=== PATIENT | male | born 1950 | race Caucasian/White ===

== ENCOUNTER 2023-06-04 06:29 | Outpatient (OUT) | payer MEDICARE, SELFPAY ==
[2023-06-04 10:55] LABS: Prostate Specific Antigen Dx 1.25 ng/mL (<=4.00)
== END 2023-06-04 06:30 | disposition home or self-care (01) ==
LOC: LAB 06:32
PROVIDERS: PCP Internal Medicine; Visit Provider Physician Assistant
DX: N40.0 Benign prostatic hyperplasia without lower urinary tract symptoms (principal)
CPT/HCPCS: 36415; 84153

== ENCOUNTER 2023-09-03 14:42 | Outpatient (OUT) | payer MEDICARE, SELFPAY ==
--- NOTE | 2023-09-03 | XR_ITS ---
The [address] [address] Patient Name: CHA BLAKE MRN: [id number] date: 1950 Sex: M Assigned Patient Location: [facility] Current Patient Location: [facility] Accession/Order Number: [id number] Exam Date: 09/03/2023 09:15 Report Date: 09/03/2023 14:49 At the request of: FIOR GALVAN Procedure: XR foot LT min 3V EXAM: XR foot LT min 3V 09/03/2023. FINDINGS: Frontal, oblique, and lateral views of the left foot were obtained. Axial view of the calcaneus was also present. A total of 4 images were obtained. HISTORY: LEFT FOOT PAIN COMPARISON: None. XR/XR foot LT min 3V IMPRESSION: 1. 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 At the forefoot this is most apparent at the first MTP and second DIP articulations. At the midfoot there is involvement of the first through third TMT articulations. There is involvement of the articulation between the cuneiforms and navicular as well as calcaneocuboid and talonavicular articulations. 2. No acute fracture or dislocation noted. 3. Small plantar calcaneal enthesophyte is noted. Electronically authenticated by: NAVIN OGDEN Date: 09/03/2023 14:49
== END 2023-09-03 14:43 | disposition home or self-care (01) ==
LOC: RAD 14:42
PROVIDERS: PCP Internal Medicine; Visit Provider Physician Assistant
DX: M20.10 Hallux valgus (acquired), unspecified foot (principal)
CPT/HCPCS: 73630

== ENCOUNTER 2024-06-03 06:58 | Outpatient (OUT) | payer MEDICARE, SELFPAY ==
[2024-06-03 08:01] LABS: Prostate Specific Antigen Dx 2.61 ng/mL (<=4.00)
== END 2024-06-03 06:59 | disposition home or self-care (01) ==
LOC: LAB 07:01
PROVIDERS: PCP Internal Medicine; Visit Provider Urology
DX: N40.1 Benign prostatic hyperplasia with lower urinary tract symptoms (principal); R97.20 Elevated prostate specific antigen [PSA]; Z80.42 Family history of malignant neoplasm of prostate
CPT/HCPCS: 36415; 84153

== ENCOUNTER 2024-09-01 09:21 | Outpatient (OUT) | payer MEDICARE, SELFPAY ==
--- OUTSIDE RECORDS SUMMARY | 2024-09-01 09:35 | XMS_ITS | CCD ---
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 Name Role Phone FRANK, DR TINAJERO Admitting Unavailable PERON, DR TINAJERO Attending Unavailable DIA, DR ROB Primary Care Unavailable PERGAIL, DR TINAJERO Consulting Unavailable HEMMER, DR MILDRED Nolasco Admitting Unavailable HEMMER, DR MILDRED Nolasco Attending Unavailable KHANNA, DR ROB Primary Care Unavailable BA, DR BRIDGER Neville Consulting Unavailable HEMMER, DR MILDRED Nolasco Consulting Unavailable GEORGETTEALISE Admitting Unavailable ALISE PALOMINO Attending Unavailable DIA, DR ROB Primary Care Unavailable DIA, DR ROB Consulting Unavailable BA, DR BRIDGER Neville Consulting Unavailable GEORGETTEALISE NGUYEN Consulting Unavailable DIA, DR ROB Primary Care Unavailable BLANE NAIK Admitting Unavailable BLANE NAIK Attending Unavailable BA, DR BRIDGER Neville Consulting Unavailable BLANE NAIK Consulting Unavailable Unavailable Primary Care Provider UnavailMD Ernie Hines Attending Provider LAURA Khanna Primary Care Provider Ernie Florez Attending Unavailable Speedy Khanna Primary Care Unavailable Ernie Florez Admitting Unavailable Ernie Florez Attending Unavailable Speedy Khanna Primary Care Unavailable Ernie Florez Admitting Unavailable Speedy Khanna II Primary Care Provider SPEEDY KHANNA II Primary Care Unavailable ANGLE MELCHOR Referring Unavailable ANGLE MELCHOR Attending Unavailable SPEEDY KHANNA II Primary Care Unavailable ANGLE MELCHOR Attending Unavailable ANGLE MELCHOR Admitting Unavailable SPEEDY KHANNA II Primary Care Unavailable ANGLE MELCHOR Referring Unavailable SPEEDY KHANNA II Primary Care Unavailable ANGLE MELCHOR Referring Unavailable SPEEDY KHANNA II Primary Care Unavailable ANGLE MELCHOR Referring Unavailable ANGLE MELCHOR Attending Unavailable SPEEDY KHANNA Attending Unavailable Speedy Khanna MD Unavailable Khanna MD, Speedy B Primary Care Provider [phone] SPEEDY KHANNA Primary Care Physician Tray BUCKLEY Attending Unavailable Tray BUCKLEY Attending Unavailable Tray BUCKLEY Attending Unavailable Allergies Allergy Classification Reported Allergen(s) Allergy Type Date of Onset Reaction(s) Facility (1 source) benzoin resin Drug Allergy 7 [facility] Repository (1 source) Misc-Other; Translations: [Misc-Other] Propensity to adverse reactions (disorder) 7 [facility] Repository (2 sources) atorvastatin Drug Allergy 3 Other [facility] Healthcare (2 sources) benzoin resin Drug Allergy 3 Unknown [facility] Healthcare (1 source) No Known Medication Allergies; Translations: [No Known Medication Allergies] Propensity to adverse reactions (disorder) [facility] Repository Medications Current Medications Medication Drug Class(es) Dates Sig (Normalized) Sig (Original) candesartan cilexetil 32 mg / hydroCHLOROthiazide 25 mg oral tablet (5 sources) Thiazide Diuretic, Angiotensin 2 Receptor Lexi Start: 06-14-2023 candesartan-hyd rochlorothiazid e 32 mg-25 mg oral tablet 1 tab(s), Oral, Daily, 30 tab(s), Refill(s) 0 Start Date: 06/14/23 Status: Ordered Start: 12-12-2022 Candesartan-Hy drochlorothiazid 32-25 mg tab Candesartan-Hydrochlorothiazid Active 1 TAB PO Daily December 12, 2022 12:00am 0 12/12/2022 Active Start: 12-12-2022 take 1 tablet by valarie th once daily Candesartan-Hydrochlorothiazid Active 1 TAB PO Daily December 12, 2022 12:00am Comment on above: Candesartan-Hydrochl orothiazid Active 1 TAB PO Daily December 12, 2022 12:00am doxycycline hyclate 50 mg oral tablet (2 sources) Tetracycline-class Drug Start: 06-14-20 doxycycline hyclate 50 mg oral tablet PRN Rash, Refills(s) 0, Other (see comment) Start Date: 06/14/23 Status: Ordered Start: 12-12-2022 take 50 mg by mouth once daily Doxycycline Hyclate Active 50 MG PO Daily December 12, 2022 12:00am Completed/Discontinued Medications Medication Drug Class(es) Dates Sig (Normalized) Sig (Original) acetaminophen 500 mg oral tablet (2 sources) Start: 03-10-2023 take 2 tablets by mouth every six hours as needed acetaminophen (TYLENOL) 500 mg tablet Take 2 tablets by mouth every 6 hours as needed for pain. 30 tablet 0 03/10/2023 Active Comment on above: Take 2 tablets by mo uth every 6 hours as needed for pain. oxyCODONE hydrochloride 5 mg oral tablet (2 sources) Opioid Agonist Start: 03-10-2023 take 1 tablet by mouth every eight hours as needed oxyCODONE IR (ROXICODONE) 5 mg immediate release tablet Indications: Post-op pain Take 1 tablet by mouth every 8 hours as needed. 6 tablet 0 03/10/2023 Active Comment on above: Take 1 tablet by valarie every 8 hours as needed. Problems Active Problems Problem Classification Problem Date Documented Date Episodic/Chronic Aortic; peripheral; and visceral artery aneurysms (13 sources) Abdominal aortic aneurysm, without rupture; Translations: [Abdominal aortic aneurysm without rupture] Onset: 10-31-2021 Chronic Conduction disorders (9 sources) First degree atrioventricular block; Translations: [Atrioventricular block, first degree] Onset: 03-06-2023 Chronic Disorders of lipid metabolism (2 sources) Raised low density lipoprotein cholesterol; Translations: [Pure hypercholesterolemia, unspecified] Onset: 05-29-2023 05-29-2023 Chronic Esophageal disorders (2 sources) Gastroesophageal reflux disease; Translations: [Gastro-esophageal reflux disease without esophagitis] Onset: 05-29-2023 05-29-2023 Chronic Essential hypertension (8 sources) Essential hypertension; Translations: [Essential (primary) hypertension] Onset: 03-06-2023 Chronic Hyperplasia of prostate (13 sources) Benign prostatic hyperplasia without lower urinary tract symptoms; Translations: [Benign prostatic hyperplasia] Onset: 05-31-2022 Chronic Other aftercare (1 source) 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; Translations: [OTH 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 OFFICER CURRENT DRUG THERAPY] Onset: 06-18-2022 Episodic Other connective tissue disease (1 source) Myalgia, unspecified site; Translations: [MYALGIA UNSPECIFIED SITE] Onset: 06-18-2022 Episodic Other ear and sense organ disorders (2 sources) Bilateral hearing loss; Translations: [Unspecified hearing loss, bilateral] 12-30-2023 Chronic Other ear and sense organ disorders (2 sources) Sensorineural hearing loss, bilateral; Translations: [Sensorineural hearing loss, bilateral] Onset: 05-29-2023 05-29-2023 Chronic Other inflammatory condition of skin (3 sources) Rosacea; Translations: [Rosacea, unspecified] Onset: 08-22-2023 08-22-2023 Chronic Other male genital disorders (3 sources) Induratio penis plastica; Translations: [Induration penis plastica] Onset: 08-22-2023 08-22-2023 Chronic Other nervous system disorders (1 source) Other acute postprocedural pain; Translations: [Post-op pain] Onset: 03-08-2023 Episodic Other nutritional; endocrine; and metabolic disorders (4 sources) Obese class I; Translations: [Obesity, unspecified] Onset: 03-07-2023 03-08-2023 Chronic Other nutritional; endocrine; and metabolic disorders (2 sources) Body mass index 30+ - obesity; Translations: [Obesity, unspecified] Onset: 08-22-2023 08-22-2023 Chronic Other screening for suspected conditions (not mental disorders or infectious disease) (4 sources) Encounter for screening for malignant neoplasm of prostate; Translations: [Raised prostate specific antigen] Onset: 06-04-2022 08-22-2023 Episodic Other upper respiratory infections (1 source) Acute upper respiratory infection, unspecified; Translations: [ACUTE UP RESPIRATORY INFECTION UNS] Onset: 06-18-2022 Episodic Residual codes; unclassified (3 sources) Family history of prostate cancer; Translations: [Family history of malignant neoplasm of prostate] Onset: 08-22-2023 08-22-2023 Episodic Residual codes; unclassified (1 source) Family history of cancer; Translations: [Family history of malignant neoplasm of prostate] Onset: 06-24-2024 Episodic Screening and history of mental health and substance abuse codes (1 source) Personal history of nicotine dependence; Translations: [PERSONAL HISTORY OF NICOTINE DEPEND] Onset: 06-18-2022 Episodic Unclassified (1 source) COUGH, UNSPECIFIED; Translations: [COUGH, UNSPECIFIED] Onset: 06-18-2022 Unclassified (1 source) Abdominal aortic aneurysm (AAA) without rupture, unspecified part (HCC); Translations: [Abdominal aortic aneurysm (AAA) without rupture, unspecified part (HCC)] Onset: 03-05-2023 Viral infection (4 sources) COVID-19; Translations: [COVID-19] Onset: 06-14-2022 Past or Other Problems Problem Classification Problem Date Documented Date Episodic/Chronic Abdominal hernia (6 sources) Recurrent hernia of anterior abdominal wall; Translations: [Incisional hernia without obstruction or gangrene] Onset: 04-01-2023 Episodic Other and unspecified benign neoplasm (2 sources) Adenomatous polyp of colon ; Translations: [Benign neoplasm of colon, unspecified] Onset: 05-29-2023 05-29-2023 Episodic Other ear and sense organ disorders (2 sources) Bilateral tinnitus; Translations: [Tinnitus, bilateral] Onset: 05-29-2023 05-29-2023 Episodic Other inflammatory condition of skin (2 sources) Itching of skin; Translations: [Pruritus, unspecified] Onset: 05-29-2023 05-29-2023 Episodic Other nervous system disorders (4 sources) Postoperative pain ; Translations: [Other acute postprocedural pain] Onset: 03-08-2023 03-08-2023 Episodic Residual codes; unclassified (4 sources) History of hernia repair; Translations: [Other specified postprocedural states] Onset: 03-08-2023 03-08-2023 Episodic Results Test Name Value Interpretation Reference Range Facility Ambulatory Visit Summaryon 0 06-24-2024 Ambulatory Visit Summary Ambulatory Visit Summary CHA ELENA :1950 Visit Date:06/24/2024 Ambulatory Visit Instructions Your Diagnosis BPH with urinary obstruction Family history of prostate cancer Your Care Team Attending Physician - JONATHAN WATSON, Tray Gilbert Primary Care Physician - DIA WATSON, SPEEDY Kat This Is Your Medications List Contact prescribing physician if questions or concerns candesartan-hydrochl orothiazide (candesartan-hydroch lorothiazide 32 mg-25 mg oral tablet) doxycycline (doxycycline hyclate 50 mg oral tablet) Procedures Performed Transrectal biopsy of prostate using ultrasound guidance (06/26/2010), Cholecystectomy, Hernia, Stomach. Discharge Vitals Temperature (Temporal Artery) 37 ?C Heart Rate (Peripheral) 89 Respiratory Rate 16 Blood Pressure 117/77 Height 177 cm Height 70 in Weight 107 kg Weight 235.4 lb BMI 34.15 What to do next Scheduled Follow-Up Appointments Saturday 8:45 AM EDT With: Tray BUCKLEY MD Where: [facility] [address] [place] [address]- You Need to Schedule the Following Appointments Follow Up with Tray BUCKLEY MD, URL When: Where: [facility] [address], [facility] [place] [address]- Medications What How Much When Instructions Unchanged candesartan-hydrochl orothiazide (candesartan-hydroch lorothiazide 32 mg-25 mg oral tablet) 1 Tablets By Mouth Every day Contact prescribing physician if questions or concerns Unchanged doxycycline (doxycycline hyclate 50 mg oral tablet) As needed for Rash Contact prescribing physician if questions or concerns Allergies No Known Medication Allergies Problems Ongoing - Any problem that you are currently receiving treatment for. BPH with urinary obstruction Elevated PSA Family history of prostate cancer Hypertension Peyronie's disease Rosacea Patient Survey You may receive a survey via text or e-mail asking about your office visit. Please share your experience with us by completing your survey. We appreciate your feedback and thank you for choosing us for your care. Education Materials Prostate Cancer Screening Prostate cancer screening is testing that is done to check for the presence of prostate cancer in men. The prostate gland is a walnut-sized gland that is located below the bladder and in front of the rectum in males. The function of the prostate is to add fluid to semen during ejaculation. Prostate cancer is one of the most common types of cancer in men. Who should have prostate cancer screening? Screening recommendations vary based on age and other risk factors, as well as between the professional organizations who make the recommendations. In general, screening is recommended if: ? You are age 50 to 70 and have an average risk for prostate cancer. You should talk with your health care provider about your need for screening and how often screening should be done. Because most prostate cancers are slow growing and will not cause , screening in this age group is generally reserved for men who have a 10- to 15-year life expectancy. ? You are younger than age 50, and you have these risk factors: ? Having a father, brother, or uncle who has been diagnosed with prostate cancer. The risk is higher if your family member's cancer occurred at an early age or if you have multiple family members with prostate cancer at an early age. ? Being a male who is Black or is of Salty or sub-Saharan descent. In general, screening is not recommended if: ? You are younger than age 40. ? You are between the ages of 40 and 49 and you have no risk factors. ? You are 70 years of age or older. At this age, the risks that screening can cause are greater than the benefits that it may provide. If you are at high risk for prostate cancer, your health care provider may recommend that you have screenings more often or that you start screening at a younger age. How is screening for prostate cancer done? The recommended prostate cancer screening test is a blood test called the prostate-specific antigen (PSA) test. PSA is a protein that is made in the prostate. As you age, your prostate naturally produces more PSA. Abnormally high PSA levels may be caused by: ? Prostate cancer. ? An enlarged prostate that is not caused by cancer (benign prostatic hyperplasia, or BPH). This condition is very common in older men. ? A prostate gland infection (prostatitis) or urinary tract infection. ? Certain medicines such as male hormones (like testosterone) or other medicines that raise testosterone levels. A rectal exam may be done as part of prostate cancer screening to help provide information about the size of your prostate gland. When a rectal exam is performed, it should be done after the PSA level is drawn to avoid any effect on the res (more content not included)... Normal [facility] Urology Office/Clinic Noteon 06-24-2024 Urology Office/Clinic Note Urology Office/Clinic Note Chief Complaint Pt is here for 1 yr w/ PSA HPI Staff Cha is a 73 y.o. male here for 1 year w/ PSA. Previous Dx: elevated PSA, family history of prostate cancer, Peyronie's disease. S/P TRUS/bx done on 06/26/10. PSA: 2.61 - 06/03/24 1.25 - 06/04/23 Dysuria: denies Incomplete bladder emptying: denies Hematuria: denies Frequency: denies Urgency: denies Nocturia: 1x on occasion Stream: steady stream Leaking: denies Post void dripping: denies Wearing pads/ Depends: denies Urge incontinence: denies Stress incontinence: denies Incontinence without Sensory Awareness: denies Abdominal pain: denies Flank pain: denies Sexual complaints: _ History of Present Illness Tests reviewed: reviewed UA, PSA I have reviewed the previous health record information and history for this patient from Dr. Buckley. I have reviewed and verified the staff HPI to be accurate for this encounter. Review of Systems PHQ Score Initial Depression Screen Score: 0 SCORE ROS - Provider Constitutional: denies weight loss, denies hot flashes. Eyes: denies eye problems. Gastrointestinal: denies nausea, denies vomiting. Cardiovascular: denies chest pain or angina. Integumentary: no dryness Musculoskeletal: denies musculoskeletal symptoms. ENMT: denies otolaryngeal symptoms. Respiratory: no shortness of breath. Heme/Lymph: denies easy bleeding tendency, denies easy bruising tendency. Psychiatric: no confusion, no anxiety. Genitourinary: See HPI. Physical Exam Vitals & Measurements T: 37 ?C(Temporal Artery) HR: 89(Peripheral) RR: 16 BP: 117/77 HT: 70 in HT: 177 cm WT: 107 kg WT: 235.4 lb BMI: 34.15 General Appearance: alert, no distress, well nourished, well developed male. Genitourinary: normal scrotum, normal testes, normal urethra, normal epididymis, normal vas deferens/spermatic cord. Flank Pain: none. Bladder: nonpalpable. Prostate: normal prostate, estimated weight 45 gms, no hard nodule observed. Assessment/Plan 1. BPH with urinary obstruction (N40.1: Benign prostatic hyperplasia with lower urinary tract symptoms) PSA: 01/28/14 - 1.46 02/03/15 - 1.51 02/04/16 - 1.55 02/22/17 - 1.92 02/27/18 - 1.56 03/25/19 - 3.01 05/23/20 - 1.71 05/24/21 - 1.29 07 - 1.37 06/04/23 - 1.25 06/03/24 - 2.61 UA today negative for blood and infection. IPSS 3. Not taking any BPH meds. PSA increased from prior but hx of PSA fluctuation. Will cont to monitor. Had TRUS/bx in 2009. Shares his PSA went up to 4 which prompted bx. 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 DELIA ~45 g, no nodules. Follow up 1 yr PSA or sooner if needed. Pt understands and agrees with plan. -If PSA and DREs remains stable for a few years, will d/c PSA monitoring. 2. Family history of prostate cancer (Z80.42: Family history of malignant neoplasm of prostate) Uncle and first cousin ( from prostate ca at 58). Follow-up With When Contact Information JONATHAN WATSON, Tray Gilbert, URL [facility] [address], [place] [address]- Additional Instructions: 1 yr PSA Patient Education Prostate Cancer Screening I, Gissell Shah, personally scribed for Dr. Buckley on 06/24/2024 13:30:41. . Documentation recorded by the scribe, Gissell Shah, accurately reflects the services(s) I performed and decisions made by me. Authenticated by Dr. Buckley on 06/24/2024 13:35:09. Problem List/Past Medical History Ongoing BPH with urinary obstruction Elevated PSA Family history of prostate cancer Hypertension Peyronie's disease Rosacea Historical No qualifying data Procedure/Surgical History Transrectal biopsy of prostate using ultrasound guidance (06/26/2010), Cholecystectomy, Hernia, Stomach. Medications candesartan-hydrochl orothiazide 32 mg-25 mg oral tablet, 1 tab(s), Oral, Daily doxycycline hyclate 50 mg oral tablet, PRN Allergies No Known Medication Allergies Social History Tobacco Former smoker, quit more than 30 days ago Tobacco Use:. Never Smokeless Tobacco Use:. Cigarettes, Stopped age 37 Years., 06/24/2024 Family History Prostate cancer: Uncle. Immunizations Vaccine Date Status influenza virus vaccine, inactivated 08/26/2023 Recorded influenza virus vaccine, inactivated 10/25/2022 Recorded zoster vaccine, inactivated 01/09/2022 Recorded zoster vaccine, inactivated 10/24/2021 Recorded pneumococcal 13-valent vaccine 10/24/2021 Recorded pneumococcal 23-valent vaccine 05/23/2020 Recorded influenza virus vaccine, inactivated 10/30/2019 Recorded Lab Results Ambulatory Point of Care Results Bilirubin Urine Dipstick: Negative (06/24/24 13:03:00) Blood Urine Dipstick: Negative (06/24/24 13:03:00) Glucose Urine Dipstick: Negative (06/24/24 13:03:00) Ketones Urine Dipstick: Negative (06/24/24 13:03:00) Leukocytes Urine Dipstick: Negative (06/24 (more content not included)... Normal [facility] Comment on above: Result Comment: Elec tronically Signed By: Tray BUCKLEY MD\.br\Date and Time Signed: 06/24/24 13:35 EDT\.br\Electronically Co-Signed By: Gissell Shah\.br\Date and Time Co-Signed: 06/24/24 13:30 EDT [facility] 04-01-2023 CNOV Office Visit (GENMINISTERIO) CHA ELENA ([id number]) 1950 M DEF Date Time Provider Department 04/01/23 11:20 AM ANGLE MELCHOR During your visit today, we recorded the following information about you: Temperature Pulse Respiration Blood pressure 96.9 degrees 91/minute 14/minute 154/80 Weight Height 108 kg 1.778 m Miguel Boothe 04/01/2023 11:34 AM Signed What is the reason for your visit today? Post op Who is your referring physician? Dr. Melchor Are you having poor oral intake? NO Have you had unintentional weight loss of 15 lbs/7 Kg in the last 3-6 months? NO Bowels: regular Wound: clean AND dry Temperature: No Drains: No Tarik Person MD 04/01/2023 1:[address] [facility] Abdominal Core Health - HISTORY AND PHYSICAL Chief Complaint: post-surgical follow-up HPI: Cha Elena is a 72-year-old male who underwent TAR on 03.07.23. since surgery, he has been feeling good, has no pain, and has returned to his normal activities. The abdomen is soft and non-tender, and the wound looks normal. No past medical history on file. PAST SURGICAL HISTORY Procedure Laterality Date COLONOSCOPY SCREENING HERNIA REPAIR HX PAST SURGICAL HISTORY OF emergent surgery for necrotic bowel REMOVAL GALLBLADDER Social History Tobacco Use Smoking status: Former Types: Cigarettes Quit date: 2016 Years since quittin.3 Smokeless tobacco: Former Types: Snuff Quit date: 1989 Substance Use Topics Alcohol use: Yes Alcohol/week: 35.0 - 42.0 standard drinks Types: 35 - 42 Cans of Beer (12oz) per week Drug use: Never Additional social history not relevant to the patient's HPI FAMILY HISTORY Problem Relation Age of Onset Anesthesia Problems No Family History Additional family history not relevant to the patient's HPI ALLERGIES No Known Allergies Current Outpatient Medications Medication Sig Dispense Refill acetaminophen (TYLENOL) 500 mg tablet Take 2 tablets by mouth every 6 hours as needed for pain. 30 tablet 0 oxyCODONE IR (ROXICODONE) 5 mg immediate release tablet Take 1 tablet by mouth every 8 hours as needed. 6 tablet 0 Candesartan-Hydrochl orothiazid 32-25 mg tab Candesartan-Hydrochl orothiazid Active 1 TAB PO Daily December 12, 2022 12:00am No current facility-administere d medications for this visit. REVIEW OF SYSTEMS The remainder of the 12 review of systems is negative other than what was mentioned in the HPI and above. BP 154/80 Pulse 91 Temp 36.1 ?C (96.9 ?F) (Temporal Artery) Resp 14 Ht 177.8 cm (5' 10 ) Wt 108 kg (238 lb) BMI 34.15 kg/m? Physical findings of this patient are as follows (COMPLETE 10 INCLUDING HEART AND LUNG EXAM OR CHOOSE NORMAL EXAM IF APPROPRIATE): Physical Exam Physical Exam Constitutional: The patient is well-developed, well-nourished, and in no distress. Head: Normocephalic and atraumatic. Eyes: Pupils are equal, round, and reactive to light. EOM are normal. Neck: Normal range of motion. Neck supple. Cardiovascular: Regular rhythm and normal heart sounds. Pulmonary/Chest: Effort normal and breath sounds normal. Abdominal: Soft. Bowel sounds are normal. Musculoskeletal: Normal range of motion. Neurological: He is alert. GCS score is 15. Skin: Skin is warm and dry. Psychiatric: Affect and judgment normal. LABS: No results found for: HBA1C Plan: Follow up in a year with CT scan Angle Melchor MD 04/01/2023 1:32 PM Signed 30-DAY FOLLOW UP NOTE FROM [facility] Cha Elena is a 72 year-old male with who presents 25 days after: ? Open incisional, hernia repair with 30 cm x 30 cm retromuscular and preperitoneal SURGIMESH WN ([facility]) ? Bilateral transversus abdominis and post rectus sheath incision myofascial release The patient experienced an uncomplicated postoperative course. Hospital length of stay: 3 Readmission: No Evidence of recurrence: No, (clinical assessment) I will plan see the patient again in 12 months or sooner if there are any unanticipated events. Dr. Angle Melchor Allergies As of Date: 04/01/2023 (No Known Allergies) Date Reviewed: 03/08/2023 Reviewed by: Maria M Vaz APRN.SCREEN OPERATOR - Fully Assessed Reason for Visit: Post Op [174] Primary Visit Diagnosis:Recurrent ventral hernia [K43.2] Prescriptions as of 04/01/2023 - acetaminophen (TYLENOL) 500 mg tablet Take 2 tablets by mouth every 6 hours as needed for pain. - oxyCODONE IR (ROXICODONE) 5 mg immediate release tablet Take 1 tablet by mouth every 8 hours as needed. - Candesartan-Hydrochl orothiazid 32-25 mg tab Candesartan-Hydrochl orothiazid Active 1 TAB PO Daily December 12, 2022 12:00am Problem List As Of Date 04/01/2023 Noted Resolved Abdominal aortic aneurysm without rupture (HCC)*11/04/2021 Benign prostatic hyperplasia without lower urin*06/04/2022 Primary hypertension [I10] (more content not included)... Normal [facility] Keshia 03-15-2023 YULISSAN Telephone (PODCCP) CHA ELENA ([id number]) 1950 M DEF Date Time Provider Department 03/15/23 BHAVYA MCINTOSH During your visit today, we recorded the following information about you: Bhavya Mcintosh RN 03/15/2023 2:27 PM Signed PATIENT INFORMATION Record ID: [id number] Patient Name: Cha [facility]: [facility] [place]: [facility] [place] Attending: Angle Melchor Center: General Surgery INSTRUCTIONS SN to remind patient of appointment date, time, location All Clear All Clear SURVEY INFORMATION Medical/Nurse Tutorial Laboratory Supervisor: Bhavya Mcintosh 1. Your discharge instructions are important in guiding you through the recovery process. Is there anything I could help you clarify on your discharge instructions? (Standard Question) No, All clear 2. Do you have a follow up appointment related to your hospital stay scheduled within the next 30 days? (Standard Question) Yes 3. Do you have any of the following new symptoms related to your wound?; Creamy white or foul smelling drainage Increasing redness or swelling, Increasing pain (Red Flag Question) No, no concerns at all 4. Are you tolerating your pain with your current medication? (Red Flag Question) I have no pain or minimal pain 5. Many patients have concerns about their medications once they are home. Do you have any questions about getting or taking your medications? (Standard Question) No 6. Do you have any new or different symptoms? (Standard Question) No Allergies As of Date: 03/15/2023 (No Known Allergies) Date Reviewed: 03/08/2023 Reviewed by: Maria M Vaz APRN.SCREEN OPERATOR - Fully Assessed Reason for Visit: Follow Up Phone Call [[phone]] Cmt: All clear Prescriptions as of 03/15/2023 - acetaminophen (TYLENOL) 500 mg tablet Take 2 tablets by mouth every 6 hours as needed for pain. - oxyCODONE IR (ROXICODONE) 5 mg immediate release tablet Take 1 tablet by mouth every 8 hours as needed. - Candesartan-Hydrochl orothiazid 32-25 mg tab Candesartan-Hydrochl orothiazid Active 1 TAB PO Daily December 12, 2022 12:00am Problem List As Of Date 03/15/2023 Noted Resolved Abdominal aortic aneurysm without rupture (HCC)*11/04/2021 Benign prostatic hyperplasia without lower urin*06/04/2022 Primary hypertension [I10] 03/06/2023 AV block, 1st degree [I44.0] 03/06/2023 Incisional hernia, without obstruction or gangr*03/07/2023 03/08/2023 Obesity, Class I, BMI 30-34.9 [E66.9] 03/07/2023 Post-op pain [G89.18] 03/08/2023 S/P hernia repair [Z98.890, Z87.19] 03/08/2023 Encounter Status:Closed by BHAVYA MCINTOSH on 03/15/23 Normal [facility] Basic metabolic 2000 panelon 03-10-2023 Anion gap [Moles/Vol] 10 mmol/L Normal 9-[address] [facility] Comment on above: Order Comment: Speci men Type: BLOOD SPECIMEN Ordering Facility: [facility] Address: [address] [place] [address] Performed By: #### 1 9123-9, 43500-4, 1988-03, HSTNT, 2776-11 #### [facility] CLIA [id number] [address] [place] [address] [place] Calcium [Mass/Vol] 8.8 mg/dL Normal 8.5-10.2 [facility] Comment on above: Order Comment: Speci men Type: BLOOD SPECIMEN Ordering Facility: [facility] Address: [address] [place], [place] [phone] Performed By: #### 1 9123-9, , 1988-03, HSTNT, 27705-25 #### [facility] CLIA [id number] [address] [place] [address] [place] Chloride [Moles/Vol] 103 mmol/L Normal 97-105 [facility] Comment on above: Order Comment: Speci men Type: BLOOD SPECIMEN Ordering Facility: [facility] Address: [address] [place], [place] [phone] Performed By: #### 1 9123, , 1988-03, HSTNT, 2776-11 #### [facility] CLIA [id number] [address] [place] [address] [place] CO2 [Moles/Vol] 25 mmol/L Normal 22-30 [facility] Comment on above: Order Comment: Speci men Type: BLOOD SPECIMEN Ordering Facility: [facility] Address: [address] [place] [address] Performed By: #### 1 9123-07, , 1988-03, HSTNT, 2776-11 #### [facility] CLIA [id number] [address] [place] [address] [place] Creatinine [Mass/Vol] 0.68 mg/dL Low 0.73-1.[address] [facility] Comment on above: Order Comment: Speci men Type: BLOOD SPECIMEN Ordering Facility: [facility] Address: [address] [place] [address] Performed By: #### 1 9123-07, , 1988-03, HSTNT, 2776-11 #### [facility] CLIA [id number] [address] [place] [address] [place] ESTIMATED GLOMERULAR FILTRATION RATE 99 mL/min/1.73m??? Normal >=60 [facility] Comment on above: Order Comment: Speci men Type: BLOOD SPECIMEN Ordering Facility: [facility] Address: [address] [place] [address] Result Comment: Constance mated Glomerular Filtration Rate (eGFR) is calculated using the 2020 CKD-EPI creatinine equation. This equation utilizes serum creatinine, sex, and age as parameters. The creatinine assay has traceable calibration to isotope dilution-mass spectrometry. Refer to KDIGO guidelines for clinical interpretation. In patients with unstable renal function, e.g. those with acute kidney injury, the eGFR may not accurately reflect actual GFR. Performed By: #### 1 9123-07, , 1988-03, HSTNT, 2776-11 #### [facility] CLIA [id number] [address] [place] [address] [place] Glucose [Mass/Vol] 97 mg/dL Normal 74-99 [facility] Comment on above: Order Comment: Speci men Type: BLOOD SPECIMEN Ordering Facility: [facility] Address: [address] [place] [address] Result Comment: The [place] Diabetes Association (ADA) provides guidance for cutoff values for fasting glucose and random glucose. The ADA defines fasting as no caloric intake for at least 8 hours. Fasting plasma glucose results between 100 to 125 mg/dL indicate increased risk for diabetes (prediabetes). Fasting plasma glucose results greater than or equal to 126 mg/dL meet the criteria for diagnosis of diabetes. In the absence of unequivocal hyperglycemia, results should be confirmed by repeat testing. In a patient with classic symptoms of hyperglycemia or hyperglycemic crisis, random plasma glucose results greater than or equal to 200 mg/dL meet the criteria for diagnosis of diabetes. Reference: Standards of Medical Care in Diabetes 2016, [place] [employer] Association. Diabetes Care. 2016.39(Suppl 1). Performed By: #### 1 9123-9, 22644-9, 1988-03, HSTNT, 2776-11 #### [facility] CLIA [id number] [address] [place] [address] [place] Potassium [Moles/Vol] 3.8 mmol/L Normal 3.7-5.[address] [facility] Comment on above: Order Comment: Speci men Type: BLOOD SPECIMEN Ordering Facility: [facility] Address: [address] [place] [address] Performed By: #### 1 9123-9, 71729-9, 1988-03, HSTNT, 7 #### [facility] CLIA [id number] [address] [place] [address] [place] Sodium [Moles/Vol] 138 mmol/L Normal 136-144 [facility] Comment on above: Order Comment: Speci men Type: BLOOD SPECIMEN Ordering Facility: [facility] Address: [address] [place] [address] Performed By: #### 1 9123-9, 52721-1, 1988-03, HSTNT, 2776-11 #### [facility] CLIA [id number] [address] [place] [address] [place] Urea nitrogen [Mass/Vol] 11 mg/dL Normal 9-24 [facility] Comment on above: Order Comment: Speci men Type: BLOOD SPECIMEN Ordering Facility: [facility] Address: [address] [place], [place] [address] Performed By: #### 1 9123-9, , 1988-03, HSTNT, 2776-11 #### [facility] CLIA [id number] [address] [place] [address] [place] CBC panel Auto (Bld)on 03-10 Erythrocyte distribution width (RBC) [Ratio] 12.2 % Normal 11.5-15.0 [facility] Comment on above: Order Comment: Speci men Type: BLOOD SPECIMEN Ordering Facility: [facility] Address: [address] [place], [place] [phone] Performed By: #### 1 9123-9, , 1988-03, HSTNT, 2776-11 #### [facility] CLIA [id number] [address] [place] [address] [place] Hematocrit (Bld) [Volume fraction] 38.4 % Low 39.0-51.0 [facility] Comment on above: Order Comment: Speci men Type: BLOOD SPECIMEN Ordering Facility: [facility] Address: [address] [place] [address] Performed By: #### 1 9123-9, , 1988-03, HSTNT, 2776-11 #### [facility] CLIA [id number] [address] [place] [address] [place] Hemoglobin (Bld) [Mass/Vol] 13.2 g/dL Normal 13.0-17.0 [facility] Comment on above: Order Comment: Speci men Type: BLOOD SPECIMEN Ordering Facility: [facility] Address: [address] [place] [address] Performed By: #### 1 9, , 1988-03, HSTNT, 2776-11 #### [facility] CLIA [id number] [address] [place] [address] [place] MCH (RBC) [Entitic mass] 31.4 pg Normal 26.0-34.0 [facility] Comment on above: Order Comment: Speci men Type: BLOOD SPECIMEN Ordering Facility: [facility] Address: [address] [place] [address] Performed By: #### 1 9, , 1988-03, HSTNT, 2776-11 #### [facility] CLIA [id number] [facility] [place] MCHC (RBC) [Mass/Vol] 34.4 g/dL Normal 30.5-36.[address] [facility] Comment on above: Order Comment: Speci men Type: BLOOD SPECIMEN Ordering Facility: [facility] Address: [address] [place] [address] Performed By: #### 1 9, , 1988-03, HSTNT, 2776-11 #### [facility] CLIA [id number] [facility] [place] [address] [place] MCV (RBC) [Entitic vol] 91.2 fL Normal 80.0-100.0 [facility] Comment on above: Order Comment: Speci men Type: BLOOD SPECIMEN Ordering Facility: [facility] Address: [address] [place] [address] Performed By: #### 1 9, , 1988-03, HSTNT, 2776-11 #### [facility] CLIA [id number] [address] [id number] [address] [place] Nucleated RBC (Bld) [#/Vol] 10*3/uL Normal <0.01 [facility] Comment on above: Order Comment: Speci men Type: BLOOD SPECIMEN Ordering Facility: [facility] Address: [address] [place] [address] Performed By: #### 1 9122-9, , 1988-03, HSTNT, 2776- #### [facility] CLIA [id number] [address] [place] [address] [place] Platelet mean volume (Bld) [Entitic vol] 10.1 fL Normal 9.0-12.7 [facility] Comment on above: Order Comment: Speci men Type: BLOOD SPECIMEN Ordering Facility: [facility] Address: [address] [place] [address] Performed By: #### 1 9, , 1988-03, HSTNT, 2776- #### [facility] CLIA [id number] [address] [place] [address] [place] Platelets (Bld) [#/Vol] 250 10*3/uL Normal 150-400 [facility] Comment on above: Order Comment: Speci men Type: BLOOD SPECIMEN Ordering Facility: [facility] Address: [address] [place] [address] Performed By: #### 1 9, , 1988-03, HSTNT, 2776-11 #### [facility] CLIA [id number] [address] [place] [address] [place] RBC (Bld) [#/Vol] 4.21 10*6/uL Normal 4.20-6.00 [facility] Comment on above: Order Comment: Speci men Type: BLOOD SPECIMEN Ordering Facility: [facility] Address: [address] [place] [address] Performed By: #### 1 9, , 1988-03, HSTNT, 2776-11 #### [facility] CLIA [id number] [address] [place] [address] [place] WBC (Bld) [#/Vol] 6.47 10*3/uL Normal 3.70-11.00 [facility] Comment on above: Order Comment: Speci men Type: BLOOD SPECIMEN Ordering Facility: [facility] Address: [address] [place] [address] Performed By: #### 1 9123-9, 22250-4, 1988-03, HSTNT, 2776-11 #### [facility] CLIA [id number] [address] [place] CNDSon 03-10-2023 CNDS HNO ID: [id number] Author: Fareed Velarde MD Service: General Surgery Author Type: Resident Type: Discharge Summary Filed: 03/10/2023 10:32 AM Note Text: Attestation signed by Angle Melchor MD at 03/13/2023 8:51 AM Angle Melchor MD GENERAL SURGERY DISCHARGE SUMMARY PATIENT NAME: Cha Elena ADMISSION DATE: 03/07/2023 DISCHARGE DATE: 03/10/2023 ATTENDING PHYSICIAN: Angle Melchor MD Code Status: Not on file Highest Readmission Risk Score: 8 The 30 day readmissions risk score is derived from an internally validated risk model which evaluates patient level characteristics, utilization history, medication orders and lab results up until the day of discharge. Patients with a score of 40 or above are considered highest risk for readmission. Specific patient level drivers will be listed at the bottom of the summary. REASON FOR HOSPITALIZATION: hernia surgery and recovery OPERATIONS DURING HOSPITALIZATION: 1. Open right myofascial advancement flap. 2. Open left myofascial advancement flap. 3. Repair of recurrent incarcerated incisional hernia. 4. Implantation of 30 x 30 cm of Surgimesh. PROCEDURES DURING HOSPITALIZATION: IV access Intubation for surgery Anesthesia administration HOSPITAL COURSE: Cha Elena is a 72 y/o F with a PMH of AAA without rupture, BPH, HTN who underwent a bilateral TAR, open ventral hernia repair with mesh by Natalie on 03/07/2023. Surgery was as expected, see operative report for details. On POD1 his calle was removed and he was able to void. He was kept on CLD for c/o nausea. On POD2 a KUB was obtained given continued nausea and demonstrates mild ileus. Later on POD2 he endorses flatus and symptomatic improvement. On POD3 he was progressing well, tolerating diet, pain well controlled, ambulating without issues. Drains were removed and the patient was discharged home. GENERAL/NEURO: Awake, Alert, no distress HEENT: Normocephalic, Atraumatic, sclera anicteric CARDIORESP: Non-labored breathing on RA, hemodynamically stable ABDOMEN: Soft, non tender, non distended, binder in place INCISIONS: clean/dry/intact DRAIN: serosanguinous, removed. EXTREMITIES: warm, well perfused, no jaundice, no cyanosis, no edema Active Hospital Problems Diagnosis Date Noted Post-op pain 03/08/2023 S/P hernia repair 03/08/2023 Obesity, Class I, BMI 30-34.9 03/07/2023 Primary hypertension 03/06/2023 Benign prostatic hyperplasia without lower urinary tract symptoms 06/04/2022 Resolved Hospital Problems Diagnosis Date Noted Date Resolved Incisional hernia, without obstruction or gangrene 03/07/2023 03/08/2023 Transitions of Care Critical Issues: Follow up 3-4 weeks from discharge in clinic LABS AND PROCEDURES PENDING AT DISCHARGE: No pending results. CONSULTING TEAMS DURING HOSPITALIZATION: None Treatment Team: Attending Provider: Angle Melchor MD Primary Service: ROSA LYON PATIENT CONDITION AT DISCHARGE: Stable DISCHARGE DISPOSITION: Home with Self Care INFORMATION PROVIDED TO PATIENT: DCI DIET: Low soft-fiber diet: No fresh fruits, whole grains, foods difficult to digest, or vegetables (unless they are well-cooked) ACTIVITY: Lifting is restricted to: 10 lbs for 4 weeks May bathe and shower No walking restrictions No driving while on narcotics May use stairs WOUND/SURGICAL SITE CARE: None ALLERGIES No Known Allergies DISCHARGE MEDICATION: Current Discharge Medication List START taking these medications acetaminophen (TYLENOL) 1,000 mg Take 1,000 mg by mouth every 6 hours as needed for pain. Qty: 30 tablet Refills: 0 oxyCODONE IR (ROXICODONE) 5 mg Take 5 mg by mouth every 8 hours as needed. Qty: 6 tablet Refills: 0 Associated Diagnoses:Post-op pain CONTINUE these medications which have NOT CHANGED Candesartan-Hydrochl orothiazid 32-25 mg tab Candesartan-Hydrochl orothiazid Active 1 TAB PO Daily December 12, 2022 12:00am PLAN OF CARE: Plan of care discussed with Provider, RN, Patient and Care Management FUTURE APPOINTMENTS: Future Appointments Date Time Provider Department Center 04/01/2023 11:20 AM [facility] The patient's risk for 30-day readmission is determined using the following contributing factors: Pt variables contributing to increased readmission risk: 16 Most Recent BUN Result 14 Active Medication Orders 8.6 First Resulted Calcium During Admission 1 Insurance - Medicare 1 Active Anticoagulant I have performed the substantive portion including [id number] and relevant services for a total of >30 minutes. SIGNATURE: Fareed Velarde MD DATE: March 10, 2023 TIME: 12:10 PM Normal [facility] CRP SerPl-mCncon 03-10-2023 CRP [Mass/Vol] 7.1 mg/dL High <0.9 [facility] Comment on above: Order Comment: Speci men Type: BLOOD SPECIMEN Ordering Facility: [facility] Address: [address] [place] [address] Performed By: #### 1 9123-9, 94250-4, 1988-5, HSTNT, 2777-1 #### [facility] CLIA [id number] [address] [place] Magnesium SerPl-mCncon 03-10 Magnesium [Mass/Vol] 2.3 mg/dL Normal 1.7-2.3 [facility] Comment on above: Order Comment: Speci men Type: BLOOD SPECIMEN Ordering Facility: [facility] Address: [address] [place], [place] [id number] Performed By: #### 1 9123-9, 30118-7, 1987-, HSTNT, 2777- #### [facility] CLIA [id number] [address] [place] [address] [place] NURSING PROGon 03-10-2023 NURSING PROG HNO ID: [id number] Author: Elizabet Morrissey RN Service: ? Author Type: Registered Nurse Type: Nursing Progress Note Filed: 03/10/2023 6:48 AM Note Text: On initial assess, pt resting in bed.. Verbalized that he is doing all right . Denied any h/a, c/p, nausea, or cough. Reviewed orders and HS POC. Reinforced hourly use of IS- up to 1999. States abd discomfort is a 1 . 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 ETHAN x2 charged. Using urinal for I/O's. + flatus tonight. IVF's infusing per order. IPC to legs when in bed. Did take tyl for low back pain- states the bed is very uncomfortable. Up, ambulating in the hallways during the night. Gown changed and bed linens changed- pt declined offer to get washed up. VSS. No distress. Pt aware to call for any needs/chge/assist. Cont to monitor closely. LIP paged @0112 re; no quesada labs ordered (and pt was given Kphos replete Sat am) . NNO's 0645- Noted pt has significant LYNN- stops breathing for 30+ seconds at a time- maintains O2 sat- Pt notified this am to f/u with PMD... I know... I just cant sleep with a mask on . Up to chair this am. am lab orders entered- drawn and sent. No chge in assess per Q1-2hr rounds t/o the night. Normal [facility] Phosphate SerPl-mCncon 03-10 Phosphate [Mass/Vol] 1.6 mg/dL Low 2.7-4.8 [facility] Comment on above: Order Comment: Speci men Type: BLOOD SPECIMEN Ordering Facility: [facility] Address: [address] [place], [place] [phone] Performed By: #### 1 9123-9, 29818-6, 1988-03, HSTNT, 2776-11 #### [facility] CLIA [id number] [address] [place] [address] [place] Basic metabolic 2000 panelon 03-09-2023 Anion gap [Moles/Vol] 15 mmol/L Normal 9-[address] [facility] Comment on above: Order Comment: Speci men Type: BLOOD SPECIMEN Ordering Facility: [facility] Address: [address] [place], [place] [address] Performed By: #### 1 9123-9, 05984-7, 1988-03, HSTNT, 2776-11 #### [facility] CLIA [id number] [address] [place] [address] [place] Calcium [Mass/Vol] 9.0 mg/dL Normal 8.5-10.2 [facility] Comment on above: Order Comment: Speci men Type: BLOOD SPECIMEN Ordering Facility: [facility] Address: [address] [place], [place] [phone] Performed By: #### 1 9123-9, , 1988-03, HSTNT, 27705-25 #### [facility] CLIA [id number] [address] [place] [address] [place] Chloride [Moles/Vol] 98 mmol/L Normal 97-105 [facility] Comment on above: Order Comment: Speci men Type: BLOOD SPECIMEN Ordering Facility: [facility] Address: [address] [place], [place] [address] Performed By: #### 1 23-9, , 1988-03, HSTNT, 2776-11 #### [facility] CLIA [id number] [address] [place] [address] [place] CO2 [Moles/Vol] 25 mmol/L Normal 22-30 [facility] Comment on above: Order Comment: Speci men Type: BLOOD SPECIMEN Ordering Facility: [facility] Address: [address] [place] [address] Performed By: #### 1 9122-9, , 1988-03, HSTNT, 2776-11 #### [facility] CLIA [id number] [address] [place] [address] [place] Creatinine [Mass/Vol] 0.74 mg/dL Normal 0.73-1.[address] [facility] Comment on above: Order Comment: Speci men Type: BLOOD SPECIMEN Ordering Facility: [facility] Address: [address] [place] [address] Performed By: #### 1 9, , 1988-03, HSTNT, 2776-11 #### [facility] CLIA [id number] [address] [place] [address] [place] ESTIMATED GLOMERULAR FILTRATION RATE 97 mL/min/1.73m??? Normal >=60 [facility] Comment on above: Order Comment: Speci men Type: BLOOD SPECIMEN Ordering Facility: [facility] Address: [address] [place] [address] Result Comment: Constance mated Glomerular Filtration Rate (eGFR) is calculated using the 2020 CKD-EPI creatinine equation. This equation utilizes serum creatinine, sex, and age as parameters. The creatinine assay has traceable calibration to isotope dilution-mass spectrometry. Refer to KDIGO guidelines for clinical interpretation. In patients with unstable renal function, e.g. those with acute kidney injury, the eGFR may not accurately reflect actual GFR. Performed By: #### 1 23-9, , 1988-03, HSTNT, 2776-11 #### [facility] CLIA [id number] [address] [place] [address] [place] Glucose [Mass/Vol] 114 mg/dL High 74-99 [facility] Comment on above: Order Comment: Latoya hartman Type: BLOOD SPECIMEN Ordering Facility: [facility] Address: [address] [place] [address] Result Comment: The [place] Diabetes Association (ADA) provides guidance for cutoff values for fasting glucose and random glucose. The ADA defines fasting as no caloric intake for at least 8 hours. Fasting plasma glucose results between 100 to 125 mg/dL indicate increased risk for diabetes (prediabetes). Fasting plasma glucose results greater than or equal to 126 mg/dL meet the criteria for diagnosis of diabetes. In the absence of unequivocal hyperglycemia, results should be confirmed by repeat testing. In a patient with classic symptoms of hyperglycemia or hyperglycemic crisis, random plasma glucose results greater than or equal to 200 mg/dL meet the criteria for diagnosis of diabetes. Reference: Standards of Medical Care in Diabetes 2016, [place] [employer] Association. Diabetes Care. 2016.39(Suppl 1). Performed By: #### 1 9123-9, 54245-8, 1988-03, HSTNT, 2777- #### [facility] CLIA [id number] [address] [place] [address] [place] Potassium [Moles/Vol] 3.4 mmol/L Low 3.7-5.[address] [facility] Comment on above: Order Comment: Latoya men Type: BLOOD SPECIMEN Ordering Facility: [facility] Address: [address] [place] [address] Performed By: #### 1 9123-9, 03979-6, 1988-03, HSTNT, 2777- #### [facility] CLIA [id number] [address] [place] [address] [place] Sodium [Moles/Vol] 138 mmol/L Normal 136-144 [facility] Comment on above: Order Comment: Lorenai men Type: BLOOD SPECIMEN Ordering Facility: [facility] Address: [address] [place], [place] [address] Performed By: #### 1 9123-9, 67214-7, 1988-03, HSTNT, 2777-1 #### [facility] CLIA [id number] [address] [place] [address] [place] Urea nitrogen [Mass/Vol] 12 mg/dL Normal 9-24 [facility] Comment on above: Order Comment: Speci men Type: BLOOD SPECIMEN Ordering Facility: [facility] Address: [address] [place] [address] Performed By: #### 1 9123-9, 85066-2, 1988-03, HSTNT, 277- #### [facility] CLIA [id number] [address] [place] [address] [place] CBC W Auto Differential pane l (Bld)on 03-09-2023 Basophils (Bld) [#/Vol] 0.03 10*3/uL Normal <0.11 [facility] Comment on above: Order Comment: Speci men Type: BLOOD SPECIMEN Ordering Facility: [facility] Address: [address] [place] [address] Performed By: #### 5 7021-8 #### [facility] CLIA [id number] [address] [place] [address] [place] Basophils/100 WBC (Bld) 0.3 % Normal C [facility] Comment on above: Order Comment: Speci men Type: BLOOD SPECIMEN Ordering Facility: [facility] Address: [address] [place] [address] Performed By: #### 5 7021-8 #### [facility] CLIA [id number] [address] [place] [address] [place] Differential cell count method Nom (Bld) Auto Normal [facility] Comment on above: Order Comment: Speci men Type: BLOOD SPECIMEN Ordering Facility: [facility] Address: [address] Performed By: #### 5 7021-8 #### [facility] CLIA [id number] [address] [place] [address] [place] Eosinophils (Bld) [#/Vol] 10*3/uL Normal <0.46 [facility] Comment on above: Order Comment: Speci men Type: BLOOD SPECIMEN Ordering Facility: [facility] Address: [address] [place] [address] Performed By: #### 5 7021-8 #### [facility] CLIA [id number] [address] [place] [address] [place] Eosinophils/100 WBC (Bld) 0.2 % Normal [facility] Comment on above: Order Comment: Speci men Type: BLOOD SPECIMEN Ordering Facility: [facility] Address: [address] [place] [address] Performed By: #### 5 7021-8 #### [facility] CLIA [id number] [address] [place] [address] [place] Erythrocyte distribution width (RBC) [Ratio] 12.5 % Normal 11.5-15.0 [facility] Comment on above: Order Comment: Speci men Type: BLOOD SPECIMEN Ordering Facility: [facility] Address: [address] [place], [place] [address] Performed By: #### 5 7021-8 #### [facility] CLIA [id number] [address] [place] [address] [place] Hematocrit (Bld) [Volume fraction] 36.7 % Low 39.0-51.0 [facility] Comment on above: Order Comment: Speci men Type: BLOOD SPECIMEN Ordering Facility: [facility] Address: [address] [place], [place] [address] Performed By: #### 5 7021-8 #### [facility] CLIA [id number] [address] [place] [address] [place] Hemoglobin (Bld) [Mass/Vol] 12.6 g/dL Low 13.0-17.0 [facility] Comment on above: Order Comment: Speci men Type: BLOOD SPECIMEN Ordering Facility: [facility] Address: [address] [place] [address] Performed By: #### 5 7021-8 #### [facility] CLIA [id number] [address] [place] [address] [place] Immature granulocytes (Bld) [#/Vol] 10*3/uL Normal <0.10 [facility] Comment on above: Order Comment: Speci men Type: BLOOD SPECIMEN Ordering Facility: [facility] Address: [address] Performed By: #### 5 7021-8 #### [facility] CLIA [id number] [address] [place] [address] [place] Immature granulocytes/100 WBC (Bld) 0.2 % Normal [facility] Comment on above: Order Comment: Speci men Type: BLOOD SPECIMEN Ordering Facility: [facility] Address: [address] Performed By: #### 5 7021-8 #### [facility] CLIA [id number] [address] [place] [address] [place] Lymphocytes (Bld) [#/Vol] 1.41 10*3/uL Normal 1.00-4.00 [facility] Comment on above: Order Comment: Speci men Type: BLOOD SPECIMEN Ordering Facility: [facility] Address: [address] Performed By: #### 5 7021-8 #### [facility] CLIA [id number] [address] [place] [address] [place] Lymphocytes/100 WBC (Bld) 15.4 % Normal [facility] Comment on above: Order Comment: Speci men Type: BLOOD SPECIMEN Ordering Facility: [facility] Address: [address] Performed By: #### 5 7021-8 #### [facility] CLIA [id number] [address] MCH (RBC) [Entitic mass] 31.3 pg Normal 26.0-34.0 [facility] Comment on above: Order Comment: Speci men Type: BLOOD SPECIMEN Ordering Facility: [facility] Address: [address] Performed By: #### 5 7021-8 #### [facility] CLIA [id number] [address] [place] MCHC (RBC) [Mass/Vol] 34.3 g/dL Normal 30.5-36.[address] [facility] Comment on above: Order Comment: Speci men Type: BLOOD SPECIMEN Ordering Facility: [facility] Address: [address] [place], [place] [address] Performed By: #### 5 7021-8 #### [facility] CLIA [id number] [facility] [place] [address] [place] MCV (RBC) [Entitic vol] 91.3 fL Normal 80.0-100.0 [facility] Comment on above: Order Comment: Speci men Type: BLOOD SPECIMEN Ordering Facility: [facility] Address: [address] [place] [address] Performed By: #### 5 7021-8 #### [facility] CLIA [id number] [address] [place] [address] [place] Monocytes (Bld) [#/Vol] 0.63 10*3/uL Normal <0.87 [facility] Comment on above: Order Comment: Speci men Type: BLOOD SPECIMEN Ordering Facility: [facility] Address: [address] [place], [place] [address] Performed By: #### 5 7021-8 #### [facility] CLIA [id number] [address] [place] [id number] [place] Monocytes/100 WBC (Bld) 6.9 % Normal [facility] Comment on above: Order Comment: Speci men Type: BLOOD SPECIMEN Ordering Facility: [facility] Address: [address] [place], [place] [address] Performed By: #### 5 7021-8 #### [facility] CLIA [id number] [address] [place] [address] [place] Neutrophils (Bld) [#/Vol] 7.06 10*3/uL Normal 1.45-7.50 [facility] Comment on above: Order Comment: Speci men Type: BLOOD SPECIMEN Ordering Facility: [facility] Address: [address] [place] [address] Performed By: #### 5 7021-8 #### [facility] CLIA [id number] [address] [place] [address] [place] Neutrophils/100 WBC (Bld) 77.0 % Normal [facility] Comment on above: Order Comment: Speci men Type: BLOOD SPECIMEN Ordering Facility: [facility] Address: [address] [place], [place] [address] Performed By: #### 5 7021-8 #### [facility] CLIA [id number] [address] [place] [address] [place] Nucleated RBC (Bld) [#/Vol] 10*3/uL Normal <0.01 [facility] Comment on above: Order Comment: Speci men Type: BLOOD SPECIMEN Ordering Facility: [facility] Address: [address] [place], [place] [address] Performed By: #### 5 7021-8 #### [facility] CLIA [id number] [address] [place] [id number] [place] Nucleated RBC/100 WBC (Bld) [Ratio] 0.0 /100 WBC Normal [facility] Comment on above: Order Comment: Speci men Type: BLOOD SPECIMEN Ordering Facility: [facility] Address: [address] Performed By: #### 5 7021-8 #### [facility] CLIA [id number] [address] [place] [address] [place] Platelet mean volume (Bld) [Entitic vol] 10.4 fL Normal 9.0-12.7 [facility] Comment on above: Order Comment: Speci men Type: BLOOD SPECIMEN Ordering Facility: [facility] Address: [address] [place], [place] [address] Performed By: #### 5 7021-8 #### [facility] CLIA [id number] [address] [place] [address] [place] Platelets (Bld) [#/Vol] 252 10*3/uL Normal 150-400 [facility] Comment on above: Order Comment: Speci men Type: BLOOD SPECIMEN Ordering Facility: [facility] Address: [address] [place], [place] [address] Performed By: #### 5 7021-8 #### [facility] CLIA [id number] [address] [place] [address] [place] RBC (Bld) [#/Vol] 4.02 10*6/uL Low 4.20-6.00 [facility] Comment on above: Order Comment: Speci men Type: BLOOD SPECIMEN Ordering Facility: [facility] Address: [address] [place] [address] Performed By: #### 5 7021-8 #### [facility] CLIA [id number] [address] [place] [address] [place] WBC (Bld) [#/Vol] 9.17 10*3/uL Normal 3.70-11.00 [facility] Comment on above: Order Comment: Speci men Type: BLOOD SPECIMEN Ordering Facility: [facility] Address: [address] [place], [place] [address] Performed By: #### 5 7021-8 #### [facility] CLIA [id number] [address] [place] [address] [place] CBC panel Auto (Bld)on 03-09 Erythrocyte distribution width (RBC) [Ratio] 12.0 % Normal 11.5-15.0 [facility] Comment on above: Order Comment: Speci men Type: BLOOD SPECIMEN Ordering Facility: [facility] Address: [address] [place] [address] Performed By: #### 1 9123-9, 83122-1, 1988-03, HSTNT, 2776-11 #### [facility] CLIA [id number] [address] [place] [address] [place] Hematocrit (Bld) [Volume fraction] 36.8 % Low 39.0-51.0 [facility] Comment on above: Order Comment: Speci men Type: BLOOD SPECIMEN Ordering Facility: [facility] Address: [address] [place] [address] Performed By: #### 1 9123-9, , 1988-03, HSTNT, 2776-11 #### [facility] CLIA [id number] [address] [place] [address] [place] Hemoglobin (Bld) [Mass/Vol] 12.8 g/dL Low 13.0-17.0 [facility] Comment on above: Order Comment: Speci men Type: BLOOD SPECIMEN Ordering Facility: [facility] Address: [address] [place] [address] Performed By: #### 1 9123-9, , 1988-03, HSTNT, 2776-11 #### [facility] CLIA [id number] [address] [place] [address] [place] MCH (RBC) [Entitic mass] 31.5 pg Normal 26.0-34.0 [facility] Comment on above: Order Comment: Speci men Type: BLOOD SPECIMEN Ordering Facility: [facility] Address: [address] [place] [address] Performed By: #### 1 9, , 1988-03, HSTNT, 2776-11 #### [facility] CLIA [id number] [address] [place] [address] [place] MCHC (RBC) [Mass/Vol] 34.8 g/dL Normal 30.5-36.[address] [facility] Comment on above: Order Comment: Speci men Type: BLOOD SPECIMEN Ordering Facility: [facility] Address: [address] Performed By: #### 1 9, , 1988-03, HSTNT, 2776-11 #### [facility] CLIA [id number] [address] [place] [address] [place] MCV (RBC) [Entitic vol] 90.6 fL Normal 80.0-100.0 [facility] Comment on above: Order Comment: Speci men Type: BLOOD SPECIMEN Ordering Facility: [facility] Address: [address] [place] [address] Performed By: #### 1 9, , 1988-03, HSTNT, 2776-11 #### [facility] CLIA [id number] [address] [place] [address] [place] Nucleated RBC (Bld) [#/Vol] 10*3/uL Normal <0.01 [facility] Comment on above: Order Comment: Speci men Type: BLOOD SPECIMEN Ordering Facility: [facility] Address: [address] [place] [address] Performed By: #### 1 9, , 1988-03, HSTNT, 2776-11 #### [facility] CLIA [id number] [address] [place] [address] [place] Platelet mean volume (Bld) [Entitic vol] 9.9 fL Normal 9.0-12.7 [facility] Comment on above: Order Comment: Speci men Type: BLOOD SPECIMEN Ordering Facility: [facility] Address: [address] [place] [address] Performed By: #### 1 9, , 1988-03, HSTNT, 2776- #### [facility] CLIA [id number] [address] [place] [address] [place] Platelets (Bld) [#/Vol] 256 10*3/uL Normal 150-400 [facility] Comment on above: Order Comment: Speci men Type: BLOOD SPECIMEN Ordering Facility: [facility] Address: [address] [place] [address] Performed By: #### 1 9, , 1988-03, HSTNT, 2776- #### [facility] CLIA [id number] [address] [place] [address] [place] RBC (Bld) [#/Vol] 4.06 10*6/uL Low 4.20-6.00 [facility] Comment on above: Order Comment: Speci men Type: BLOOD SPECIMEN Ordering Facility: [facility] Address: [address] [place] [address] Performed By: #### 1 23-9, , 1988-03, HSTNT, 2776- #### [facility] CLIA [id number] [address] [place] [address] [place] WBC (Bld) [#/Vol] 7.45 10*3/uL Normal 3.70-11.00 [facility] Comment on above: Order Comment: Speci men Type: BLOOD SPECIMEN Ordering Facility: [facility] Address: [address] [place] [address] Performed By: #### 1 239, , 1988-03, HSTNT, 2776- #### [facility] CLIA [id number] [address] [place] [address] [place] CRP SerPl-mCncon 03-09-2023 CRP [Mass/Vol] 7.9 mg/dL High <0.9 [facility] Comment on above: Order Comment: Latyoa hartman Type: BLOOD SPECIMEN Ordering Facility: [facility] Address: [address] [place] [address] Performed By: #### 1 9123-9, , 1988-03, HSTNT, 277- #### [facility] CLIA [id number] [address] [place] [address] [place] HIGH SENSITIVITY TROPONIN To n 03-09-2023 HIGH SENSITIVITY YUSEF 10 ng/L Normal <12 [facility] Comment on above: Order Comment: Latoya hartman Type: BLOOD SPECIMEN Ordering Facility: [facility] Address: [address] [place] [address] Result Comment: When assessing risk for acute coronary syndromes: In patients undergoing blood draw greater than or equal to 2 hours from symptom onset, with history of very low to moderate risk and non-ischemic ECG, an initial hs-Troponin T less than 12 ng/L AND a 1 hour delta hs-Troponin T less than 3 ng/L should be considered very low risk for 30 day MACE. Performed By: #### 1 9123-9, , 1988-03, HSTNT, 277- #### [facility] CLIA [id number] [address] [place] [address] [place] Magnesium SerPl-mCncon 03-09 Magnesium [Mass/Vol] 2.1 mg/dL Normal 1.7-2.3 [facility] Comment on above: Order Comment: Latoya hartman Type: BLOOD SPECIMEN Ordering Facility: [facility] Address: [address] [place] [address] Performed By: #### 1 9123-9, , 1988-03, HSTNT, 277- #### [facility] CLIA [id number] [address] [facility] [id number] [id number] [place] NURSING PROGon 03-09-2023 NURSING PROG HNO ID: [id number] Author: Elizabet Morrissey RN Service: ? Author Type: Registered Nurse Type: Nursing Progress Note Filed: 03/09/2023 6:53 AM Note Text: On initial assess, pt resting in bed. Pt verbalized feeling not too bad now . States he was nauseated all day .... have a little headache - pt refused tyl.... I really dont want anything extra.... I dont know what was making me (stomach) upset . Pt also refused oxy and medina. Reviewed orders and night POC, Reinforced hourly use of IS- achieved 2500 (only 1750 when done correctly). IVF's infusing per order. Abd softly distended, hypoact x4. Denies passing flatus. Strongly encouraged patient to ambulate 5+ times per day.. I walked twice today . Taking very min clear liq. Using urinal at bedside. Up to chair @2300- moving well. Primapore dressing to midline incision and to bilat JPs c/d/i- bilat Ethan's charged. IPC's to BLE's. VSS. No distress. Pt aware to call for any needs/chge/assist. Cont to monitor closely. 0650am K+ 3.4- replacement given. Paged LIP @0301 and 0405 re phos 1.3. IV replete placed and is infusing. Pt ambulating in hallways. LIP to bedside to see pt @0622am- ok given to hold LR while Kphos infusing. No chge in assess per Q1-2hr rounds t/o the night. Normal [facility] Phosphate SerPl-mCncon 03-09 Phosphate [Mass/Vol] 1.3 mg/dL Low 2.7-4.8 [facility] Comment on above: Order Comment: Speci men Type: BLOOD SPECIMEN Ordering Facility: [facility] Address: [address] [place] [address] Result Comment: Resu lt rechecked. Performed By: #### 1 4123-9, 55357-7, 1988-03, HSTNT, 2776-11 #### [facility] CLIA [id number] [address] [place] [address] [place] XR ABDOMEN 1V SUPINEon 03-09 XR ABDOMEN 1V SUPINE * * *Final Report* * * DATE OF EXAM: Mar 09 2023 8:48AM LUDIN 5289 - XR ABDOMEN 1V SUPINE / PROCEDURE REASON: Post-operative / post-procedure assessment, symptomatic * * * * Physician Interpretation * * * * ABDOMINAL X-RAY, 1 VIEW. CLINICAL INFORMATION: Postoperative evaluation. CURRENT STUDY: 03/09/2023 08:42. COMPARISON: CT 12/11/2021. TECHNIQUE: Supine abdomen, 2 image(s). RESULT: See impression. IMPRESSION: Lines, tubes, and devices: Surgical drains overlie the abdomen and pelvis. Bowel: Dilated small bowel measuring 3-4 cm, likely mild segmental ileus. Gas and feces within borderline and nondilated colon. Other: Multilevel thoracolumbar spine degenerative arthropathy. General Assistant: LEANNE Transcribe Date/Time: Mar 09 2023 9:08A Dictated by : SPEEDY SERVIN DO This examination was interpreted and the report reviewed and electronically signed by: SPEEDY SERVIN DO on Mar 09 2023 9:10AM EST [id number] CN Normal [facility] Basic metabolic 2000 panelon 03-08-2023 Anion gap [Moles/Vol] 11 mmol/L Normal 9-[address] [facility] Comment on above: Order Comment: Speci men Type: BLOOD SPECIMEN Ordering Facility: [facility] Address: [address] [place] [address] Performed By: #### 1 9123-9, 85979-9, 1988-03, HSTNT, 27705-25 #### [facility] CLIA [id number] [address] [place] [address] [place] Calcium [Mass/Vol] 8.6 mg/dL Normal 8.5-10.2 [facility] Comment on above: Order Comment: Speci men Type: BLOOD SPECIMEN Ordering Facility: [facility] Address: [address] [place] [address] Performed By: #### 1 9122-9, , 1988-03, HSTNT, 2776-11 #### [facility] CLIA [id number] [address] [place] [address] [place] Chloride [Moles/Vol] 105 mmol/L Normal 97-105 [facility] Comment on above: Order Comment: Speci men Type: BLOOD SPECIMEN Ordering Facility: [facility] Address: [address] Performed By: #### 1 9, , 1988-03, HSTNT, 2776-11 #### [facility] CLIA [id number] [address] [place] [address] [place] CO2 [Moles/Vol] 25 mmol/L Normal 22-30 [facility] Comment on above: Order Comment: Speci men Type: BLOOD SPECIMEN Ordering Facility: [facility] Address: [address] Performed By: #### 1 9, , 1988-03, HSTNT, 2776-11 #### [facility] CLIA [id number] [address] [place] [address] [place] Creatinine [Mass/Vol] 0.88 mg/dL Normal 0.73-1.[address] [facility] Comment on above: Order Comment: Speci men Type: BLOOD SPECIMEN Ordering Facility: [facility] Address: [address] [place] [id number] Performed By: #### 1 23-9, , 1988-03, HSTNT, 2776-11 #### [facility] CLIA [id number] [address] [place] [id number] [place] ESTIMATED GLOMERULAR FILTRATION RATE 92 mL/min/1.73m??? Normal >=60 [facility] Comment on above: Order Comment: Latoya hartman Type: BLOOD SPECIMEN Ordering Facility: [facility] Address: [address] [place] [address] Result Comment: Constance mated Glomerular Filtration Rate (eGFR) is calculated using the 2020 CKD-EPI creatinine equation. This equation utilizes serum creatinine, sex, and age as parameters. The creatinine assay has traceable calibration to isotope dilution-mass spectrometry. Refer to KDIGO guidelines for clinical interpretation. In patients with unstable renal function, e.g. those with acute kidney injury, the eGFR may not accurately reflect actual GFR. Performed By: #### 1 9123-9, 43066-5, 1988-03, HSTNT, 2776-11 #### [facility] CLIA [id number] [address] [place] [id number] [place] Glucose [Mass/Vol] 126 mg/dL High 74-99 [facility] Comment on above: Order Comment: Latoya hartman Type: BLOOD SPECIMEN Ordering Facility: [facility] Address: [address] [place] [address] Result Comment: The [place] [employer] (ADA) provides guidance for cutoff values for fasting glucose and random glucose. The ADA defines fasting as no caloric intake for at least 8 hours. Fasting plasma glucose results between 100 to 125 mg/dL indicate increased risk for diabetes (prediabetes). Fasting plasma glucose results greater than or equal to 126 mg/dL meet the criteria for diagnosis of diabetes. In the absence of unequivocal hyperglycemia, results should be confirmed by repeat testing. In a patient with classic symptoms of hyperglycemia or hyperglycemic crisis, random plasma glucose results greater than or equal to 200 mg/dL meet the criteria for diagnosis of diabetes. Reference: Standards of Medical Care in Diabetes 2016, [place] [employer]. Diabetes Care. 2016.39(Suppl 1). Performed By: #### 1 9123-9, 80644-6, 1988-03, HSTNT, 2776-11 #### [facility] CLIA [id number] [address] [address] [place] Potassium [Moles/Vol] 4.6 mmol/L Normal 3.7-5.[address] [facility] Comment on above: Order Comment: Speci men Type: BLOOD SPECIMEN Ordering Facility: [facility] Address: [address] [place] [address] Performed By: #### 1 9123-07, , 1988-03, HSTNT, 2776-11 #### [facility] CLIA [id number] [address] [place] [address] [place] Sodium [Moles/Vol] 141 mmol/L Normal 136-144 [facility] Comment on above: Order Comment: Speci men Type: BLOOD SPECIMEN Ordering Facility: [facility] Address: [address] [place] [address] Performed By: #### 1 9123-07, , 1988-03, HSTNT, 2776-11 #### [facility] CLIA [id number] [address] [place] [address] [place] Urea nitrogen [Mass/Vol] 16 mg/dL Normal 9-24 [facility] Comment on above: Order Comment: Speci men Type: BLOOD SPECIMEN Ordering Facility: [facility] Address: [address] [place] [address] Performed By: #### 1 9123-07, , 1988-03, HSTNT, 2776-11 #### [facility] CLIA [id number] [address] [place] [address] [place] CBC W Auto Differential pane l (Bld)on 03-08-2023 Basophils (Bld) [#/Vol] 0.07 10*3/uL Normal <0.11 [facility] Comment on above: Order Comment: Speci men Type: BLOOD SPECIMEN Ordering Facility: [facility] Address: [address] [place], [place] [address] Performed By: #### 1 9, , 1988-03, HSTNT, 2776-11 #### [facility] CLIA [id number] [address] [place] [address] [place] Basophils/100 WBC (Bld) 0.6 % Normal [facility] Comment on above: Order Comment: Speci men Type: BLOOD SPECIMEN Ordering Facility: [facility] Address: [address] [place], [place] [address] Performed By: #### 1 9, , 1988-03, HSTNT, 2776-11 #### [facility] CLIA [id number] [address] [place], [place] [id number] [place] Differential cell count method Nom (Bld) Auto Normal [facility] Comment on above: Order Comment: Speci men Type: BLOOD SPECIMEN Ordering Facility: [facility] Address: [address] [place] [address] Performed By: #### 1 9, , 1988-03, HSTNT, 2776-11 #### [facility] CLIA [id number] [address] [place] [address] [place] Eosinophils (Bld) [#/Vol] 10*3/uL Normal <0.46 [facility] Comment on above: Order Comment: Speci men Type: BLOOD SPECIMEN Ordering Facility: [facility] Address: [address] [place], [place] [address] Performed By: #### 1 9, , 1988-03, HSTNT, 2776-11 #### [facility] CLIA [id number] [address] [place] [address] [place] Eosinophils/100 WBC (Bld) 0.0 % Normal [facility] Comment on above: Order Comment: Speci men Type: BLOOD SPECIMEN Ordering Facility: [facility] Address: [address] [place], [place] [address] Performed By: #### 1 9, , 1988-03, HSTNT, 2776-11 #### [facility] CLIA [id number] [address] [place] [address] [place] Erythrocyte distribution width (RBC) [Ratio] 12.7 % Normal 11.5-15.0 [facility] Comment on above: Order Comment: Speci men Type: BLOOD SPECIMEN Ordering Facility: [facility] Address: [address] [place] [address] Performed By: #### 1 9123-9, , 1988-03, HSTNT, 2776-11 #### [facility] CLIA [id number] [address] [place] [address] [place] Hematocrit (Bld) [Volume fraction] 43.1 % Normal 39.0-51.0 [facility] Comment on above: Order Comment: Speci men Type: BLOOD SPECIMEN Ordering Facility: [facility] Address: [address] [place] [address] Performed By: #### 1 239, , 1988-03, HSTNT, 2776-11 #### [facility] CLIA [id number] [address] [place] [address] [place] Hemoglobin (Bld) [Mass/Vol] 14.2 g/dL Normal 13.0-17.0 [facility] Comment on above: Order Comment: Speci men Type: BLOOD SPECIMEN Ordering Facility: [facility] Address: [address] [place] [address] Performed By: #### 1 9123-9, , 1988-03, HSTNT, 2776-11 #### [facility] CLIA [id number] [address] [place] [address] [place] Immature granulocytes (Bld) [#/Vol] 10*3/uL Normal <0.10 [facility] Comment on above: Order Comment: Speci men Type: BLOOD SPECIMEN Ordering Facility: [facility] Address: [address] [place], [place] [address] Performed By: #### 1 9, , 1988-03, HSTNT, 2776-11 #### [facility] CLIA [id number] [facility] [place] [address] [place] Immature granulocytes/100 WBC (Bld) 0.2 % Normal [facility] Comment on above: Order Comment: Speci men Type: BLOOD SPECIMEN Ordering Facility: [facility] Address: [address] [place] [address] Performed By: #### 1 9, , 1988-03, HSTNT, 2776-11 #### [facility] CLIA [id number] [address] [place] [address] [place] Lymphocytes (Bld) [#/Vol] 0.78 10*3/uL Low 1.00-4.00 [facility] Comment on above: Order Comment: Speci men Type: BLOOD SPECIMEN Ordering Facility: [facility] Address: [address] [place] [address] Performed By: #### 1 9, , 1988-03, HSTNT, 2776-11 #### [facility] CLIA [id number] [address] [place] [address] [place] Lymphocytes/100 WBC (Bld) 7.2 % Normal [facility] Comment on above: Order Comment: Speci men Type: BLOOD SPECIMEN Ordering Facility: [facility] Address: [address] [place], [place] [address] Performed By: #### 1 9, , 1988-03, HSTNT, 2776-11 #### [facility] CLIA [id number] [address] [place] [address] [place] MCH (RBC) [Entitic mass] 31.3 pg Normal 26.0-34.0 [facility] Comment on above: Order Comment: Speci men Type: BLOOD SPECIMEN Ordering Facility: [facility] Address: [address] [place] [address] Performed By: #### 1 9122-9, , 1988-03, HSTNT, 2776- #### [facility] CLIA [id number] [address] [place] [address] [place] MCHC (RBC) [Mass/Vol] 32.9 g/dL Normal 30.5-36.[address] [facility] Comment on above: Order Comment: Speci men Type: BLOOD SPECIMEN Ordering Facility: [facility] Address: [address] [place], [place] [address] Performed By: #### 1 9, , 1988-03, HSTNT, 2776-11 #### [facility] CLIA [id number] [address] [place] [address] [place] MCV (RBC) [Entitic vol] 94.9 fL Normal 80.0-100.0 [facility] Comment on above: Order Comment: Speci men Type: BLOOD SPECIMEN Ordering Facility: [facility] Address: [address] [place], [place] [address] Performed By: #### 1 9, , 1988-03, HSTNT, 2776-11 #### [facility] CLIA [id number] [address] [place] [address] [place] Monocytes (Bld) [#/Vol] 0.89 10*3/uL High <0.87 [facility] Comment on above: Order Comment: Speci men Type: BLOOD SPECIMEN Ordering Facility: [facility] Address: [address] [place] [id number] Performed By: #### 1 9, , 1988-03, HSTNT, 2776-11 #### [facility] CLIA [id number] [address] [place] [address] [place] Monocytes/100 WBC (Bld) 8.3 % Normal [facility] Comment on above: Order Comment: Speci men Type: BLOOD SPECIMEN Ordering Facility: [facility] Address: [place] [id number] Performed By: #### 1 9, , 1988-03, HSTNT, 2776-11 #### [facility] CLIA [id number] [address] [place] [address] [place] Neutrophils (Bld) [#/Vol] 9.01 10*3/uL High 1.45-7.50 [facility] Comment on above: Order Comment: Speci men Type: BLOOD SPECIMEN Ordering Facility: [facility] Address: [address] [place], [place] [address] Performed By: #### 1 9, , 1988-03, HSTNT, 2776-11 #### [facility] CLIA [id number] [address] [place] [address] [place] Neutrophils/100 WBC (Bld) 83.7 % Normal [facility] Comment on above: Order Comment: Speci men Type: BLOOD SPECIMEN Ordering Facility: [facility] Address: [address] [place] [address] Performed By: #### 1 9, , 1988-03, HSTNT, 2776-11 #### [facility] CLIA [id number] [address] [place] [address] [place] Nucleated RBC (Bld) [#/Vol] 10*3/uL Normal <0.01 [facility] Comment on above: Order Comment: Speci men Type: BLOOD SPECIMEN Ordering Facility: [facility] Address: [address] [place], [place] [address] Performed By: #### 1 23-9, , 1988-03, HSTNT, 2776-11 #### [facility] CLIA [id number] [address] [place] [address] [place] Nucleated RBC/100 WBC (Bld) [Ratio] 0.0 /100 WBC Normal [facility] Comment on above: Order Comment: Speci men Type: BLOOD SPECIMEN Ordering Facility: [facility] Address: [address] [place] [address] Performed By: #### 1 9, , 1988-03, HSTNT, 2776-11 #### [facility] CLIA [id number] [address] [place] [address] [place] Platelet mean volume (Bld) [Entitic vol] 10.3 fL Normal 9.0-12.7 [facility] Comment on above: Order Comment: Speci men Type: BLOOD SPECIMEN Ordering Facility: [facility] Address: [address] [place] [address] Performed By: #### 1 9, , 1988-03, HSTNT, 2776-11 #### [facility] CLIA [id number] [address] [place] [address] [place] Platelets (Bld) [#/Vol] 284 10*3/uL Normal 150-400 [facility] Comment on above: Order Comment: Speci men Type: BLOOD SPECIMEN Ordering Facility: [facility] Address: [address] [place] [address] Performed By: #### 1 9, , 1988-03, HSTNT, 2776-11 #### [facility] CLIA [id number] [address] [place] [address] [place] RBC (Bld) [#/Vol] 4.54 10*6/uL Normal 4.20-6.00 [facility] Comment on above: Order Comment: Speci men Type: BLOOD SPECIMEN Ordering Facility: [facility] Address: [address] [place] [address] Performed By: #### 1 9, , 1988-03, HSTNT, 2776-11 #### [facility] CLIA [id number] [address] [place] [address] [place] WBC (Bld) [#/Vol] 10.77 10*3/uL Normal 3.70-11.00 [facility] Comment on above: Order Comment: Speci men Type: BLOOD SPECIMEN Ordering Facility: [facility] Address: [address] [place] [address] Performed By: #### 1 9123-9, , 1988-03, HSTNT, 2776- #### [facility] CLIA [id number] [facility] [place] [address] [place] CRP SerPl-mCncon 03-08-2023 CRP [Mass/Vol] 3.1 mg/dL High <0.9 [facility] Comment on above: Order Comment: Speci men Type: BLOOD SPECIMEN Ordering Facility: [facility] Address: [address] [place] [address] Performed By: #### 1 23-9, , 1988-03, HSTNT, 2776- #### [facility] CLIA [id number] [address] [place] [address] [place] HIGH SENSITIVITY TROPONIN To n 03-08-2023 HIGH SENSITIVITY YUSEF 10 ng/L Normal <12 [facility] Comment on above: Order Comment: Speci men Type: BLOOD SPECIMEN Ordering Facility: [facility] Address: [address] [place] [address] Result Comment: When assessing risk for acute coronary syndromes: In patients undergoing blood draw greater than or equal to 2 hours from symptom onset, with history of very low to moderate risk and non-ischemic ECG, an initial hs-Troponin T less than 12 ng/L AND a 1 hour delta hs-Troponin T less than 3 ng/L should be considered very low risk for 30 day MACE. Performed By: #### 1 9123-9, , 1988-03, HSTNT, 2777-1 #### [facility] CLIA [id number] [address] [place] [address] [place] Magnesium SerPl-mCncon 03-08 Magnesium [Mass/Vol] 2.3 mg/dL Normal 1.7-2.3 [facility] Comment on above: Order Comment: Speci men Type: BLOOD SPECIMEN Ordering Facility: [facility] Address: [address] [place] [address] Performed By: #### 1 9123-9, 44510-6, 1988-03, HSTNT, 2776-11 #### [facility] CLIA [id number] [address] [place] [address] [place] Phosphate SerPl-mCncon 03-08 Phosphate [Mass/Vol] 4.3 mg/dL Normal 2.7-4.8 [facility] Comment on above: Order Comment: Speci men Type: BLOOD SPECIMEN Ordering Facility: [facility] Address: [address] [place] [address] Performed By: #### 1 9123-9, 50992-2, 1988-03, HSTNT, 2776-11 #### [facility] CLIA [id number] [address] [place] [address] [place] ANES POSTPROC EVALon 023 ANES POSTPROC EVAL HNO ID: [id number] Author: Lambetro Maradiaga MD, PhD Service: ? Author Type: Physician Type: Anesthesia Postprocedure Evaluation Filed: 03/07/2023 4:04 PM Note Text: POST ANESTHESIA EVALUATION NOTE : 1950 Procedure Summary Date: 03/07/23 [address] An[address] Start: 1105 Anesthesia Stop: 1341 Procedure: COMPLEX REPAIR WOUND OF ABDOMEN 2.6 CM TO 7.5 CM (Abdomen) Diagnosis: Preoperative examination Recurrent ventral hernia (Preoperative examination [Z01.818]) (Recurrent ventral hernia [K43.2]) Surgeons: Angle Melchor MD Responsible Provider: Lamberto Maradiaga MD, PhD Anesthesia Type: general ASA Status: 3 Anesthesia Type: general Airway Type: ETT Last Vitals Vitals Value Taken Time BP 126/79 03/07/23 1600 Temp 36.4 ?C (97.5 ?F) 03/07/23 1500 Pulse 85 03/07/23 1602 Resp 16 03/07/23 1500 SpO2 95 % 03/07/23 1602 Vitals shown include unvalidated device data. Post Anesthesia Patient Status Patient Evaluation: PACU. Anticipated Disposition: inpatient floor planned admission. Neurological Status: aware and responsive. Pulmonary Status: breathing comfortably on room air Airway Control: returned to baseline unsupported. Cardiovascular Status: stable. Pain Management: clinically adequate Postoperative Hydration: acceptable. Intraoperative Events: no significant anesthesia events Post Operative Nausea/Vomiting Status: no significant post operative nausea or vomiting Recommendation: continue current plan of care. Anesthesia Observations No Documentation SIGNATURE: Sen Maradiaga MD, PhD PATIENT NAME: Cha Elena DATE: March 07, 2023 TIME: 4:04 PM CSN: [id number] Normal [facility] ANES PRE-OPon 03-07-2023 ANES PRE-OP HNO ID: [id number] Author: Lamberto Maradiaga MD, PhD Service: ? Author Type: Physician Type: Anesthesia Preprocedure Evaluation Filed: 03/07/2023 10:46 AM Note Text: ANESTHESIOLOGY DAY OF SURGERY NOTE : 1950 Procedure Information Date/Time: 03/07/23 1145 Procedure: COMPLEX REPAIR WOUND OF ABDOMEN 2.6 CM TO 7.5 CM (Abdomen) Location: [place] [address] / [facility] [place] Surgeons: Angle Melchor MD Estimated body mass index is 34.73 kg/m? as calculated from the following: Height as of 03/06/23: 179.1 cm (5' 10.5 ). Weight as of 03/06/23: 111.4 kg (245 lb 8 oz). Most recent hematocrit and potassium results: Hematocrit 45.2 03/06/2023 Potassium 4.0 03/06/2023 Relevant Problems ANESTHESIA (within normal limits) CARDIO (+) AV block, 1st degree (+) Abdominal aortic aneurysm without rupture (HCC) (+) Primary hypertension ENDO (within normal limits) GI (within normal limits) -RENAL (within normal limits) NEURO-PSYCH (within normal limits) PULMONARY (within normal limits) I - PHYSICAL EVALUATION AIRWAY Patient intubated: No. Tracheostomy tube present DENTAL Dental findings: teeth intact. Additional exam findings: no II - ANESTHESIA PLAN ASA Score: 3 Anesthetic Plan: general Airway type: ETT The patient is not a current smoker. NPO Status: adequate Beta Lexi Administration of chronic beta lexi medication not planned. Monitoring Plan Monitoring plan: standard ASA. Post Procedure Analgesic Plan Postoperative analgesic plan: parenteral or oral opioids. Informed Consent Anesthetic risks, benefits, alternatives, personnel and consent discussed: yes. Patient / Responsible Democrat agrees to proceed: yes Patient / Surrogate agrees to blood products: Yes DNR status not reviewed with patient and/or family prior to surgery. Significant changes in the patient condition since the History and Physical, not otherwise documented in primary service progress note: no. Potential Anesthesia issues that may suggest increased risk of complications or contraindication to planned procedure: none. Vitals Value Taken Time BP 145/80 03/07/23 1013 Pulse 82 03/07/23 1013 Resp 18 03/07/23 1013 Temp 36.7 ?C (98.1 ?F) 03/07/23 1013 SpO2 97 % 03/07/23 1013 Facility-Administere d Medications as of 03/07/2023 Medication Dose Route Frequency - heparin 5,000 Units injection 5,000 Units SUBCUTANEOUS ONCE - [COMPLETED] lidocaine (PF) 10 mg/mL (1 %) 1-2 mg injection (XYLOCAINE) 0.1-0.2 mL INTRADERMAL PRN Or - [COMPLETED] lidocaine 1% 0.25 mL subcutaneous j-tip syringe (XYLOCAINE) 0.25 mL SUBCUTANEOUS PRN - lactated ringers iv infusion 5-30 mL/hr INTRAVENOUS CONTINUOUS - NaCl 0.9% iv flush bag 20 mL INTRAVENOUS PRN - ceFAZolin iv piggyback 2 g in D5W (iso-osmotic) 100 mL (ANCEF) 2 g INTRAVENOUS Pre-Op Once - [COMPLETED] acetaminophen 1,000 mg tab(s) (TYLENOL) 1,000 mg ORAL Pre-Op Once - [COMPLETED] gabapentin 300 mg cap(s) (NEURONTIN) 300 mg ORAL Pre-Op Once No current outpatient medications on file as of 03/07/2023. I have interviewed and examined the patient. I have reviewed the medical record and/or the pre-anesthesia evaluation, pertinent labs, and test results. This contains updated information obtained within 48 hours of Surgery/Procedure. SIGNATURE: Sen Maradiaga MD, PhD PATIENT NAME: Cha Elena DATE: March 07, 2023 TIME: 10:46 AM CSN: [id number] Normal [facility] BRIEF OP NOTon 03-07-2023 BRIEF OP NOT HNO ID: [id number] Author: Angle Melchor MD Service: General Surgery Author Type: Physician Type: Brief Op Note Filed: 03/07/2023 12:58 PM Note Text: [facility]ERNIA BRIEF OP NOTE FROM [facility] Surgery/Procedure Date: 03/07/2023 Pre-Op/Pre-Procedure Diagnosis: 2x recurrent incisional, hernia. The patient's hernia is painful, enlarging, and interfering with activities. Post-Op/Post-Procedu re Diagnosis: 2x recurrent incisional, hernia. The patient's hernia is painful, enlarging, and interfering with activities. Procedure(s): ? Open incisional, hernia repair with 30 cm x 30 cm retromuscular and preperitoneal SURGIMESH WN (Apside/ Medical) ? Bilateral transversus abdominis and post rectus sheath incision myofascial release Surgeon(s)/Procedura list(s) and Tutorial Laboratory Supervisor(s): Dr. Angle Melchor Anesthesia: General Findings: ? incisional, hernia measuring 10 cm x 12 cm comprising EHS Classification segments: [M1-4,] Estimated Blood Loss (cc): 50 Specimens: None Complications: None Normal [facility] CONFIRM BLOOD TYPEon 023 ABO A Normal [facility] Comment on above: Order Comment: Speci men Type: BLOOD SPECIMEN Ordering Facility: [facility] Address: [address] [place], [place] [id number] Performed By: #### 1 9123-9, 88479-2, 1987-, TNT, 2777-1 #### [facility] CLIA [id number] [address] [place] [address] [place] [address] [place] Rh Nom (Bld) Positive Normal [facility] Comment on above: Order Comment: Speci men Type: BLOOD SPECIMEN Ordering Facility: [facility] Address: [address] [place] [address] Performed By: #### 1 9123-9, 58922-5, 1987-5, T, 2777-1 #### [facility] CLIA [id number] [address] [place] [address] [place] [address] [place] NURSING PROGon 03-07-2023 NURSING PROG HNO ID: [id number] Author: Dayan Dubose RN Service: Nursing Author Type: Registered Nurse Type: Nursing Progress Note Filed: 03/07/2023 6:01 PM Note Text: Pt doing well postoperatively. Vss, pain better controlled with IV layout worker. Pt verbalizes understanding of layout worker and demonstrates the ability to use. Pt being discharged from pacu in stable condition pending available bed. 1756: Pt status unchanged. Vss, pain controlled with iv layout worker. No acute distress noted or complaints voiced. Pt being discharged from pacu in stable condition. Normal [facility] OPERATIVE NOon 03-07-2023 OPERATIVE NO HNO ID: [id number] Author: Angle Melchor MD Service: General Surgery Author Type: Physician Type: Operative Report Filed: 03/07/2023 7:34 PM Note Text: [facility] - Operative Report [address] [place] [address] [place] CHA ELE[place] : 1950 AGE: 72. SEX: M PATIENT TYPE: IN HOSP [facility]: [facility] LOCATION: [place] [address] ATTENDING PHYSICIAN: Angle Melchor M.D. CSN NUMBER: [id number] DATE OF SURGERY/PROCEDURE: 03/07/2023 INCISION/PROCEDURE START TIME: 11:38 AM INCISION CLOSE/PROCEDURE END TIME: 1:20 PM PREOPERATIVE DIAGNOSIS: Multiple recurrent incarcerated incisional hernia. POSTOPERATIVE DIAGNOSIS: Multiple recurrent incarcerated incisional hernia. SURGEON: Angle Melchor M.D. CASH ANALYST: Dr. Scarlett Valentino. Please note, Dr. Valentino was my first assistant manager given the complexity of the case. No available qualified resident. She helped with access and abdominal reconstruction. SURGERY/PROCEDURE: 1. Open right myofascial advancement flap. 2. Open left myofascial advancement flap. 3. Repair of recurrent incarcerated incisional hernia. 4. Implantation of 30 x 30 cm of Surgimesh. ANESTHESIA: General. FLUIDS: 1 L LR. ESTIMATED BLOOD LOSS: 50 mL. COMPLICATIONS: None. DRAINS: Two Tl-Vazquez drains. INDICATIONS FOR PROCEDURE: This is a 72-year-old fairly healthy gentleman with multiple recurrent umbilical hernia, most recently had small bowel obstruction, explored primarily. The risks, benefits, and expected outcomes of open complex abdominal reconstruction were discussed with him in detail. He understood and wished to proceed. He was also consented and enrolled in our randomized controlled trial of intraoperative music. DESCRIPTION OF PROCEDURE: The patient was identified, brought to the operating room, and placed in supine position. After general endotracheal anesthesia was administered and all appropriate padding secured to the table, he was prepped and draped in the usual sterile fashion. Preoperative antibiotics and SCDs were applied. We then began with a midline incision, entered the abdomen sharply. He had some omentum incarcerated with the defect and 1 loop of terminal ileum fairly stuck up. This was all sharply taken down. We did not lyse all of his interloop adhesions as they were fairly extensive and there were no signs of obvious obstruction. We then placed towel over the viscera and measured the defect to be 10 x 12 cm. Obviously, it did not come back together primarily. So, we started on the right side, taking down the posterior rectus sheath, off the rectus muscle, carefully preserving neurovascular bundles, incised the transverse abdominis muscle in the preperitoneal plane heading back to the lateral abdominal wall in the space of Retzius and just below the xiphoid. This gave us excellent advancement, not enough to get this defect closed together primarily. We did close small fenestrations and turned our attention to the left side, taking down the posterior rectus sheath, off the rectus muscle, carefully preserving neurovascular bundles, incised the transverse abdominis muscle in the preoperative plane heading back to lateral abdominal wall, joining the planes in the space of Retzius superiorly just below the xiphoid, we then closed small fenestrations on that side. I performed a TAP block with 0.25% Marcaine with epinephrine. I fashioned a 30 x 30 cm piece of Surgimesh in a angela configuration. No sutures were placed. Two drains were placed in the mesh and the midline was closed with #1 PDS figure-of- eights. Skin was closed in layers. The patient was awoken from anesthesia and taken to the recovery room in stable condition. Please note, Dr. Angle Melchor, attending surgeon, was present and scrubbed for the entire procedure. Angle Melchor M.D. MR:[id number] /[id number] Normal [facility] CBC W Auto Differential pane l (Bld)on 03-06-2023 Basophils (Bld) [#/Vol] 0.07 10*3/uL Normal <0.11 [facility] Comment on above: Order Comment: Speci men Type: BLOOD SPECIMEN Ordering Facility: [facility] Address: [address] [place] [address] Performed By: #### 1 91239, , 1988-03, HSTNT, 2776-11 #### [facility] CLIA [id number] [address] [place] [address] [place] Basophils/100 WBC (Bld) 1.1 % Normal C [facility] Comment on above: Order Comment: Speci men Type: BLOOD SPECIMEN Ordering Facility: [facility] Address: [address] [place] [address] Performed By: #### 1 91239, , 1988-03, HSTNT, 2776-11 #### [facility] CLIA [id number] [address] [place] [address] [place] Differential cell count method Nom (Bld) Auto Normal [facility] Comment on above: Order Comment: Speci men Type: BLOOD SPECIMEN Ordering Facility: [facility] Address: [address] [place] [address] Performed By: #### 1 9123-9, 27308-7, 1988-03, HSTNT, 2776-11 #### [facility] CLIA [id number] [address] [place] [address] [place] Eosinophils (Bld) [#/Vol] 0.04 10*3/uL Normal <0.46 [facility] Comment on above: Order Comment: Speci men Type: BLOOD SPECIMEN Ordering Facility: [facility] Address: [address] [place] [address] Performed By: #### 1 9, , 1988-03, HSTNT, 2776-11 #### [facility] CLIA [id number] [address] [place] [address] [place] Eosinophils/100 WBC (Bld) 0.6 % Normal [facility] Comment on above: Order Comment: Speci men Type: BLOOD SPECIMEN Ordering Facility: [facility] Address: [address] [place] [address] Performed By: #### 1 9, , 1988-03, HSTNT, 2776-11 #### [facility] CLIA [id number] [address] [place] [address] [place] Erythrocyte distribution width (RBC) [Ratio] 12.3 % Normal 11.5-15.0 [facility] Comment on above: Order Comment: Speci men Type: BLOOD SPECIMEN Ordering Facility: [facility] Address: [address] [place] [address] Performed By: #### 1 239, , 1988-03, HSTNT, 2776-11 #### [facility] CLIA [id number] [address] [place] [address] [place] Hematocrit (Bld) [Volume fraction] 45.2 % Normal 39.0-51.0 [facility] Comment on above: Order Comment: Speci men Type: BLOOD SPECIMEN Ordering Facility: [facility] Address: [address] [place] [address] Performed By: #### 1 239, , 1988-03, HSTNT, 2777-1 #### [facility] CLIA [id number] [address] [place] [id number] [place] Hemoglobin (Bld) [Mass/Vol] 15.0 g/dL Normal 13.0-17.0 [facility] Comment on above: Order Comment: Speci men Type: BLOOD SPECIMEN Ordering Facility: [facility] Address: [address] [place], [place] [address] Performed By: #### 1 9123-9, 72107-5, 1988-03, HSTNT, 2776-11 #### [facility] CLIA [id number] [address] [place] [address] [place] Immature granulocytes (Bld) [#/Vol] 10*3/uL Normal <0.10 [facility] Comment on above: Order Comment: Speci men Type: BLOOD SPECIMEN Ordering Facility: [facility] Address: [address] [place], [place] [address] Performed By: #### 1 9123-9, , 1988-03, HSTNT, 2776-11 #### [facility] CLIA [id number] [address] [place] [address] [place] Immature granulocytes/100 WBC (Bld) 0.2 % Normal [facility] Comment on above: Order Comment: Speci men Type: BLOOD SPECIMEN Ordering Facility: [facility] Address: [address] [place], [place] [address] Performed By: #### 1 9123-9, 67328-2, 1988-03, HSTNT, 2776-11 #### [facility] CLIA [id number] [address] [place] [address] [place] Lymphocytes (Bld) [#/Vol] 1.75 10*3/uL Normal 1.00-4.00 [facility] Comment on above: Order Comment: Speci men Type: BLOOD SPECIMEN Ordering Facility: [facility] Address: [address] [place], [place] [address] Performed By: #### 1 9123-9, , 1988-03, HSTNT, 2776-11 #### [facility] CLIA [id number] [address] [place] [address] [place] Lymphocytes/100 WBC (Bld) 27.4 % Normal [facility] Comment on above: Order Comment: Speci men Type: BLOOD SPECIMEN Ordering Facility: [facility] Address: [address] [place] [address] Performed By: #### 1 9123-9, , 1988-03, HSTNT, 2776-11 #### [facility] CLIA [id number] [address] [place] [address] [place] MCH (RBC) [Entitic mass] 30.9 pg Normal 26.0-34.0 [facility] Comment on above: Order Comment: Speci men Type: BLOOD SPECIMEN Ordering Facility: [facility] Address: [address] [place] [address] Performed By: #### 1 239, , 1988-03, HSTNT, 2776-11 #### [facility] CLIA [id number] [address] [place] [address] [place] MCHC (RBC) [Mass/Vol] 33.2 g/dL Normal 30.5-36.[address] [facility] Comment on above: Order Comment: Speci men Type: BLOOD SPECIMEN Ordering Facility: [facility] Address: [address] [place] [address] Performed By: #### 1 9123-9, , 1988-03, HSTNT, 2776-11 #### [facility] CLIA [id number] [address] [place] [address] [place] MCV (RBC) [Entitic vol] 93.2 fL Normal 80.0-100.0 C [facility] [place] Comment on above: Order Comment: Speci men Type: BLOOD SPECIMEN Ordering Facility: [facility] Address: [address] [place] [address] Performed By: #### 1 9123-9, , 1988-03, HSTNT, 2776-11 #### [facility] CLIA [id number] [address] [place] [address] [place] Monocytes (Bld) [#/Vol] 0.50 10*3/uL Normal <0.87 [facility] Comment on above: Order Comment: Speci men Type: BLOOD SPECIMEN Ordering Facility: [facility] Address: [address] [place], [place] [address] Performed By: #### 1 239, , 1988-03, HSTNT, 2776-11 #### [facility] CLIA [id number] [address] [place] [address] [place] Monocytes/100 WBC (Bld) 7.8 % Normal [facility] Comment on above: Order Comment: Speci men Type: BLOOD SPECIMEN Ordering Facility: [facility] Address: [address] [place], [place] [address] Performed By: #### 1 239, , 1988-03, HSTNT, 2776-11 #### [facility] CLIA [id number] [address] [place] [address] [place] Neutrophils (Bld) [#/Vol] 4.02 10*3/uL Normal 1.45-7.50 [facility] Comment on above: Order Comment: Speci men Type: BLOOD SPECIMEN Ordering Facility: [facility] Address: [address] [place] [phone] Performed By: #### 1 239, , 1988-03, HSTNT, 2776-11 #### [facility] CLIA [id number] [address] [place] [address] [place] Neutrophils/100 WBC (Bld) 62.9 % Normal [facility] Comment on above: Order Comment: Speci men Type: BLOOD SPECIMEN Ordering Facility: [facility] Address: [place] [address] Performed By: #### 1 9, , 1988-03, HSTNT, 2776-11 #### [facility] CLIA [id number] [address] [place] [address] [place] Nucleated RBC (Bld) [#/Vol] 10*3/uL Normal <0.01 [facility] Comment on above: Order Comment: Speci men Type: BLOOD SPECIMEN Ordering Facility: [facility] Address: [address] [place], [place] [address] Performed By: #### 1 9, , 1988-03, HSTNT, 2776-11 #### [facility] CLIA [id number] [facility] [place] [address] [place] Nucleated RBC/100 WBC (Bld) [Ratio] 0.0 /100 WBC Normal [facility] Comment on above: Order Comment: Speci men Type: BLOOD SPECIMEN Ordering Facility: [facility] Address: [address] [place], [place] [address] Performed By: #### 1 9, , 1988-03, HSTNT, 2776-11 #### [facility] CLIA [id number] [address] [place] [address] [place] Platelet mean volume (Bld) [Entitic vol] 10.1 fL Normal 9.0-12.7 [facility] Comment on above: Order Comment: Speci men Type: BLOOD SPECIMEN Ordering Facility: [facility] Address: [address] [place] [address] Performed By: #### 1 9, , 1988-03, HSTNT, 2776-11 #### [facility] CLIA [id number] [facility] [place] [address] [place] Platelets (Bld) [#/Vol] 313 10*3/uL Normal 150-400 [facility] Comment on above: Order Comment: Speci men Type: BLOOD SPECIMEN Ordering Facility: [facility] Address: [address] [place] [address] Performed By: #### 1 9123-9, , 1988-03, HSTNT, 2776- #### [facility] CLIA [id number] [address] [place] [address] [place] RBC (Bld) [#/Vol] 4.85 10*6/uL Normal 4.20-6.00 [facility] Comment on above: Order Comment: Speci men Type: BLOOD SPECIMEN Ordering Facility: [facility] Address: [address] [place] [address] Performed By: #### 1 239, , 1988-03, HSTNT, 2776- #### [facility] CLIA [id number] [address] [place] [address] [place] WBC (Bld) [#/Vol] 6.39 10*3/uL Normal 3.70-11.00 [facility] Comment on above: Order Comment: Speci men Type: BLOOD SPECIMEN Ordering Facility: [facility] Address: [address] [place], [place] [address] Performed By: #### 1 9123-9, , 1988-03, HSTNT, 2776-11 #### [facility] CLIA [id number] [facility] [place] [address] [place] Comprehensive metabolic 2000 panelon 03-06-2023 Albumin [Mass/Vol] 4.6 g/dL Normal 3.9-4.9 [facility] Comment on above: Order Comment: Speci men Type: BLOOD SPECIMEN Ordering Facility: [facility] Address: [address] [place], [place] [address] Performed By: #### 1 9123-9, , 1988-03, HSTNT, 277- #### [facility] CLIA [id number] [address] [place] [address] [place] ALP [Catalytic activity/Vol] 54 U/L Normal 38-113 [facility] Comment on above: Order Comment: Speci men Type: BLOOD SPECIMEN Ordering Facility: [facility] Address: [address] [place] [phone] Performed By: #### 1 9123-9, , 1988-03, HSTNT, 2776-11 #### [facility] CLIA [id number] [address] [place] [address] [place] ALT [Catalytic activity/Vol] 26 U/L Normal 10-54 [facility] Comment on above: Order Comment: Speci men Type: BLOOD SPECIMEN Ordering Facility: [facility] Address: [address] [place] [phone] Performed By: #### 1 91239, , 1988-03, HSTNT, 2776-11 #### [facility] CLIA [id number] [address] [place] [address] [place] Anion gap [Moles/Vol] 11 mmol/L Normal 9-[address] [facility] Comment on above: Order Comment: Speci men Type: BLOOD SPECIMEN Ordering Facility: [facility] Address: [address] [place] [address] Performed By: #### 1 9123-9, , 1988-03, HSTNT, 2776-11 #### [facility] CLIA [id number] [address] [place] [address] [place] AST [Catalytic activity/Vol] 21 U/L Normal 14-40 [facility] Comment on above: Order Comment: Speci men Type: BLOOD SPECIMEN Ordering Facility: [facility] Address: [address] [place] [phone] Performed By: #### 1 239, , 1988-03, HSTNT, 2776- #### [facility] CLIA [id number] [address] [place] [address] [place] Bilirubin [Mass/Vol] 1.0 mg/dL Normal 0.2-1.3 [facility] Comment on above: Order Comment: Speci men Type: BLOOD SPECIMEN Ordering Facility: [facility] Address: [address] [place], [place] [address] Performed By: #### 1 23-9, , 1988-03, HSTNT, 2776-11 #### [facility] CLIA [id number] [address] [place] [address] [place] Calcium [Mass/Vol] 10.0 mg/dL Normal 8.5-10.2 [facility] Comment on above: Order Comment: Speci men Type: BLOOD SPECIMEN Ordering Facility: [facility] Address: [address] [place], [place] [address] Performed By: #### 1 239, , 1988-03, HSTNT, 2776-11 #### [facility] CLIA [id number] [address] [place] [address] [place] Chloride [Moles/Vol] 101 mmol/L Normal 97-105 [facility] Comment on above: Order Comment: Speci men Type: BLOOD SPECIMEN Ordering Facility: [facility] Address: [address] [place] [address] Performed By: #### 1 23-9, , 1988-03, HSTNT, 2776-11 #### [facility] CLIA [id number] [address] [place] [address] [place] CO2 [Moles/Vol] 27 mmol/L Normal 22-30 [facility] Comment on above: Order Comment: Speci men Type: BLOOD SPECIMEN Ordering Facility: [facility] Address: [address] [place] [phone] Performed By: #### 1 9123-9, , 1988-03, HSTNT, 2776-11 #### [facility] CLIA [id number] [address] [place] [address] [place] Creatinine [Mass/Vol] 0.90 mg/dL Normal 0.73-1.[address] [facility] Comment on above: Order Comment: Speci men Type: BLOOD SPECIMEN Ordering Facility: [facility] Address: [address] Performed By: #### 1 91239, , 1988-03, HSTNT, 2776-11 #### [facility] CLIA [id number] [address] [place] [address] [place] ESTIMATED GLOMERULAR FILTRATION RATE 91 mL/min/1.73m??? Normal >=60 [facility] Comment on above: Order Comment: Speci men Type: BLOOD SPECIMEN Ordering Facility: [facility] Address: [address] [place] [address] Result Comment: Constance mated Glomerular Filtration Rate (eGFR) is calculated using the 2020 CKD-EPI creatinine equation. This equation utilizes serum creatinine, sex, and age as parameters. The creatinine assay has traceable calibration to isotope dilution-mass spectrometry. Refer to KDIGO guidelines for clinical interpretation. In patients with unstable renal function, e.g. those with acute kidney injury, the eGFR may not accurately reflect actual GFR. Performed By: #### 1 23-9, , 1988-03, HSTNT, 2776-11 #### [facility] CLIA [id number] [address] [place] [address] [place] Glucose [Mass/Vol] 91 mg/dL Normal 74-99 [facility] Comment on above: Order Comment: Speci men Type: BLOOD SPECIMEN Ordering Facility: [facility] Address: [address] [place] [address] Result Comment: The [place] [employer] Association (ADA) provides guidance for cutoff values for fasting glucose and random glucose. The ADA defines fasting as no caloric intake for at least 8 hours. Fasting plasma glucose results between 100 to 125 mg/dL indicate increased risk for diabetes (prediabetes). Fasting plasma glucose results greater than or equal to 126 mg/dL meet the criteria for diagnosis of diabetes. In the absence of unequivocal hyperglycemia, results should be confirmed by repeat testing. In a patient with classic symptoms of hyperglycemia or hyperglycemic crisis, random plasma glucose results greater than or equal to 200 mg/dL meet the criteria for diagnosis of diabetes. Reference: Standards of Medical Care in Diabetes 2016, [place] [employer] Association. Diabetes Care. 2016.39(Suppl 1). Performed By: #### 1 9123-9, 62418-1, 1988-03, HSTNT, 2776-11 #### [facility] CLIA [id number] [address] [place] [address] [place] Potassium [Moles/Vol] 4.0 mmol/L Normal 3.7-5.[address] [facility] Comment on above: Order Comment: Speci men Type: BLOOD SPECIMEN Ordering Facility: [facility] Address: [address] [place], [place] [phone] Performed By: #### 1 9123-9, 44639-3, 1988-03, TNT, 2776-11 #### [facility] CLIA [id number] [address] [place] [address] [place] Protein [Mass/Vol] 6.9 g/dL Normal 6.3-8.0 [facility] Comment on above: Order Comment: Speci men Type: BLOOD SPECIMEN Ordering Facility: [facility] Address: [address] [place] [address] Performed By: #### 1 9123-9, 55946-8, 1988-03, TNT, 2776-11 #### [facility] CLIA [id number] [address] [place] [address] [place] Sodium [Moles/Vol] 139 mmol/L Normal 136-144 [facility] Comment on above: Order Comment: Speci men Type: BLOOD SPECIMEN Ordering Facility: [facility] Address: [address] [place] [address] Performed By: #### 1 9123-9, 02679-2, 1988-03, HSTNT, 2776-11 #### [facility] CLIA [id number] [address] [place] [address] [place] Urea nitrogen [Mass/Vol] 13 mg/dL Normal 9-24 [facility] Comment on above: Order Comment: Speci men Type: BLOOD SPECIMEN Ordering Facility: [facility] Address: [address] [place] [address] Performed By: #### 1 9123-9, 54217-3, 1988-03, HSTNT, 2776-11 #### [facility] CLIA [id number] [address] [place] [address] [place] ECG COMPLETEon 03-06-2023 ECG COMPLETE Ventricular Rate : 71 BPM Atrial Rate : 71 BPM P-R Interval : 216 ms QRS Duration : 158 ms Q-T Interval : 448 ms QTC Calculation(Bazett) : 486 ms Calculated P [place] : 18 degrees Calculated R [place] : 151 degrees Calculated T [place] : -4 degrees SINUS RHYTHM WITH 1ST DEGREE AV BLOCK RIGHT AXIS DEVIATION NONSPECIFIC INTRAVENTRICULAR BLOCK ABNORMAL ECG Confirmed by ANGLE MATUTE MD ([id number]) on 03/11/2023 7:31:38 PM NAME : CHA ELENA PID : [id number] : 1950 Gender : Male Race : ORD : [id number] Procedure Date : Mar 06 2023 10:34:49 Edit Date : Mar 11 2023 19:31:39 Diagnosis: SINUS RHYTHM WITH 1ST DEGREE AV BLOCK RIGHT AXIS DEVIATION NONSPECIFIC INTRAVENTRICULAR BLOCK ABNORMAL ECG Confirmed by ANGLE MATUTE MD ([id number]) on 03/11/2023 7:31:38 PM Test Reason : Location : 119 : A17 Overread By : ANGLE MATUTE MD Edited By : ANGLE MATUTE MD Referred By : ANGLE MELCHOR Acquired by : KELSEY NGUYỄN Normal [facility] HISTORY PHYSICALon 3 HISTORY PHYSICAL HNO ID: [id number] Author: Adrianna Pollock APRN.SCREEN OPERATOR Service: ? Author Type: Nurse Practitioner Type: HANDP Filed: 03/06/2023 10:43 AM Note Text: HISTORY AND PHYSICAL EXAMINATION SERVICE DATE: 03/06/2023 SERVICE TIME: 10:00 AM PRIMARY CARE PHYSICIAN: Speedy Khanna II, MD REASON FOR VISIT: Cha Elena is a 72 year old male who is scheduled for COMPLEX REPAIR WOUND OF ABDOMEN 2.6 CM TO 7.5 CM on 03/07/2023 at [facility]. Patient is being seen at the request of Dr. Angle Melchor for consultation. My final recommendation will be communicated back to the requesting physician by way of shared medical record or letter. The patient has the following: ACTIVE PROBLEM LIST Abdominal Aortic Aneurysm Without Rupture (Hcc) Benign Prostatic Hyperplasia Without Lower Urinary Tract Symptoms Primary Hypertension Av Block, 1st Degree Subjective CHIEF COMPLAINT: pre op exam, recurrent ventral hernia HPI: Cha is a 72 year old male who presents to [facility] for pre op evaluation. Cha has a history of umbilical hernia with recurrence. He has undergone emergency surgery in the past and now has a moderately large recurrence. He has agreed to the above procedure. Cha states that he has an electrical block in his heart. He is not sure of the exact diagnosis, but reports that it is monitored by his PCP. He has no symptoms of fatigue, SOB, chest pain, arrhythmia. METs >5. No past medical history on file. PAST SURGICAL HISTORY Procedure Laterality Date COLONOSCOPY SCREENING HERNIA REPAIR HX PAST SURGICAL HISTORY OF emergent surgery for necrotic bowel REMOVAL GALLBLADDER FAMILY HISTORY Problem Relation Age of Onset Anesthesia Problems No Family History SOCIAL HISTORY: Social History Tobacco Use Smoking status: Former Types: Cigarettes Quit date: 2016 Years since quittin.2 Smokeless tobacco: Former Types: Snuff Quit date: 1989 Substance Use Topics Alcohol use: Yes Alcohol/week: 35.0 - 42.0 standard drinks Types: 35 - 42 Cans of Beer (12oz) per week Drug use: Never MEDICATIONS: Prior to Admission medications as of Medication Sig Last Dose Taking Candesartan-Hydrochl orothiazid 32-25 mg tab Candesartan-Hydrochl orothiazid Active 1 TAB PO Daily December 12, 2022 12:00am Taking Yes No medication comments found. CURRENT ALLERGIES: ALLERGIES No Known Allergies COVID VACCINATION STATUS: Not vaccinated, prior infection REVIEW OF SYSTEMS: PAIN ASSESSMENT: Pain Pain Level: 1 Pain Location: Abdomen-Left Lower Quadrant Description: Aching, Dull Duration Units: Years Frequency: Intermittent Intervention/Comfort measure: Medication General: No weight loss, malaise or fevers. Neuro: No history of TIA's, stroke, [employer] tumor, impaired sensorium, hemiplegia, paraplegia or quadraplegia. No neurological symptoms or problems. Respiratory: No history of current cough or dyspnea, or pneumonia in the past 6 weeks. No history of respiratory/pulmonar y symptoms or problems. Cardiovascular: h/o AAA, HTN, 'electrical block' Negative for Recent [place], Chest Pain GI: GERD No history of GI symptoms or problems. No history of esophageal varices, recent ascites, or ETOH greater than 2 drinks per day. : h/o BPH without LUTS No history of dysuria, frequency or incontinence,, stones or chronic kidney disease Endocrine: No history of diabetes. Has not taken steroids within the past 30 days. No history of endocrinological symptoms or problems. Hematology: No history of bleeding or clotting disorder. Pt is not taking anti-coagulation or platelet medications. No history of hematological symptoms or problems. Oncology: No history of CA metastasis, chemo within 30 days, or radiotherapy within 90 days. Has not lost 10% of body wt in 6 months. No history of oncological symptoms or problems. Psych: No history of psychiatric symptoms or problems. Musculoskeletal: Negative for joint pain or swelling, back pain or muscle pain. Skin: Negative for lesions, rash and itching. Objective PHYSICAL EXAM: VITALS: BP 126/71 Pulse 78 Temp (Src) 98.5 (Temporal) Ht 5' 10.5 (1.79m) Wt 245 lb 8 oz (111.4kg) SpO2 98% BMI 34.72 kg/(m2). General: Alert and oriented, No acute distress, Obese Skin: Normal color, no rash, no lesions. HEENT: EOM, pupils equal, round and reactive. Cardiovascular: Normal S1 AND S2, no rubs, murmurs or gallops. No JVD. Pulse regular. Lungs: Normal breath sounds, no wheezes or crackles. Abdomen: Positive bowel sounds Extremities: No deformity, no edema or tenderness, no joint swelling or clubbing. Neurological: Normal cognition and motor skills. Pulses: Carotid and radial pulses normal +2. Diagnostic tests reviewed for today's visit: Lab Value Units Date High Low HB No results within date range. HCT No results within date range. WBC No results within date range. PLT No results within date range. NA No results within date range. K (more content not included)... Normal [facility] PT panel Coag (PPP)on 2022 INR Coag (PPP) [Relative time] 1.0 {INR} Normal 0.9-1.3 [facility] Comment on above: Order Comment: Latoya hartman Type: BLOOD SPECIMEN Ordering Facility: [facility] Address: [address] [place] [address] Result Comment: Katie min K Antagonist (VKA) Therapeutic Range: INR 2 to 3 (Target INR of 2.5) Note: For patients treated with VKA drugs, such as warfarin, the [place] [employer] 2012 Guideline recommends a therapeutic INR range of 2 to 3 (target INR of 2.5). This recommendation includes high-risk patients with antiphospholipid syndrome with previous arterial or venous thromboembolism, current-generation mechanical or bioprosthetic aortic heart valve replacement. Note: Patients with mechanical aortic valve replacement and additional risk factors for thromboembolic events (atrial fibrillation, previous thromboembolism, LV dysfunction, hypercoagulable conditions) or an older generation mechanical AVR (i.e., ball in-Cage) or any mechanical MVR should have a INR therapeutic range of 2.5 to 3.5 (target INR of 3). Stuart MELCHOR, et al. Chest 2012, 141:7S-47S Gifty RA, et al. [facility] 2017, 70: 252-289 Performed By: #### 1 9123-9, 43789-4, 1988-03, HSTNT, 2776-11 #### [facility] CLIA [id number] [address] [facility] [id number] [address] [place] PT Coag (PPP) [Time] 10.0 s Normal 9.7-13.0 [facility] Comment on above: Order Comment: Latoya hartman Type: BLOOD SPECIMEN Ordering Facility: [facility] Address: [address] [place] [address] Performed By: #### 1 9123-9, 51156-7, 1988-03, HSTNT, 2776-11 #### [facility] CLIA [id number] [address] [place] [address] [place] TYPE AND SCREEN,30 DAYon ABO A Normal [facility] Comment on above: Order Comment: Speci men Type: BLOOD SPECIMEN Ordering Facility: [facility] Address: [address] [place] [address] Performed By: #### 1 9123-9, , 1988-03, HSTNT, 2776-11 #### [facility] CLIA [id number] [address] [place] [address] [place] HISTORICAL AB SCR STATUS Negative Normal [facility] Comment on above: Order Comment: Speci men Type: BLOOD SPECIMEN Ordering Facility: [facility] Address: [address] [place] [address] Performed By: #### 1 9, , 1988-03, HSTNT, 2776-11 #### [facility] CLIA [id number] [address] [place] [address] [place] Rh Nom (Bld) Positive Normal [facility] Comment on above: Order Comment: Speci men Type: BLOOD SPECIMEN Ordering Facility: [facility] Address: [address] [place] [address] Performed By: #### 1 9, , 1988-03, HSTNT, 2776-11 #### [facility] CLIA [id number] [address] [place] [address] [place] URINALYSIS, DIPSTICK ONLYon 03-06-2023 Bilirubin Ql (U) Negative Normal Negative [facility] Comment on above: Order Comment: Speci men Type: BLOOD SPECIMEN Ordering Facility: [facility] Address: [address] [place] [address] Performed By: #### 1 91-9, , 1988-03, HSTNT, 2776-11 #### [facility] CLIA [id number] [address] [place] [address] [place] Clarity (Unsp spec) Clear Normal Clear [facility] Comment on above: Order Comment: Speci men Type: BLOOD SPECIMEN Ordering Facility: [facility] Address: [address] [place], [place] [address] Performed By: #### 1 9, , 1988-03, HSTNT, 2776-11 #### [facility] CLIA [id number] [address] [place] [address] [place] Color (U) Light Yellow Normal Yellow [facility] Comment on above: Order Comment: Speci men Type: BLOOD SPECIMEN Ordering Facility: [facility] Address: [address] [place] [address] Performed By: #### 1 9, , 1988-03, HSTNT, 2776-11 #### [facility] CLIA [id number] [address] [place] [address] [place] Glucose Test strip (U) [Mass/Vol] Negative Normal Trace, Negative [facility] Comment on above: Order Comment: Speci men Type: BLOOD SPECIMEN Ordering Facility: [facility] Address: [address] [place], [place] [address] Performed By: #### 1 9, , 1988-03, HSTNT, 2776-11 #### [facility] CLIA [id number] [address] [place] [id number] [place] Hemoglobin Ql (U) Negative Normal Negative, Trace [facility] Comment on above: Order Comment: Speci men Type: BLOOD SPECIMEN Ordering Facility: [facility] Address: [address] [place], [place] [address] Performed By: #### 1 9, , 1988-03, HSTNT, 2776-11 #### [facility] CLIA [id number] [address] [place] [address] [place] Ketones Ql (U) Negative Normal Trace, Negative [facility] Comment on above: Order Comment: Speci men Type: BLOOD SPECIMEN Ordering Facility: [facility] Address: [address] [place] [address] Performed By: #### 1 9123-9, 27061-7, 1988-03, HSTNT, 2776- #### [facility] CLIA [id number] [facility] [place] [address] [place] Leukocyte esterase Test strip Ql (U) Negative Normal Negative, 25 Dillon/uL [facility] Comment on above: Order Comment: Speci men Type: BLOOD SPECIMEN Ordering Facility: [facility] Address: [address] [place] [address] Performed By: #### 1 9, , 1988-03, HSTNT, 2776- #### [facility] CLIA [id number] [address] [place] [address] [place] Nitrite Ql (U) Negative Normal Negative [facility] Comment on above: Order Comment: Speci men Type: BLOOD SPECIMEN Ordering Facility: [facility] Address: [address] [place] [address] Performed By: #### 1 9123-9, , 1988-03, HSTNT, 2776- #### [facility] CLIA [id number] [address] [place] [address] [place] pH (U) 5.5 [pH] Normal 5.0-8.0 [facility] Comment on above: Order Comment: Speci men Type: BLOOD SPECIMEN Ordering Facility: [facility] Address: [address] [place] [address] Performed By: #### 1 9123-9, 70975-3, 1988-03, HSTNT, 2776- #### [facility] CLIA [id number] [address] [place] [address] [place] Protein (U) [Mass/Vol] Negative Normal Trace , Negative [facility] Comment on above: Order Comment: Speci men Type: BLOOD SPECIMEN Ordering Facility: [facility] Address: [address] [place] [address] Performed By: #### 1 9123-9, 82227-4, 1988-03, HSTNT, 2776-11 #### [facility] CLIA [id number] [facility] [place] [address] [place] Specific gravity (U) [Rel density] 1.013 Normal 1.005-1.030 [facility] Comment on above: Order Comment: Speci men Type: BLOOD SPECIMEN Ordering Facility: [facility] Address: [address] [place] [address] Performed By: #### 1 91239, , 1988-03, HSTNT, 2776-11 #### [facility] CLIA [id number] [address] [place] [address] [place] Urobilinogen Ql (U) Negative Normal Negative [facility] Comment on above: Order Comment: Speci men Type: BLOOD SPECIMEN Ordering Facility: [facility] Address: [address] [place] [address] Performed By: #### 1 9123-9, 75896-0, 1988-03, HSTNT, 2776-11 #### [facility] CLIA [id number] [address] [place] [id number] [place] aPTT PPPon 03-06-2023 aPTT Coag (PPP) [Time] 25.9 s Normal 23.0-32.4 [facility] Comment on above: Order Comment: Speci men Type: BLOOD SPECIMEN Ordering Facility: [facility] Address: [address] [place], [place] [address] Performed By: #### 1 91239, 92965-7, 1988-03, TNT, 2777-1 #### [facility] CLIA [id number] [address] [place] [address] [place] COVID-19 Antigenon 3 COVID-19 Antigen Healthcare Worker?: N Reference Range: Negative Negative results, from patients with symptom onset beyond five days, should be treated as presumptive and confirmation with a molecular assay, if necessary, for patient management, may be performed. Negative results do not rule out COVID-19 and should not be used as the sole basis for treatment or patient management decisions, including infection control decisions. Negative results should be considered in the context of a patient's recent exposures, history and the presence of clinical signs and symptoms consistent with COVID-19. The Migel SARS Antigen NANCY does not differentiate between SARS-CoV and SARS-CoV-2. This test was developed and its performance characteristic determined by [employer] and validated at [facility]. This test has not been FDA cleared or approved. This test has been authorized by FDA under an Emergency Use Authorization (EUA). This test has been validated in accordance with the FDA's Guidance Document (Policy for Diagnostics Testing in Laboratories Certified to Perform High Complexity Testing under CLIA prior to Emergency Use Authorization for Coronavirus Disease-2019 during the Public Health Emergency) issued on February 25, 2020. This test is only authorized for the duration of time the declaration that circumstances exist justifying the authorization of the emergency use of in vitro diagnostic tests for detection of SARS-CoV-2 virus and/or diagnosis of COVID-19 infection under section 564(b)(1) of the Act, 21 U.S.C. 360bbb-3(b)(1), unless the authorization is terminated or revoked sooner. SARS-CoV+SARS-CoV-2 (COVID-19) Ag [Presence] in Respiratory specimen by Rapid immunoassay Negative for SARS Antigen by NANCY PERFORMED BY: [facility] [address] [place] [address] PATHOLOGIST FLATWORK TIER JAIMIE CAMPBELL M.D. [facility] Comment on above: Performed By: #### C OVID-19 MIGELBRITTANYIANEG #### [facility] [address] [place] [id number] [facility] COVID-19 SOFIAOrdered By: Alma Rosa Florez on 12-10-2022 SARS-CoV+SARS-CoV-2 (COVID-19) Ag IA.rapid Ql (Resp) Negative Negative [facility] Comment on above: This is a duplicate Migel SARS Antigen (NANCY) result to be used for statistical tracking purpose only. No Panel InformationOrdered By: Ernie Florez on 12-10-2022 SARS Antigen (LFIA) [facility] Migel Ag Negativeon 12-10-19 23 Migel Ag Negative Negative Normal Negative [facility] Comment on above: Result Comment: This is a duplicate Migel SARS Antigen (NANCY) result to be used for statistical tracking purpose only. PERFORMED BY: [facility] [address] [place] [address] PATHOLOGIST FLATWORK TIER JAIMIE CAMPBELL M.D. Performed By: #### C OVID-19 MIGEL, SOFIANEG #### [facility] [address] [place] [id number] [facility] CNOVon 09-10-2022 CNOV Office Visit (GENMINISTERIO) CHA ELENA ([id number]) 1950 M [facility] Date Time Provider Department 09/10/22 10:00 AM ANGLE MELCHOR During your visit today, we recorded the following information about you: Temperature Pulse Respiration Blood pressure 96.1 degrees 77/minute 12/minute 154/78 Weight Height 106.6 kg 1.803 m Migueldonte Boothe 09/10/2022 9:14 AM Signed What is the reason for your visit today? Consult Who is your referring physician? self Are you having poor oral intake? NO Have you had unintentional weight loss of 15 lbs/7 Kg in the last 3-6 months? NO Bowels: regular Wound: clean AND dry Temperature: No Drains: No Tarik Person MD 09/12/2022 8:[address] [facility] Abdominal [facility] - HISTORY AND PHYSICAL Chief Complaint: incisional hernia causing ache HPI: Cha Elena is a 71 year old male who presents with incisional midline hernia Relevant previous operations include: 2008 - Umbilical hernia repair with mesh. 2017 - lap cholecystectomy 2018 - laparotome for bowel obstruction and mesh removal. No history of Psychiatric Disorders or Opioid Use Independent No employment Sporadic (once/month) No Significant Comorbidities N/A No past medical history on file. No past surgical history on file. Social History Tobacco Use Smoking status: Former Types: Cigarettes Smokeless tobacco: Never Substance Use Topics Alcohol use: Yes Additional social history not relevant to the patient's HPI No family history on file. Additional family history not relevant to the patient's HPI ALLERGIES No Known Allergies No current outpatient medications on file. No current facility-administere d medications for this visit. REVIEW OF SYSTEMS The remainder of the 12 review of systems is negative other than what was mentioned in the HPI and above. BP 154/78 Pulse 77 Temp (!) 35.6 ?C (96.1 ?F) (Temporal) Resp 12 Ht 180.3 cm (5' 11 ) Wt 106.6 kg (235 lb) BMI 32.78 kg/m? Physical findings of this patient are as follows (COMPLETE 10 INCLUDING HEART AND LUNG EXAM OR CHOOSE NORMAL EXAM IF APPROPRIATE): Physical Exam Physical Exam Constitutional: The patient is well-developed, well-nourished, and in no distress. Head: Normocephalic and atraumatic. Eyes: Pupils are equal, round, and reactive to light. EOM are normal. Neck: Normal range of motion. Neck supple. Cardiovascular: Regular rhythm and normal heart sounds. Pulmonary/Chest: Effort normal and breath sounds normal. Abdominal: Soft. Bowel sounds are normal. Musculoskeletal: Normal range of motion. Neurological: He is alert. GCS score is 15. Skin: Skin is warm and dry. Psychiatric: Affect and judgment normal. Relevant Hernia Findings - a 9 cm width reduceable incisional hernia with diastasis recti. LABS: No results found for: HBA1C IMAGING - Reviewed with staff CT - 9 cm hernia width Assessment: Cha Elena is a 71-year-old male presents with an incisional hernia that causes episodes of aches. Without any obstruction symptoms since his last laparotomy. He eating regularly and have normal bowel moments. He had had umbilical hernia repair with mesh and urgent laparotomy for bowel obstruction Plan: Open retrovascular hernia repair with a TAR Angle Melchor MD 09/12/2022 8:38 AM Signed Consultation requested by Dr. Stokes for an opinion regarding incisional hernia. My final recommendations will be communicated back to the requesting physician by way of shared Medical record or letter to requesting physician via US mail. I have seen and evaluated the patient and discussed the case with the resident physician. I agree with the assessment and plan as documented in the resident?s note. 71 year old male with history of umbilical hernias, then recurrence, then emergency surgery and now with moderately large recurrence. We discussed the risks benefits and alternatives of open complex awr and he understood and wished to proceed. Consent was obtained and he would like surgery in the spring. He was enrolled in our RCT of music Patient consented for study? Yes STUDY TITLE: The Effect of Intraoperative Music on Pain in Patients Undergoing Ventral Hernia Repair with Mesh: a Double-Blind Randomized Controlled Trial IRB NO.: #[id number] WHOLESALE BUYER: Chitra Yao MD COORDINATOR/Research Nurse/[employer]eron[employer] Commission Director: Bertha Andrew MD Phone/email: [phone], [email or web address] Consenting was performed by the attending surgeon, in a [id number] manner, during preoperative evaluation at the General Surgery clinic. The study protocol was discussed in detail with the patient. All study procedures were explained to the subject, including randomization, the two possible study interventions, and the postoperative pain management strategy for all primo (more content not included)... Normal [facility] CBC AUTO DIFFon 06-14-2022 BASO # 0.0 103/ul Normal 0.0-0.1 [facility] Comment on above: Performed By: #### C BC #### [facility] [address] [place], [place] [address] Dr. Laurence Valero Basophils/100 WBC (Bld) 0.2 % Normal 0.2-2.0 [facility] Comment on above: Performed By: #### C BC #### [facility] [address] [place] [address] Dr. Laurence Valero EO # 0.0 103/ul Normal 0.0-0.7 [facility] Comment on above: Performed By: #### C BC #### [facility] [address] [place] [address] Dr. Laurence Valero Eosinophils/100 WBC (Bld) 0.0 % Critically low 0.9-7.0 [facility] Comment on above: Performed By: #### C BC #### [facility] [address] [place] [address] Dr. Laurence Valero Erythrocyte distribution width (RBC) [Ratio] 12.2 % Normal 11.0-15.0 [facility] Comment on above: Performed By: #### C BC #### [facility] [address] [place] [address] Dr. Laurence Valero Hematocrit (Bld) [Volume fraction] 40.6 % Critically low 42.0-54.0 [facility] Comment on above: Performed By: #### C BC #### [facility] [address] [place] [address] Dr. Laurence Valero Hemoglobin (Bld) [Mass/Vol] 14.2 g/dL Normal 14.0-18.0 [facility] Comment on above: Performed By: #### C BC #### [facility] [address] [place] [address] Dr. Laurence Valero IG # 0.03 10e3/ul Normal 0.00-0.03 [facility] Comment on above: Performed By: #### C BC #### [facility] [address] [place] [address] Dr. Laurence Valero IG % 0.5 % Normal 0.0-0.5 [facility] Comment on above: Performed By: #### C BC #### [facility] [address] [place] [address] Dr. Laurence Valero LYMPH # 0.7 103/ul Critically low 1.2-3.8 [facility] Comment on above: Performed By: #### C BC #### [facility] [address] [place] [address] Dr. Laurence Valero Lymphocytes/100 WBC (Bld) 11.0 % Critically low 20.5-60.0 [facility] Comment on above: Performed By: #### C BC #### [facility] [address] [place] [address] Dr. Laurence Valero MANUAL DIFF REQ NO Normal [facility] Comment on above: Performed By: #### C BC #### [facility] [address] [place] [address] Dr. Laurence Valero MCH (RBC) [Entitic mass] 31.4 pg Normal 25.9-34.0 [facility] Comment on above: Performed By: #### C BC #### [facility] [address] [place] [address] Dr. Laurence Valero MCHC (RBC) [Mass/Vol] 35.0 g/dL Normal 29.9-35.2 [facility] Comment on above: Performed By: #### C BC #### [facility] [address] [place] [address] Dr. Laurence Valero MCV (RBC) [Entitic vol] 89.8 fL Normal 80.0-94.0 [facility] Comment on above: Performed By: #### C BC #### [facility] [address] [place] [address] Dr. Laurence Valero MONO # 0.5 103/ul Normal 0.3-0.8 [facility] Comment on above: Performed By: #### C BC #### [facility] [address] [place] [address] Dr. Laurence Valero Monocytes/100 WBC (Bld) 7.7 % Normal 1.7-12.0 [facility] Comment on above: Performed By: #### C BC #### [facility] [address] [place] [address] Dr. Laurence Valero NEUT # 5.2 103/ul Normal 1.4-6.5 [facility] Comment on above: Performed By: #### C BC #### [facility] [address] [place] [address] Dr. Laurence Valero Neutrophils/100 WBC (Bld) 80.6 % Critically high 43.0-75.0 [facility] Comment on above: Performed By: #### C BC #### [facility] [address] [place] [address] [address] Laurence Valero Platelet mean volume (Bld) [Entitic vol] 10.0 fL Normal 9.5-13.5 [facility] Comment on above: Performed By: #### C BC #### [facility] [address] [place] [address] [address] Laurence Valero PLT 205 103/ul Normal 150-450 [facility] Comment on above: Performed By: #### C BC #### [facility] [address] [place] [address] Dr. Laurence Valero RBC 4.52 106/ul Critically low 4.70-6.10 [facility] Comment on above: Performed By: #### C BC #### [facility] [address] [place] [address] Dr. Laurence Valero WBC 6.5 103/ul Normal 4.0-11.0 [facility] Comment on above: Performed By: #### C BC #### [facility] [address] [place] [address] NECK ST W CONon [address] W CON EXAMINATION: CT NECK ST W CON HISTORY: Pain , sore throat, Covid COMPARISON: No relevant comparison available. TECHNIQUE: Axial, Coronal, and Sagittal CT images created with IV contrast. Dose reduction techniques were achieved by using automated exposure control and/or adjustment of mA and/or kV according to patient size and/or use of iterative reconstruction technique. FINDINGS: NASOPHARYNX: No asymmetry of the fossae of Rosenmuller and torus tubarius. ORAL CAVITY: No visible mass. OROPHARYNX: No asymmetry of the facial and lingual tonsils. HYPOPHARYNX: No mass or other visible lesion. LARYNX: No mass or asymmetry of the vocal cords. SINUSES: Mild soft tissue attenuation inferior bilateral maxillary sinuses NECK GLANDS: No visible abnormality of the parotid, submandibular, and thyroid glands. LYMPH NODES: Gadolinium normal-sized lymph nodes. No atypical or pathologically enlarged nodes observed. VASCULATURE: No suspicious abnormality. BONES: Levocurvature. Moderate diffuse degenerative spondylosis and facet osteoarthropathy. OTHER: No additional imaging findings. IMPRESSION: No acute abnormality to explain the patient's sore throat or pain Electronically authenticated by: BRIDGER COSME Date: 2022-06-14 10:29 Normal [facility] PROF CHEM 8 (BAS METB)on Anion gap [Moles/Vol] 10.0 mmol/L Normal [facility] Comment on above: Performed By: #### B MP #### [facility] [address] [place] [address] Dr. Laurence Valero Calcium [Mass/Vol] 8.2 mg/dL Critically low 8.5-10.1 [facility] Comment on above: Performed By: #### B MP #### [facility] [address] [place] [address] Dr. Laurence Valero Chloride [Moles/Vol] 94 mmol/L Critically low 98-107 [facility] Comment on above: Performed By: #### B MP #### [facility] [address] [place] [address] Dr. Laurence Valero CO2 [Moles/Vol] 30.4 mmol/L Normal 21.0-32.0 [facility] Comment on above: Performed By: #### B MP #### [facility] [address] [place] [address] Dr. Laurence Valero Creatinine [Mass/Vol] 0.95 mg/dL Normal 0.70-1.30 [facility] Comment on above: Performed By: #### B MP #### [facility] [address] [place] [address] Dr. Laurence Valero EGFR-AF SIERRA LEONEAN >60 Normal >=60 [facility] Comment on above: Performed By: #### B MP #### [facility] [address] [place] [address] Dr. Laurence Valero EGFR-NON AF SIERRA LEONEAN >60 Normal >=60 [facility] Comment on above: Performed By: #### B MP #### [facility] [address] [place] [address] Dr. Laurence Valero Glucose [Mass/Vol] 111 mg/dL Critically high 74-106 [facility] Comment on above: Performed By: #### B MP #### [facility] [address] [address] [address] Laurence Valero Potassium [Moles/Vol] 3.4 mmol/L Critically low 3.5-5.1 [facility] Comment on above: Performed By: #### B MP #### [facility] [address] [address] [address] Laurence Valero Sodium [Moles/Vol] 131 mmol/L Critically low 136-145 [facility] Comment on above: Performed By: #### B MP #### [facility] [address] [place] [address] Dr. Laurence Valero Urea nitrogen [Mass/Vol] 12.0 mg/dL Normal 7.0-18.0 [facility] Comment on above: Performed By: #### B MP #### [facility] [address] [place] [address] Dr. Laurence Valero Urea nitrogen/Creatinine [Mass ratio] 12.6 mg/mg Normal [facility] Comment on above: Performed By: #### B MP #### [facility] [address] [place] [address] Dr. Laurence Valero BUNon 12-11-2021 Urea nitrogen [Mass/Vol] 17.0 mg/dL Normal 9.0-20.0 [facility] Comment on above: Performed By: #### C JJ, BUN #### [facility] [address] [place] [address] Dr. Laurence Valero CREATININEon 12-11-2021 Creatinine [Mass/Vol] 0.93 mg/dL Normal 0.66-1.25 [facility] Comment on above: Performed By: #### C JJ, BUN #### [facility] [address] [place] [address] Dr. Laurence Valero EGFR-AF SIERRA LEONEAN >60 Normal >=60 [facility] Comment on above: Performed By: #### C JJ, BUN #### [facility] [address] [place], [place] [address] Dr. Laurence Valero EGFR-NON AF SIERRA LEONEAN >60 Normal >=60 [facility] Comment on above: Performed By: #### C JJ, BUN #### [facility] [address] [place], [place] [address] Dr. Laurence Valero CTA ABD NAHUM WWO CON LE RUNO FFon 12-11-2021 CTA ABD NAHUM WWO CON LE RUNOFF EXAMINATION: CTA ABD NAHUM WWO CON LE RUNOFF HISTORY: Abdominal aortic aneurysm without rupture COMPARISON: 10/31/2021, 05/31/2020 TECHNIQUE: After obtaining the patient's consent, CT images of the abdomen, pelvis, and lower extremities were obtained without and with non-ionic intravenous contrast material. Multi-planar reformatted/3-D images were created to optimize visualization of vascular anatomy. Dose reduction techniques were achieved by using automated exposure control and/or adjustment of mA and/or kV according to patient size and/or use of iterative reconstruction technique. FINDINGS: AORTA: No abdominal aortic aneurysm. No dissection Mild to moderate atherosclerosis Celiac: No flow significant stenosis occlusion or aneurysm SMA: No flow significant stenosis occlusion or aneurysm Renals: Single right renal artery. Single left renal artery. No flow significant stenosis occlusion or aneurysm OLIVIA: No flow significant stenosis occlusion or aneurysm ILIAC: Mild bilateral atherosclerosis. No flow significant stenosis occlusion or aneurysm presumably common, internal or external iliacs RIGHT LEG: Mild scattered atherosclerosis. No flow significant stenosis occlusion or aneurysm. The runoff arteries are visualized to the mid calf nonvisualization below this level likely is related to phase of contrast enhancement slightly early LEFT LEG: Mild scattered atherosclerosis. No flow significant stenosis occlusion or aneurysm. The runoff arteries are visualized to the mid calf nonvisualization below this level likely is related to phase of contrast enhancement slightly early LUNG BASES: Scattered subcentimeter calcified and noncalcified pulmonary nodules. 5 mm noncalcified nodule right middle lobe axial image #1, partially visualized LIVER: Diffuse hypoattenuation suggesting hepatic steatosis BILIARY: Surgical clips from cholecystectomy PANCREAS: No lesion, fluid collection, ductal dilatation, or atrophy. SPLEEN: No enlargement or focal lesion. ADRENALS: No mass or enlargement. KIDNEYS: No mass, obstruction, or calcification. BOWEL/MESENTERY: Nonobstructive bowel gas pattern. Suture lines mid abdominal small bowel loops axial image 65 with some mild associated bowel dilation. RETROPERITONEUM: No mass or adenopathy. ABDOMINAL WALL: Ventral abdominal wall laxity and hernia containing fat. No strangulation URINARY BLADDER: No visible focal wall thickening, lesion, or calculus. PELVIC NODES: No adenopathy. PELVIC ORGANS: No visible mass. Pelvic organs appropriate for patient age. BONES: No bony lesion or fracture. IMPRESSION: No abdominal aortic aneurysm. Abnormality on ultrasound likely related to technical air with possible elongation of the aorta due to angulation of the probe Electronically authenticated by: BRIDGER COSME Date: 2021-12-11 09:45 Normal [facility] US ABD AORTA DIAGNOSTICon US ABD AORTA DIAGNOSTIC EXAMINATION: US ABD AORTA DIAGNOSTIC HISTORY: Abdominal aortic aneurysm without rupture COMPARISON: 05/31/2020 TECHNIQUE: Ultrasound examination of the retroperitoneal area was performed, with a focused evaluation of the abdominal aorta. FINDINGS: Proximal aorta: 3.8 x 3.9 cm Mid aorta: 2.5 x 2.3 cm Distal aorta: 2.2 x 2.5 cm Right common iliac artery: 1.5 x 1.7 cm Left common iliac artery: 1.7 x 1.9 cm Mild to moderate diffuse atherosclerosis normal color and Doppler flow throughout. IMPRESSION: Fusiform aneurysm of the proximal aorta measuring 3.8 x 3.9 cm Electronically authenticated by: BRIDGER COSME Date: 2021-10-31 09:24 Normal [facility] Vital Signs Date Time Vital Sign Value Performing Clinician Facility 06-24-2024 13:05-0400 Body temperature 98.6 [degF] Tray BUCKLEY [facility] 06-24-2024 13:05-0400 Diastolic blood pressure 77 mm[Hg] Tray BUCKLEY [facility] 06-24-2024 13:05-0400 Heart rate 89 /min Tray BUCKLEY [facility] 06-24-2024 13:05-0400 Respiratory rate 16 /min Tray BUCKLEY [facility] 06-24-2024 13:05-0400 Systolic blood pressure 117 mm[Hg] Tray BUCKLEY [facility] [place] 04-01-2023 11:32-0400 Body height 177.8 cm Angle Melchor MD Work Phone: [facility] 04-01-2023 11:32-0400 Body temperature 96.91 [degF] Angle Melchor MD Work Phone: [facility] 04-01-2023 11:32-0400 Body weight 107.96 kg Angle Melchor MD Work Phone: [facility] 04-01-2023 11:32-0400 Diastolic blood pressure 80 mm[Hg] Angle Melchor MD Work Phone: [facility] 04-01-2023 11:32-0400 Heart rate 91 /min Angle Melchor MD Work Phone: [facility] 04-01-2023 11:32-0400 Respiratory rate 14 /min Angle Melchor MD Work Phone: [facility] 04-01-2023 11:32-0400 Systolic blood pressure 154 mm[Hg] Angle Melchor MD Work Phone: [facility] 03-06-2023 09:49-0400 Body height 179.1 cm Pacc 9 Work Phone: [facility] 03-06-2023 09:49-0400 Body temperature 98.49 [degF] Pacc 9 Work Phone: [facility] 03-06-2023 09:49-0400 Body weight 111.36 kg Pacc 9 Work Phone: [facility] 03-06-2023 09:49-0400 Diastolic blood pressure 71 mm[Hg] Pacc 9 Work Phone: [facility] 03-06-2023 09:49-0400 Heart rate 78 /min Pacc 9 Work Phone: [facility] 03-06-2023 09:49-0400 SaO2% (BldA) [Mass fraction] 98 % Pacc 9 Work Phone: [facility] 03-06-2023 09:49-0400 Systolic blood pressure 126 mm[Hg] [facility] 9 Work Phone: [facility] 12-12-2022 10:40-0500 Diastolic blood pressure 73 mm[Hg] II Speedy Khanna Work Phone: [facility] 12-12-2022 10:40-0500 Heart rate 82 /min II Speedy Khanna Work Phone: [facility] 12-12-2022 10:40-0500 Respiratory rate 20 /min II Speedy Khanna Work Phone: [facility] 12-12-2022 10:40-0500 SaO2% (BldA) [Mass fraction] 99 % II Speedy Khanna Work Phone: [facility] 12-12-2022 10:40-0500 Systolic blood pressure 131 mm[Hg] II Speedy Khanna Work Phone: [facility] 12-12-2022 09:09-0500 Body height 179.07 cm II Speedy Khanna Work Phone: [facility] 12-12-2022 09:09-0500 Body temperature 98.5 [degF] II Speedy Khanna Work Phone: [facility] 12-12-2022 09:09-0500 Body weight 108.86 kg II Speedy Khanna Work Phone: [facility] 09-10-2022 09:12-0400 Body height 180.3 cm Angle Melchor MD Work Phone: [facility] 09-10-2022 09:12-0400 Body temperature 96.1 [degF] Angle Melchor MD Work Phone: [facility] 09-10-2022 09:12-0400 Body weight 106.59 kg Angle Melchor MD Work Phone: [facility] 09-10-2022 09:12-0400 Diastolic blood pressure 78 mm[Hg] Angle Melchor MD Work Phone: [facility] 09-10-2022 09:12-0400 Heart rate 77 /min Angle Melchor MD Work Phone: [facility] 09-10-2022 09:12-0400 Respiratory rate 12 /min Angle Melchor MD Work Phone: [facility] 09-10-2022 09:12-0400 Systolic blood pressure 154 mm[Hg] Angle Melchor MD Work Phone: [facility] Encounters Encounter Date Encounter Type Care Provider Facility Start: 06-21-2025 ambulatory Tray R JONATHAN [facility]iel [facility] Start: 06-24-2024 End: 06-24-2024 ambulatory Tray Ofelia BUCKLEY Facility: [facility] Start: 06-24-2024 End: 06-24-2024 Patient encounter procedure Trayestefania BUCKLEY [facility] Start: 06-19-2024 ambulatory Tray BUCKLEY Facili ty:[facility] Start: 12-26-2023 End: 12-26-2023 ambulatory SPEEDY KHANNA Not Available Start: 12-16-2023 End: 12-16-2023 ambulatory SPEEDY KHANNA Not Available Start: 06-14-2023 End: 12-26-2023 Patient encounter procedure [facility] Comment on above: Bilateral hearing lo ss, unspecified hearing loss type (Primary Dx) Start: 04-01-2023 End: 04-02-2023 ambulatory ANGLE MELCHOR Facility:[facility] Start: 04-01-2023 End: 04-01-2023 Patient encounter procedure Angle Melchor MD Work Phone: General Surgery Comment on above: 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) Start: 03-15-2023 Telephone encounter Bhavya WADE Comment on above: Follow Up Phone Call (All clear) Start: 03-07-2023 End: 03-10-2023 Evaluation and management of inpatient ANGLE MELCHOR Facility:[facility] Start: 03-06-2023 Encounter for other preprocedural examination SPEEDY KHANNA II [facility] Start: 03-06-2023 Encounter for other preprocedural examination SPEEDY KHANNA II [facility] Start: 03-06-2023 End: 03-06-2023 Admission to [facility] Work Phone: [facility] Start: 03-06-2023 End: 03-07-2023 ambulatory [facility] Work Phone: Pre Anesthesia Comment on above: Pre-op evaluation (P rimary Dx); Primary hypertension; Benign prostatic hyperplasia without lower urinary tract symptoms; Abdominal aortic aneurysm (AAA) without rupture, unspecified part (HCC); AV block, 1st degree Start: 03-06-2023 End: 03-06-2023 Preprocedural examination done [facility] 9 Work Phone: Pre Anesthesia Start: 12-12-2022 End: 12-12-2022 ambulatory Ernie Florez Facility:[facility] Start: 12-12-2022 End: 12-12-2022 Admission to same day surgery center II Speedy Khanna Work Phone: [facility] Work Phone: Start: 12-12-2022 End: 12-12-2022 ambulatory II Speedy Khanna Work Phone: [facility] Work Phone: Start: 12-10-2022 End: 12-10-2022 ambulatory Ernie Florez Facility:[facility] Start: 12-10-2022 End: 12-10-2022 ambulatory II Speedy Khanna Work Phone: [facility] Work Phone: Start: 12-10-2022 End: 12-10-2022 Patient encounter procedure II Speedy Khanna Work Phone: [facility] Work Phone: Start: 09-11-2022 ambulatory Angle kilpatrick MD Work Phone: [facility] Comment on above: 03.07.23 Cure (Open Complex AWR 5 hours los 5) Start: 09-11-2022 Preprocedural examin ation done Angle Melchor MD Work Phone: [facility] Start: 09-10-2022 End: 09-11-2022 ambulatory ANGLE MELCHOR Facility:[facility] Start: 09-10-2022 End: 09-10-2022 Patient encounter procedure Angle Melchor MD Work Phone: General Surgery Comment on above: 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) Start: 06-14-2022 End: 06-14-[address] SPEEDY KHANNA Facility:[facility] Start: 05-31-2022 End: 06-01-[address] TANVI MARIE Facility:[facility] Start: 12-13-2021 Encounter for other preprocedural examination [facility] Start: 12-13-2021 Encounter for preprocedural cardiovascular examination [facility] Start: 12-11-2021 End: 12-12-2021 [facility]ulatory [facility] Start: 12-11-2021 End: 12-12-2021 Encounter for preprocedural cardiovascular examination [facility] Start: 10-31-2021 End: 11-01-[address] MILDRED DOCKERY Facility:[facility] Procedures Date Procedure Procedure Detail Performing Clinician Start: 03-06-2023 Antibody screen SPEEDY KHANNA II Comment on above: Order Comment: Speci men Type: BLOOD SPECIMEN Ordering Facility: [facility] Address: [address] [place] [address] Performed By: #### 1 9123-9, 85163-2, 1988-5, HSTNT, 2777-1 #### [facility] CLIA [id number] [address] [place] [address] [place] Start: 12-12-2022 Screening colonoscopy I I Speedy Khanna Work Phone: Start: 12-12-2022 Colonoscopy [facility] Start: 12-10-2022 SARS Antigen (LFIA) II Speedy Khanna Work Phone: Start: 05-31-[address] MARTA MARIE Comment on above: Performed By: #### P [facility] #### [facility] [address] [place] [address] Dr. Laurence Valero Start: 06-26-2010 Transrectal biopsy o f prostate using ultrasound guidance Tray BUCKLEY Cholecystectomy Tray HORTON Herniated structure (morphologic abnormality) Tray BUCKLEY Stomach structure (b rolando structure) Tray BUCKLEY Plan of Treatment Date Care Activity Detail Author Start: 12-12-2032 Screening for malign ant neoplasm of colon [facility] Start: 03-10-2026 DIABETES SCREEN DIABETES SCREEN [facility] Start: 03-06-2026 DIABETES SCREEN DIABETES SCREEN [facility] Start: 08-26-2024 Medicare Annual Well ness (AWV) Medicare Annual Wellness (AWV) [facility] Start: 03-06-2024 BP CONTROLLED (<130/80) BP CONTROLLE D (<130/80) [facility] Start: 09-11-2023 End: 11-11-2023 aPTT in Platelet poor plasma by Coagulation assay ACTIVATED PTT Lab Routine Preoperative examination Recurrent ventral hernia Expected: 09/11/2023, Expires: 11/11/2023 [facility] Work Phone: Comment on above: Expected: 09/11/2023 , Expires: 11/11/2023 Start: 09-11-2023 End: 11-11-2023 CBC W Auto Differential panel - Blood CBC + DIFF Lab Routine Preoperative examination Recurrent ventral hernia Expected: 09/11/2023, Expires: 11/11/2023 [facility] Work Phone: Comment on above: Expected: 09/11/2023 , Expires: 11/11/2023 Start: 09-11-2023 End: 11-11-2023 Comprehensive metabolic 2000 panel - Serum or Plasma COMP METABOLIC PANEL Lab Routine Preoperative examination Recurrent ventral hernia Expected: 09/11/2023, Expires: 11/11/2023 [facility] Work Phone: Comment on above: Expected: 09/11/2023 , Expires: 11/11/2023 Start: 09-11-2023 End: 11-11-2023 PT panel - Platelet poor plasma by Coagulation assay PROTHROMBIN TIME/PT Lab Routine Preoperative examination Recurrent ventral hernia Expected: 09/11/2023, Expires: 11/11/2023 [facility] Work Phone: Comment on above: Expected: 09/11/2023 , Expires: 11/11/2023 Start: 09-11-2023 End: 11-11-2023 TYPE AND SCREEN,30 DAY TYPE AND SCREEN,30 DAY Blood Bank Routine Preoperative examination Recurrent ventral hernia Expected: 09/11/2023, Expires: 11/11/2023 [facility] Work Phone: Comment on above: Expected: 09/11/2023 , Expires: 11/11/2023 Start: 09-11-2023 End: 11-11-2023 URINALYSIS, DIPSTICK ONLY URINALYSIS, DIPSTICK ONLY Lab Routine Preoperative examination Recurrent ventral hernia Expected: 09/11/2023, Expires: 11/11/2023 [facility] Work Phone: Comment on above: Expected: 09/11/2023 , Expires: 11/11/2023 Start: 12-12-2022 [facility] Start: 11-25-2022 ADVANCE DIRECTIVE DISCUSSION ADVANCE DIRECTIVE DISCUSSION [facility] Start: 11-25-2022 DEPRESSION ASSESSMENT DEPRESSION ASS ESSMENT [facility] Start: 07-26-2022 Influenza vaccination INFLUENZA (#1) [facility] Start: 11-25-2021 ADVANCE DIRECTIVE DISCUSSION ADVANCE DIRECTIVE DISCUSSION [facility] Start: 11-25-2021 DEPRESSION ASSESSMENT DEPRESSION ASS ESSMENT [facility] Start: 2016 PNEUMOCOCCAL: 65+ (1 - PCV) PNEUMOCOCCAL: 65+ (1 - PCV) [facility] Start: 2001 SHINGRIX VACCINE (1 of 2) SHINGRIX VACCINE (1 of 2) [facility] Start: 1996 COLOGUARD (FIT-DNA) COLOGUARD (FIT-D NA) [facility] Start: 1996 Colonoscopy COLONOSCOPY [facility] Start: 1996 COLORECTAL CANCER SCREENING COLORECTAL CANCER SCREENING [facility] Start: [address] COLONOGRAPHY [facility] Start: 1996 DIABETES SCREEN DIABETES SCREEN [facility] Start: 1996 FECAL OCCULT BLOOD FECAL OCCULT BLOO D [facility] Start: 1996 SIGMOIDOSCOPY SIGMOIDOSCOPY [facility] Start: 1986 LIPID SCREEN LIPID SCREEN [facility] Start: 1970 Urine microalbumin profile DTAP,TDAP,TD (1 - Tdap) [facility] Start: 1969 ANNUAL 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 DISEASE VISIT ANNUAL PCP TEAM CHRONIC DISEASE VISIT [facility] Start: 1969 BP CONTROLLED (<130/80) BP CONTROLLE D (<130/80) [facility] Start: 1969 HEPATITIS C SCREENING HEPATITIS C SC REENING [facility] Start: 04-09-1952 COVID-19 VACCINE (#1) COVID-19 VACCI NE (#1) [facility] Start: 1950 ABDOMINAL AORTIC ANEURYSM SCREENING ABDOMINAL AORTIC ANEURYSM SCREENING [facility] Start: 1950 Screening for malign ant neoplasm of colon [facility] End: 09-11-2023 ECG COMPLETE ECG COMPLETE ECG Routine Preoperative examination Recurrent ventral hernia 1 Occurrences starting 09/11/2022 until 09/11/2023 [facility] Work Phone: Comment on above: 1 Occurrences starti ng 09/11/2022 until 09/11/2023 REFER FOR ADMIT INTERVIEW REFER FOR ADMIT INTERVIEW Procedures Routine Preoperative examination Recurrent ventral hernia Ordered: 09/11/2022 [facility] Work Phone: Comment on above: Ordered: 09/11/2022 [facility] Immunizations Immunization Date Immunization Notes Care Provider Beverly dow 08-26-2023 influenza virus vacc ine, unspecified formulation Tray BUCKLEY [facility] 10-25-2022 influenza virus vacc ine, unspecified formulation Tray BUCKLEY [facility] 10-25-2022 influenza, high dose seasonal, preservative[facility] 01-09-2022 zoster vaccine recombinant [facility] 10-24-2021 pneumococcal conjuga te vaccine, 13 valent [facility] 10-24-2021 zoster vaccine recombinant [facility] 05-23-2020 pneumococcal polysaccharide vaccine, 23 valent [facility] 10-30-2019 influenza virus vacc ine, unspecified formulation Tray JONATHAN [facility] 10-30-2019 influenza, high dose seasonal, preservative-free [facility] Healthcare Payers Date Payer Category Payer Self-pay 2021 Medicare [employer] MEDICARE A ETNA MEDICARE PPO [id number] 2021-Present [phone] [address] [place] [address] PPO [id number] 1958 Medicare [id number] 1958 Medicare [id number] 1950 Unknown [id number] 593 1950 Unknown [id number] [id number]. 593 1950 Unknown [id number]. 593 1950 Unknown [id number] 2..[id number]. 593 1950 Unknown [id number] [id number]. 1259 1950 Unknown [id number] [id number]. 1259 1950 Unknown [id number] [id number]. 727 1950 Unknown [id number] 2..[id number]. 727 1950 Unknown [id number] 727 Private Health Insurance [facility] [id number] Unknown [id number] Unknown [id number] 531 Social History Date Type Detail Facility Start: 09-10-2022 End: 06-24-2024 Tobacco smoking status NHIS Ex-smoker [facility] End: 11-25-2016 History of tobacco use Current smoker [facility] End: 11-25-2016 History of tobacco use Cigarette Smoker [facility] Start: 09-10-2022 Tobacco use and exposure Smokeless tobacco non-user [facility] Start: 09-10-2022 End: 03-06-2023 Alcohol intake Current drinker of alcohol (finding) [facility] Start: 1950 Sex Assigned At Not on file C [facility] Start: 08-31-2022 End: 09-10-2022 Exposure to SARS-CoV-2 (event) Not sure [facility] Start: 1950 Sex Assigned At Male F [facility] Start: 03-06-2023 Tobacco use and exposure Former smokeless tobacco user [facility] End: 11-25-1989 History of tobacco use Snuff User [facility] Tobacco smoking status CAIS Tobacco smoking consumption unknown [facility] Start: 08-26-2023 End: 12-16-2023 History of Social function [facility] Start: 08-26-2023 End: 12-16-2023 Tobacco use panel [facility] Tobacco smoking status Never [facility] Medical Equipment Procedure Code Equipment Code Equipment Origin al Text Equipment Identifier Dates Surgimesh Wn 30c m X 30cm [id number] Start: 03-07-2023 Goals Date Patient Goal Desired Activity /State Functional Status Date Assessment Result Facility 06-24-2024 Functional Status N/A [facility] Clinical Notes 09-10-2022 to 06-24-2024 Ivone Patricio MA - 06/14/2023 1:00 PM Anitha Melchor MD - 04/01/2023 11:56 AM Yung Person MD - 04/01/2023 11:44 AM Dang Boothe - 04/01/2023 11:32 AM EDT Note Date & Type Note Facility 06-24-2024 Hospital Discharg e instructions Patient Education 06/24/2024 13:28:48 Prostate Cancer Screening Prostate Cancer Screening Prostate cancer screening is testing that is done to check for the presence of prostate cancer in men. The prostate gland is a walnut-sized gland that is located below the bladder and in front of the rectum in males. The function of the prostate is to add fluid to semen during ejaculation. Prostate cancer is one of the most common types of cancer in men. Who should have prostate cancer screening? Screening recommendations vary based on age and other risk factors, as well as between the professional organizations who make the recommendations. In general, screening is recommended if: You are age 50 to 70 and have an average risk for prostate cancer. You should talk with your health care provider about your need for screening and how often screening should be done. Because most prostate cancers are slow growing and will not cause , screening in this age group is generally reserved for men who have a 10- to 15-year life expectancy. You are younger than age 50, and you have these risk factors: ?Having a father, brother, or uncle who has been diagnosed with prostate cancer. The risk is higher if your family member's cancer occurred at an early age or if you have multiple family members with prostate cancer at an early age. ?Being a male who is Black or is of [place] or sub-Saharan descent. In general, screening is not recommended if: You are younger than age 40. You are between the ages of 40 and 49 and you have no risk factors. You are 70 years of age or older. At this age, the risks that screening can cause are greater than the benefits that it may provide. If you are at high risk for prostate cancer, your health care provider may recommend that you have screenings more often or that you start screening at a younger age. How is screening for prostate cancer done? The recommended prostate cancer screening test is a blood test called the prostate-specific antigen (PSA) test. PSA is a protein that is made in the prostate. As you age, your prostate naturally produces more PSA. Abnormally high PSA levels may be caused by: Prostate cancer. An enlarged prostate that is not caused by cancer (benign prostatic hyperplasia, or BPH). This condition is very common in older men. A prostate gland infection (prostatitis) or urinary tract infection. Certain medicines such as male hormones (like testosterone) or other medicines that raise testosterone levels. A rectal exam may be done as part of prostate cancer screening to help provide information about the size of your prostate gland. When a rectal exam is performed, it should be done after the PSA level is drawn to avoid any effect on the results. Depending on the PSA results, you may need more tests, such as: A physical exam to check the size of your prostate gland, if not done as part of screening. Blood and imaging tests. A procedure to remove tissue samples from your prostate gland for testing (biopsy). This is the only way to know for certain if you have prostate cancer. What are the benefits of prostate cancer screening? Screening can help to identify cancer at an early stage, before symptoms start and when the cancer can be treated more easily. There is a small chance that screening may lower your risk of dying from prostate cancer. The chance is small because prostate cancer is a slow-growing cancer, and most men with prostate cancer from a different cause. What are the risks of prostate cancer screening? The main risk of prostate cancer screening is diagnosing and treating prostate cancer that would never have caused any symptoms or problems. This is called overdiagnosisand overtreatment. PSA screening cannot tell you if your PSA is high due to cancer or a different cause. A prostate biopsy is the only procedure to diagnose prostate cancer. Even the results of a biopsy may not tell you if your cancer needs to be treated. Slow-growing prostate cancer may not need any treatment other than monitoring, so diagnosing and treating it may cause unnecessary stress or other side effects. Questions to ask your health care provider When should I start prostate cancer screening? What is my risk for prostate cancer? How often do I need screening? What type of screening tests do I need? How do I get my test results? What do my results mean? Do I need treatment? Where to find more information The [place] [employer]: www.cancer.org [place] [employer]: www.auanet.org Contact a health care provider if: You have difficulty urinating. You have pain when you urinate or ejaculate. You have blood in your urine or semen. You have pain in your back or in the area of your prostate. Summary Prostate cancer is a common type of cancer in men. The prostate gland is located below the bladder and in front of the rectum. This gland adds fluid to semen during ejaculation. Prostate cancer screening may identify cancer at an early stage, when the cancer can be treated more easily and is less likely to have spread to other areas of the body. The prostate-specific antigen (PSA) test is the recommended screening test for prostate cancer, but it has associated risks. Discuss the risks and benefits of prostate cancer screening with your health care provider. If you are age 70 or older, the risks that screening can cause are greater than the benefits that it may provide. This information is not intended to replace advice given to you by your health care provider. Make sure you discuss any questions you have with your health care provider. Document Revised: 05/07/2022 Document Reviewed: 05/07/2022 Cover Patient Education 2022 [email or web address]. Follow Up Care 06/03/2024 14:48:00 With:JONATHAN WATSON, Tray Gilbert, URL Address: [facility] [address] , [place] [address]- When: Unknown [facility] 06-24-2024 Note Patient Education Oncology Prostate Cancer Screening Prostate cancer screening is testing that is done to check for the presence of prostate cancer in men. The prostate gland is a walnut-sized gland that is located below the bladder and in front of the rectum in males. The function of the prostate is to add fluid to semen during ejaculation. Prostate cancer is one of the most common types of cancer in men. Who should have prostate cancer screening? Screening recommendations vary based on age and other risk factors, as well as between the professional organizations who make the recommendations. In general, screening is recommended if: ? You are age 50 to 70 and have an average risk for prostate cancer. You should talk with your health care provider about your need for screening and how often screening should be done. Because most prostate cancers are slow growing and will not cause , screening in this age group is generally reserved for men who have a 10- to 15-year life expectancy. ? You are younger than age 50, and you have these risk factors: ? Having a father, brother, or uncle who has been diagnosed with prostate cancer. The risk is higher if your family member's cancer occurred at an early age or if you have multiple family members with prostate cancer at an early age. ? Being a male who is Black or is of [place] or sub-Saharan descent. In general, screening is not recommended if: ? You are younger than age 40. ? You are between the ages of 40 and 49 and you have no risk factors. ? You are 70 years of age or older. At this age, the risks that screening can cause are greater than the benefits that it may provide. If you are at high risk for prostate cancer, your health care provider may recommend that you have screenings more often or that you start screening at a younger age. How is screening for prostate cancer done? The recommended prostate cancer screening test is a blood test called the prostate-specific antigen (PSA) test. PSA is a protein that is made in the prostate. As you age, your prostate naturally produces more PSA. Abnormally high PSA levels may be caused by: ? Prostate cancer. ? An enlarged prostate that is not caused by cancer (benign prostatic hyperplasia, or BPH). This condition is very common in older men. ? A prostate gland infection (prostatitis) or urinary tract infection. ? Certain medicines such as male hormones (like testosterone) or other medicines that raise testosterone levels. A rectal exam may be done as part of prostate cancer screening to help provide information about the size of your prostate gland. When a rectal exam is performed, it should be done after the PSA level is drawn to avoid any effect on the results. Depending on the PSA results, you may need more tests, such as: ? A physical exam to check the size of your prostate gland, if not done as part of screening. ? Blood and imaging tests. ? A procedure to remove tissue samples from your prostate gland for testing (biopsy). This is the only way to know for certain if you have prostate cancer. What are the benefits of prostate cancer screening? ? Screening can help to identify cancer at an early stage, before symptoms start and when the cancer can be treated more easily. ? There is a small chance that screening may lower your risk of dying from prostate cancer. The chance is small because prostate cancer is a slow-growing cancer, and most men with prostate cancer from a different cause. What are the risks of prostate cancer screening? The main risk of prostate cancer screening is diagnosing and treating prostate cancer that would never have caused any symptoms or problems. This is called overdiagnosisand overtreatment. PSA screening cannot tell you if your PSA is high due to cancer or a different cause. A prostate biopsy is the only procedure to diagnose prostate cancer. Even the results of a biopsy may not tell you if your cancer needs to be treated. Slow-growing prostate cancer may not need any treatment other than monitoring, so diagnosing and treating it may cause unnecessary stress or other side effects. Questions to ask your health care provider ? When should I start prostate cancer screening? ? What is my risk for prostate cancer? ? How often do I need screening? ? What type of screening tests do I need? ? How do I get my test results? ? What do my results mean? ? Do I need treatment? Where to find more information ? The [place] [employer]: www.cancer.org ? [place] [employer]: www.auanet.org Contact a health care provider if: ? You have difficulty urinating. ? You have pain when you urinate or ejaculate. ? You have blood in your urine or semen. ? You have pain in your back or in the area of your prostate. Summary ? Prostate cancer is a common type of cancer in men. The prostate gland is located below the bladder and in front of the rectum. (more content not included)... [facility] 06-14-2023 History of Presen t illness Narrative Patient purchased 6 dry bricks at $3 each. documented in this encounter [facility] 04-01-2023 Note HNO ID: [id number] Author: Angle Melchor MD Service: ? Author Type: Physician Type: Progress Notes Filed: 04/01/2023 1:32 PM Note Text: 30-DAY FOLLOW UP NOTE FROM [facility] Cha Elena is a 72 year-old male with who presents 25 days after: ? Open incisional, hernia repair with 30 cm x 30 cm retromuscular and preperitoneal SURGIMESH WN (Apside/[facility]) ? Bilateral transversus abdominis and post rectus sheath incision myofascial release The patient experienced an uncomplicated postoperative course. Hospital length of stay: 3 Readmission: No Evidence of recurrence: No, (clinical assessment) I will plan see the patient again in 12 months or sooner if there are any unanticipated events. Dr. Angle Melchor [facility] 04-01-2023 Note HNO ID: [id number] Author: Tarik Person MD Service: ? Author Type: Resident Type: Progress Notes Filed: 04/01/2023 1:32 PM Note Text: [facility] - HISTORY AND PHYSICAL Chief Complaint: post-surgical follow-up HPI: Cha Elena is a 72-year-old male who underwent TAR on 03.07.23. since surgery, he has been feeling good, has no pain, and has returned to his normal activities. The abdomen is soft and non-tender, and the wound looks normal. No past medical history on file. PAST SURGICAL HISTORY Procedure Laterality Date COLONOSCOPY SCREENING HERNIA REPAIR HX PAST SURGICAL HISTORY OF emergent surgery for necrotic bowel REMOVAL GALLBLADDER Social History Tobacco Use Smoking status: Former Types: Cigarettes Quit date: 2016 Years since quittin.3 Smokeless tobacco: Former Types: Snuff Quit date: 1989 Substance Use Topics Alcohol use: Yes Alcohol/week: 35.0 - 42.0 standard drinks Types: 35 - 42 Cans of Beer (12oz) per week Drug use: Never Additional social history not relevant to the patient's HPI FAMILY HISTORY Problem Relation Age of Onset Anesthesia Problems No Family History Additional family history not relevant to the patient's HPI ALLERGIES No Known Allergies Current Outpatient Medications Medication Sig Dispense Refill acetaminophen (TYLENOL) 500 mg tablet Take 2 tablets by mouth every 6 hours as needed for pain. 30 tablet 0 oxyCODONE IR (ROXICODONE) 5 mg immediate release tablet Take 1 tablet by mouth every 8 hours as needed. 6 tablet 0 Candesartan-Hydrochlorothiazid 32-25 mg tab Candesartan-Hydrochlorothiazid Active 1 TAB PO Daily December 12, 2022 12:00am No current facility-administered medications for this visit. REVIEW OF SYSTEMS The remainder of the 12 review of systems is negative other than what was mentioned in the HPI and above. BP 154/80 Pulse 91 Temp 36.1 ?C (96.9 ?F) (Temporal Artery) Resp 14 Ht 177.8 cm (5' 10 ) Wt 108 kg (238 lb) BMI 34.15 kg/m? Physical findings of this patient are as follows (COMPLETE 10 INCLUDING HEART AND LUNG EXAM OR CHOOSE NORMAL EXAM IF APPROPRIATE): Physical Exam Physical Exam Constitutional: The patient is well-developed, well-nourished, and in no distress. Head: Normocephalic and atraumatic. Eyes: Pupils are equal, round, and reactive to light. EOM are normal. Neck: Normal range of motion. Neck supple. Cardiovascular: Regular rhythm and normal heart sounds. Pulmonary/Chest: Effort normal and breath sounds normal. Abdominal: Soft. Bowel sounds are normal. Musculoskeletal: Normal range of motion. Neurological: He is alert. GCS score is 15. Skin: Skin is warm and dry. Psychiatric: Affect and judgment normal. LABS: No results found for: HBA1C Plan: Follow up in a year with CT scan [facility] 04-01-2023 History of Presen t illness Narrative 30-DAY FOLLOW UP NOTE FROM [facility] Cha Elena is a 72 year-old male with who presents 25 days after: Open incisional, hernia repair with 30 cm x 30 cm retromuscular and preperitoneal SURGIMESH WN (Apside/BG Medical) Bilateral transversus abdominis and post rectus sheath incision myofascial release The patient experienced an uncomplicated postoperative course. Hospital length of stay: 3 Readmission: No Evidence of recurrence: No, (clinical assessment) I will plan see the patient again in 12 months or sooner if there are any unanticipated events. Dr. Angle Melchor [facility] - HISTORY AND PHYSICAL Chief Complaint: post-surgical follow-up HPI: Cha Elena is a 72-year-old male who underwent TAR on 03.07.23. since surgery, he has been feeling good, has no pain, and has returned to his normal activities. The abdomen is soft and non-tender, and the wound looks normal. No past medical history on file. PAST SURGICAL HISTORY Procedure Laterality Date COLONOSCOPY SCREENING HERNIA REPAIR HX PAST SURGICAL HISTORY OF emergent surgery for necrotic bowel REMOVAL GALLBLADDER Social History Tobacco Use Smoking status: Former Types: Cigarettes Quit date: 2016 Years since quittin.3 Smokeless tobacco: Former Types: Snuff Quit date: 1989 Substance Use Topics Alcohol use: Yes Alcohol/week: 35.0 - 42.0 standard drinks Types: 35 - 42 Cans of Beer (12oz) per week Drug use: Never Additional social history not relevant to the patient's HPI FAMILY HISTORY Problem Relation Age of Onset Anesthesia Problems No Family History Additional family history not relevant to the patient's HPI ALLERGIES No Known Allergies Current Outpatient Medications Medication Sig Dispense Refill acetaminophen (TYLENOL) 500 mg tablet Take 2 tablets by mouth every 6 hours as needed for pain. 30 tablet 0 oxyCODONE IR (ROXICODONE) 5 mg immediate release tablet Take 1 tablet by mouth every 8 hours as needed. 6 tablet 0 Candesartan-Hydrochlorothiazid 32-25 mg tab Candesartan-Hydrochlorothiazid Active 1 TAB PO Daily December 12, 2022 12:00am No current facility-administered medications for this visit. REVIEW OF SYSTEMS The remainder of the 12 review of systems is negative other than what was mentioned in the HPI and above. BP 154/80 Pulse 91 Temp 36.1 C (96.9 F) (Temporal Artery) Resp 14 Ht 177.8 cm (5' 10 ) Wt 108 kg (238 lb) BMI 34.15 kg/m Physical findings of this patient are as follows (COMPLETE 10 INCLUDING HEART AND LUNG EXAM OR CHOOSE NORMAL EXAM IF APPROPRIATE): Physical Exam Physical Exam Constitutional: The patient is well-developed, well-nourished, and in no distress. Head: Normocephalic and atraumatic. Eyes: Pupils are equal, round, and reactive to light. EOM are normal. Neck: Normal range of motion. Neck supple. Cardiovascular: Regular rhythm and normal heart sounds. Pulmonary/Chest: Effort normal and breath sounds normal. Abdominal: Soft. Bowel sounds are normal. Musculoskeletal: Normal range of motion. Neurological: He is alert. GCS score is 15. Skin: Skin is warm and dry. Psychiatric: Affect and judgment normal. LABS: No results found for: HBA1C Plan: Follow up in a year with CT scan documented in this encounter [facility] 04-01-2023 Nurse Note What is the reason for your visit today? Post op Who is your referring physician? Dr. Melchor Are you having poor oral intake? NO Have you had unintentional weight loss of 15 lbs/7 Kg in the last 3-6 months? NO Bowels: regular Wound: clean & dry Temperature: No Drains: No documented in this encounter [facility] 03-15-2023 Miscellaneous Notes PATIENT INFORMATION Record ID: [id number] Patient Name: [facility]: [facility] [place]: [facility] [place] Attending: Angle Melchor Center: General Surgery INSTRUCTIONS SN to remind patient of appointment date, time, location All Clear All Clear SURVEY INFORMATION Medical/Nurse Tutorial Laboratory Supervisor: Bhavya Mcintosh 1. Your discharge instructions are important in guiding you through the recovery process. Is there anything I could help you clarify on your discharge instructions? (Standard Question) No, All clear 2. Do you have a follow up appointment related to your hospital stay scheduled within the next 30 days? (Standard Question) Yes 3. Do you have any of the following new symptoms related to your wound?; Creamy white or foul smelling drainage Increasing redness or swelling, Increasing pain (Red Flag Question) No, no concerns at all 4. Are you tolerating your pain with your current medication? (Red Flag Question) I have no pain or minimal pain 5. Many patients have concerns about their medications once they are home. Do you have any questions about getting or taking your medications? (Standard Question) No 6. Do you have any new or different symptoms? 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 Recovering appropriately on RNF. Neuro/Pain: PO/IV regimen Cardioresp: Incentive spirometry, tele FEN/GI: MIVF until taking adequate PO. Replete Lytes. Diet: CLD, possible advancement today. KUB to assess for bowel dilation. Zofran PRN Renal: Strict I/Os. No Calle Heme: No indication for transfusion ID: No indication for abx Endo: SSI Prophylaxis: IPCs, Lovenox Dispo: RNF, pending ROBF Plan discussed with Surgery Staff Dr. Natalie Valadez MD General Surgery PGY-4 Date: 03/09/2023 Time: 8:23 AM Pager: [phone] Subjective: Interval Events: no acute events, still some nausea, no flatus. Pain controlled. no bowel function. No other complaints. Physical Exam: BP 104/78 Pulse 88 Temp 36.5 ?C (97.7 ?F) (Oral) Resp 17 Wt 112 kg (246 lb 14.6 oz) SpO2 96% BMI 34.93 kg/m? GENERAL/NEURO: Awake, Alert, no distress HEENT: Normocephalic, Atraumatic, sclera anicteric CARDIORESP: Non-labored breathing on RA, hemodynamically stable ABDOMEN: Soft, non tender, non distended INCISIONS: clean/dry/intact DRAIN: serosanguinous EXTREMITIES: warm, well perfused, no jaundice, no cyanosis, no edema Labs: CBC, BMP, MG, PHOS Recent Labs 03/08/23 2345 03/08/23 0138 03/06/23 1046 WBC 9.17 10.77 6.39 HB 12.6* 14.2 15.0 HCT 36.7* 43.1 45.2 PLT 252 284 313 NA 138 141 139 K 3.4* 4.6 4.0 CHLOR 98 105 101 CO2 25 25 27 BUN 12 16 13 CREAT 0.74 0.88 0.90 GLUC 114* 126* 91 CA 9.0 8.6 10.0 MG 2.1 2.3 -- P 1.3* 4.3 -- Liver Function, Amylase, AND Lipase Recent Labs 03/06/23 1046 TPROT 6.9 ALB 4.6 ALT 26 AST 21 ALKPHOS 54 TBILI 1.0 Coags Recent Labs 03/06/23 1046 APTT 25.9 INR 1.0 Intake and Output: Date 03/08/23 0700 - 03/09/23 0659 03/09/23 0700 - 03/10/23 0659 Shift 2415-9620 1480-7925 0396-4074 24 Hour Total 7820-6249 8435-2687 8581-6686 24 Hour Total INTAKE PO 484 988 3573 PO 365 351 0502 IV 7309 645 7788 Volume (mL) (NaCl 0.9% iv flush bag) 0 0 Volume (mL) (potassium chloride iv piggyback 20 mEq/100 mL) 0 0 Volume (mL) (magnesium sulfate iv piggyback in sterile water 2 g 50 mL) 0 0 Volume (mL) (lactated ringers iv infusion) 8565 046 7396 Shift Total 740 1362 1230 3332 OUTPUT Urine 272 684 3371 1875 Void (ml) 700 1075 1775 Output ([REMOVED] Indwelling Urinary Catheter 03/07/23 1130 Coude 16 Fr 03/08/23 1100) 100 100 Tubes 30 70 105 205 Drain/Tube Output (Drain/Tube 03/07/23 1257 Tl Vazquez Left Upper Quadrant Abdomen Drain #1) 30 60 80 170 Drain/Tube Output (Drain/Tube 03/07/23 1258 Tl Vazquez Right Upper Quadrant Abdomen Drain #2) 0 10 25 35 Shift Total 678 345 8523 2080 Weight (kg) 112 112 112 112 112 112 Current Medications: Current Facility-Administered Medications Medication Dose Route Frequency lactated ringers iv infusion 75 mL/hr INTRAVENOUS CONTINUOUS potassium chloride ER 20-40 mEq tab(s) (KLOR-CON) 20-40 mEq ORAL PRN Or potassium chloride iv piggyback 20 mEq/100 mL 20 mEq INTRAVENOUS PRN magnesium sulfate iv piggyback in sterile water 2 g 50 mL 2 g INTRAVENOUS PRN(NO DISPENSE) phosphorus 500 mg tab(s) (K PHOS NEUTRAL) 500 mg ORAL/FEEDING TUBE PRN(NO DISPENSE) docusate sodium 100 mg cap(s) (COLACE) 100 mg ORAL BID magnesium hydroxide 400 mg/5 mL 30 mL (MOM) 30 mL ORAL BID ondansetron (PF) 4 mg injection (ZOFRAN) 4 mg INTRAVENOUS q 6 H PRN acetaminophen 1,000 mg tab(s) (TYLENOL) 1,000 mg ORAL q 6 H gabapentin 300 mg cap(s) (NEURONTIN) 300 mg ORAL q 8 H oxyCODONE IR 5 mg tab(s) (ROXICODONE) 5 mg ORAL q 4 H PRN enoxaparin 40 mg injection (LOVENOX) 40 mg SUBCUTANEOUS q 24 HR naloxone 0.1 mg injection (NARCAN) 0.1 mg INTRAVENOUS q 2 MIN PRN tamsulosin 0.4 mg cap(s) (FLOMAX) 0.4 mg ORAL DAILY prochlorperazine 5 mg injection (COMPAZINE) 5 mg INTRAVENOUS q 6 H PRN potassium phosphate 30 mmol in NaCl 0.9% 250 mL 30 mmol INTRAVENOUS ONCE NaCl 0.9% iv flush bag 20 mL INTRAVENOUS PRN *A review of daily goals, interventions, and plan of care with the multidisciplinary team and patient has been conducted. The patient?s concerns have been addressed and he/she agrees to proceed with today?s plan of care. [facility] 03-08-2023 Note HNO ID: [id number] Author: Ashleigh Santos RN Service: Care Management Author Type: Registered Nurse Type: Care Mgt Initial Assessment Filed: 03/08/2023 12:06 PM Note Text: CARE MANAGEMENT: ASSESSMENT AND DISCHARGE PLAN SERVICE DATE: March 08, 2023 SERVICE TIME: 12:05 PM PCP: Speedy Khanna II, MD Primary Contact: Extended Emergency Contact Information Primary Emergency Contact: HOMAR JOHNSON Mobile Relation: Daughter Admission Status: Inpatient Insurance Provider: [employer]IC[employer] PPO Discharge Planning requested by: Attending Provider Potential Transition Plans No Services Indicated Advance Directives Current Advance Directive: None Practical Ministries Professor Attempted to Assist with AD Completion: Yes Action: Education Provided Current Living Arrangements and Support Lives with: Alone Type of Residence: Private Residence (House) Does the patient have to climb stairs at home?: Yes Support: Family members How do you manage to accomplish the following: Independent: Ambulation;Bathe/Shower;Dress;M eals/Meal Prep;Going to the bathroom;Medication Management;Transportation to appointments/community Current Services/Equipment Current Post-Acute Service(s): None Discharge Planning Patient Goal(s): Be able to go home [place] Explained: [place] Given: No Reason Not Given: No placements necessary Are you interested in bedside delivery of your medications? Yes Discharge Planning Participant(s): Patient Patient/Family Comments: Caregiver Assessment: Caregiver is ready, willing and able to meet the patient's needs as recommended by the inter-professional team: No Caregiver needed Transport at Discharge: Transportation Arrangements: Car Destination: home Needs Prior to Discharge: Needs Prior to Discharge: None Post-Acute Discharge Plan: CM met with pt and his dtr Homar at bedside. Pt lives at home alone and was IPTA. No skilled needs identified at this time. Dtr Homar to transport home when discharge ready. SIGNATURE: Ashleigh Santos RN PATIENT NAME: Cha Elena DATE: March 08, 2023 TIME: 12:05 PM CONTACT #: [phone] [facility] 03-08-2023 Note HNO ID: [id number] Author: Maria M Vaz, TELEMARKETING SUPERVISOR.SCREEN OPERATOR Service: General Surgery Author Type: Nurse Practitioner Type: Progress Notes Filed: 03/08/2023 10:25 AM Note Text: SERVICE DATE: 03/08/2023 SERVICE TIME: 10:25 AM GENERAL SURGERY SERVICE PROGRESS NOTE INTERVAL HPI: Cha Elena is a 72 y/o F with a PMH of AAA without rupture, BPH, HTN who underwent a bilateral TAR, open ventral hernia repair with mesh by Natalie on 03/07/2023. Recovering appropriately on RNF. Subjective C/o nausea but no emesis. Has not tried solid food due to nausea. Calle removed this AM, has yet to void. Out of bed x1. On room air. Objective BP 127/69 Pulse 69 Temp (Src) 98.4 (Oral) Resp 18 SpO2 94% O2 Therapy: Room Air Date 03/07/23699 - 03/08/2359 03/08/23 07 - 03/09/23 0659 Shift 1094-8520 6538-1361 4792-7710 24 Hour Total 1198-2972 1330-6213 3282-3448 24 Hour Total INTAKE PO 100 250 350 240 240 PO 100 250 350 240 240 IV 6757 591 8876 Volume (mL) (ceFAZolin iv piggyback 2 g in D5W (iso-osmotic) 100 mL (ANCEF)) 100 50 150 Volume (mL) (rocuronium injection) 11 11 Volume (mL) (ePHEDrine injection) 1 1 Volume (mL) (lactated ringers iv infusion) 310 310 Volume (mL) (lactated ringers iv infusion) 1800 1800 Shift Total 1911 649 515 2773 240 240 OUTPUT Urine 140 340 425 905 100 100 OR Urine Output 140 140 Output ( Indwelling Urinary Catheter 03/07/23 1130 Coude 16 Fr) 340 425 765 100 100 Tubes 220 65 285 30 30 Drain/Tube Output (Drain/Tube 03/07/23 1257 Tl Vazquez Left Upper Quadrant Abdomen Drain #1) 185 65 250 30 30 Drain/Tube Output (Drain/Tube 03/07/23 1258 Tl Vazquez Right Upper Quadrant Abdomen Drain #2) 35 0 35 0 0 Blood 50 50 Estimated Blood loss 50 50 Shift Total 190 953 766 3036 130 130 Weight (kg) Lines, Drains, and Airways Line Duration Peripheral 03/07/23 1030 Left Forearm 16 Gauge <1 day Drain Duration Drain/Tube 03/07/23 1257 Tl Vazquez Left Upper Quadrant Abdomen Drain #1 <1 day Drain/Tube 03/07/23 1258 Tl Vazquez Right Upper Quadrant Abdomen Drain #2 <1 day Indwelling Urinary Catheter 03/07/23 1130 Coude 16 Fr <1 day PHYSICAL EXAM GENERAL: Alert and oriented times to person, place and time, in no acute distress. LUNGS: Non- Labored breathing on room air. CARDIAC: Regular rate. ABDOMEN: Soft, appropriately tender, distended. INCISIONS: Clean, dry and intact EXTREMITIES: Warm, no lower extremity edema Assessment AND Plan Active Hospital Problems as of 03/08/2023 Noted - Resolved POA Hospital Benign prostatic hyperplasia without lower urinary tract symptoms 06/04/2022 - Present Yes Current Assessment AND Plan Assessment: Not on home alpha blockers PLAN: - D/C calle today - Added 3 days Flomax PO daily Primary hypertension 03/06/2023 - Present Yes Current Assessment AND Plan Assessment: BP stable, 120s/70s PLAN: - Hold home OLIVIER/ARB in immediate post op setting Obesity, Class I, BMI 30-34.9 03/07/2023 - Present Yes Current Assessment AND Plan Assessment: BMI 34 PLAN: - Follow up with PCP Post-op pain 03/08/2023 - Present No Current Assessment AND Plan Assessment: Minimal use of CHIEF YEOMAN due to nausea. Pain well managed with current regimen PLAN: - D/C CHIEF YEOMAN - Scheduled Tylenol, gabapentin - PRN oxycodone 5 mg q4h PO S/P hernia repair 03/08/2023 - Present No Current Assessment AND Plan Assessment: POD 1 from repair. No bowel function yet. Some nausea, no emesis. Pain well managed. PLAN: - Downgrade to CLD for now. Consider advancement with resolution of nausea. - Bowel regimen scheduled - Maintenance IVF at 75cc/h - D/C CHIEF YEOMAN - D/C calle for TOV. - Encourage OOB, ambulation, sitting in chair - Keep drains x2 to bulb suction - Strict I/Os - SCDs to be worn. IS use encouraged. Minimize use of supplemental O2. - Dispo: RNF Medication and Non-Pharmacologic VTE Prophylaxis/Anticoagulants Anticoagulant AND Antiplatelet Medications (From admission, onward) Start Dose Route Frequency Last Action Ordered Stop 03/07/231929 enoxaparin 40 mg injection (LOVENOX) (Surgical Risk Categories) 40 mg SUBCUTANEOUS EVERY 24 HOURS Given, 03/07 214603/07/231928 -- 03/07/231929 activity - mobilize patient (al,ut) VTE Prophylaxis: VTE prophylaxis appropriate Plan of care discussed with: Provider, RN, Patient and Care Management SIGNATURE: Maria M Vaz APRN.CNP PATIENT NAME: Cha Elena DATE: March 08, 2023 TIME: 10:25 AM [facility] 03-07-2023 History of Past i llness Narrative Problem Noted Date Resolved Date Incisional hernia, without obstruction or gangre ne 03/07/2023 03/08/2023 documented as of this encounter (statuses as of 03/15/2023) [facility]04-13-2023 History of Past illness Narrative* Problem Noted Date Resolved Date Incisional hernia, without obstruction or gangre ne 03/07/2023 03/08/2023 documented as of this encounter (statuses as of 04/01/2023) [facility]04-13-2023 NoteHNO ID: [id number] Author: Logan George APRN.POCKET SECRETARY ASSEMBLER Service: ? Author Type: Nurse Estimation Manager Type: Anesthesia Procedure Notes Filed: 03/07/2023 11:40 AM Note Text: ANESTHESIOLOGY PROCEDURE NOTE Airway General Information Procedure Start Time/Medication Administration: 03/07/2023 11:18 AM Patient location during procedure: OR Timeout Performed Pre-procedure: timeout performed Consent Obtained: Yes Patient identity confirmed: arm band, care pressure steamer tender and patient Staffing POCKET SECRETARY ASSEMBLER: Mago Haji APRN.POCKET SECRETARY ASSEMBLER Performed by: POCKET SECRETARY ASSEMBLER Indications and Patient Condition Indications for airway management: anesthesia Preoxygenated: yes anesthesia circuit Method: asleep Difficult Mask: No Final Airway Details Final airway type: endotracheal airway Final Endotracheal Airway: ETT Cuffed: yes Successful intubation technique: video laryngoscopy Devices used: [employer] Endotracheal tube insertion site: oral Blade size: #4 ETT size (mm): 7.5 Measured from: lips Measurement (cm): 23 Placement verified by: capnometry Cormack-Lehane Classification: grade I - full view of glottis Number of attempts at approach: 1 Airway not difficult SIGNATURE: Logan George APRN.CRNA PATIENT NAME: Cha Elena DATE: March 07, 2023 TIME: 11:39 AM CSN: [id number] History and physical note* Adrianna Pollock APRN.SCREEN OPERATOR - 03/06/2023 10:00 AM EDT HISTORY AND PHYSICAL EXAMINATION SERVICE DATE: 03/06/2023 SERVICE TIME: 10:00 AM PRIMARY CARE PHYSICIAN: Speedy Khanna II, MD REASON FOR VISIT: Cha Elena is a 72 year old male who is scheduled for COMPLEX REPAIR WOUND OF ABDOMEN 2.6 CM TO7.5 CM on 03/07/2023 at [facility]. Patient is being seen at the request of Dr. Angle Melchor for consultation. My final recommendation will be communicated back to the requesting physician by way of shared medical record or letter. The patient has the following: ACTIVE PROBLEM LIST Abdominal Aortic Aneurysm Without Rupture (Hcc) Benign Prostatic Hyperplasia Without Lower Urinary Tract Symptoms Primary Hypertension Av Block, 1st Degree Subjective CHIEF COMPLAINT: pre op exam, recurrent ventral hernia HPI: Cha is a 72 year old male who presents to [facility] for pre op evaluation. Cha has a history of umbilical hernia with recurrence. He has undergone emergency surgery in the past and now has a moderately large recurrence. He has agreed to the above procedure. Cha states that he has an electrical block in his heart. He is not sure of the exact diagnosis, but reports that it is monitored by his PCP. He has no symptoms of fatigue, SOB, chest pain, arrhythmia. METs >5. No past medical history on file. PAST SURGICAL HISTORY Procedure Laterality Date COLONOSCOPY SCREENING HERNIA REPAIR HX PAST SURGICAL HISTORY OF emergent surgery for necrotic bowel REMOVAL GALLBLADDER FAMILY HISTORY Problem Relation Age of Onset Anesthesia Problems No Family History SOCIAL HISTORY: Social History Tobacco Use Smoking status: Former Types: Cigarettes Quit date: 2016 Years since quittin.2 Smokeless tobacco: Former Types: Snuff Quit date: 1989 Substance Use Topics Alcohol use: Yes Alcohol/week: 35.0 - 42.0 standard drinks Types: 35 - 42 Cans of Beer (12oz) per week Drug use: Never MEDICATIONS: Prior to Admission medications as of <Not Reviewed> Medication Sig Last Dose Taking Candesartan-Hydrochlorothiazid 32-25 mg tab Candesartan-Hydrochlorothiazid Active 1 TAB PO Daily December 12, 2022 12:00am Taking Yes No medication comments found. CURRENT ALLERGIES: ALLERGIES No Known Allergies COVID VACCINATION STATUS: Not vaccinated, prior infection REVIEW OF SYSTEMS: PAIN ASSESSMENT: Pain Pain Level: 1 Pain Location: Abdomen-Left Lower Quadrant Description: Aching, Dull Duration Units: Years Frequency: Intermittent Intervention/Comfort measure: Medication General: No weight loss, malaise or fevers. Neuro: No history of TIA's, stroke, GAS PLANT TECHNICIAN tumor, impaired sensorium, hemiplegia, paraplegia or quadraplegia. No neurological symptoms or problems. Respiratory: No history of current cough or dyspnea, or pneumonia in the past 6 weeks. No history of respiratory/pulmonary symptoms or problems. Cardiovascular: h/o AAA, HTN, 'electrical block' Negative for Recent OH, Chest Pain GI: GERD No history of GI symptoms or problems. No history of esophageal varices, recent ascites, or ETOH greater than 2 drinks per day. : h/o BPH without LUTS No history of dysuria, frequency or incontinence,, stones or chronic kidney disease Endocrine: No history of diabetes. Has not taken steroids within the past 30 days. No history of endocrinological symptoms or problems. Hematology: No history of bleeding or clotting disorder. Pt is not taking anti- coagulation or platelet medications. No history of hematological symptoms or problems. Oncology: No history of CA metastasis, chemo within 30 days, or radiotherapy within 90 days. Has not lost 10% of body wt in 6 months. No history of oncological symptoms or problems. Psych: No history of psychiatric symptoms or problems. Musculoskeletal: Negative for joint pain or swelling, back pain or muscle pain. Skin: Negative for lesions, rash and itching. Objective PHYSICAL EXAM: VITALS: BP 126/71 Pulse 78 Temp (Src) 98.5 (Temporal) Ht 5' 10.5 (1.79m) Wt 245 lb 8 oz (111.4kg) SpO2 98% BMI 34.72 kg/(m^2). General: Alert and oriented, No acute distress, Obese Skin: Normal color, no rash, no lesions. HEENT: EOM, pupils equal, round and reactive. Cardiovascular: Normal S1 & S2, no rubs, murmurs or gallops. No JVD. Pulse regular. Lungs: Normal breath sounds, no wheezes or crackles. Abdomen: Positive bowel sounds Extremities: No deformity, no edema or tenderness, no joint swelling or clubbing. Neurological: Normal cognition and motor skills. Pulses: Carotid and radial pulses normal +2. Diagnostic tests reviewed for today's visit: Lab Value Units Date High Low HB No results within date range. HCT No results within date range. WBC No results within date range. PLT No results within date range. NA No results within date range. K No results within date range. GLUC No results within date range. BUN No results within date range. CREAT No results within date range. PTSEC No results within date range. INR No results within date range. APTT No results within date range. ALT No results within date range. AST No results within date range. TBILI No results within date range. TSH No results within date range. PENDING EKG 03/06/2023 Diagnosis: SINUS RHYTHM WITH 1ST DEGREE AV BLOCK RIGHT AXIS DEVIATION NONSPECIFIC INTRAVENTRICULAR BLOCK ABNORMAL ECG Assessment/Plan Primary hypertension Stable on rx BP today 126/71 Benign prostatic hyperplasia without lower urinary tract symptoms No LUTS Abdominal aortic aneurysm without rupture (HCC) Per patient: US was negative for widening. His physician said it was enlarged. He is not sure if this is a correct diagnosis. Monitored. r AV block, 1st degree Known to patient. No previous EKG. Per [facility] guidelines no further work up. METS: Walk a block or two on level ground (2.75 METs) Climb a flight of stairs or walk up a hill (5.50 METs) Patient denies any chest pain or undue shortness of breath with the above physical activity. ASA Class: 3 ANESTHESIA FINDINGS: Intubation History: No history of difficult intubation Significant Anesthesia Considerations: Postop nausea/vomiting, best IV access in the forearm/hand Airway Exam: General: Normal appearance Mallampati Score is CLASS III ULBT: Class I - Lower incisors can bite the upper lip above the michel line Neck: Normal appearance and function, Distance from hyoid to mentum during neck extension is at least 3 finger breaths Mouth: Normal tongue size and Mouth opening greater than 2 finger breaths Dentition: Intact Airway History: No abnormal airway history STOP BANG Score: Criteria: Hypertension Age over 50 (72 year old) Male gender Score = 3 PLAN Pt optimally prepared for surgery, pending day of surgery CONSULTS: Patient does not require consults for optimization at this time. The Following Tests/Procedures Have Been Initiated: Orders per surgery Planned Anesthetic: Per anesthesia choice Instructions Given to Patient: Instructions located in the after visit summary. Patient given verbal and written preop instructions and voices comprehension and compliance. SIGNATURE: Adrianna Pollock APRN.CNP PATIENT NAME: Cha Elena DATE: March 06, 2023 TIME: 10:39 AM documented in this encounterAultman [facility]04-[facility] Instructions* Patient Instructions* Adrianna Pollock APRN.CNP - 03/06/2023 9:30 AM EDT PATIENT PREOPERATIVE INSTRUCTIONS Angle Melchor MD has scheduled you for your procedure at this surgery center: [facility] Scheduling Office: [phone] --[address] [place] [address]. Please read below carefully for your personalized instructions. Dietary Restrictions: - No solid food after midnight. - You may have 12 ounces of clear liquids (water, clear juices such as apple juice or gatorade, carbonated beverages, clear tea, black coffee, jello) until 2 hours before scheduled arrival at facility. Is Patient Diabetic:No Medications: Unless instructed differently below, stay on all of your medications until your surgery. Approved medications to take the morning of surgery with a sip of water: none If you start any new medications after today's visit, please contact the surgeon's office. Blood Thinning Medications: - Stop NSAIDS (Ibuprofen, Advil, Aleve, Motrin, Celebrex, Mobic, etc.) 7 days before surgery, as directed by your surgeon. - Stop Aspirin 7 days before surgery, as directed by your surgeon. - Stop Vitamin E, ALL multi-vitamins, herbals and dietary supplements 7 days before surgery. - You may take Tylenol (Acetaminophen) or any of your pain medications that do not contain aspirin or NSAIDS as needed. Important Reminders: - Candy, mints, and tobacco products are NOT permitted the morning of surgery. - Hearing aids, dentures and glasses may be worn the morning of surgery. - NO jewelry, body piercings, makeup, hairpins or contacts are to be worn the day of surgery. If you develop symptoms such as a fever, cold, or flu, or have other changes to your health within TWO DAYS of scheduled surgery or the morning of surgery, please contact the surgery center above. Personal Belongings: -Please have photo ID and insurance cards. -If you do not have a copy of advance directives on file with us, please bring a copy with you on the day of surgery. - Leave ALL valuables and money at home or with family members. For Outpatient Procedures: - YOU MUST HAVE A RESPONSIBLE HOME CARE SCHEDULER TAKE YOU HOME. A DISPATCHER SHIP PILOT OR SOFTWARE DESIGNER CANNOT BE MADE A RESPONSIBLE HOME CARE SCHEDULER. - We recommend that a responsible person stays with you overnight to take care of you. - You cannot stay in a hotel alone after outpatient surgery. You will not be permitted to have yoursurgery, if you do not have someone to take care of you. Arrival Time for Surgery: - To obtain your arrival time for surgery, call your physician's office the day before your surgery. - If your surgery is scheduled for Saturday, call the Saturday before. Your surgeon s outpatient scheduler will tell you what time to call the office. - If you have not reached the departmental outpatient scheduler by 5 P.M., call [phone] after 5 P.M. the day before your surgery. Please be aware that emergency situations arise, which may delay or change your surgical time. If this happens, we will notify you as soon as possible and regret any inconvenience. If you already have an Advance Directive, please fax a copy to [phone] or email to for it to be added to your chart. If you do not have an Advance Directive, you can find the appropriate form and more information at [email or web address]. We recommend that youcomplete the Advance Directive form found on the website and bring it with you the day of your surgery. It can be witnessed and scanned into your chart that day. Adrianna Pollock APRN.CNP documented in this encounterAultman [facility]01-18-2023 Procedure [facility]11-16-2022 History and physical note Author Ernie Florez [facility] December 12, 2022 9:55am Note Date/Time December 12, 2022 9 :53am [facility] [address] [place] [address] Gastroenterology H&P Signed with Addenda Patient: Cha Elena MR#: [id number] : 1950 Acct:[id number] Age/Sex: 72 / M Adm Date: 3 Loc: Room: Type: [facility] Attending Dr: Ernie Florez MD Copies to: MD Speedy Perez II, MD~ ADDENDUM1 Addendum family history of GI malignancy should read: Mother and maternal uncle diagnosed with colorectal cancer in their 80s Addendum Documented By: Ernie Florez MD 12/12/22 0955 Addendum Signed By: <Electronically signed by Ernie Florez MD> 12/12/2255 Date of Service: 12/12/2022 HISTORY & PHYSICAL: Patient's history with special attention to the cardiovascular, pulmonary systems and the current problem was reviewed with the patient immediately prior to the procedure. Present medications and doses reviewed in the EMR. Allergies and pertinent laboratory tests were also reviewedat this time in the EMR. The physical examination, as below, was then performed. Indication, assessment and HPI: 72-year-old male presents for screening colonoscopy Family history of GI malignancy? No PHYSICAL EXAMINATION Mouth and Pharynx : Moist mucus membranes, normal dentition Cardiac: Regular rate, regular rhythm Pulmonary: Clear to auscultation bilaterally, no wheezing Neurological: Alert and oriented x3, no focal deficits noted Abdomen: Abdomen soft, non-tender REVIEW OF SYSTEMS Constitutional: Denies malaise, fevers Cardiovascular: Denies chest pain, palpitations Respiratory: Denies shortness of breath, wheezing Gastrointestinal: Per HPI Genitourinary: Denies dysuria, polyuria Musculoskeletal: Denies joint swelling, joint stiffness Neurological: Denies numbness, tingling Integumentary: Denies rashes, skin lesions Endocrine: Denies fatigue, weight loss Written informed consent obtained from the patient. Risks (including but not limited to perforation, infection, bloating, bleeding, need for emergent surgeryand loss of life), benefits and alternatives explained and questions answered. The patient verbalized understanding. Based on history patient is an appropriate candidate for the procedure. Ernie Florez MD Documented By: Ernie Florez MD 12/12/22 0952 Signed By: <Electronically signed by Ernie Florez MD> 12/12/22 0954 [facility] Work Phone: 1(165) 824-814110-18-2022 NoteHNO ID: [id number] Author: Angle Melchor MD Service: ? Author Type: Physician Type: Progress Notes Filed: 09/12/2022 8:38 AM Note Text: Consultation requested by Dr. Stokes for an opinion regarding incisional hernia. My final recommendations will be communicated back to the requesting physician by way of shared Medical record or letter to requesting physician via US mail. I have seen and evaluated the patient and discussed the case with the resident physician. I agree with the assessment and plan as documented in the resident?s note. 71 year old male with history of umbilical hernias, then recurrence, then emergency surgery and now with moderately large recurrence. We discussed the risks benefits and alternatives of open complex awr and he understood and wished to proceed. Consent was obtained and he would like surgery in the spring. He was enrolled in our RCT of music Patient consented for study? Yes STUDY TITLE: The Effect of Intraoperative Music on Pain in Patients Undergoing Ventral Hernia Repair with Mesh: a Double-Blind Randomized Controlled Trial IRB NO.: #[id number] WHOLESALE BUYER: Chitra Yao MD COORDINATOR/Research Nurse/Aeronautics Commission Director: Bertha Andrew MD Phone/email: [phone], [email or web address] Consenting was performed by the attending surgeon, in a [id number] manner, during preoperative evaluation at the General Surgery clinic. The study protocol was discussed in detail with the patient. All study procedures were explained to the subject, including randomization, the two possible study interventions, and the postoperative pain management strategy for all patients participating in the study. Also, it was explained that pain scores, anxiety, and opioid use will be assessed daily during hospital stay. The importance of follow up compliance was stressed. The risks, benefits, alternatives to participation and potential costs were discussed. All patient questions were addressed and answered. Patient has read and understood the study procedures and requirements. Patient has agreed to proceed with trial participation and consent signed. Copy of the signed consent provided to the patient. INCLUSION CRITERIA Yes No 1. The patient is > 18 years of age [x] [] 2. The patient has a hernia which is ? 20 cm in width [x] [] 3. The patient has a ventral, flank, or parastomal hernia [x] [] 4. The patient is planned to undergo an open ventral hernia repair with retromuscular mesh placement [x] [] 7. The patient is willing and able to give written informed consent [x] [] EXCLUSION CRITERIA Yes No 1. The patient lacks Czech language fluency or cannot understand the consent form/study procedures [] [x] 2. The patient has any hearing impairment with or without the use of hearing aids [] [x] 3. The patient has a neurologic condition which prevents assessment of pain and/or anxiety [] [x] 4. The patient is to remain intubated after surgery [] [x][facility]10-18-2022 History of Present illness Narrative* Angle Melchor MD - 09/11/2022 10:24 AM EDT Consultation requested by Dr. Stokes for an opinion regarding incisional hernia. My final recommendations will be communicated back to the requesting physician by way of shared Medical record or letter to requesting physician via [place] mail. I have seen and evaluated the patient and discussed the case with the resident physician. I agree with the assessment and plan as documented in the resident s note. 71 year old male with history of umbilical hernias, then recurrence, then emergency surgery and nowwith moderately large recurrence. We discussed the risks benefits and alternatives of open complex awr and he understood and wished to proceed. Consent was obtained and he would like surgery in the spring. He was enrolled in our RCT of music Patient consented for study? Yes STUDY TITLE: The Effect of Intraoperative Music on Pain in Patients Undergoing Ventral Hernia Repair with Mesh: a Double-Blind Randomized Controlled Trial IRB NO.: #[id number] WHOLESALE BUYER: Chitra Yao MD COORDINATOR/Research Nurse/[employer] Director: Bertha Andrew MD Phone/email: [phone], [email or web address] Consenting was performed by the attending surgeon, in a [id number] manner, during preoperative evaluation at the General Surgery clinic. The study protocol was discussed in detail with the patient. All study procedures were explained tothe subject, including randomization, the two possible study interventions, and the postoperative pain management strategy for all patients participating in the study. Also, it was explained that pain scores, anxiety, and opioid use will be assessed daily during hospital stay. The importance of follow up compliance was stressed. The risks, benefits, alternatives to participation and potential costs were discussed. All patient questions were addressed and answered. Patient has read and understood the study procedures and requirements. Patient has agreed to proceed with trial participation and consent signed. Copy of the signed consent provided to the patient. INCLUSION CRITERIA Yes No 1. The patient is > 18 years of age [x] [] 2. The patient has a hernia which is ? 20 cm in width [x] [] 3. The patient has a ventral, flank, or parastomal hernia [x] [] 4. The patient is planned to undergo an open ventral hernia repair with retromuscular mesh placement [x] [] 7. The patient is willing and able to give written informed consent [x] [] EXCLUSION CRITERIA Yes No 1. The patient lacks Czech language fluency or cannot understand the consent form/study procedures [] [x] 2. The patient has any hearing impairment with or without the use of hearing aids [] [x] 3. The patient has a neurologic condition which prevents assessment of pain and/or anxiety [] [x] 4. The patient is to remain intubated after surgery [] [x] * Angle Melchor MD - 09/10/2022 10:34 AM EDT Consultation requested by Dr. Stokes for an opinion regarding incisional hernia. My final recommendations will be communicated back to the requesting physician by way of shared Medical record or letter to requesting physician via [place] mail. I have seen and evaluated the patient and discussed the case with the resident physician. I agree with the assessment and plan as documented in the resident s note. 71 year old male with history of umbilical hernias, then recurrence, then emergency surgery and nowwith moderately large recurrence. We discussed the risks benefits and alternatives of open complex awr and he understood and wished to proceed. Consent was obtained and he would like surgery in the spring. He was enrolled in our RCT of music Patient consented for study? Yes STUDY TITLE: The Effect of Intraoperative Music on Pain in Patients Undergoing Ventral Hernia Repair with Mesh: a Double-Blind Randomized Controlled Trial IRB NO.: #[id number] WHOLESALE BUYER: Chitra Yao MD COORDINATOR/Research Nurse/[employer] Director: Bertha Andrew MD Phone/email: [phone], [email or web address] Consenting was performed by the attending surgeon, in a [id number] manner, during preoperative evaluation at the General Surgery clinic. The study protocol was discussed in detail with the patient. All study procedures were explained tothe subject, including randomization, the two possible study interventions, and the postoperative pain management strategy for all patients participating in the study. Also, it was explained that pain scores, anxiety, and opioid use will be assessed daily during hospital stay. The importance of follow up compliance was stressed. The risks, benefits, alternatives to participation and potential costs were discussed. All patient questions were addressed and answered. Patient has read and understood the study procedures and requirements. Patient has agreed to proceed with trial participation and consent signed. Copy of the signed consent provided to the patient. INCLUSION CRITERIA Yes No 1. The patient is > 18 years of age [x] [] 2. The patient has a hernia which is ? 20 cm in width [x] [] 3. The patient has a ventral, flank, or parastomal hernia [x] [] 4. The patient is planned to undergo an open ventral hernia repair with retromuscular mesh placement [x] [] 7. The patient is willing and able to give written informed consent [x] [] EXCLUSION CRITERIA Yes No 1. The patient lacks Czech language fluency or cannot understand the consent form/study procedures [] [x] 2. The patient has any hearing impairment with or without the use of hearing aids [] [x] 3. The patient has a neurologic condition which prevents assessment of pain and/or anxiety [] [x] 4. The patient is to remain intubated after surgery [] [x] * Tarik Person MD - 09/10/2022 9:[address] [facility] - HISTORY AND PHYSICAL Chief Complaint: incisional hernia causing ache HPI: Cha Elena is a 71 year old male who presents with incisional midline hernia Relevant previous operations include: 2007 - Umbilical hernia repair with mesh. 2017 - lap cholecystectomy 2018 - laparotome for bowel obstruction and mesh removal. No history of Psychiatric Disorders or Opioid Use Independent No employment Sporadic (once/month) No Significant Comorbidities N/A No past medical history on file. No past surgical history on file. Social History Tobacco Use Smoking status: Former Types: Cigarettes Smokeless tobacco: Never Substance Use Topics Alcohol use: Yes Additional social history not relevant to the patient's HPI No family history on file. Additional family history not relevant to the patient's HPI ALLERGIES No Known Allergies No current outpatient medications on file. No current facility-administered medications for this visit. REVIEW OF SYSTEMS The remainder of the 12 review of systems is negative other than what was mentioned in the HPI and above. BP 154/78 Pulse 77 Temp (!) 35.6 C (96.1 F) (Temporal) Resp 12 Ht 180.3 cm (5' 11 ) Wt 106.6 kg (235 lb) BMI 32.78 kg/m Physical findings of this patient are as follows (COMPLETE 10 INCLUDING HEART AND LUNG EXAM OR CHOOSE NORMAL EXAM IF APPROPRIATE): Physical Exam Physical Exam Constitutional: The patient is well-developed, well-nourished, and in no distress. Head: Normocephalic and atraumatic. Eyes: Pupils are equal, round, and reactive to light. EOM are normal. Neck: Normal range of motion. Neck supple. Cardiovascular: Regular rhythm and normal heart sounds. Pulmonary/Chest: Effort normal and breath sounds normal. Abdominal: Soft. Bowel sounds are normal. Musculoskeletal: Normal range of motion. Neurological: He is alert. GCS score is 15. Skin: Skin is warm and dry. Psychiatric: Affect and judgment normal. Relevant Hernia Findings - a 9 cm width reduceable incisional hernia with diastasis recti. LABS: No results found for: HBA1C IMAGING - Reviewed with staff CT - 9 cm hernia width Assessment: Cha Elena is a 71-year-old male presents with an incisional hernia that causes episodes of aches. Without any obstruction symptoms since his last laparotomy. He eating regularly and have normal bowel moments. He had had umbilical hernia repair with mesh and urgent laparotomy for bowel obstruction Plan: Open retrovascular hernia repair with a TAR [facility] NoteHNO ID: [id number] Author: Angle Melchor MD Service: ? Author Type: Physician Type: Progress Notes Filed: 09/12/2022 8:38 AM Note Text: Consultation requested by Dr. Stokes for an opinion regarding incisional hernia. My final recommendations will be communicated back to the requesting physician by way of shared Medical record or letter to requesting physician via [place] mail. I have seen and evaluated the patient and discussed the case with the resident physician. I agree with the assessment and plan as documented in the resident?s note. 71 year old male with history of umbilical hernias, then recurrence, then emergency surgery and now with moderately large recurrence. We discussed the risks benefits and alternatives of open complex awr and he understood and wished to proceed. Consent was obtained and he would like surgery in the spring. He was enrolled in our RCT of music Patient consented for study? Yes STUDY TITLE: The Effect of Intraoperative Music on Pain in Patients Undergoing Ventral Hernia Repair with Mesh: a Double-Blind Randomized Controlled Trial IRB NO.: #[id number] WHOLESALE BUYER: Chitra Yao MD COORDINATOR/Research Nurse/[employer] Director: Bertha Andrew MD Phone/email: [phone], [email or web address] Consenting was performed by the attending surgeon, in a [id number]-[id number] manner, during preoperative evaluation at the General Surgery clinic. The study protocol was discussed in detail with the patient. All study procedures were explained to the subject, including randomization, the two possible study interventions, and the postoperative pain management strategy for all patients participating in the study. Also, it was explained that pain scores, anxiety, and opioid use will be assessed daily during hospital stay. The importance of follow up compliance was stressed. The risks, benefits, alternatives to participation and potential costs were discussed. All patient questions were addressed and answered. Patient has read and understood the study procedures and requirements. Patient has agreed to proceed with trial participation and consent signed. Copy of the signed consent provided to the patient. INCLUSION CRITERIA Yes No 1. The patient is > 18 years of age [x] [] 2. The patient has a hernia which is ? 20 cm in width [x] [] 3. The patient has a ventral, flank, or parastomal hernia [x] [] 4. The patient is planned to undergo an open ventral hernia repair with retromuscular mesh placement [x] [] 7. The patient is willing and able to give written informed consent [x] [] EXCLUSION CRITERIA Yes No 1. The patient lacks Czech language fluency or cannot understand the consent form/study procedures [] [x] 2. The patient has any hearing impairment with or without the use of hearing aids [] [x] 3. The patient has a neurologic condition which prevents assessment of pain and/or anxiety [] [x] 4. The patient is to remain intubated after surgery [] [x][facility]10-17-2022 NoteHNO ID: [id number] Author: Tarik Person MD Service: ? Author Type: Resident Type: Progress Notes Filed: 09/12/2022 8:38 AM Note Text: [facility] Health - HISTORY AND PHYSICAL Chief Complaint: incisional hernia causing ache HPI: Cha Elena is a 71 year old male who presents with incisional midline hernia Relevant previous operations include: 2008 - Umbilical hernia repair with mesh. 2017 - lap cholecystectomy 2018 - laparotome for bowel obstruction and mesh removal. No history of Psychiatric Disorders or Opioid Use Independent No employment Sporadic (once/month) No Significant Comorbidities N/A No past medical history on file. No past surgical history on file. Social History Tobacco Use Smoking status: Former Types: Cigarettes Smokeless tobacco: Never Substance Use Topics Alcohol use: Yes Additional social history not relevant to the patient's HPI No family history on file. Additional family history not relevant to the patient's HPI ALLERGIES No Known Allergies No current outpatient medications on file. No current facility-administered medications for this visit. REVIEW OF SYSTEMS The remainder of the 12 review of systems is negative other than what was mentioned in the HPI and above. BP 154/78 Pulse 77 Temp (!) 35.6 ?C (96.1 ?F) (Temporal) Resp 12 Ht 180.3 cm (5' 11 ) Wt 106.6 kg (235 lb) BMI 32.78 kg/m? Physical findings of this patient are as follows (COMPLETE 10 INCLUDING HEART AND LUNG EXAM OR CHOOSE NORMAL EXAM IF APPROPRIATE): Physical Exam Physical Exam Constitutional: The patient is well-developed, well-nourished, and in no distress. Head: Normocephalic and atraumatic. Eyes: Pupils are equal, round, and reactive to light. EOM are normal. Neck: Normal range of motion. Neck supple. Cardiovascular: Regular rhythm and normal heart sounds. Pulmonary/Chest: Effort normal and breath sounds normal. Abdominal: Soft. Bowel sounds are normal. Musculoskeletal: Normal range of motion. Neurological: He is alert. GCS score is 15. Skin: Skin is warm and dry. Psychiatric: Affect and judgment normal. Relevant Hernia Findings - a 9 cm width reduceable incisional hernia with diastasis recti. LABS: No results found for: HBA1C IMAGING - Reviewed with staff CT - 9 cm hernia width Assessment: Cha Elena is a 71-year-old male presents with an incisional hernia that causes episodes of aches. Without any obstruction symptoms since his last laparotomy. He eating regularly and have normal bowel moments. He had had umbilical hernia repair with mesh and urgent laparotomy for bowel obstruction Plan: Open retrovascular hernia repair with a [facility]10-17-2022 Nurse Note* Miguel Boothe - 09/10/2022 9:13 AM EDT What is the reason for your visit today? Consult Who is your referring physician? self Are you having poor oral intake? NO Have you had unintentional weight loss of 15 lbs/7 Kg in the last 3-6 months? NO Bowels: regular Wound: clean & dry Temperature: No Drains: No [facility] Future Appointments Appointment Date:06/21/2025 08:45:00 AM Scheduled Provider:Tray BUCKLEY MD Location:[facility] Appointment Type:URO Office Visit Diagnostic Tests Pending * PSA Total 06/24/24 [facility] Evaluation note* Diagnosis Preoperative examination- Primary Preoperative examination, unspecified Recurrent ventral hernia Incisional hernia without mention of obstruction or gangrene documented in this encounter [facility] note* Diagnosis Recurrent ventral hernia- Primary Incisional hernia without mention of obstruction or gangrene Preoperative examination Preoperative examination, unspecified Recurrent ventral hernia Incisional hernia without mention of obstruction or gangrene documented in this encounter [facility] noteNo assessment information availablePike Community Hospital Work Phone: Evaluation note* Diagnosis Pre-op evaluation- Primary Preoperative examination, unspecified Primary hypertension Unspecified essential hypertension Benign prostatic hyperplasia without lower urinary tract symptoms Abdominal aortic aneurysm (AAA) without rupture, unspecified part (HCC) AV block, 1st degree First degree atrioventricular block * Assessment & Plan Note - Adrianna Pollock APRN.CNP - 03/06/2023 10:42 AM EDT Associated Problem(s): AV block, 1st degree Known to patient. No previous EKG. Per PAC guidelines no further work up. * Assessment & Plan Note - Adrianna Pollock APRN.CNP - 03/06/2023 10:37 AM EDT Associated Problem(s): Abdominal aortic aneurysm without rupture (HCC) Per patient: US was negative for widening. His physician said it was enlarged. He is not sure if this is a correct diagnosis. Monitored. r * Assessment & Plan Note - Adrianna Pollock APRN.CNP - 03/06/2023 10:36 AM EDT Associated Problem(s): Benign prostatic hyperplasia without lower urinary tract symptoms No LUTS * Assessment & Plan Note - Adrianna Pollock APRN.CNP - 03/06/2023 10:35 AM EDT Associated Problem(s): Primary hypertension Stable on rx BP today 126/71 [facility] Diagnosis Recurrent ventral hernia- Primary Incisional hernia without mention of obstruction or gangrene [facility] Diagnosis Bilateral hearing loss, unspecified hearing loss type- Primary documented in this encounter [facility] Narrative No data available for this section [facility] Discharge instructions Additional Instructions DISCHARGE INSTRUCTIONS FOR COLONOSCOPY WHAT TO EXPECT: - You may feel full, gassy or cramping after your procedure. In some cases, this may be from a few hours to a day. Walking may help relieve the discomfort. - If you have polyp(s) removed you may note some minor bloody discharge after your first bowel movements. - You should begin to recover from anesthesia within 1 hour of the procedure, however may feel groggy for the next 24 hours. DO's AND DON'Ts: - Call your doctor right away if you have a hard abdomen, severe pain, are passing lots of bright red blood or clots. - Call your doctor if you develop any rashes, hives or difficulty breathing. - Let your doctor know if you have not had a bowel movement by 3 days after your procedure. - If you take 81 mg aspirin for your heart it is safe to resume this medication. - If you take other blood thinner medications your doctor will instruct you when these can safely be resumed. - Do NOT drive for 24 hours. - Do NOT operate machinery such as power tools, lawn mowers, snow blowers, sewing machines, etc. for 24 hours. - Avoid alcoholic beverages and drugs for allergies, nerves, or sleep. - Do NOT stay alone. Do NOT leave your child unattended. - Do NOT make important personal or business decisions or sign any legal documents. - Eat solid foods and drink liquids in smaller amounts than usual until normal appetite returns. If you should experience an upset stomach, liquids high in sugar content (soda, Pola-Aid, non-acid juices) are recommended. - You can resume normal activities tomorrow. FOLLOW UP & RECOMMENDATIONS: -Follow-up with Dr. Florez as needed -Notify the doctor if you have any problems. -Repeat colonoscopy in 5 years. -Follow up with PCP. -Office number [phone].[facility] Work Phone: Progress note No data available for this section [facility] Reason for referral (narrative)* Outpatient Procedure (Routine) - Pending Review Specialty Diagnoses / Procedures Referred By Naila bai Referred To Contact [facility] Diagnoses Preoperative examination Recurrent ventral hernia Procedures ECG COMPLETE ECG ROUTINE ECG W/LEAST 12 LDS W/I&R Angle Melchor MD [address] [place] [address] [facility] [place] [address] [place] [address] Referral ID Status Reason Start Date Expiration Date Visits Requested Visits Authorized [id number] Pending Review Auto-Generat ed Referral 2 09/11/2023 1 1 * Consult, Test, Treat (Routine) - Pending Review Specialty Diagnoses / Procedures Referred By Naila bai Referred To Contact Diagnoses Preoperative examination Recurrent ventral hernia Procedures CONSULT TO [facility]/OUTPATIENT [facility] MDM 60-74 MINUTES Angle Melchor MD [address] [place] [address] Referral ID Status Reason Start Date Expiration Date Visits Requested Visits Authorized [id number] Pending Review PCP Requested Referral 2 09/11/2023 1 1 [facility] Summary Purpose Family History No Family History Records FoundNo Family History Records FoundNo Family History Records FoundNo Family History Records Found No data available for this section No Family History Records Found Advance Directives No Advanced Directives Records Found Advance Directive Response Recorded Date/ Time Advance Directives No December 05, 2022 9:02am Chief Complaint and Reason for Visit Chief Complaint Screening Chief Complaint Screening Screening Additional Source Comments (unrecognized sect ion and content) No Status Records FoundNo Status Records FoundNo Status Records FoundNo Status Records FoundNo Status Records Found INFORMATION SOURCE (unrecogn ized section and content) DATE CREATED AUTHOR [facility]/18/2022 [facility] DATE CREATED AUTHOR AUTHOR'S ORGANIZ ATION 12/13/2022 [facility] DATE CREATED AUTHOR AUTHOR'S ORGANIZ ATION 04/07/2023 [facility] DATE CREATED AUTHOR AUTHOR'S ORGANIZ ATION 12/28/2023 [facility] DATE CREATED AUTHOR AUTHOR'S ORGANIZ ATION 06/26/2024 [facility] Source Comments (unrecognize d section and content) In the event this informatio n is protected by the Federal Confidentiality of Alcohol and Drug Abuse Patient Records regulations: The Federal rules restrict any use of the information to criminally investigate or prosecute any alcohol or drug abuse patient.[facility] the event this information is protected by the Federal Confidentiality of Alcohol and Drug Abuse Patient Records regulations: The Federal rules restrict any use of the information to criminally investigate or prosecute any alcohol or drug abuse patient.[facility] HospitalIn the event this information is protected by the Federal Confidentiality of Alcohol and Drug Abuse Patient Records regulations: The Federal rules restrict any use of the information to criminally investigate or prosecute any alcohol or drug abuse patient.[facility] HospitalIn the event this information is protected by the Federal Confidentiality of Alcohol and Drug Abuse Patient Records regulations: The Federal rules restrict any use of the information to criminally investigate or prosecute any alcohol or drug abuse patient.[facility] HospitalIn the event this information is protected by the Federal Confidentiality of Alcohol and Drug Abuse Patient Records regulations: The Federal rules restrict any use of the information to criminally investigate or prosecute any alcohol or drug abuse patient.[facility] Reason for Visit (unrecogniz ed section and content) Reason Comments 03.07.23 Cure Open Complex AWR 5 h ours los 5 Reason Comments Consult Reason Comments Anesthesia Consult Specialty Diagnoses / Procedures Referred By Contact Referred To Contact Anesthesiology / ANESTHESIOLOGY Diagnoses preop Procedures COMPLETE PACC Angle Melchor MD [address] [place] [address] 9, [address] [place] [address] Referral ID Status Reason Start Date Expiration Date V isits Requested Visits Authorized [id number] Pending Review 03/06/2023 06/04/2023 1 1 Reason Comments Follow Up Phone Call All clear Reason Comments Post Op Care Teams (unrecognized sec tion and content) Team Status: Inactive Member Role Status Dates Ernie Florez MD Attending Provider Active Speedy Khanna II MD Primary Care Provider Active Team Status: Active Member Role Status Dates Speedy Khanna II MD Primary Care Provider Active 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 Relationship Specialty Start Date End Date Speedy Khanna II [address] [place] [address] PCP - General Internal Medicine 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/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 Relationship Specialty Start Date End Date Speedy Khanna II [address] [place] [address] PCP - General Internal Medicine 02/12/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 Relationship 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 Start Date End Date Speedy Khanna II [address] [place] [address] PCP - General Internal Medicine 02/12/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 This clinical summary was aggregated from multiple sources. Caution should be exercised in using it in the provision of clinical care. This summary normalizes information from multiple sources, and as a consequence, information in this document may materially change the coding, format and clinical context of patient data. In addition, data may be omitted in some cases. CLINICAL DECISIONS SHOULD BE BASED ON THE PRIMARY CLINICAL RECORDS. [employer] [facility]. provides no warranty or guarantee of the accuracy or completeness of information in this document.
[2024-09-01 10:23] LABS: Alanine Aminotransferase 19 U/L (16-63); Albumin Globulin Ratio 0.9; Albumin Level 3.2 g/dL (3.4-5.0); Alkaline Phosphatase 58 U/L (46-116); Anion Gap 9.6; BUN Creatinine Ratio 12.1; Bilirubin Total 0.9 mg/dL (0.2-1.0); Calcium 8.5 mg/dL (8.5-10.1); Carbon Dioxide 30.3 mmol/L (21.0-32.0); Chloride 90 mmol/L (98-107); Estimated GFR (African America >60 (>=60 mL/min/1.73m^2); Estimated GFR (Non-African Ame >60 (>=60 mL/min/1.73m^2); Globulin 3.7 g/dL; Glucose 109 mg/dL (74-106); Sodium 127 mmol/L (136-145); Total Protein 6.9 g/dL (6.4-8.2); Uric Acid 5.2 mg/dL (3.5-7.2)
[2024-09-01 10:27] LABS: Hematocrit 40.9 % (42.0-54.0); Hemoglobin 14.4 g/dL (14.0-18.0); Mean Corpuscular HGB Conc 35.2 g/dL (29.9-35.2); Mean Platelet Volume 10.5 fL (9.5-13.5); Platelet Count 277 10^3/uL (150-450); Red Blood Count 4.65 10^6/uL (4.70-6.10); Red Cell Distribution Width 12.1 % (11.0-15.0)
[2024-09-01 10:34] LABS: Aspartate Amino Transferase 15 U/L (15-37)
[2024-09-01 10:39] LABS: Potassium 2.9 mmol/L (3.5-5.1)
[2024-09-01 10:53] LABS: Band Neutrophils Absolute 0.2 10^3/uL (0.0-0.3); Segmented Neut Absolute Manual 5.44 10^3/uL (1.4-6.5)
[2024-09-01 10:54] LABS: Atypical Lymphocytes Abs Man 0.32; Eosinophils Absolute Manual 0.08 10^3/uL (0.00-0.70)
== END 2024-09-01 09:22 | disposition home or self-care (01) ==
LOC: LAB 09:23
PROVIDERS: PCP Internal Medicine; Visit Provider Nurse Practitioner Family
DX: R50.9 Fever, unspecified (principal); R25.2 Cramp and spasm; M25.50 Pain in unspecified joint
CPT/HCPCS: 36415; 80053; 83735; 84550; 85007; 85027

== ENCOUNTER 2024-09-01 13:24 | Emergency (ER) | payer MEDICARE, SELFPAY ==
[2024-09-01] VITALS (11 sets, daily range): BP systolic 100–140; BP diastolic 68–83; PULSE 88–96; TEMP 36.9; O2SAT 95–98; BMI 32.2
--- OUTSIDE RECORDS SUMMARY | 2024-09-01 13:42 | XMS_ITS | CCD ---
Author Organization [facility] CliniSynj Care Team Providers Care Stem Roller Name Role Phone FRANK, DR TINAJERO Admitting [...] Khanna MD, Speedy B Primary Care Provider [phone] SPEEDY KHANNA Primary Care Physician Tray BUCKLEY Attending Unavailable Tray BUCKLEY Attending Unavailable Tray BUCKLEY Attending Unavailable Allergies Allergy Classification Reported Allergen(s) Allergy Type Date of Onset Reaction(s) Facility (1 source) benzoin resin Drug Allergy 7 [facility] Repository (1 source) Misc-Other; Translations: [Misc-Other] Propensity to adverse reactions (disorder) 7 [facility] Repository (2 sources) atorvastatin Drug Allergy 3 Other [facility] Healthcare (2 sources) benzoin resin Drug Allergy 3 Unknown [facility] Healthcare (1 source) No Known Medication Allergies; Translations: [No Known Medication Allergies] Propensity to adverse reactions (disorder) [facility] Repository Medications Current Medications Medication Drug Class(es) [...] 05-31-2022 Chronic Other aftercare (1 source) 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 Normal [facility] Urology Office/Clinic Noteon 06-24-2024 Urology Office/Clinic Note [...] Urology [address], [place] [address]- Additional Instructions: 1 yr PSA Patient Education [...] Negative (06/24 (more content not included)... Normal [facility] Comment on above: Result Comment: Elec tronically Signed By: Tray BUCKLEY MD\.br\Date and Time Signed: 06/24/24 13:35 EDT\.br\Electronically Co-Signed By: Gissell Shah\.br\Date and Time Co-Signed: 06/24/24 13:30 EDT WINSTONOVgail 04-01-2023 CNOV Office Visit (GENMINISTERIO) CHA ELENA ([id number]) 1950 M DEF Date Time Provider Department [...] Tarik Person MD 04/01/2023 1:32 PM Signed [facility] Abdominal Core Health - HISTORY AND PHYSICAL [...] PM Signed 30-DAY FOLLOW UP NOTE FROM 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 Normal [facility] Keshia 03-15-2023 YULISSAN Telephone (PODCCP) CHA ELENA ([id number]) 1950 M DEF Date Time Provider Department 03/15/23 BHAVYA MCINTOSH During your visit today, we recorded the following information about you: Bhavya Mcintosh RN 03/15/2023 2:27 PM Signed PATIENT INFORMATION Record ID: [id number] Patient Name: Cha [facility]: [facility]: Digestive Disease [facility] Attending: Angle Melchor Center: General Surgery INSTRUCTIONS SN to remind patient of appointment date, time, location All Clear All Clear SURVEY INFORMATION Medical/Nurse Lcsw: Bhavya Mcintosh 1. 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 Reason for Visit: Follow Up Phone Call [[phone]] Cmt: All clear Prescriptions as of 03/15/2023 [...] Status:Closed by BHAVYA MCINTOSH on 03/15/23 Normal [facility] Basic metabolic 2000 panelon 03-10-2023 Anion gap [Moles/Vol] 10 mmol/L Normal 9-18 [facility] Comment on above: Order Comment: Speci men Type: BLOOD SPECIMEN [facility] Address: [address] [place] [address] Performed By: #### 1 9123-9, 46430-5, 1988-03, HSTNT, 2776-11 #### [facility] CLIA [id number] [address] [place] [address] [place] Calcium [Mass/Vol] 8.8 mg/dL Normal 8.5-10.2 [facility] Comment on above: Order Comment: Speci men Type: BLOOD SPECIMEN Ordering Facility: [facility] Address: [address] [place], [place] [address] Performed By: #### 1 9123-9, , 1988-03, HSTNT, 27705-25 #### [facility] CLIA [id number] [address] [place] [address] [place] Chloride [Moles/Vol] 103 mmol/L Normal 97-105 [facility] Comment on above: Order Comment: Speci men Type: BLOOD SPECIMEN Ordering Facility: [facility] Address: [address] [place], [place] [address] Performed By: #### 1 9123, , 1988-03, HSTNT, 2776-11 #### [facility] CLIA [id number] [address] [place] [address] [place] CO2 [Moles/Vol] 25 mmol/L Normal 22-30 [facility] Comment on above: Order Comment: Speci men Type: BLOOD SPECIMEN Ordering Facility: [facility] Address: [address] [place] [address] Performed By: #### 1 9123-07, , 1988-03, HSTNT, 2776-11 #### [facility] CLIA [id number] [address] [place] [address] [place] Creatinine [Mass/Vol] 0.68 mg/dL Low 0.73-1.22 [facility] Comment on above: Order Comment: Speci men Type: BLOOD SPECIMEN Ordering Facility: [facility] Address: [address] [place] [address] Performed By: #### 1 9123-07, , 1988-03, HSTNT, 2776-11 #### [facility] CLIA [id number] [address] [place] [address] [place] ESTIMATED GLOMERULAR FILTRATION RATE 99 mL/min/1.73m??? Normal >=60 [facility] Comment on above: Order Comment: Speci men Type: BLOOD SPECIMEN Ordering Facility: [facility] Address: [address] [place] [address] Result Comment: Constance mated Glomerular Filtration Rate [...] 1 9123-07, , 1988-03, HSTNT, 2776-11 #### [facility] CLIA [id number] [address] [place] [address] [place] Glucose [Mass/Vol] 97 mg/dL Normal 74-99 [facility] Comment on above: Order Comment: Speci men Type: BLOOD SPECIMEN [facility]ing Facility: [facility] Address: [address] [place] [address] Result Comment: The [place] Diabetes [employer] (ADA) provides guidance for cutoff [...] Standards of Medical Care in Diabetes 2016, [place] [employer]. Diabetes Care. 2016.39(Suppl 1). Performed By: #### 1 9123-9, 28898-6, 1988-03, HSTNT, 2776-11 #### [facility] CLIA [id number] [address] [place] [address] [place] Potassium [Moles/Vol] 3.8 mmol/L Normal 3.7-5.1 [facility] Comment on above: Order Comment: Speci men Type: BLOOD SPECIMEN [facility]ing Facility: [facility] Address: [address] [place] [address] Performed By: #### 1 9123-9, 70378-0, 1988-03, HSTNT, 7 #### [facility] CLIA [id number] [address] [place] [address] [place] Sodium [Moles/Vol] 138 mmol/L Normal 136-144 [facility] Comment on above: Order Comment: Speci men Type: BLOOD SPECIMEN Ordering Facility: [facility] Address: [address] [place] [address] Performed By: #### 1 9123-9, 54544-7, 1988-03, HSTNT, 2776-11 #### [facility] CLIA [id number] [address] [place] [address] [place] Urea nitrogen [Mass/Vol] 11 mg/dL Normal 9-24 [facility] Comment on above: Order Comment: Speci men Type: BLOOD SPECIMEN Ordering Facility: [facility] Address: [address] [place], [place] [address] Performed By: #### 1 9123-9, , 1988-03, HSTNT, 2776-11 #### [facility] CLIA [id number] [address] [place] [address] [place] CBC panel Auto (Bld)on 03-10 Erythrocyte distribution width (RBC) [Ratio] 12.2 % Normal 11.5-15.0 [facility] Comment on above: Order Comment: Speci men Type: BLOOD SPECIMEN Ordering Facility: [facility] Address: [address] [place], [place] [address] Performed By: #### 1 9123-9, , 1988-03, HSTNT, 2776-11 #### [facility] CLIA [id number] [address] [place] [address] [place] Hematocrit (Bld) [Volume fraction] 38.4 % Low 39.0-51.0 [facility] Comment on above: Order Comment: Speci men Type: BLOOD SPECIMEN Ordering Facility: [facility] Address: [address] [place] [address] Performed By: #### 1 9123-9, , 1988-03, HSTNT, 2776-11 #### [facility] CLIA [id number] [address] [place] [address] [place] Hemoglobin (Bld) [Mass/Vol] 13.2 g/dL Normal 13.0-17.0 [facility] Comment on above: Order Comment: Speci men Type: BLOOD SPECIMEN Ordering Facility: [facility] Address: [address] [place] [address] Performed By: #### 1 9, , 1988-03, HSTNT, 2776-11 #### [facility] CLIA [id number] [address] [place] [address] [place] MCH (RBC) [Entitic mass] 31.4 pg Normal 26.0-34.0 [facility] Comment on above: Order Comment: Speci men Type: BLOOD SPECIMEN Ordering Facility: [facility] Address: [address] [place] [address] Performed By: #### 1 9, , 1988-03, HSTNT, 2776-11 #### [facility] CLIA [id number] [facility] [place] MCHC (RBC) [Mass/Vol] 34.4 g/dL Normal 30.5-36.0 [facility] Comment on above: Order Comment: Speci men Type: BLOOD SPECIMEN Ordering Facility: [facility] Address: [address] [place] [address] Performed By: #### 1 9, , 1988-03, HSTNT, 2776-11 #### [facility] CLIA [id number] [facility] [place] [address] [place] MCV (RBC) [Entitic vol] 91.2 fL Normal 80.0-100.0 [facility] Comment on above: Order Comment: Speci men Type: BLOOD SPECIMEN Ordering Facility: [facility] Address: [address] [place] [address] Performed By: #### 1 9, , 1988-03, HSTNT, 2776-11 #### [facility] CLIA [id number] [address] [address] [place] Nucleated RBC (Bld) [#/Vol] 10*3/uL Normal <0.01 [facility] Comment on above: Order Comment: Speci men Type: BLOOD SPECIMEN Ordering Facility: [facility] Address: [address] [place] [address] Performed By: #### 1 9122-9, , 1988-03, HSTNT, 2776- #### [facility] CLIA [id number] [address] [place] [address] [place] Platelet mean volume (Bld) [Entitic vol] 10.1 fL Normal 9.0-12.7 [facility] Comment on above: Order Comment: Speci men Type: BLOOD SPECIMEN Ordering Facility: [facility] Address: [address] [place] [address] Performed By: #### 1 9, , 1988-03, HSTNT, 2776- #### [facility] CLIA [id number] [address] [place] [address] [place] Platelets (Bld) [#/Vol] 250 10*3/uL Normal 150-400 [facility] Comment on above: Order Comment: Speci men Type: BLOOD SPECIMEN Ordering Facility: [facility] Address: [address] [place] [address] Performed By: #### 1 9, , 1988-03, HSTNT, 2776-11 #### [facility] CLIA [id number] [address] [place] [address] [place] RBC (Bld) [#/Vol] 4.21 10*6/uL Normal 4.20-6.00 [facility] Comment on above: Order Comment: Speci men Type: BLOOD SPECIMEN Ordering Facility: [facility] Address: [address] [place] [address] Performed By: #### 1 9, , 1988-03, HSTNT, 2776-11 #### [facility] CLIA [id number] [address] [place] [address] [place] WBC (Bld) [#/Vol] 6.47 10*3/uL Normal 3.70-11.00 [facility] Comment on above: Order Comment: Speci men Type: BLOOD SPECIMEN Ordering Facility: [facility] Address: [address] [place] [address] Performed By: #### 1 9123-9, 66667-3, 1988-03, HSTNT, 2776-11 #### [facility] CLIA [id number] [address] [place] CNDSon 03-10-2023 CNDS HNO ID: [id number] Author: Fareed Velarde MD Service: General Surgery [...] Center 04/01/2023 11:20 AM [facility] The patient's risk for 30-day readmission is determined using the following contributing factors: Pt variables contributing to increased readmission risk: 16 Most Recent BUN Result 14 Active Medication Orders 8.6 First Resulted Calcium During Admission 1 Insurance - Medicare 1 Active Anticoagulant I have performed the substantive portion including eyzt-xn-hrps and relevant services for a total of >30 minutes. SIGNATURE: Fareed Velarde MD DATE: March 10, 2023 TIME: 12:10 PM Normal [facility] CRP SerPl-mCncon 03-10-2023 CRP [Mass/Vol] 7.1 mg/dL High <0.9 [facility] Comment on above: Order Comment: Speci men Type: BLOOD SPECIMEN [facility] Address: [address] [place] [address] Performed By: #### 1 9123-9, 04620-1, 1988-5, HSTNT, 2777-1 #### [facility] CLIA [id number] [address] [place] Magnesium SerPl-mCncon 03-10 Magnesium [Mass/Vol] 2.3 mg/dL Normal 1.7-2.3 [facility] Comment on above: Order Comment: Speci men Type: BLOOD SPECIMEN Ordering Facility[facility] Address: [address] [place], [place] [address] Performed By: #### 1 9123-9, 49511-6, 1987-, HSTNT, 2777- #### [facility] CLIA [id number] [address] [place] [address] [place] NURSING PROGon 03-10-2023 NURSING PROG HNO ID: [id number] Author: Elizabet Morrissey RN Service: ? Author Type: Registered Nurse Type: Nursing Progress Note Filed: 03/10/2023 6:48 AM Note Text: On initial assess, pt resting in bed.. Verbalized that he is doing all right . Denied any h/a, c/p, nausea, or cough. Reviewed orders and HS POC. Reinforced hourly use of IS- up to 1999. States abd discomfort is a 1 . 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 ETHAN [...] per Q1-2hr rounds t/o the night. Normal [facility] Phosphate SerPl-mCncon 03-10 Phosphate [Mass/Vol] 1.6 mg/dL Low 2.7-4.8 [facility] Comment on above: Order Comment: Speci men Type: BLOOD SPECIMEN Ordering Facility: [facility] Address: [address] [place], [place] [address] Performed By: #### 1 9123-9, 81826-9, 1988-03, HSTNT, 2776-11 #### [facility] CLIA [id number] [address] [place] [address] [place] Basic metabolic 2000 panelon 03-09-2023 Anion gap [Moles/Vol] 15 mmol/L Normal 9-18 [facility] Comment on above: Order Comment: Speci men Type: BLOOD SPECIMEN Ordering Facility: [facility] Address: [address] [place], [place] [address] Performed By: #### 1 9123-9, 37200-4, 1988-03, HSTNT, 2776-11 #### [facility] CLIA [id number] [address] [place] [address] [place] Calcium [Mass/Vol] 9.0 mg/dL Normal 8.5-10.2 [facility] Comment on above: Order Comment: Speci men Type: BLOOD SPECIMEN Ordering Facility: [facility] Address: [address] [place], [place] [address] Performed By: #### 1 9123-9, , 1988-03, HSTNT, 27705-25 #### [facility] CLIA [id number] [address] [place] [address] [place] Chloride [Moles/Vol] 98 mmol/L Normal 97-105 [facility] Comment on above: Order Comment: Speci men Type: BLOOD SPECIMEN [facility]ing Facility: [facility] Address: [address] [place], [place] [address] Performed By: #### 1 23-9, , 1988-03, HSTNT, 2776-11 #### [facility] CLIA [id number] [address] [place] [address] [place] CO2 [Moles/Vol] 25 mmol/L Normal 22-30 [facility] Comment on above: Order Comment: Speci men Type: BLOOD SPECIMEN Ordering Facility: [facility] Address: [address] [place] [address] Performed By: #### 1 9122-9, , 1988-03, HSTNT, 2776-11 #### [facility] CLIA [id number] [address] [place] [address] [place] Creatinine [Mass/Vol] 0.74 mg/dL Normal 0.73-1.22 [facility] Comment on above: Order Comment: Speci men Type: BLOOD SPECIMEN [facility]ing Facility: [facility] Address: [address] [place] [address] Performed By: #### 1 9, , 1988-03, HSTNT, 2776-11 #### [facility] CLIA [id number] [address] [place] [address] [place] ESTIMATED GLOMERULAR FILTRATION RATE 97 mL/min/1.73m??? Normal >=60 [facility] Comment on above: Order Comment: Speci men Type: BLOOD SPECIMEN [facility] Address: [address] [place] [address] Result Comment: Constance mated Glomerular Filtration Rate [...] 1 23-9, , 1988-03, HSTNT, 2776-11 #### [facility] CLIA [id number] [address] [place] [address] [place] Glucose [Mass/Vol] 114 mg/dL High 74-99 [facility] Comment on above: Order Comment: Latoya hartman Type: BLOOD SPECIMEN [facility] Address: [address] [place] [address] Result Comment: The [place] Diabetes Association (ADA) provides guidance for cutoff [...] Standards of Medical Care in Diabetes 2016, [place] [employer]. Diabetes Care. 2016.39(Suppl 1). Performed By: #### 1 9123-9, 71224-6, 1988-03, HSTNT, 2777- #### [facility] CLIA [id number] [address] [place] [address] [place] Potassium [Moles/Vol] 3.4 mmol/L Low 3.7-5.1 [facility] Comment on above: Order Comment: Latoya men Type: BLOOD SPECIMEN [facility] Address: [address] [place] [address] Performed By: #### 1 9123-9, 83532-2, 1988-03, HSTNT, 2777- #### [facility] CLIA [id number] [address] [place] [address] [place] Sodium [Moles/Vol] 138 mmol/L Normal 136-144 [facility] Comment on above: Order Comment: Lorenai men Type: BLOOD SPECIMEN Ordering Facility: [facility] Address: [address] [place], [place] [address] Performed By: #### 1 9123-9, 71940-5, 1988-03, HSTNT, 2777-1 #### [facility] CLIA [id number] [address] [place] [address] [place] Urea nitrogen [Mass/Vol] 12 mg/dL Normal 9-24 [facility] Comment on above: Order Comment: Speci men Type: BLOOD SPECIMEN [facility] Facility[facility] Address: [address] [place] [address] Performed By: #### 1 9123-9, 60602-3, 1988-03, HSTNT, 277- #### [facility] CLIA [id number] [address] [place] [address] [place] CBC W Auto Differential pane l (Bld)on 03-09-2023 Basophils (Bld) [#/Vol] 0.03 10*3/uL Normal <0.11 [facility] Comment on above: Order Comment: Speci men Type: BLOOD SPECIMEN [facility] Facility[facility] Address: [address] [place] [address] Performed By: #### 5 7021-8 #### [facility] CLIA [id number] [address] [place] [address] [place] Basophils/100 WBC (Bld) 0.3 % Normal C [facility] Comment on above: Order Comment: Speci men Type: BLOOD SPECIMEN [facility] Facility[facility] Address: [address] [place] [address] Performed By: #### 5 7021-8 #### [facility] CLIA [id number] [address] [place] [address] [place] Differential cell count method Nom (Bld) Auto Normal [facility] Comment on above: Order Comment: Speci men Type: BLOOD SPECIMEN [facility] Address: [address] Performed By: #### 5 7021-8 #### [facility] CLIA [id number] [address] [place] [address] [place] Eosinophils (Bld) [#/Vol] 10*3/uL Normal <0.46 [facility] Comment on above: Order Comment: Speci men Type: BLOOD SPECIMEN [facility] Facility[facility] Address: [address] [place] [address] Performed By: #### 5 7021-8 #### [facility] CLIA [id number] [address] [place] [address] [place] Eosinophils/100 WBC (Bld) 0.2 % Normal [facility] Comment on above: Order Comment: Speci men Type: BLOOD SPECIMEN [facility]ing Facility: [facility] Address: [address] [place] [address] Performed By: #### 5 7021-8 #### [facility] CLIA [id number] [address] [place] [address] [place] Erythrocyte distribution width (RBC) [Ratio] 12.5 % Normal 11.5-15.0 [facility] Comment on above: Order Comment: Speci men Type: BLOOD SPECIMEN [facility]ing Facility: [facility] Address: [address] [place], [place] [address] Performed By: #### 5 7021-8 #### [facility] CLIA [id number] [address] [place] [address] [place] Hematocrit (Bld) [Volume fraction] 36.7 % Low 39.0-51.0 [facility] Comment on above: Order Comment: Speci men Type: BLOOD SPECIMEN [facility]ing Facility: [facility] Address: [address] [place], [place] [address] Performed By: #### 5 7021-8 #### [facility] CLIA [id number] [address] [place] [address] [place] Hemoglobin (Bld) [Mass/Vol] 12.6 g/dL Low 13.0-17.0 [facility] Comment on above: Order Comment: Speci men Type: BLOOD SPECIMEN Ordering Facility: [facility] Address: [address] [place] [address] Performed By: #### 5 7021-8 #### [facility] CLIA [id number] [address] [place] [address] [place] Immature granulocytes (Bld) [#/Vol] 10*3/uL Normal <0.10 [facility] Comment on above: Order Comment: Speci men Type: BLOOD SPECIMEN Ordering Facility: [facility] Address: [address] Performed By: #### 5 7021-8 #### [facility] CLIA [id number] [address] [place] [address] [place] Immature granulocytes/100 WBC (Bld) 0.2 % Normal [facility] Comment on above: Order Comment: Speci men Type: BLOOD SPECIMEN [facility]ing Facility[facility] Address: [address] Performed By: #### 5 7021-8 #### [facility] CLIA [id number] [address] [place] [address] [place] Lymphocytes (Bld) [#/Vol] 1.41 10*3/uL Normal 1.00-4.00 [facility] Comment on above: Order Comment: Speci men Type: BLOOD SPECIMEN [facility] Address: [address] Performed By: #### 5 7021-8 #### [facility] CLIA [id number] [address] [place] [address] [place] Lymphocytes/100 WBC (Bld) 15.4 % Normal [facility] Comment on above: Order Comment: Speci men Type: BLOOD SPECIMEN [facility]ing Facility[facility] Address: [address] Performed By: #### 5 7021-8 #### [facility] CLIA [id number] [address] MCH (RBC) [Entitic mass] 31.3 pg Normal 26.0-34.0 [facility] Comment on above: Order Comment: Speci men Type: BLOOD SPECIMEN Ordering Facility: [facility] Address: [address] Performed By: #### 5 7021-8 #### [facility] CLIA [id number] [address] [place] MCHC (RBC) [Mass/Vol] 34.3 g/dL Normal 30.5-36.0 [facility] Comment on above: Order Comment: Speci men Type: BLOOD SPECIMEN Ordering Facility: [facility] Address: [address] [place], [place] [address] Performed By: #### 5 7021-8 #### [facility] CLIA [id number] [facility] [place] [address] [place] MCV (RBC) [Entitic vol] 91.3 fL Normal 80.0-100.0 [facility] Comment on above: Order Comment: Speci men Type: BLOOD SPECIMEN Ordering Facility: [facility] Address: [address] [place] [address] Performed By: #### 5 7021-8 #### [facility] CLIA [id number] [address] [place] [address] [place] Monocytes (Bld) [#/Vol] 0.63 10*3/uL Normal <0.87 [facility] Comment on above: Order Comment: Speci men Type: BLOOD SPECIMEN Ordering Facility: [facility] Address: [address] [place], [place] [address] Performed By: #### 5 7021-8 #### [facility] CLIA [id number] [address] [place] [id number] [place] Monocytes/100 WBC (Bld) 6.9 % Normal [facility] Comment on above: Order Comment: Speci men Type: BLOOD SPECIMEN Ordering Facility: [facility] Address: [address] [place], [place] [address] Performed By: #### 5 7021-8 #### [facility] CLIA [id number] [address] [place] [address] [place] Neutrophils (Bld) [#/Vol] 7.06 10*3/uL Normal 1.45-7.50 [facility] Comment on above: Order Comment: Speci men Type: BLOOD SPECIMEN Ordering Facility: [facility] Address: [address] [place] [address] Performed By: #### 5 7021-8 #### [facility] CLIA [id number] [address] [place] [address] [place] Neutrophils/100 WBC (Bld) 77.0 % Normal [facility] Comment on above: Order Comment: Speci men Type: BLOOD SPECIMEN Ordering Facility: [facility] Address: [address] [place], [place] [address] Performed By: #### 5 7021-8 #### [facility] CLIA [id number] [address] [place] [address] [place] Nucleated RBC (Bld) [#/Vol] 10*3/uL Normal <0.01 [facility] Comment on above: Order Comment: Speci men Type: BLOOD SPECIMEN Ordering Facility: [facility] Address: [address] [place], [place] [address] Performed By: #### 5 7021-8 #### [facility] CLIA [id number] [address] [place] [id number] [place] Nucleated RBC/100 WBC (Bld) [Ratio] 0.0 /100 WBC Normal [facility] Comment on above: Order Comment: Speci men Type: BLOOD SPECIMEN Ordering Facility: [facility] Address: [address] Performed By: #### 5 7021-8 #### [facility] CLIA [id number] [address] [place] [address] [place] Platelet mean volume (Bld) [Entitic vol] 10.4 fL Normal 9.0-12.7 [facility] Comment on above: Order Comment: Speci men Type: BLOOD SPECIMEN Ordering Facility: [facility] Address: [address] [place], [place] [address] Performed By: #### 5 7021-8 #### [facility] CLIA [id number] [address] [place] [address] [place] Platelets (Bld) [#/Vol] 252 10*3/uL Normal 150-400 [facility] Comment on above: Order Comment: Speci men Type: BLOOD SPECIMEN Ordering Facility: [facility] Address: [address] [place], [place] [address] Performed By: #### 5 7021-8 #### [facility] CLIA [id number] [address] [place] [address] [place] RBC (Bld) [#/Vol] 4.02 10*6/uL Low 4.20-6.00 [facility] Comment on above: Order Comment: Speci men Type: BLOOD SPECIMEN Ordering Facility: [facility] Address: [address] [place] [address] Performed By: #### 5 7021-8 #### [facility] CLIA [id number] [address] [place] [address] [place] WBC (Bld) [#/Vol] 9.17 10*3/uL Normal 3.70-11.00 [facility] Comment on above: Order Comment: Speci men Type: BLOOD SPECIMEN Ordering Facility: [facility] Address: [address] [place], [place] [address] Performed By: #### 5 7021-8 #### [facility] CLIA [id number] [address] [place] [address] [place] CBC panel Auto (Bld)on 03-09 Erythrocyte distribution width (RBC) [Ratio] 12.0 % Normal 11.5-15.0 [facility] Comment on above: Order Comment: Speci men Type: BLOOD SPECIMEN Ordering Facility: [facility] Address: [address] [place] [address] Performed By: #### 1 9123-9, 99072-2, 1988-03, HSTNT, 2776-11 #### [facility] CLIA [id number] [address] [place] [address] [place] Hematocrit (Bld) [Volume fraction] 36.8 % Low 39.0-51.0 [facility] Comment on above: Order Comment: Speci men Type: BLOOD SPECIMEN Ordering Facility: [facility] Address: [address] [place] [address] Performed By: #### 1 9123-9, , 1988-03, HSTNT, 2776-11 #### [facility] CLIA [id number] [address] [place] [address] [place] Hemoglobin (Bld) [Mass/Vol] 12.8 g/dL Low 13.0-17.0 [facility] Comment on above: Order Comment: Speci men Type: BLOOD SPECIMEN Ordering Facility: [facility] Address: [address] [place] [address] Performed By: #### 1 9123-9, , 1988-03, HSTNT, 2776-11 #### [facility] CLIA [id number] [address] [place] [address] [place] MCH (RBC) [Entitic mass] 31.5 pg Normal 26.0-34.0 [facility] Comment on above: Order Comment: Speci men Type: BLOOD SPECIMEN Ordering Facility: [facility] Address: [address] [place] [address] Performed By: #### 1 9, , 1988-03, HSTNT, 2776-11 #### [facility] CLIA [id number] [address] [place] [address] [place] MCHC (RBC) [Mass/Vol] 34.8 g/dL Normal 30.5-36.0 [facility] Comment on above: Order Comment: Speci men Type: BLOOD SPECIMEN Ordering Facility: [facility] Address: [address] Performed By: #### 1 9, , 1988-03, HSTNT, 2776-11 #### [facility] CLIA [id number] [address] [place] [address] [place] MCV (RBC) [Entitic vol] 90.6 fL Normal 80.0-100.0 [facility] Comment on above: Order Comment: Speci men Type: BLOOD SPECIMEN Ordering Facility: [facility] Address: [address] [place] [address] Performed By: #### 1 9, , 1988-03, HSTNT, 2776-11 #### [facility] CLIA [id number] [address] [place] [address] [place] Nucleated RBC (Bld) [#/Vol] 10*3/uL Normal <0.01 [facility] Comment on above: Order Comment: Speci men Type: BLOOD SPECIMEN Ordering Facility: [facility] Address: [address] [place] [address] Performed By: #### 1 9, , 1988-03, HSTNT, 2776-11 #### [facility] CLIA [id number] [address] [place] [address] [place] Platelet mean volume (Bld) [Entitic vol] 9.9 fL Normal 9.0-12.7 [facility] Comment on above: Order Comment: Speci men Type: BLOOD SPECIMEN Ordering Facility: [facility] Address: [address] [place] [address] Performed By: #### 1 9, , 1988-03, HSTNT, 2776- #### [facility] CLIA [id number] [address] [place] [address] [place] Platelets (Bld) [#/Vol] 256 10*3/uL Normal 150-400 [facility] Comment on above: Order Comment: Speci men Type: BLOOD SPECIMEN Ordering Facility: [facility] Address: [address] [place] [address] Performed By: #### 1 9, , 1988-03, HSTNT, 2776- #### [facility] CLIA [id number] [address] [place] [address] [place] RBC (Bld) [#/Vol] 4.06 10*6/uL Low 4.20-6.00 [facility] Comment on above: Order Comment: Speci men Type: BLOOD SPECIMEN Ordering Facility: [facility] Address: [address] [place] [address] Performed By: #### 1 23-9, , 1988-03, HSTNT, 2776- #### [facility] CLIA [id number] [address] [place] [address] [place] WBC (Bld) [#/Vol] 7.45 10*3/uL Normal 3.70-11.00 [facility] Comment on above: Order Comment: Speci men Type: BLOOD SPECIMEN Ordering Facility: [facility] Address: [address] [place] [address] Performed By: #### 1 239, , 1988-03, HSTNT, 2776- #### [facility] CLIA [id number] [address] [place] [address] [place] CRP SerPl-mCncon 03-09-2023 CRP [Mass/Vol] 7.9 mg/dL High <0.9 [facility] Comment on above: Order Comment: Latoya hartman Type: BLOOD SPECIMEN Ordering Facility: [facility] Address: [address] [place] [address] Performed By: #### 1 9123-9, , 1988-03, HSTNT, 277- #### [facility] CLIA [id number] [address] [place] [address] [place] HIGH SENSITIVITY TROPONIN To n 03-09-2023 HIGH SENSITIVITY YUSEF 10 ng/L Normal <12 [facility] Comment on above: Order Comment: Latoya hartman Type: BLOOD SPECIMEN [facility] Address: [address] [place] [address] Result Comment: When assessing risk for acute [...] 1 9123-9, , 1988-03, HSTNT, 277- #### [facility] CLIA [id number] [address] [place] [address] [place] Magnesium SerPl-mCncon 03-09 Magnesium [Mass/Vol] 2.1 mg/dL Normal 1.7-2.3 [facility] Comment on above: Order Comment: Latoya hartman Type: BLOOD SPECIMEN Ordering Facility: [facility] Address: [address] [place] [address] Performed By: #### 1 9123-9, , 1988-03, HSTNT, 277- #### [facility] CLIA [id number] 95[address] [facility] [id number] [id number] [place] NURSING PROGon 03-09-2023 NURSING PROG HNO ID: [id number] Author: Elizabet Morrissey RN Service: ? Author [...] per Q1-2hr rounds t/o the night. Normal [facility] Phosphate SerPl-mCncon 03-09 Phosphate [Mass/Vol] 1.3 mg/dL Low 2.7-4.8 [facility] Comment on above: Order Comment: Speci men Type: BLOOD SPECIMEN Ordering Facility: [facility] Address: [address] [place] [address] Result Comment: Resu lt rechecked. Performed By: #### 1 6023-9, 68666-2, 1988-03, HSTNT, 2776-11 #### [facility] CLIA [id number] [address] [place] [address] [place] XR ABDOMEN 1V [...] colon. Other: Multilevel thoracolumbar spine degenerative arthropathy. Forensic Manager: LEANNE Transcribe Date/Time: Mar 09 2023 9:08A Dictated by : SPEEDY SERVIN DO This examination was interpreted and the report reviewed and electronically signed by: SPEEDY SERVIN DO on Mar 09 2023 9:10AM EST [id number] CN Normal [facility] Basic metabolic 2000 panelon 03-08-2023 Anion gap [Moles/Vol] 11 mmol/L Normal 9-18 [facility] Comment on above: Order Comment: Speci men Type: BLOOD SPECIMEN Ordering Facility: [facility] Address: [address] [place] [address] Performed By: #### 1 9123-9, 35690-7, 1988-03, HSTNT, 27705-25 #### [facility] CLIA [id number] [address] [place] [address] [place] Calcium [Mass/Vol] 8.6 mg/dL Normal 8.5-10.2 [facility] Comment on above: Order Comment: Speci men Type: BLOOD SPECIMEN Ordering Facility: [facility] Address: [address] [place] [address] Performed By: #### 1 9122-9, , 1988-03, HSTNT, 2776-11 #### [facility] CLIA [id number] [address] [place] [address] [place] Chloride [Moles/Vol] 105 mmol/L Normal 97-105 [facility] Comment on above: Order Comment: Speci men Type: BLOOD SPECIMEN Ordering Facility: [facility] Address: [address] Performed By: #### 1 9, , 1988-03, HSTNT, 2776-11 #### [facility] CLIA [id number] [address] [place] [address] [place] CO2 [Moles/Vol] 25 mmol/L Normal 22-30 [facility] Comment on above: Order Comment: Speci men Type: BLOOD SPECIMEN Ordering [facility]: [facility] Address: [address] Performed By: #### 1 9, , 1988-03, HSTNT, 2776-11 #### [facility] CLIA [id number] [address] [place] [address] [place] Creatinine [Mass/Vol] 0.88 mg/dL Normal 0.73-1.22 [facility] Comment on above: Order Comment: Speci men Type: BLOOD SPECIMEN Ordering Facility: [facility] Address: [address] [place] [id number] Performed By: #### 1 23-9, , 1988-03, HSTNT, 2776-11 #### [facility] CLIA [id number] [address] [place] [id number] [place] ESTIMATED GLOMERULAR FILTRATION RATE 92 mL/min/1.73m??? Normal >=60 [facility] Comment on above: Order Comment: Latoya hartman Type: BLOOD SPECIMEN Ordering Facility: [facility] Address: [address] [place] [phone] Result Comment: Constance mated Glomerular Filtration Rate [...] actual GFR. Performed By: #### 1 9123-9, 86570-9, 1988-03, HSTNT, 2776-11 #### [facility] CLIA [id number] [address] [place] [id number] [place] Glucose [Mass/Vol] 126 mg/dL High 74-99 [facility] Comment on above: Order Comment: Latoya hartman Type: BLOOD SPECIMEN [facility] Address: [address] [place] [phone] Result Comment: The [place] [employer] (ADA) provides guidance for cutoff [...] Standards of Medical Care in Diabetes 2016, [place] [employer]. Diabetes Care. 2016.39(Suppl 1). Performed By: #### 1 9123-9, 32373-5, 1988-03, HSTNT, 2776-11 #### [facility] CLIA [id number] [address] [address] [place] Potassium [Moles/Vol] 4.6 mmol/L Normal 3.7-5.1 [facility] Comment on above: Order Comment: Speci men Type: BLOOD SPECIMEN [facility]ing Facility: [facility] Address: [address] [place] [address] Performed By: #### 1 9123-07, , 1988-03, HSTNT, 2776-11 #### [facility] CLIA [id number] [address] [place] [address] [place] Sodium [Moles/Vol] 141 mmol/L Normal 136-144 [facility] Comment on above: Order Comment: Speci men Type: BLOOD SPECIMEN [facility]ing Facility: [facility] Address: [address] [place] [address] Performed By: #### 1 9123-07, , 1988-03, HSTNT, 2776-11 #### [facility] CLIA [id number] [address] [place] [address] [place] Urea nitrogen [Mass/Vol] 16 mg/dL Normal 9-24 [facility] Comment on above: Order Comment: Speci men Type: BLOOD SPECIMEN [facility]ing Facility: [facility] Address: [address] [place] [address] Performed By: #### 1 9123-07, , 1988-03, HSTNT, 2776-11 #### [facility] CLIA [id number] [address] [place] [address] [place] CBC W Auto Differential pane l (Bld)on 03-08-2023 Basophils (Bld) [#/Vol] 0.07 10*3/uL Normal <0.11 [facility] Comment on above: Order Comment: Speci men Type: BLOOD SPECIMEN [facility]ing Facility[facility] Address: [address] [place], [place] [address] Performed By: #### 1 9, , 1988-03, HSTNT, 2776-11 #### [facility] CLIA [id number] [address] [place] [address] [place] Basophils/100 WBC (Bld) 0.6 % Normal [facility] Comment on above: Order Comment: Speci men Type: BLOOD SPECIMEN [facility]ing Facility: [facility] Address: [address] [place], [place] [address] Performed By: #### 1 9, , 1988-03, HSTNT, 2776-11 #### [facility] CLIA [id number] [address] [place], [place] [id number] [place] Differential cell count method Nom (Bld) Auto Normal [facility] Comment on above: Order Comment: Speci men Type: BLOOD SPECIMEN [facility]ing Facility: [facility] Address: [address] [place] [address] Performed By: #### 1 9, , 1988-03, HSTNT, 2776-11 #### [facility] CLIA [id number] [address] [place] [address] [place] Eosinophils (Bld) [#/Vol] 10*3/uL Normal <0.46 [facility] Comment on above: Order Comment: Speci men Type: BLOOD SPECIMEN [facility]ing Facility: [facility] Address: [address] [place], [place] [address] Performed By: #### 1 9, , 1988-03, HSTNT, 2776-11 #### [facility] CLIA [id number] [address] [place] [address] [place] Eosinophils/100 WBC (Bld) 0.0 % Normal [facility] Comment on above: Order Comment: Speci men Type: BLOOD SPECIMEN [facility]ing Facility[facility] Address: [address] [place], [place] [address] Performed By: #### 1 9, , 1988-03, HSTNT, 2776-11 #### [facility] CLIA [id number] [address] [place] [address] [place] Erythrocyte distribution width (RBC) [Ratio] 12.7 % Normal 11.5-15.0 [facility] Comment on above: Order Comment: Speci men Type: BLOOD SPECIMEN Ordering Facility: [facility] Address: [address] [place] [address] Performed By: #### 1 9123-9, , 1988-03, HSTNT, 2776-11 #### [facility] CLIA [id number] [address] [place] [address] [place] Hematocrit (Bld) [Volume fraction] 43.1 % Normal 39.0-51.0 [facility] Comment on above: Order Comment: Speci men Type: BLOOD SPECIMEN Ordering Facility: [facility] Address: [address] [place] [address] Performed By: #### 1 239, , 1988-03, HSTNT, 2776-11 #### [facility] CLIA [id number] [address] [place] [address] [place] Hemoglobin (Bld) [Mass/Vol] 14.2 g/dL Normal 13.0-17.0 [facility] Comment on above: Order Comment: Speci men Type: BLOOD SPECIMEN Ordering Facility: [facility] Address: [address] [place] [address] Performed By: #### 1 9123-9, , 1988-03, HSTNT, 2776-11 #### [facility] CLIA [id number] [address] [place] [address] [place] Immature granulocytes (Bld) [#/Vol] 10*3/uL Normal <0.10 [facility] Comment on above: Order Comment: Speci men Type: BLOOD SPECIMEN [facility]ing [facility] Address: [address] [place], [place] [address] Performed By: #### 1 9, , 1988-03, HSTNT, 2776-11 #### [facility] CLIA [id number] [facility] [place] [address] [place] Immature granulocytes/100 WBC (Bld) 0.2 % Normal [facility] Comment on above: Order Comment: Speci men Type: BLOOD SPECIMEN Ordering Facility: [facility] Address: [address] [place] [address] Performed By: #### 1 9, , 1988-03, HSTNT, 2776-11 #### [facility] CLIA [id number] [address] [place] [address] [place] Lymphocytes (Bld) [#/Vol] 0.78 10*3/uL Low 1.00-4.00 [facility] Comment on above: Order Comment: Speci men Type: BLOOD SPECIMEN [facility]ing Facility: [facility] Address: [address] [place] [address] Performed By: #### 1 9, , 1988-03, HSTNT, 2776-11 #### [facility] CLIA [id number] [address] [place] [address] [place] Lymphocytes/100 WBC (Bld) 7.2 % Normal [facility] Comment on above: Order Comment: Speci men Type: BLOOD SPECIMEN [facility]ing Facility[facility] Address: [address] [place], [place] [address] Performed By: #### 1 9, , 1988-03, HSTNT, 2776-11 #### [facility] CLIA [id number] [address] [place] [address] [place] MCH (RBC) [Entitic mass] 31.3 pg Normal 26.0-34.0 [facility] Comment on above: Order Comment: Speci men Type: BLOOD SPECIMEN Ordering Facility: [facility] Address: [address] [place] [address] Performed By: #### 1 9122-9, , 1988-03, HSTNT, 2776- #### [facility] CLIA [id number] [address] [place] [address] [place] MCHC (RBC) [Mass/Vol] 32.9 g/dL Normal 30.5-36.0 [facility] Comment on above: Order Comment: Speci men Type: BLOOD SPECIMEN [facility]ing Facility: [facility] Address: [address] [place], [place] [address] Performed By: #### 1 9, , 1988-03, HSTNT, 2776-11 #### [facility] CLIA [id number] [address] [place] [address] [place] MCV (RBC) [Entitic vol] 94.9 fL Normal 80.0-100.0 [facility] Comment on above: Order Comment: Speci men Type: BLOOD SPECIMEN [facility]ing Facility: [facility] Address: [address] [place], [place] [address] Performed By: #### 1 9, , 1988-03, HSTNT, 2776-11 #### [facility] CLIA [id number] [address] [place] [address] [place] Monocytes (Bld) [#/Vol] 0.89 10*3/uL High <0.87 [facility] Comment on above: Order Comment: Speci men Type: BLOOD SPECIMEN Ordering Facility: [facility] Address: [address] [place] [phone] Performed By: #### 1 9, , 1988-03, HSTNT, 2776-11 #### [facility] CLIA [id number] [address] [place] [address] [place] Monocytes/100 WBC (Bld) 8.3 % Normal [facility] Comment on above: Order Comment: Speci men Type: BLOOD SPECIMEN Ordering Facility: [facility] Address: [address] [place] [phone] Performed By: #### 1 9, , 1988-03, HSTNT, 2776-11 #### [facility] CLIA [id number] [address] [place] [address] [place] Neutrophils (Bld) [#/Vol] 9.01 10*3/uL High 1.45-7.50 [facility] Comment on above: Order Comment: Speci men Type: BLOOD SPECIMEN Ordering Facility: [facility] Address: [address] [place], [place] [id number] Performed By: #### 1 9, , 1988-03, HSTNT, 2776-11 #### [facility] CLIA [id number] [address] [place] [address] [place] Neutrophils/100 WBC (Bld) 83.7 % Normal [facility] Comment on above: Order Comment: Speci men Type: BLOOD SPECIMEN Ordering Facility: [facility] Address: [address] [place] [address] Performed By: #### 1 9, , 1988-03, HSTNT, 2776-11 #### [facility] CLIA [id number] [address] [place] [address] [place] Nucleated RBC (Bld) [#/Vol] 10*3/uL Normal <0.01 [facility] Comment on above: Order Comment: Speci men Type: BLOOD SPECIMEN Ordering Facility: [facility] Address: [address] [place], [place] [address] Performed By: #### 1 23-9, , 1988-03, HSTNT, 2776-11 #### [facility] CLIA [id number] [address] [place] [address] [place] Nucleated RBC/100 WBC (Bld) [Ratio] 0.0 /100 WBC Normal [facility] Comment on above: Order Comment: Speci men Type: BLOOD SPECIMEN Ordering Facility: [facility] Address: [address] [place] [address] Performed By: #### 1 9, , 1988-03, HSTNT, 2776-11 #### [facility] CLIA [id number] [address] [place] [address] [place] Platelet mean volume (Bld) [Entitic vol] 10.3 fL Normal 9.0-12.7 [facility] Comment on above: Order Comment: Speci men Type: BLOOD SPECIMEN Ordering Facility: [facility] Address: [address] [place] [address] Performed By: #### 1 9, , 1988-03, HSTNT, 2776-11 #### [facility] CLIA [id number] [address] [place] [address] [place] Platelets (Bld) [#/Vol] 284 10*3/uL Normal 150-400 [facility] Comment on above: Order Comment: Speci men Type: BLOOD SPECIMEN Ordering Facility: [facility] Address: [address] [place] [address] Performed By: #### 1 9, , 1988-03, HSTNT, 2776-11 #### [facility] CLIA [id number] [address] [place] [address] [place] RBC (Bld) [#/Vol] 4.54 10*6/uL Normal 4.20-6.00 [facility] Comment on above: Order Comment: Speci men Type: BLOOD SPECIMEN Ordering Facility: [facility] Address: [address] [place] [address] Performed By: #### 1 9, , 1988-03, HSTNT, 2776-11 #### [facility] CLIA [id number] [address] [place] [address] [place] WBC (Bld) [#/Vol] 10.77 10*3/uL Normal 3.70-11.00 [facility] Comment on above: Order Comment: Speci men Type: BLOOD SPECIMEN Ordering Facility: [facility] Address: [address] [place] [address] Performed By: #### 1 9123-9, , 1988-03, HSTNT, 2776- #### [facility] CLIA [id number] [facility] [place] [address] [place] CRP SerPl-mCncon 03-08-2023 CRP [Mass/Vol] 3.1 mg/dL High <0.9 [facility] Comment on above: Order Comment: Speci men Type: BLOOD SPECIMEN Ordering Facility: [facility] Address: [address] [place] [address] Performed By: #### 1 23-9, , 1988-03, HSTNT, 2776- #### [facility] CLIA [id number] [address] [place] [address] [place] HIGH SENSITIVITY TROPONIN To n 03-08-2023 HIGH SENSITIVITY YUSEF 10 ng/L Normal <12 [facility] Comment on above: Order Comment: Speci men Type: BLOOD SPECIMEN Ordering Facility: [facility] Address: [address] [place] [address] Result Comment: When assessing risk for acute [...] 1 9123-9, , 1988-03, HSTNT, 2777-1 #### [facility] CLIA [id number] [address] [place] [address] [place] Magnesium SerPl-mCncon 03-08 Magnesium [Mass/Vol] 2.3 mg/dL Normal 1.7-2.3 [facility] Comment on above: Order Comment: Speci men Type: BLOOD SPECIMEN Ordering Facility: [facility] Address: [address] [place] [address] Performed By: #### 1 9123-9, 48005-9, 1988-03, HSTNT, 2776-11 #### [facility] CLIA [id number] [address] [place] [address] [place] Phosphate SerPl-mCncon 03-08 Phosphate [Mass/Vol] 4.3 mg/dL Normal 2.7-4.8 [facility] Comment on above: Order Comment: Speci men Type: BLOOD SPECIMEN Ordering Facility: [facility] Address: [address] [place] [address] Performed By: #### 1 9123-9, 23903-6, 1988-03, HSTNT, 2776-11 #### [facility] CLIA [id number] [address] [place] [address] [place] ANES POSTPROC EVALon 023 ANES POSTPROC EVAL HNO ID: [id number] Author: Lamberto Maradiaga MD, PhD Service: ? Author Type: Physician Type: Anesthesia Postprocedure Evaluation Filed: 03/07/2023 4:04 PM Note Text: POST ANESTHESIA EVALUATION NOTE : 1950 Procedure Summary Date: 03/07/23 [address] An[address]hesia Start: 1105 Anesthesia Stop: 1341 [...] March 07, 2023 TIME: 4:04 PM CSN: [id number] Normal [facility] ANES PRE-OPon 03-07-2023 ANES PRE-OP HNO ID: [id number] Author: Lamberto Maradiaga MD, PhD Service: ? Author Type: Physician Type: Anesthesia Preprocedure Evaluation Filed: 03/07/2023 10:46 AM Note Text: ANESTHESIOLOGY DAY OF SURGERY NOTE : 1950 Procedure Information Date/Time: 03/07/23 1145 Procedure: COMPLEX REPAIR WOUND OF ABDOMEN 2.6 CM TO 7.5 CM (Abdomen) Location: [place] [address] / [facility] Surgeons: Angle Melchor MD Estimated body mass [...] and consent discussed: yes. Patient / Responsible Alliance Party agrees to proceed: yes Patient / Surrogate [...] March 07, 2023 TIME: 10:46 AM CSN: [id number] Normal [facility] BRIEF OP NOTon 03-07-2023 BRIEF OP NOT HNO ID: [id number] Author: Angle Melchor MD Service: General Surgery Author Type: Physician Type: Brief Op Note Filed: 03/07/2023 12:58 PM Note Text: [facility] BRIEF OP NOTE FROM [facility] Surgery/Procedure Date: 03/07/2023 Pre-Op/Pre-Procedure Diagnosis: 2x recurrent [...] sheath incision myofascial release Surgeon(s)/Procedura list(s) and Lcsw(s): Dr. Angle Melchor Anesthesia: General Findings: ? incisional, hernia measuring 10 cm x 12 cm comprising EHS Classification segments: [M1-4,] Estimated Blood Loss (cc): 50 Specimens: None Complications: None Normal [facility] CONFIRM BLOOD TYPEon 023 ABO A Normal [facility] Comment on above: Order Comment: Speci men Type: BLOOD SPECIMEN Ordering Facility: [facility] Address: [address] [place], [place] [address] Performed By: #### 1 9123-9, 76116-6, 1987-, TNT, 2777-1 #### [facility] CLIA [id number] [address] [place] [address] [place] [address] [place] Rh Nom (Bld) Positive Normal [facility] Comment on above: Order Comment: Speci men Type: BLOOD SPECIMEN Ordering Facility: [facility] Address: [address] [place] [address] Performed By: #### 1 9123-9, 05981-3, 1987-5, T, 2777-1 #### [facility] CLIA [id number] [address] [place] [address] [place] [address] [place] NURSING PROGon 03-07-2023 NURSING PROG HNO ID: [id number] Author: Dayan Dubose RN Service: Nursing Author Type: Registered Nurse Type: Nursing Progress Note Filed: 03/07/2023 6:01 PM Note Text: Pt doing well postoperatively. Vss, pain better controlled with IV sporting goods sales associate. Pt verbalizes understanding of sporting goods sales associate and demonstrates the ability to use. Pt being discharged from pacu in stable condition pending available bed. 1756: Pt status unchanged. Vss, pain controlled with iv sporting goods sales associate. No acute distress noted or complaints voiced. Pt being discharged from pacu in stable condition. Normal [facility] OPERATIVE NOon 03-07-2023 OPERATIVE NO HNO ID: [id number] Author: Angle Mlechor MD Service: General Surgery Author Type: Physician Type: Operative Report Filed: 03/07/2023 7:34 PM Note Text: [facility] - Operative Report [address] [place] [address] [place] CHA ELE[place] : 1950 AGE: 72. SEX: M PATIENT TYPE: IN [place] [facility] [place] [facility] LOCATION: [place] [address] ATTENDING PHYSICIAN: Angle Melchor M.D. CSN NUMBER: [id number] DATE OF SURGERY/PROCEDURE: 03/07/2023 INCISION/PROCEDURE START TIME: 11:38 AM INCISION CLOSE/PROCEDURE END TIME: 1:20 PM PREOPERATIVE DIAGNOSIS: Multiple recurrent incarcerated incisional hernia. POSTOPERATIVE DIAGNOSIS: Multiple recurrent incarcerated incisional hernia. SURGEON: Angle Melchor M.D. PRISON CLASSIFICATION COUNSELOR: Dr. Scarlett Valentino. Please note, Dr. Valentino was my director of first impressions given the complexity of the case. No [...] for the entire procedure. Angle Melchor M.D. MR:[id number] Normal [facility] CBC W Auto Differential pane l (Bld)on 03-06-2023 Basophils (Bld) [#/Vol] 0.07 10*3/uL Normal <0.11 [facility] Comment on above: Order Comment: Speci men Type: BLOOD SPECIMEN Ordering Facility: [facility] Address: [address] [place] [address] Performed By: #### 1 91239, , 1988-03, HSTNT, 2776-11 #### [facility] CLIA [id number] [address] [place] [address] [place] Basophils/100 WBC (Bld) 1.1 % Normal [facility] Comment on above: Order Comment: Speci men Type: BLOOD SPECIMEN Ordering Facility: [facility] Address: [address] [place] [address] Performed By: #### 1 91239, , 1988-03, HSTNT, 2776-11 #### [facility] CLIA [id number] [address] [place] [address] [place] Differential cell count method Nom (Bld) Auto Normal [facility] Comment on above: Order Comment: Speci men Type: BLOOD SPECIMEN Ordering Facility: [facility] Address: [address] [place] [address] Performed By: #### 1 9123-9, 78426-8, 1988-03, HSTNT, 2776-11 #### [facility] CLIA [id number] [address] [place] [address] [place] Eosinophils (Bld) [#/Vol] 0.04 10*3/uL Normal <0.46 [facility] Comment on above: Order Comment: Speci men Type: BLOOD SPECIMEN Ordering Facility: [facility] Address: [address] [place] [address] Performed By: #### 1 9, , 1988-03, HSTNT, 2776-11 #### [facility] CLIA [id number] [address] [place] [address] [place] Eosinophils/100 WBC (Bld) 0.6 % Normal [facility] Comment on above: Order Comment: Speci men Type: BLOOD SPECIMEN Ordering Facility: [facility] Address: [address] [place] [address] Performed By: #### 1 9, , 1988-03, HSTNT, 2776-11 #### [facility] CLIA [id number] [address] [place] [address] [place] Erythrocyte distribution width (RBC) [Ratio] 12.3 % Normal 11.5-15.0 [facility] Comment on above: Order Comment: Speci men Type: BLOOD SPECIMEN Ordering Facility: [facility] Address: [address] [place] [address] Performed By: #### 1 239, , 1988-03, HSTNT, 2776-11 #### [facility] CLIA [id number] [address] [place] [address] [place] Hematocrit (Bld) [Volume fraction] 45.2 % Normal 39.0-51.0 [facility] Comment on above: Order Comment: Speci men Type: BLOOD SPECIMEN Ordering Facility: [facility] Address: [address] [place] [address] Performed By: #### 1 239, , 1988-03, HSTNT, 2777-1 #### [facility] CLIA [id number] [address] [place] [id number] [place] Hemoglobin (Bld) [Mass/Vol] 15.0 g/dL Normal 13.0-17.0 [facility] Comment on above: Order Comment: Speci men Type: BLOOD SPECIMEN Ordering Facility: [facility] Address: [address] [place], [place] [address] Performed By: #### 1 9123-9, 49184-1, 1988-03, HSTNT, 2776-11 #### [facility] CLIA [id number] [address] [place] [address] [place] Immature granulocytes (Bld) [#/Vol] 10*3/uL Normal <0.10 [facility] Comment on above: Order Comment: Speci men Type: BLOOD SPECIMEN Ordering Facility: [facility] Address: [address] [place], [place] [address] Performed By: #### 1 9123-9, , 1988-03, HSTNT, 2776-11 #### [facility] CLIA [id number] [address] [place] [address] [place] Immature granulocytes/100 WBC (Bld) 0.2 % Normal [facility] Comment on above: Order Comment: Speci men Type: BLOOD SPECIMEN Ordering Facility: [facility] Address: [address] [place], [place] [address] Performed By: #### 1 9123-9, 79883-2, 1988-03, HSTNT, 2776-11 #### [facility] CLIA [id number] [address] [place] [address] [place] Lymphocytes (Bld) [#/Vol] 1.75 10*3/uL Normal 1.00-4.00 [facility] Comment on above: Order Comment: Speci men Type: BLOOD SPECIMEN Ordering Facility: [facility] Address: [address] [place], [place] [address] Performed By: #### 1 9123-9, , 1988-03, HSTNT, 2776-11 #### [facility] CLIA [id number] [address] [place] [address] [place] Lymphocytes/100 WBC (Bld) 27.4 % Normal [facility] Comment on above: Order Comment: Speci men Type: BLOOD SPECIMEN Ordering Facility: [facility] Address: [address] [place] [address] Performed By: #### 1 9123-9, , 1988-03, HSTNT, 2776-11 #### [facility] CLIA [id number] [address] [place] [address] [place] MCH (RBC) [Entitic mass] 30.9 pg Normal 26.0-34.0 [facility] Comment on above: Order Comment: Speci men Type: BLOOD SPECIMEN Ordering Facility: [facility] Address: [address] [place] [address] Performed By: #### 1 239, , 1988-03, HSTNT, 2776-11 #### [facility] CLIA [id number] [address] [place] [address] [place] MCHC (RBC) [Mass/Vol] 33.2 g/dL Normal 30.5-36.0 [facility] Comment on above: Order Comment: Speci men Type: BLOOD SPECIMEN Ordering Facility: [facility] Address: [address] [place] [address] Performed By: #### 1 9123-9, , 1988-03, HSTNT, 2776-11 #### [facility] CLIA [id number] [address] [place] [address] [place] MCV (RBC) [Entitic vol] 93.2 fL Normal 80.0-100.0 [facility] Comment on above: Order Comment: Speci men Type: BLOOD SPECIMEN Ordering Facility: [facility] Address: [address] [place] [address] Performed By: #### 1 9123-9, , 1988-03, HSTNT, 2776-11 #### [facility] CLIA [id number] [address] [place] [address] [place] Monocytes (Bld) [#/Vol] 0.50 10*3/uL Normal <0.87 [facility] Comment on above: Order Comment: Speci men Type: BLOOD SPECIMEN Ordering Facility: [facility] Address: [address] [place], [place] [address] Performed By: #### 1 239, , 1988-03, HSTNT, 2776-11 #### [facility] CLIA [id number] [address] [place] [address] [place] Monocytes/100 WBC (Bld) 7.8 % Normal [facility] Comment on above: Order Comment: Speci men Type: BLOOD SPECIMEN Ordering Facility: [facility] Address: [address] [place], [place] [address] Performed By: #### 1 239, , 1988-03, HSTNT, 2776-11 #### [facility] CLIA [id number] [address] [place] [address] [place] Neutrophils (Bld) [#/Vol] 4.02 10*3/uL Normal 1.45-7.50 [facility] Comment on above: Order Comment: Speci men Type: BLOOD SPECIMEN Ordering Facility: [facility] Address: [address] [place] [phone] Performed By: #### 1 239, , 1988-03, HSTNT, 2776-11 #### [facility] CLIA [id number] [address] [place] [address] [place] Neutrophils/100 WBC (Bld) 62.9 % Normal [facility] Comment on above: Order Comment: Speci men Type: BLOOD SPECIMEN Ordering Facility: [facility] Address: [place] [address] Performed By: #### 1 9, , 1988-03, HSTNT, 2776-11 #### [facility] CLIA [id number] [address] [place] [address] [place] Nucleated RBC (Bld) [#/Vol] 10*3/uL Normal <0.01 [facility] Comment on above: Order Comment: Speci men Type: BLOOD SPECIMEN Ordering Facility: [facility] Address: [address] [place], [place] [address] Performed By: #### 1 9, , 1988-03, HSTNT, 2776-11 #### [facility] CLIA [id number] [facility] [place] [address] [place] Nucleated RBC/100 WBC (Bld) [Ratio] 0.0 /100 WBC Normal [facility] Comment on above: Order Comment: Speci men Type: BLOOD SPECIMEN Ordering Facility: [facility] Address: [address] [place], [place] [address] Performed By: #### 1 9, , 1988-03, HSTNT, 2776-11 #### [facility] CLIA [id number] [address] [place] [address] [place] Platelet mean volume (Bld) [Entitic vol] 10.1 fL Normal 9.0-12.7 [facility] Comment on above: Order Comment: Speci men Type: BLOOD SPECIMEN Ordering Facility: [facility] Address: [address] [place] [address] Performed By: #### 1 9, , 1988-03, HSTNT, 2776-11 #### [facility] CLIA [id number] [facility] [place] [address] [place] Platelets (Bld) [#/Vol] 313 10*3/uL Normal 150-400 [facility] Comment on above: Order Comment: Speci men Type: BLOOD SPECIMEN Ordering Facility: [facility] Address: [address] [place] [address] Performed By: #### 1 9123-9, , 1988-03, HSTNT, 2776- #### [facility] CLIA [id number] [address] [place] [address] [place] RBC (Bld) [#/Vol] 4.85 10*6/uL Normal 4.20-6.00 [facility] Comment on above: Order Comment: Speci men Type: BLOOD SPECIMEN Ordering Facility: [facility] Address: [address] [place] [address] Performed By: #### 1 239, , 1988-03, HSTNT, 2776- #### [facility] CLIA [id number] [address] [place] [address] [place] WBC (Bld) [#/Vol] 6.39 10*3/uL Normal 3.70-11.00 [facility] Comment on above: Order Comment: Speci men Type: BLOOD SPECIMEN Ordering Facility: [facility] Address: [address] [place], [place] [address] Performed By: #### 1 9123-9, , 1988-03, HSTNT, 2776-11 #### [facility] CLIA [id number] [facility] [place] [address] [place] Comprehensive metabolic 2000 panelon 03-06-2023 Albumin [Mass/Vol] 4.6 g/dL Normal 3.9-4.9 [facility] Comment on above: Order Comment: Speci men Type: BLOOD SPECIMEN Ordering Facility: [facility] Address: [address] [place], [place] [address] Performed By: #### 1 9123-9, , 1988-03, HSTNT, 277- #### [facility] CLIA [id number] [address] [place] [address] [place] ALP [Catalytic activity/Vol] 54 U/L Normal 38-113 [facility] Comment on above: Order Comment: Speci men Type: BLOOD SPECIMEN Ordering Facility: [facility] Address: [address] [place] [phone] Performed By: #### 1 9123-9, , 1988-03, HSTNT, 2776-11 #### [facility] CLIA [id number] [address] [place] [address] [place] ALT [Catalytic activity/Vol] 26 U/L Normal 10-54 [facility] Comment on above: Order Comment: Speci men Type: BLOOD SPECIMEN Ordering Facility: [facility] Address: [address] [place] [phone] Performed By: #### 1 91239, , 1988-03, HSTNT, 2776-11 #### [facility] CLIA [id number] [address] [place] [address] [place] Anion gap [Moles/Vol] 11 mmol/L Normal 9-18 [facility] Comment on above: Order Comment: Speci men Type: BLOOD SPECIMEN Ordering Facility: [facility] Address: [address] [place] [phone] Performed By: #### 1 9123-9, , 1988-03, HSTNT, 2776-11 #### [facility] CLIA [id number] [address] [place] [address] [place] AST [Catalytic activity/Vol] 21 U/L Normal 14-40 [facility] Comment on above: Order Comment: Speci men Type: BLOOD SPECIMEN Ordering Facility: [facility] Address: [address] [place] [phone] Performed By: #### 1 239, , 1988-03, HSTNT, 2776- #### [facility] CLIA [id number] [address] [place] [address] [place] Bilirubin [Mass/Vol] 1.0 mg/dL Normal 0.2-1.3 [facility] Comment on above: Order Comment: Speci men Type: BLOOD SPECIMEN Ordering Facility: [facility] Address: [address] [place], [place] [address] Performed By: #### 1 23-9, , 1988-03, HSTNT, 2776-11 #### [facility] CLIA [id number] [address] [place] [address] [place] Calcium [Mass/Vol] 10.0 mg/dL Normal 8.5-10.2 [facility] Comment on above: Order Comment: Speci men Type: BLOOD SPECIMEN Ordering Facility: [facility] Address: [address] [place], [place] [address] Performed By: #### 1 239, , 1988-03, HSTNT, 2776-11 #### [facility] CLIA [id number] [address] [place] [address] [place] Chloride [Moles/Vol] 101 mmol/L Normal 97-105 [facility] Comment on above: Order Comment: Speci men Type: BLOOD SPECIMEN Ordering Facility: [facility] Address: [address] [place] [address] Performed By: #### 1 23-9, , 1988-03, HSTNT, 2776-11 #### [facility] CLIA [id number] [address] [place] [address] [place] CO2 [Moles/Vol] 27 mmol/L Normal 22-30 [facility] Comment on above: Order Comment: Speci men Type: BLOOD SPECIMEN Ordering Facility: [facility] Address: [address] [place] [id number] Performed By: #### 1 9123-9, , 1988-03, HSTNT, 2776-11 #### [facility] CLIA [id number] [address] [place] [address] [place] Creatinine [Mass/Vol] 0.90 mg/dL Normal 0.73-1.22 [facility] Comment on above: Order Comment: Speci men Type: BLOOD SPECIMEN Ordering Facility: [facility] Address: [address] Performed By: #### 1 91239, , 1988-03, HSTNT, 2776-11 #### [facility] CLIA [id number] [address] [place] [address] [place] ESTIMATED GLOMERULAR FILTRATION RATE 91 mL/min/1.73m??? Normal >=60 [facility] Comment on above: Order Comment: Speci men Type: BLOOD SPECIMEN Ordering Facility: [facility] Address: [address] [place] [address] Result Comment: Constance mated Glomerular Filtration Rate [...] 1 23-9, , 1988-03, HSTNT, 2776-11 #### [facility] CLIA [id number] [address] [place] [address] [place] Glucose [Mass/Vol] 91 mg/dL Normal 74-99 [facility] Comment on above: Order Comment: Speci men Type: BLOOD SPECIMEN [facility] Address: [address] [address] Result Comment: The [place] [employer] (ADA) provides guidance for cutoff [...] Standards of Medical Care in Diabetes 2016, [place] [employer]. Diabetes Care. 2016.39(Suppl 1). Performed By: #### 1 9123-9, 43189-5, 1988-03, HSTNT, 2776-11 #### [facility] CLIA [id number] [address] [place] [address] [place] Potassium [Moles/Vol] 4.0 mmol/L Normal 3.7-5.1 [facility] Comment on above: Order Comment: Speci men Type: BLOOD SPECIMEN [facility] Address: [address] [place], [place] [address] Performed By: #### 1 9123-9, 25243-0, 1988-03, TNT, 2776-11 #### [facility] CLIA [id number] [address] [place] [address] [place] Protein [Mass/Vol] 6.9 g/dL Normal 6.3-8.0 [facility] Comment on above: Order Comment: Speci men Type: BLOOD SPECIMEN [facility]ing Facility: [facility] Address: [address] [place] [address] Performed By: #### 1 9123-9, 84942-6, 1988-03, TNT, 2776-11 #### [facility] CLIA [id number] [address] [place] [address] [place] Sodium [Moles/Vol] 139 mmol/L Normal 136-144 [facility] Comment on above: Order Comment: Speci men Type: BLOOD SPECIMEN [facility]ing Facility[facility] Address: [address] [place] [address] Performed By: #### 1 9123-9, 46617-1, 1988-03, HSTNT, 2776-11 #### [facility] CLIA [id number] [address] [place] [address] [place] Urea nitrogen [Mass/Vol] 13 mg/dL Normal 9-24 [facility] Comment on above: Order Comment: Speci men Type: BLOOD SPECIMEN [facility] Address: [address] [place] [address] Performed By: #### 1 9123-9, 54225-5, 1988-03, HSTNT, 2776-11 #### [facility] CLIA [id number] [address] [place] [address] [place] ECG COMPLETEon 03-06-2023 ECG COMPLETE Ventricular Rate : 71 BPM Atrial Rate : 71 BPM P-R Interval : 216 ms QRS Duration : 158 ms Q-T Interval : 448 ms QTC Calculation(Bazett) : 486 ms Calculated P [place] : 18 degrees Calculated R [place] : 151 degrees Calculated T [place] : -4 degrees SINUS RHYTHM WITH 1ST DEGREE AV BLOCK RIGHT AXIS DEVIATION NONSPECIFIC INTRAVENTRICULAR BLOCK ABNORMAL ECG Confirmed by ANGLE MATUTE MD ([id number]) on 03/11/2023 7:31:38 PM NAME : CHA ELENA PID : [id number] : 1950 Gender : Male Race : ORD : [id number] Procedure Date : Mar 06 2023 10:34:49 Edit Date : Mar 11 2023 19:31:39 Diagnosis: SINUS RHYTHM WITH 1ST DEGREE AV BLOCK RIGHT AXIS DEVIATION NONSPECIFIC INTRAVENTRICULAR BLOCK ABNORMAL ECG Confirmed by ANGLE MATUTE MD ([id number]) on 03/11/2023 7:31:38 PM Test Reason : Location : 119 : A17 Overread By : ANGLE MATUTE MD Edited By : ANGLE MATUTE MD Referred By : ANGLE MELCHOR Acquired by : KELSEY NGUYỄN Normal [facility] HISTORY PHYSICALon 3 HISTORY PHYSICAL HNO ID: [id number] Author: Adrianna Pollock APRN.RUBBER COVERING MACHINE OPERATOR Service: ? Author Type: Nurse Practitioner Type: HANDP Filed: 03/06/2023 10:43 AM Note Text: HISTORY AND PHYSICAL EXAMINATION SERVICE DATE: 03/06/2023 SERVICE TIME: 10:00 AM PRIMARY CARE PHYSICIAN: Speedy Khanna II, MD REASON FOR VISIT: Cha Elena is a 72 year old male who is scheduled for COMPLEX REPAIR WOUND OF ABDOMEN 2.6 CM TO 7.5 CM on 03/07/2023 at [facility]. Patient is being seen at the request [...] fevers. Neuro: No history of TIA's, stroke, CHASSIS MECHANIC tumor, impaired sensorium, hemiplegia, paraplegia or quadraplegia. No neurological symptoms or problems. Respiratory: No history of current cough or dyspnea, or pneumonia in the past 6 weeks. No history of respiratory/pulmonar y symptoms or problems. Cardiovascular: h/o AAA, HTN, 'electrical block' Negative for Recent CA, Chest Pain GI: GERD No history of [...] range. K (more content not included)... Normal [facility] PT panel Coag (PPP)on 2022 INR Coag (PPP) [Relative time] 1.0 {INR} Normal 0.9-1.3 [facility] Comment on above: Order Comment: Latoya hartman Type: BLOOD SPECIMEN [facility] Address: [address] [place] [address] Result Comment: Katie min K Antagonist (VKA) Therapeutic Range: INR 2 to 3 (Target INR of 2.5) Note: For patients treated with VKA drugs, such as warfarin, the [place] [employer] 2012 Guideline recommends [...] Chest 2012, 141:7S-47S Gifty RA, et al. [facility] 2017, 70: 252-289 Performed By: #### 1 9123-9, 88284-2, 1988-03, HSTNT, 2776-11 #### [facility] CLIA [id number] [address] [facility] [id number] [address] [place] PT Coag (PPP) [Time] 10.0 s Normal 9.7-13.0 [facility] Comment on above: Order Comment: Latoya hartman Type: BLOOD SPECIMEN [facility]ing [facility] Address: [address] [place] [address] Performed By: #### 1 9123-9, 11695-2, 1988-03, HSTNT, 2776-11 #### [facility] CLIA [id number] [address] [place] [address] [place] TYPE AND SCREEN,30 DAYon ABO A Normal [facility] Comment on above: Order Comment: Speci men Type: BLOOD SPECIMEN [facility] Address: [address] [place] [address] Performed By: #### 1 9123-9, , 1988-03, HSTNT, 2776-11 #### [facility] CLIA [id number] [address] [place] [address] [place] HISTORICAL AB SCR STATUS Negative Normal [facility] Comment on above: Order Comment: Speci men Type: BLOOD SPECIMEN [facility]ing [facility] Address: [address] [place] [address] Performed By: #### 1 9, , 1988-03, HSTNT, 2776-11 #### [facility] CLIA [id number] [address] [place] [address] [place] Rh Nom (Bld) Positive Normal [facility] Comment on above: Order Comment: Speci men Type: BLOOD SPECIMEN [facility] Address: [address] [place] [address] Performed By: #### 1 9, , 1988-03, HSTNT, 2776-11 #### [facility] CLIA [id number] [address] [place] [address] [place] URINALYSIS, DIPSTICK ONLYon 03-06-2023 Bilirubin Ql (U) Negative Normal Negative [facility] Comment on above: Order Comment: Speci men Type: BLOOD SPECIMEN [facility] Address: [address] [place] [address] Performed By: #### 1 91-9, , 1988-03, HSTNT, 2776-11 #### [facility] CLIA [id number] [address] [place] [address] [place] Clarity (Unsp spec) Clear Normal Clear [facility] Comment on above: Order Comment: Speci men Type: BLOOD SPECIMEN [facility] Address: [address] [place], [place] [address] Performed By: #### 1 9, , 1988-03, HSTNT, 2776-11 #### [facility] CLIA [id number] [address] [place] [address] [place] Color (U) Light Yellow Normal Yellow [facility] Comment on above: Order Comment: Speci men Type: BLOOD SPECIMEN [facility] Address: [address] [place] [address] Performed By: #### 1 9, , 1988-03, HSTNT, 2776-11 #### [facility] CLIA [id number] [address] [place] [address] [place] Glucose Test strip (U) [Mass/Vol] Negative Normal Trace, Negative [facility] Comment on above: Order Comment: Speci men Type: BLOOD SPECIMEN [facility] Address: [address] [place], [place] [address] Performed By: #### 1 9, , 1988-03, HSTNT, 2776-11 #### [facility] CLIA [id number] [address] [id number] [place] Hemoglobin Ql (U) Negative Normal Negative, Trace [facility] Comment on above: Order Comment: Speci men Type: BLOOD SPECIMEN [facility]ing [facility] Address: [address] [place], [place] [address] Performed By: #### 1 9, , 1988-03, HSTNT, 2776-11 #### [facility] CLIA [id number] [address] [place] [address] [place] Ketones Ql (U) Negative Normal Trace, Negative [facility] Comment on above: Order Comment: Speci men Type: BLOOD SPECIMEN [facility] Address: [address] [place] [address] Performed By: #### 1 9123-9, 34315-1, 1988-03, HSTNT, 2776- #### [facility] CLIA [id number] [facility] [place] [address] [place] Leukocyte esterase Test strip Ql (U) Negative Normal Negative, 25 Dillon/uL [facility] Comment on above: Order Comment: Speci men Type: BLOOD SPECIMEN [facility] Address: [address] [place] [address] Performed By: #### 1 9, , 1988-03, HSTNT, 2776- #### [facility] CLIA [id number] [address] [place] [address] [place] Nitrite Ql (U) Negative Normal Negative [facility] Comment on above: Order Comment: Speci men Type: BLOOD SPECIMEN [facility] Address: [address] [place] [address] Performed By: #### 1 9123-9, , 1988-03, HSTNT, 2776- #### [facility] CLIA [id number] [address] [place] [address] [place] pH (U) 5.5 [pH] Normal 5.0-8.0 [facility] Comment on above: Order Comment: Speci men Type: BLOOD SPECIMEN [facility] Address: [address] [place] [address] Performed By: #### 1 9123-9, 26231-9, 1988-03, HSTNT, 2776- #### [facility] CLIA [id number] [address] [place] [address] [place] Protein (U) [Mass/Vol] Negative Normal Trace , Negative [facility] Comment on above: Order Comment: Speci men Type: BLOOD SPECIMEN [facility] Address: [address] [place] [address] Performed By: #### 1 9123-9, 85495-9, 1988-03, HSTNT, 2776-11 #### [facility] CLIA [id number] [facility] [place] [address] [place] Specific gravity (U) [Rel density] 1.013 Normal 1.005-1.030 [facility] Comment on above: Order Comment: Speci men Type: BLOOD SPECIMEN [facility] Address: [address] [place] [address] Performed By: #### 1 91239, , 1988-03, HSTNT, 2776-11 #### [facility] CLIA [id number] [address] [place] [address] [place] Urobilinogen Ql (U) Negative Normal Negative [facility] Comment on above: Order Comment: Speci men Type: BLOOD SPECIMEN [facility] Address: [address] [place] [address] Performed By: #### 1 9123-9, 78155-4, 1988-03, HSTNT, 2776-11 #### [facility] CLIA [id number] [address] [id number] [place] aPTT PPPon 03-06-2023 aPTT Coag (PPP) [Time] 25.9 s Normal 23.0-32.4 [facility] Comment on above: Order Comment: Speci men Type: BLOOD SPECIMEN [facility] Address: [address] [place], [place] [address] Performed By: #### 1 91239, 11116-6, 1988-03, TNT, 2777-1 #### [facility] CLIA [id number] [address] [place] [address] [place] COVID-19 Antigenon 3 [...] developed and its performance characteristic determined by [employer] and validated at [facility]. This test has not been FDA cleared [...] for SARS Antigen by NANCY PERFORMED BY: [facility] [address] [place] [address] PATHOLOGIST FULL TIME JAIMIE CAMPBELL M.D. [facility] Comment on above: Performed By: #### C OVID-19 MIGELBRITTANYIANEG #### [facility] [place] [facility] [id number] [facility] COVID-19 SOFIAOrdered By: Alma Rosa Florez on 12-10-2022 SARS-CoV+SARS-CoV-2 (COVID-19) Ag IA.rapid Ql (Resp) Negative Negative [facility] Comment on above: This is a duplicate Migel SARS Antigen (NANCY) result to be used for statistical tracking purpose only. No Panel InformationOrdered By: Ernie Florez on 12-10-2022 SARS Antigen (LFIA) [facility] Migel Ag Negativeon 12-10-19 23 Migel Ag Negative Negative Normal Negative [facility] Comment on above: Result Comment: This is a duplicate Migel SARS Antigen (NANCY) result to be used for statistical tracking purpose only. PERFORMED BY: [facility] [address] [place] [address] PATHOLOGIST FULL TIME JAIMIE CAMPBELL M.D. Performed By: #### C OVID-19 MIGEL, SOFIANEG #### [facility] [place] [facility] [id number] [facility] CNOVon 09-10-2022 CNOV Office Visit (GENMINISTERIO) CHA ELENA ([id number]) 1950 M [facility] Date Time Provider Department 09/10/22 10:00 AM [...] Tarik Person MD 09/12/2022 8:38 AM Signed [facility] Abdominal [facility] - HISTORY AND PHYSICAL Chief [...] Double-Blind Randomized Controlled Trial IRB NO.: #[id number] STORE PRODUCT DEMONSTRATOR: Chitra Yao MD COORDINATOR/Research Nurse/Finished Garment Inspector: Bertha Andrew MD Phone/email: [phone], [email or web address] Consenting was performed by the attending surgeon, in a [id number] manner, during preoperative evaluation at the General Surgery clinic. The study protocol was discussed in detail with the patient. All study procedures were explained to the subject, including randomization, the two possible study interventions, and the postoperative pain management strategy for all primo (more content not included)... Normal [facility] CBC AUTO DIFFon 06-14-2022 BASO # 0.0 103/ul Normal 0.0-0.1 [facility] Comment on above: Performed By: #### C BC #### [facility] [address] [place], [place] [address] Dr. Laurence Valero Basophils/100 WBC (Bld) 0.2 % Normal 0.2-2.0 [facility] Comment on above: Performed By: #### C BC #### [facility] [address] [place] [address] Dr. Laurence Valero EO # 0.0 103/ul Normal 0.0-0.7 [facility] Comment on above: Performed By: #### C BC #### [facility] [address] [place] [address] Dr. Laurence Valero Eosinophils/100 WBC (Bld) 0.0 % Critically low 0.9-7.0 [facility] Comment on above: Performed By: #### C BC #### [facility] [address] [place] [address] Dr. Laurence Valero Erythrocyte distribution width (RBC) [Ratio] 12.2 % Normal 11.0-15.0 [facility] Comment on above: Performed By: #### C BC #### [facility] [address] [place] [address] Dr. Laurence Valero Hematocrit (Bld) [Volume fraction] 40.6 % Critically low 42.0-54.0 [facility] Comment on above: Performed By: #### C BC #### [facility] [address] [place] [address] Dr. Laurence Valero Hemoglobin (Bld) [Mass/Vol] 14.2 g/dL Normal 14.0-18.0 [facility] Comment on above: Performed By: #### C BC #### [facility] [address] [place] [address] Dr. Laurence Valero IG # 0.03 10e3/ul Normal 0.00-0.03 [facility] Comment on above: Performed By: #### C BC #### [facility] [address] [place] [address] Dr. Laurence Valero IG % 0.5 % Normal 0.0-0.5 [facility] Comment on above: Performed By: #### C BC #### [facility] [address] [place] [address] Dr. Laurence Valero LYMPH # 0.7 103/ul Critically low 1.2-3.8 [facility] Comment on above: Performed By: #### C BC #### [facility] [address] [place] [address] Dr. Laurence Valero Lymphocytes/100 WBC (Bld) 11.0 % Critically low 20.5-60.0 [facility] Comment on above: Performed By: #### C BC #### [facility] [address] [place] [address] Dr. Laurence Valero MANUAL DIFF REQ NO Normal [facility] Comment on above: Performed By: #### C BC #### [facility] [address] [place] [address] Dr. Laurence Valero MCH (RBC) [Entitic mass] 31.4 pg Normal 25.9-34.0 [facility] Comment on above: Performed By: #### C BC #### [facility] [address] [place] [address] Dr. Laurence Valero MCHC (RBC) [Mass/Vol] 35.0 g/dL Normal 29.9-35.2 [facility] Comment on above: Performed By: #### C BC #### [facility] [address] [place] [address] Dr. Laurence Valero MCV (RBC) [Entitic vol] 89.8 fL Normal 80.0-94.0 [facility] Comment on above: Performed By: #### C BC #### [facility] [address] [place] [address] Dr. Laurence Valero MONO # 0.5 103/ul Normal 0.3-0.8 [facility] Comment on above: Performed By: #### C BC #### [facility] [address] [place] [address] Dr. Laurence Valero Monocytes/100 WBC (Bld) 7.7 % Normal 1.7-12.0 [facility] Comment on above: Performed By: #### C BC #### [facility] [address] [place] [address] Dr. Laurence Valero NEUT # 5.2 103/ul Normal 1.4-6.5 [facility] Comment on above: Performed By: #### C BC #### [facility] [address] [place] [address] Dr. Laurence Valero Neutrophils/100 WBC (Bld) 80.6 % Critically high 43.0-75.0 [facility] Comment on above: Performed By: #### C BC #### [facility] [address] [address] [address] Laurence Valero Platelet mean volume (Bld) [Entitic vol] 10.0 fL Normal 9.5-13.5 [facility] Comment on above: Performed By: #### C BC #### [facility] [address] [address] [address] Laurence Valero PLT 205 103/ul Normal 150-450 [facility] Comment on above: Performed By: #### C BC #### [facility] [address] [place] [address] Dr. Laurence Valero RBC 4.52 106/ul Critically low 4.70-6.10 [facility] Comment on above: Performed By: #### C BC #### [facility] [address] [place] [address] Dr. Laurence Valero WBC 6.5 103/ul Normal 4.0-11.0 [facility] Comment on above: Performed By: #### C BC #### [facility] [address] [place] [address] W [...] BRIDGER COSME Date: 2022-06-14 10:29 Normal [facility] PROF CHEM 8 (BAS METB)on Anion gap [Moles/Vol] 10.0 mmol/L Normal [facility] Comment on above: Performed By: #### B MP #### [facility] [address] [place] [address] Dr. Laurence Valero Calcium [Mass/Vol] 8.2 mg/dL Critically low 8.5-10.1 [facility] Comment on above: Performed By: #### B MP #### [facility] [address] [place] [address] Dr. Laurence Valero Chloride [Moles/Vol] 94 mmol/L Critically low 98-107 [facility] Comment on above: Performed By: #### B MP #### [facility] [address] [place] [address] Dr. Laurence Valero CO2 [Moles/Vol] 30.4 mmol/L Normal 21.0-32.0 [facility] Comment on above: Performed By: #### B MP #### [facility] [address] [place] [address] Dr. Laurence Valero Creatinine [Mass/Vol] 0.95 mg/dL Normal 0.70-1.30 [facility] Comment on above: Performed By: #### B MP #### [facility] [address] [place] [address] Dr. Laurence Valero EGFR-AF UKRAINIAN >60 Normal >=60 [facility] Comment on above: Performed By: #### B MP #### [facility] [address] [place] [address] Dr. Laurence Valero EGFR-NON AF UKRAINIAN >60 Normal >=60 [facility] Comment on above: Performed By: #### B MP #### [facility] [address] [place] [address] Dr. Laurence Valero Glucose [Mass/Vol] 111 mg/dL Critically high 74-106 [facility] Comment on above: Performed By: #### B MP #### [facility] [address] [address] [address] Laurence Valero Potassium [Moles/Vol] 3.4 mmol/L Critically low 3.5-5.1 [facility] Comment on above: Performed By: #### B MP #### [facility] [address] [address] [address] Laurence Valero Sodium [Moles/Vol] 131 mmol/L Critically low 136-145 [facility] Comment on above: Performed By: #### B MP #### [facility] [address] [place] [address] Dr. Laurence Valero Urea nitrogen [Mass/Vol] 12.0 mg/dL Normal 7.0-18.0 [facility] Comment on above: Performed By: #### B MP #### [facility] [address] [place] [address] Dr. Laurence Valero Urea nitrogen/Creatinine [Mass ratio] 12.6 mg/mg Normal [facility] Comment on above: Performed By: #### B MP #### [facility] [address] [place] [address] Dr. Laurence Valero BUNon 12-11-2021 Urea nitrogen [Mass/Vol] 17.0 mg/dL Normal 9.0-20.0 [facility] Comment on above: Performed By: #### C JJ, BUN #### [facility] [address] [place] [address] Dr. Laurence Valero CREATININEon 12-11-2021 Creatinine [Mass/Vol] 0.93 mg/dL Normal 0.66-1.25 [facility] Comment on above: Performed By: #### C JJ, BUN #### [facility] [address] [place] [address] Dr. Laurence Valero EGFR-AF UKRAINIAN >60 Normal >=60 [facility] Comment on above: Performed By: #### C JJ, BUN #### [facility] [address] [place], [place] [address] Dr. Laurence Valero EGFR-NON AF UKRAINIAN >60 Normal >=60 [facility] Comment on above: Performed By: #### C JJ, BUN #### [facility] [address] [place], [place] [address] Dr. Laurence Valero CTA ABD NAHUM WWO [...] by: BRIDGER COSME Date: 2021-12-11 09:45 Normal [facility] US ABD AORTA DIAGNOSTICon US ABD AORTA [...] by: BRIDGER COSME Date: 2021-10-31 09:24 Normal [facility] Vital Signs Date Time Vital Sign Value Performing Clinician Facility 06-24-2024 13:05-0400 Body temperature 98.6 [degF] Tray [facility] 06-24-2024 13:05-0400 Diastolic blood pressure 77 mm[Hg] Tray BUCKLEY [facility] 06-24-2024 13:05-0400 Heart rate 89 /min Tray BUCKLEY [facility] 06-24-2024 13:05-0400 Respiratory rate 16 /min Tray BUCKLEY [facility] 06-24-2024 13:05-0400 Systolic blood pressure 117 mm[Hg] Tray BUCK[facility] 04-01-2023 11:32-0400 Body height 177.8 cm Angle Melchor MD Work Phone: [facility] 04-01-2023 11:32-0400 Body temperature 96.91 [degF] Angle Melchor MD Work Phone: [facility] 04-01-2023 11:32-0400 Body weight 107.96 kg Angle Melchor MD Work Phone: [facility] 04-01-2023 11:32-0400 Diastolic blood pressure 80 mm[Hg] Angle Melchor MD Work Phone: [facility] 04-01-2023 11:32-0400 Heart rate 91 /min Angle Melchor MD Work Phone: [facility] 04-01-2023 11:32-0400 Respiratory rate 14 /min Angle Melchor MD Work Phone: [facility] 04-01-2023 11:32-0400 Systolic blood pressure 154 mm[Hg] Angle Melchor MD Work Phone: [facility] 03-06-2023 09:49-0400 Body height 179.1 cm Pacc 9 Work Phone: [facility] 03-06-2023 09:49-0400 Body temperature 98.49 [degF] Pacc 9 Work Phone: [facility] 03-06-2023 09:49-0400 Body weight 111.36 kg Pacc 9 Work Phone: [facility] 03-06-2023 09:49-0400 Diastolic blood pressure 71 mm[Hg] Pacc 9 Work Phone: [facility] 03-06-2023 09:49-0400 Heart rate 78 /min Pacc 9 Work Phone: [facility] 03-06-2023 09:49-0400 SaO2% (BldA) [Mass fraction] 98 % Pacc 9 Work Phone: [facility] 03-06-2023 09:49-0400 Systolic blood pressure 126 mm[Hg] [facility] 9 Work Phone: [facility] 12-12-2022 10:40-0500 Diastolic blood pressure 73 mm[Hg] II Speedy Khanna Work Phone: [facility] 12-12-2022 10:40-0500 Heart rate 82 /min II Speedy Khanna Work Phone: [facility] 12-12-2022 10:40-0500 Respiratory rate 20 /min II Speedy Khanna Work Phone: [facility] 12-12-2022 10:40-0500 SaO2% (BldA) [Mass fraction] 99 % II Speedy Khanna Work Phone: [facility] 12-12-2022 10:40-0500 Systolic blood pressure 131 mm[Hg] II Speedy Khanna Work Phone: [facility] 12-12-2022 09:09-0500 Body height 179.07 cm II Speedy Khanna Work Phone: [facility] 12-12-2022 09:09-0500 Body temperature 98.5 [degF] II Speedy Khanna Work Phone: [facility] 12-12-2022 09:09-0500 Body weight 108.86 kg II Speedy Khanna Work Phone: [facility] 09-10-2022 09:12-0400 Body height 180.3 cm Angle Melchor MD Work Phone: [facility] 09-10-2022 09:12-0400 Body temperature 96.1 [degF] Angle Melchor MD Work Phone: [facility] 09-10-2022 09:12-0400 Body weight 106.59 kg Angle Melchor MD Work Phone: [facility] 09-10-2022 09:12-0400 Diastolic blood pressure 78 mm[Hg] Angle Melchor MD Work Phone: [facility] 09-10-2022 09:12-0400 Heart rate 77 /min Angle Melchor MD Work Phone: [facility] 09-10-2022 09:12-0400 Respiratory rate 12 /min Angle Melchor MD Work Phone: [facility] 09-10-2022 09:12-0400 Systolic blood pressure 154 mm[Hg] Angle Melchor MD Work Phone: [facility] Encounters Encounter Date Encounter Type Care Provider Facility Start: 06-21-2025 ambulatory Tray R JONATHAN Montiel ty:[facility] [place] Start: 06-24-2024 End: 06-24-2024 ambulatory Tray Ofelia BUCKLEY Facility: [facility] Start: 06-24-2024 End: 06-24-2024 Patient encounter procedure Trayestefania BUCKLEY [facility] Start: 06-19-2024 ambulatory Tray BUCKLEY Facili ty:[facility] [place] Start: 12-26-2023 End: 12-26-2023 ambulatory SPEEDY KHANNA Not Available Start: 12-16-2023 End: 12-16-2023 ambulatory SPEEDY KHANNA Not Available Start: 06-14-2023 End: 12-26-2023 Patient encounter procedure [facility] Comment on above: Bilateral hearing lo ss, unspecified hearing loss type (Primary Dx) Start: 04-01-2023 End: 04-02-2023 ambulatory ANGLE MELCHOR Facility:[facility] Start: 04-01-2023 End: 04-01-2023 Patient encounter procedure Angle Melchor MD Work Phone: General Surgery Comment on above: 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) Start: 03-15-2023 Telephone encounter Bhavya WADE Comment on above: Follow Up Phone Call (All clear) Start: 03-07-2023 End: 03-10-2023 Evaluation and management of inpatient ANGLE MELCHOR Facility:[facility] Start: 03-06-2023 Encounter for other preprocedural examination SPEEDY KHANNA II [facility] Start: 03-06-2023 Encounter for other preprocedural examination SPEEDY KHANNA II [facility] Start: 03-06-2023 End: 03-06-2023 Admission to [facility] 9 Work Phone: [facility] Start: 03-06-2023 End: 03-07-2023 ambulatory [...] Start: 12-12-2022 End: 12-12-2022 ambulatory Ernie Florez Facility:[facility] Start: 12-12-2022 End: 12-12-2022 Admission to same day surgery center II Speedy Khanna Work Phone: [facility] Work Phone: Start: 12-12-2022 End: 12-12-2022 ambulatory II Speedy Khanna Work Phone: [facility] Work Phone: Start: 12-10-2022 End: 12-10-2022 ambulatory Ernie Florez Facility:[facility] Start: 12-10-2022 End: 12-10-2022 ambulatory II Speedy Khanna Work Phone: [facility] Work Phone: Start: 12-10-2022 End: 12-10-2022 Patient encounter procedure II Speedy Khanna Work Phone: [facility] Work Phone: Start: 09-11-2022 ambulatory Angle kilpatrick MD Work Phone: [facility] Comment on above: 03.07.23 Cure (Open Complex AWR 5 hours los 5) Start: 09-11-2022 Preprocedural examin ation done Angle Melchor MD Work Phone: [facility] Start: 09-10-2022 End: 09-11-2022 ambulatory ANGLE MELCHOR Facility:[facility] Start: 09-10-2022 End: 09-10-2022 Patient encounter procedure Angle Melchor MD Work Phone: General Surgery Comment on above: 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) Start: 06-14-2022 End: 06-14-[address] SPEEDY KHANNA Facility:[facility] Start: 05-31-2022 End: 06-01-[address] TANVI MARIE Facility:[facility] Start: 12-13-2021 Encounter for other preprocedural examination [facility] Start: 12-13-2021 Encounter for preprocedural cardiovascular examination [facility] Start: 12-11-2021 End: 12-12-2021 [facility] Start: 12-11-2021 End: 12-12-2021 Encounter for preprocedural cardiovascular examination [facility] Start: 10-31-2021 End: 11-01-[address] MILDRED DOCKERY Facility:[facility] Procedures Date Procedure Procedure Detail Performing Clinician Start: 03-06-2023 Antibody screen SPEEDY KHANNA II Comment on above: Order Comment: Speci men Type: BLOOD SPECIMEN Ordering Facility: [facility] Address: [address] [place] [address] Performed By: #### 1 9123-9, 55277-1, 1988-5, HSTNT, 2777-1 #### [facility] CLIA [id number] [address] [place] [address] [place] Start: 12-12-2022 Screening colonoscopy I I Speedy Khanna Work Phone: Start: 12-12-2022 Colonoscopy [facility] Start: 12-10-2022 SARS Antigen (LFIA) II Speedy Khanna Work Phone: Start: 05-31-[address] MARTA MARIE Comment on above: Performed By: #### P [facility] #### [facility] [address] [place] [address] Dr. Laurence Valero Start: 06-26-2010 Transrectal biopsy o f prostate using ultrasound guidance Tray BUCKLEY Cholecystectomy Tray HORTON Herniated structure (morphologic abnormality) Tray BUCKLEY Stomach structure (b rolando structure) Tray BUCKLEY Plan of Treatment Date Care Activity Detail Author Start: 12-12-2032 Screening for malign ant neoplasm of colon [facility] Start: 03-10-2026 DIABETES SCREEN DIABETES SCREEN [facility] Start: 03-06-2026 DIABETES SCREEN DIABETES SCREEN [facility] Start: 08-26-2024 Medicare Annual Well ness (AWV) Medicare Annual Wellness (AWV) [facility] Start: 03-06-2024 BP CONTROLLED (<130/80) BP CONTROLLE D (<130/80) [facility] Start: 09-11-2023 End: 11-11-2023 aPTT in Platelet poor plasma by Coagulation assay ACTIVATED PTT Lab Routine Preoperative examination Recurrent ventral hernia Expected: 09/11/2023, Expires: 11/11/2023 [facility] Work Phone: Comment on above: Expected: 09/11/2023 , Expires: 11/11/2023 Start: 09-11-2023 End: 11-11-2023 CBC W Auto Differential panel - Blood CBC + DIFF Lab Routine Preoperative examination Recurrent ventral hernia Expected: 09/11/2023, Expires: 11/11/2023 [facility] Work Phone: Comment on above: Expected: 09/11/2023 , Expires: 11/11/2023 Start: 09-11-2023 End: 11-11-2023 Comprehensive metabolic 2000 panel - Serum or Plasma COMP METABOLIC PANEL Lab Routine Preoperative examination Recurrent ventral hernia Expected: 09/11/2023, Expires: 11/11/2023 [facility] Work Phone: Comment on above: Expected: 09/11/2023 , Expires: 11/11/2023 Start: 09-11-2023 End: 11-11-2023 PT panel - Platelet poor plasma by Coagulation assay PROTHROMBIN TIME/PT Lab Routine Preoperative examination Recurrent ventral hernia Expected: 09/11/2023, Expires: 11/11/2023 [facility] Work Phone: Comment on above: Expected: 09/11/2023 , Expires: 11/11/2023 Start: 09-11-2023 End: 11-11-2023 TYPE AND SCREEN,30 DAY TYPE AND SCREEN,30 DAY Blood Bank Routine Preoperative examination Recurrent ventral hernia Expected: 09/11/2023, Expires: 11/11/2023 [facility] Work Phone: Comment on above: Expected: 09/11/2023 , Expires: 11/11/2023 Start: 09-11-2023 End: 11-11-2023 URINALYSIS, DIPSTICK ONLY URINALYSIS, DIPSTICK ONLY Lab Routine Preoperative examination Recurrent ventral hernia Expected: 09/11/2023, Expires: 11/11/2023 [facility] Work Phone: Comment on above: Expected: 09/11/2023 , Expires: 11/11/2023 Start: 12-12-2022 [facility] Start: 11-25-2022 ADVANCE DIRECTIVE DISCUSSION ADVANCE DIRECTIVE DISCUSSION [facility] Start: 11-25-2022 DEPRESSION ASSESSMENT DEPRESSION ASS ESSMENT [facility] Start: 07-26-2022 Influenza vaccination INFLUENZA (#1) [facility] Start: 11-25-2021 ADVANCE DIRECTIVE DISCUSSION ADVANCE DIRECTIVE DISCUSSION [facility] Start: 11-25-2021 DEPRESSION ASSESSMENT DEPRESSION ASS ESSMENT [facility] Start: 2016 PNEUMOCOCCAL: 65+ (1 - PCV) PNEUMOCOCCAL: 65+ (1 - PCV) [facility] Start: 2001 SHINGRIX VACCINE (1 of 2) SHINGRIX VACCINE (1 of 2) [facility] Start: 1996 COLOGUARD (FIT-DNA) COLOGUARD (FIT-D NA) [facility] Start: 1996 Colonoscopy COLONOSCOPY [facility] Start: 1996 COLORECTAL CANCER SCREENING COLORECTAL CANCER SCREENING [facility] Start: [address] COLONOGRAPHY [facility] Start: 1996 DIABETES SCREEN DIABETES SCREEN [facility] Start: 1996 FECAL OCCULT BLOOD FECAL OCCULT BLOO D [facility] Start: 1996 SIGMOIDOSCOPY SIGMOIDOSCOPY [facility] Start: 1986 LIPID SCREEN LIPID SCREEN [facility] Start: 1970 Urine microalbumin profile DTAP,TDAP,TD (1 - Tdap) [facility] Start: 1969 ANNUAL PCP TEAM WHARF LABORER NGUYEN DISEASE VISIT ANNUAL PCP TEAM CHRONIC DISEASE VISIT [facility] Start: 1969 BP CONTROLLED (<130/80) BP CONTROLLE D (<130/80) [facility] Start: 1969 HEPATITIS C SCREENING HEPATITIS C SC REENING [facility] Start: 04-09-1952 COVID-19 VACCINE (#1) COVID-19 VACCI NE (#1) [facility] Start: 1951 ABDOMINAL AORTIC ANEURYSM SCREENING ABDOMINAL AORTIC ANEURYSM SCREENING [facility] Start: 1950 Screening for malign ant neoplasm of colon [facility] End: 09-11-2023 ECG COMPLETE ECG COMPLETE ECG Routine Preoperative examination Recurrent ventral hernia 1 Occurrences starting 09/11/2022 until 09/11/2023 [facility] Work Phone: Comment on above: 1 Occurrences starti ng 09/11/2022 until 09/11/2023 REFER FOR ADMIT INTERVIEW REFER FOR ADMIT INTERVIEW Procedures Routine Preoperative examination Recurrent ventral hernia Ordered: 09/11/2022 [facility] Work Phone: Comment on above: Ordered: 09/11/2022 [facility] Immunizations Immunization Date Immunization Notes Care Provider Beverly dow 08-26-2023 influenza virus vacc ine, unspecified formulation Tray BUCKLEY [facility] 10-25-2022 influenza virus vacc ine, unspecified formulation Tray BUCKLEY [facility] 10-25-2022 influenza, high dose seasonal, preservative-free [facility] 01-09-2022 zoster vaccine recombinant [facility] 10-24-2021 pneumococcal conjuga te vaccine, 13 valent [facility] 10-24-2021 zoster vaccine recombinant [facility] 05-23-2020 pneumococcal polysaccharide vaccine, 23 valent [facility] 10-30-2019 influenza virus vacc ine, unspecified formulation Tray JONATHAN [facility] 10-30-2019 influenza, high dose seasonal, preservative-free [facility] Healthcare Payers Date Payer Category Payer Self-pay 2021 Medicare AETNA MEDICARE A ETNA MEDICARE PPO [id number] 2021-Present [phone] [address] [place] [address] PPO [id number] 1958 Medicare [id number] 1958 Medicare [id number] 1950 Unknown [id number] 593 1951 Unknown [id number] 2..[id number]. 593 1950 Unknown [id number] [id number]. 593 1951 Unknown [id number] 2..[id number]. 593 1951 Unknown [id number] [id number]. 1259 1951 Unknown [id number] [id number]. 1259 1951 Unknown [id number] [id number]. 727 1950 Unknown [id number] 2..840.1.140475.3.579.2. 727 1950 Unknown [id number] [id number]. 727 Private Health Insurance [facility] [id number] Unknown [id number] 531 Unknown [id number] 2..[id number]. 531 Social History Date Type Detail Facility Start: 09-10-2022 End: 06-24-2024 Tobacco smoking status NHIS Ex-smoker [facility] End: 11-25-2016 History of tobacco use Current smoker [facility] End: 11-25-2016 History of tobacco use Cigarette Smoker [facility] Start: 09-10-2022 Tobacco use and exposure Smokeless tobacco non-user [facility] Start: 09-10-2022 End: 03-06-2023 Alcohol intake Current drinker of alcohol (finding) [facility] Start: 1950 Sex Assigned At Not on file C [facility] Start: 08-31-2022 End: 09-10-2022 Exposure to SARS-CoV-2 (event) Not sure [facility] Start: 1950 Sex Assigned At Male F [facility] Start: 03-06-2023 Tobacco use and exposure Former smokeless tobacco user [facility] End: 11-25-1989 History of tobacco use Snuff User [facility] Tobacco smoking status OKIS Tobacco smoking consumption unknown [facility] Start: 08-26-2023 End: 12-16-2023 History of Social function [facility] Start: 08-26-2023 End: 12-16-2023 Tobacco use panel [facility] Tobacco smoking status Never [facility] Medical Equipment Procedure Code Equipment Code Equipment Origin al Text Equipment Identifier Dates Surgimesh Wn 30c m X 30cm [id number] Start: 03-07-2023 Goals Date Patient Goal Desired Activity /State Functional Status Date Assessment Result Facility 06-24-2024 Functional Status N/A [facility] Clinical Notes 09-10-2022 to 06-24-2024 [...] treatment? Where to find more information [employer] [place] [employer]: www.cancer.org [place] [employer]: www.auanet.org Contact a health care [...] provider. Document Revised: 05/07/2022 Document Reviewed: 05/07/2022 [employer] Patient Education 2022 [employer]. Follow Up Care 06/03/2024 14:48:00 With:JONATHAN WATSON, Tray Gilbert, URL Address: [facility] [address] , [place] [address]- When: Unknown [facility] Ross 06-24-2024 Note Patient Education Oncology Prostate Cancer [...] Where to find more information ? The [place] [employer]: www.cancer.org ? [place] [employer]: www.auanet.org Contact a health care [...] of the rectum. (more content not included)... [facility] 06-14-2023 History of Presen t illness Narrative Patient purchased 6 dry bricks at $3 each. documented in this encounter [facility] 04-01-2023 Note HNO ID: [id number] Author: Angle Melchor MD Service: ? Author Type: Physician Type: Progress Notes Filed: 04/01/2023 1:32 PM Note Text: 30-DAY FOLLOW UP NOTE FROM [facility] Cha Elena is a 72 year-old male [...] are any unanticipated events. Dr. Angle Melchor [facility] 04-01-2023 Note HNO ID: [id number] Author: Tarik Person MD Service: ? Author Type: Resident Type: Progress Notes Filed: 04/01/2023 1:32 PM Note Text: [facility] Abdominal Core Health - HISTORY AND PHYSICAL [...] up in a year with CT scan [facility] 04-01-2023 History of Presen t illness Narrative 30-DAY FOLLOW UP NOTE FROM [facility] Cha Elena is a 72 year-old male [...] are any unanticipated events. Dr. Angle Melchor [facility] Health - HISTORY AND PHYSICAL [...] with CT scan documented in this encounter [facility] 04-01-2023 Nurse Note What is the reason for your visit today? Post op Who is your referring physician? Dr. Melchor Are you having poor oral intake? NO Have you had unintentional weight loss of 15 lbs/7 Kg in the last 3-6 months? NO Bowels: regular Wound: clean & dry Temperature: No Drains: No documented in this encounter [facility] 03-15-2023 Miscellaneous Notes PATIENT INFORMATION Record ID: [id number] Patient Name: [facility]: [facility]: [facility] Attending: Angle Melchor Center: General Surgery INSTRUCTIONS SN to remind patient of appointment date, time, location All Clear All Clear SURVEY INFORMATION Medical/Nurse Lcsw: Bhavya Mcintosh 1. Your discharge instructions are [...] (Standard Question) No documented in this encounter [facility] 03-09-2023 Note HNO ID: [id number] Author: Rao Valadez MD Service: General Surgery [...] PGY-4 Date: 03/09/2023 Time: 8:23 AM Pager: [phone] Subjective: Interval Events: no acute events, still [...] 0659 03/09/23 0700 - 03/10/23 0659 Shift 3561-3427 1169-3171 1775-8216 24 Hour Total 8956-5829 4514-5540 8257-9452 24 Hour Total INTAKE PO 374 663 3268 PO 113 884 6971 IV 5445 862 1098 Volume (mL) (NaCl 0.9% iv flush bag) 0 0 Volume (mL) (potassium chloride iv piggyback 20 mEq/100 mL) 0 0 Volume (mL) (magnesium sulfate iv piggyback in sterile water 2 g 50 mL) 0 0 Volume (mL) (lactated ringers iv infusion) 6340 405 4136 Shift Total 740 1362 1230 3332 OUTPUT Urine 805 904 5200 1875 Void (ml) 700 1075 1775 Output ([REMOVED] Indwelling Urinary Catheter 03/07/23 1130 Coude 16 Fr 03/08/23 1100) 100 100 Tubes 30 70 105 205 Drain/Tube Output (Drain/Tube 03/07/23 1257 Tl Vazquez Left Upper Quadrant Abdomen Drain #1) 30 60 80 170 Drain/Tube Output (Drain/Tube 03/07/23 1258 Tl Vazquez Right Upper Quadrant Abdomen Drain #2) 0 10 25 35 Shift Total 983 273 4463 2080 Weight (kg) 112 112 112 112 [...] to proceed with today?s plan of care. [facility] 03-08-2023 Note HNO ID: [id number] Author: Ashleigh Santos RN Service: Care Management [...] Indicated Advance Directives Current Advance Directive: None [employer] Business Intelligence Developer Attempted to Assist with AD Completion: Yes [...] Patient Goal(s): Be able to go home [place] of Choice Explained: [place] of Choice Given: No Reason Not Given: [...] 08, 2023 TIME: 12:05 PM CONTACT #: [phone] [facility] 03-08-2023 Note HNO ID: [id number] Author: Maria M Vaz, FOOTBALL PAD REPAIRER.RUBBER COVERING MACHINE OPERATOR Service: General Surgery Author Type: Nurse [...] 03/08/2359 03/08/23 07 - 03/09/23 0659 Shift 5457-2130 2865-8833 0995-4556 24 Hour Total 6235-7157 1831-7686 4105-5178 24 Hour Total INTAKE PO 100 250 350 240 240 PO 100 250 350 240 240 IV 9492 825 2028 Volume (mL) (ceFAZolin iv piggyback 2 g in D5W (iso-osmotic) 100 mL (ANCEF)) 100 50 150 Volume (mL) (rocuronium injection) 11 11 Volume (mL) (ePHEDrine injection) 1 1 Volume (mL) (lactated ringers iv infusion) 310 310 Volume (mL) (lactated ringers iv infusion) 1800 1800 Shift Total 1911 765 342 6078 240 240 OUTPUT Urine 140 340 425 [...] Blood loss 50 50 Shift Total 190 479 532 9298 130 130 Weight (kg) Lines, Drains, and [...] Assessment AND Plan Assessment: Minimal use of BOOM OPERATOR due to nausea. Pain well managed with current regimen PLAN: - D/C BOOM OPERATOR - Scheduled Tylenol, gabapentin - PRN oxycodone 5 mg q4h PO S/P hernia repair 03/08/2023 - Present No Current Assessment AND Plan Assessment: POD 1 from repair. No bowel function yet. Some nausea, no emesis. Pain well managed. PLAN: - Downgrade to CLD for now. Consider advancement with resolution of nausea. - Bowel regimen scheduled - Maintenance IVF at 75cc/h - D/C BOOM OPERATOR - D/C calle for TOV. - Encourage [...] [id number] -- 03/07/231929 activity - mobilize patient (ct,ne) VTE Prophylaxis: VTE prophylaxis appropriate Plan of care discussed with: Provider, RN, Patient and Care Management SIGNATURE: Maria M Vaz APRN.CNP PATIENT NAME: Cah Elena DATE: March 08, 2023 TIME: 10:25 AM [facility] 03-07-2023 History of Past i llness Narrative Problem Noted Date Resolved Date Incisional hernia, without obstruction or gangre ne 03/07/2023 03/08/2023 documented as of this encounter (statuses as of 03/15/2023) [facility]04-13-2023 History of Past illness Narrative* Problem Noted Date Resolved Date Incisional hernia, without obstruction or gangre ne 03/07/2023 03/08/2023 documented as of this encounter (statuses as of 04/01/2023) [facility]04-13-2023 NoteHNO ID: [id number] Author: Logan George APRN.EMAIL MARKETING INTERN Service: ? Author Type: Nurse Pilot Control Operator Helper Type: Anesthesia Procedure Notes Filed: 03/07/2023 11:40 AM Note Text: ANESTHESIOLOGY PROCEDURE NOTE Airway General Information Procedure Start Time/Medication Administration: 03/07/2023 11:18 AM Patient location during procedure: OR Timeout Performed Pre-procedure: timeout performed Consent Obtained: Yes Patient identity confirmed: arm band, care clinical team manager and patient Staffing EMAIL MARKETING INTERN: Mago Haji APRN.EMAIL MARKETING INTERN Performed by: EMAIL MARKETING INTERN Indications and Patient Condition Indications for airway management: anesthesia Preoxygenated: yes anesthesia circuit Method: asleep Difficult Mask: No Final Airway Details Final airway type: endotracheal airway Final Endotracheal Airway: ETT Cuffed: yes Successful intubation technique: video laryngoscopy Devices used: Garlik Endotracheal tube insertion site: oral Blade size: #4 ETT size (mm): 7.5 Measured from: lips Measurement (cm): 23 Placement verified by: capnometry Cormack-Lehane Classification: grade I - full view of glottis Number of attempts at approach: 1 Airway not difficult SIGNATURE: Logan George APRN.CRNA PATIENT NAME: Cha Elena DATE: March 07, 2023 TIME: 11:39 AM CSN: [id number] [facility] History and physical note* Adrianna Pollock APRN.RUBBER COVERING MACHINE OPERATOR - 03/06/2023 10:00 AM EDT HISTORY AND PHYSICAL EXAMINATION SERVICE DATE: 03/06/2023 SERVICE TIME: 10:00 AM PRIMARY CARE PHYSICIAN: Speedy Khanna II, MD REASON FOR VISIT: Cha Elena is a 72 year old male who is scheduled for COMPLEX REPAIR WOUND OF ABDOMEN 2.6 CM TO7.5 CM on 03/07/2023 at [facility]. Patient is being seen at the request [...] fevers. Neuro: No history of TIA's, stroke, CHASSIS MECHANIC tumor, impaired sensorium, hemiplegia, paraplegia or quadraplegia. No neurological symptoms or problems. Respiratory: No history of current cough or dyspnea, or pneumonia in the past 6 weeks. No history of respiratory/pulmonary symptoms or problems. Cardiovascular: h/o AAA, HTN, 'electrical block' Negative for Recent CA, Chest Pain GI: GERD No history of [...] 2023 TIME: 10:39 AM documented in this encounterFayette [facility]04-12-2023 Instructions* Patient Instructions* Adrianna Pollock APRN.CNP - 03/06/2023 9:30 AM EDT PATIENT PREOPERATIVE INSTRUCTIONS Angle Melchor MD has scheduled you for your procedure at this surgery center: [facility] Scheduling Office: [phone] --[address] [place] [address]. Please read below carefully for your personalized [...] Procedures: - YOU MUST HAVE A RESPONSIBLE CREDIT PROFESSIONAL TAKE YOU HOME. A INSPECTOR WEIGHTS AND MEASURES OR AUTOMOTIVE SALES MANAGER CANNOT BE MADE A RESPONSIBLE CREDIT PROFESSIONAL. - We recommend that a responsible person [...] call the Saturday before. Your surgeon s motor patrol operator will tell you what time to call the office. - If you have not reached the departmental motor patrol operator by 5 P.M., call [phone] after 5 P.M. the day before your surgery. Please be aware that emergency situations arise, which may delay or change your surgical time. If this happens, we will notify you as soon as possible and regret any inconvenience. If you already have an Advance Directive, please fax a copy to [phone] or email to for it to be [...] day. Adrianna Pollock APRN.CNP documented in this encounterFayette County [facility] Hospital01-18-2023 Procedure [facility]11-16-2022 History and physical note Author Ernie Florez [facility] December 12, 2022 9:55am Note Date/Time December 12, 2022 9 :53am [facility] [address] [place] [address] Gastroenterology H&P Signed with Addenda Patient: Cha Elena MR#: [id number] : 1950 Acct:[id number] Age/Sex: 72 / M Adm Date: 3 Loc: Room: Type: [facility] Attending Dr: Ernie Florez MD Copies [...] signed by Ernie Florez MD> 12/12/22 0954 [facility] Work Phone: [phone] NoteHNO ID: [id number] Author: Angle Melchor MD Service: ? Author [...] Double-Blind Randomized Controlled Trial IRB NO.: #[id number] STORE PRODUCT DEMONSTRATOR: Chitra Yao MD COORDINATOR/Research Nurse/Finished Garment Inspector: Bertha Andrew MD Phone/email: [phone], [email or web address] Consenting was performed by the attending surgeon, in a llbu-[id number]-apzx manner, during preoperative evaluation at the General [...] CRITERIA Yes No 1. The patient lacks Citizen [place] language fluency or cannot understand the consent form/study procedures [] [x] 2. The patient has any hearing impairment with or without the use of hearing aids [] [x] 3. The patient has a neurologic condition which prevents assessment of pain and/or anxiety [] [x] 4. The patient is to remain intubated after surgery [] [x][facility]10-[facility] History of Present illness Narrative* Angle Melchor [...] Double-Blind Randomized Controlled Trial IRB NO.: #[id number] STORE PRODUCT DEMONSTRATOR: Chitra Yao MD COORDINATOR/Research Nurse/Finished Garment Inspector: Bertha Andrew MD Phone/email: [phone], [email or web address] Consenting was performed by the attending surgeon, in a czhg-kn-ydzz manner, during preoperative evaluation at the General [...] CRITERIA Yes No 1. The patient lacks Citizen [place] language fluency or cannot understand the consent [...] Double-Blind Randomized Controlled Trial IRB NO.: #[id number] STORE PRODUCT DEMONSTRATOR: Chitra Yao MD COORDINATOR/Research Nurse/Finished Garment Inspector: Bertha Andrew MD Phone/email: [phone], [email or web address] Consenting was performed by the attending surgeon, in a abwd-dy-noic manner, during preoperative evaluation at the General [...] CRITERIA Yes No 1. The patient lacks Citizen [place] language fluency or cannot understand the consent [...] Person MD - 09/10/2022 9:41 AM EDT [facility] Abdominal [facility] - HISTORY AND PHYSICAL Chief [...] repair with a TAR documented in this encounterFayette County Memorial Hospital10-17-2022 NoteHNO ID: [id number] Author: Angle Melchor MD Service: ? Author [...] Double-Blind Randomized Controlled Trial IRB NO.: #[id number] STORE PRODUCT DEMONSTRATOR: Chitra Yao MD COORDINATOR/Research Nurse/Finished Garment Inspector: Bertha Andrew MD Phone/email: [phone], [email or web address] Consenting was performed by the attending surgeon, in a kdvl-vi-sjsm manner, during preoperative evaluation at the General [...] CRITERIA Yes No 1. The patient lacks Citizen [place] language fluency or cannot understand the consent form/study procedures [] [x] 2. The patient has any hearing impairment with or without the use of hearing aids [] [x] 3. The patient has a neurologic condition which prevents assessment of pain and/or anxiety [] [x] 4. The patient is to remain intubated after surgery [] [x][facility]10-17-2022 NoteHNO ID: [id number] Author: Tarik Person MD Service: ? Author Type: Resident Type: Progress Notes Filed: 09/12/2022 8:38 AM Note Text: [facility] Abdominal [facility] - HISTORY AND PHYSICAL Chief [...] Plan: Open retrovascular hernia repair with a [facility]10-17-2022 Nurse Note* Miguel Boothe - 09/10/2022 9:13 AM EDT What is the reason for your visit today? Consult Who is your referring physician? self Are you having poor oral intake? NO Have you had unintentional weight loss of 15 lbs/7 Kg in the last 3-6 months? NO Bowels: regular Wound: clean & dry Temperature: No Drains: No documented in [facility]Fire[facility] + Plan note Future Appointments Appointment Date:06/21/2025 08:45:00 AM Scheduled Provider:Tray BUCKLEY MD Location:[facility] Appointment Type:URO Office Visit Diagnostic Tests Pending * PSA Total 06/24/24 [facility] Evaluation note* Diagnosis Preoperative examination- Primary Preoperative examination, unspecified Recurrent ventral hernia Incisional hernia without mention of obstruction or gangrene documented in this encounter [facility] note* Diagnosis Recurrent ventral hernia- Primary Incisional hernia without mention of obstruction or gangrene Preoperative examination Preoperative examination, unspecified Recurrent ventral hernia Incisional hernia without mention of obstruction or gangrene documented in this encounter [facility] noteNo assessment information availableEast [facility] Work Phone: Evaluation note* Diagnosis Pre-op [...] BP today 126/71 [facility] Diagnosis Recurrent ventral hernia- Primary Incisional hernia without mention of obstruction or gangrene documented in this encounter [facility]* Diagnosis Bilateral hearing loss, unspecified hearing loss type- Primary documented in this encounter [facility] Narrative No data available for this section [facility] Discharge instructions Additional Instructions [...] years. -Follow up with PCP. -Office number [phone].[facility] Work Phone: Progress note No data available for this section [facility] Reason for referral (narrative)* Outpatient Procedure (Routine) - Pending Review Specialty Diagnoses / Procedures Referred By Naila bai Referred To Contact [facility] Diagnoses Preoperative examination Recurrent ventral hernia Procedures ECG COMPLETE ECG ROUTINE ECG W/LEAST 12 LDS W/I&R Angle Melchor MD [address] [place] [address] [facility] [address] [place] [address] Referral ID Status Reason Start Date Expiration Date Visits Requested Visits Authorized [id number] Pending Review Auto-Generat ed Referral 2 09/11/2023 1 1 * Consult, Test, Treat (Routine) - Pending Review Specialty Diagnoses / Procedures Referred By Naila bai Referred To Contact Diagnoses Preoperative examination Recurrent ventral hernia Procedures CONSULT TO [facility]/OUTPATIENT [facility] MDM 60-74 MINUTES Angle Melchor MD [address] [place] [address] Referral ID Status Reason Start Date Expiration Date Visits Requested Visits Authorized [id number] Pending Review PCP Requested Referral 2 09/11/2023 1 1 [facility] Summary Purpose Family History No Family [...] DATE CREATED AUTHOR 06/18/2022 [facility] DATE CREATED AUTHOR AUTHOR'S ORGANIZ ATION 12/13/2022 [facility] DATE CREATED AUTHOR AUTHOR'S ORGANIZ ATION 04/07/2023 [facility] DATE CREATED AUTHOR AUTHOR'S ORGANIZ ATION 12/28/2023 [facility] DATE CREATED AUTHOR AUTHOR'S ORGANIZ ATION 06/26/2024 [facility] Source Comments (unrecognize d section and content) In the event this informatio n is protected by the Federal Confidentiality of Alcohol and Drug Abuse Patient Records regulations: The Federal rules restrict any use of the information to criminally investigate or prosecute any alcohol or drug abuse patient.[facility] HospitalIn the event this information is protected by the Federal Confidentiality of Alcohol and Drug Abuse Patient Records regulations: The Federal rules restrict any use of the information to criminally investigate or prosecute any alcohol or drug abuse patient.[facility] HospitalIn the event this information is protected by the Federal Confidentiality of Alcohol and Drug Abuse Patient Records regulations: The Federal rules restrict any use of the information to criminally investigate or prosecute any alcohol or drug abuse patient.[facility] HospitalIn the event this information is protected by the Federal Confidentiality of Alcohol and Drug Abuse Patient Records regulations: The Federal rules restrict any use of the information to criminally investigate or prosecute any alcohol or drug abuse patient.[facility] HospitalIn the event this information is protected by the Federal Confidentiality of Alcohol and Drug Abuse Patient Records regulations: The Federal rules restrict any use of the information to criminally investigate or prosecute any alcohol or drug abuse patient.[facility] Reason for Visit (unrecogniz ed section and content) Reason Comments 03.07.23 Cure Open Complex AWR 5 h ours los 5 Reason Comments Consult Reason Comments Anesthesia Consult Specialty Diagnoses / Procedures Referred By Contact Referred To Contact Anesthesiology / ANESTHESIOLOGY Diagnoses preop Procedures COMPLETE PACC Angle Melchor MD [address] [place] [address] 9, [facility] [address] [place] [address] Referral ID Status Reason Start Date Expiration Date V isits Requested Visits Authorized [id number] Pending Review 03/06/2023 06/04/2023 1 1 Reason Comments Follow Up Phone Call All clear Reason Comments Post Op Care Teams (unrecognized sec tion and content) Team Status: Inactive Member Role Status Dates Ernie Florez MD Attending Provider Active Speedy Khanna II MD Primary Care Provider Active Team Status: Active Member Role Status Dates Speedy Khanna II MD Primary Care Provider Active Stem Roller Relationship Specialty Start Date End Date Speedy Khanna II [address] [place] [address] PCP - General Internal Medicine 02/12/23 Stem Roller Relationship Specialty Start Date End Date Speedy Khanna II [address] [place] [address] PCP - General Internal Medicine 02/12/23 Stem Roller Relationship Specialty Start Date End Date Speedy Khanna II [address] [place] [address] PCP - General Internal Medicine 02/12/23 Stem Roller Relationship Specialty Start Date End Date Speedy Khanna MD [address] [place] [address] PCP - [employer] 11/25/20 Speedy Khanna MD [address] [place] [address] PCP - General Internal Medicine 04/02/23 Goals [...] BE BASED ON THE PRIMARY CLINICAL RECORDS. [employer] [facility]. provides no warranty or guarantee of the accuracy or completeness of information in this document.
--- NOTE | 2024-09-01 14:10 | ECG_ITS ---
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
[2024-09-01] MEDS: 0.9 % SODIUM CHLORIDE 1,000 ML 999 ML IV (14:15)
[2024-09-01] MEDS: POTASSIUM CHLORIDE 10 MEQ/100 ML WATER PREMIX 100 MEQ IV ×2 (14:16→15:22)
[2024-09-01] MEDS: POTASSIUM CHLORIDE 10 MEQ ER TABLET 40 MEQ PO (14:16)
[2024-09-01] MEDS: KETOROLAC TROMETHAMINE 30 MG/ML VIAL 15 MG IVP (14:16)
[2024-09-01 14:26] LABS: Alanine Aminotransferase 19 U/L (16-63); Albumin Globulin Ratio 0.9; Albumin Level 3.2 g/dL (3.4-5.0); Alkaline Phosphatase 59 U/L (46-116); Anion Gap 10.4; Aspartate Amino Transferase 16 U/L (15-37); BUN Creatinine Ratio 11.2; Bilirubin Total 0.8 mg/dL (0.2-1.0); Calcium 8.8 mg/dL (8.5-10.1); Carbon Dioxide 28.5 mmol/L (21.0-32.0); Chloride 90 mmol/L (98-107); Estimated GFR (African America >60 (>=60 mL/min/1.73m^2); Estimated GFR (Non-African Ame >60 (>=60 mL/min/1.73m^2); Globulin 3.6 g/dL; Glucose 129 mg/dL (74-106); Sodium 126 mmol/L (136-145); Total Protein 6.8 g/dL (6.4-8.2)
[2024-09-01 14:30] LABS: Potassium 2.9 mmol/L (3.5-5.1)
[2024-09-01 14:32] LABS: Lactate/Lactic Acid 1.5 mmol/L (0.4-2.0)
[2024-09-01 17:18] LABS: Anion Gap 12.1; BUN Creatinine Ratio 12.9; Calcium 8.2 mg/dL (8.5-10.1); Carbon Dioxide 25.9 mmol/L (21.0-32.0); Chloride 93 mmol/L (98-107); Estimated GFR (African America >60 (>=60 mL/min/1.73m^2); Estimated GFR (Non-African Ame >60 (>=60 mL/min/1.73m^2); Glucose 102 mg/dL (74-106); Sodium 128 mmol/L (136-145)
--- NOTE | 2024-09-01 17:21 | ED.GENADUL1 ---
HPI HPI - General Adult General Chief complaint: Recheck/Abnormal Lab/Rx Stated complaint: GENERAL WEAKNESS/ ABNORMAL LABS Time Seen by Provider: 09/01/24 13:38 Source: patient and family Mode of arrival: walk-in Limitations: no limitations History of Present Illness HPI narrative: 73-year-old male presented to the emergency department with and daughter with complaint of abnormal potassium and sodium states he has not been feeling well since last . States he has a sinus infection and was started on Augmentin and steroids. Today, complaining of muscle and joint aches. He has had diarrhea over the past 3 days. Family reports temperature is high as 100.6 at home. Denies any abdominal pain. Quality:?As above Severity:?Moderate Timing:?As above Context: Normal setting and activity? Modifying factors:?None Associated symptoms: As above Related Data Previous Rx's ?Medication ?Instructions ?Recorded potassium chloride 20 mEq 20 meq PO DAILY 5 days #5 tabs 09/01/24 tablet,extended release(part/cryst) Allergies Allergy/AdvReac Type Severity Reaction Status Date / Time No Known Drug Allergies Allergy Verified 09/01/24 13:36 Opioid HPI Opioid Management Most Recent Opioid Data: Last Pain Scale 5 09/01/24 14:16 Last ED Pain Assessment 09/01/24 14:08 Last MAR Pain Assessment 09/01/24 14:16 Review of Systems ROS Narrative CONST: Denies fever, chills HENT: Denies congestion, sore throat EYES: Denies eye redness, visual disturbance RESP: Denies cough, shortness of breath CV: Denies chest pain, palpitations GI: + diarrhea. Denies abd pain, nausea, vomiting : Denies dysuria, flank pain MS: + myalgias, arthralgias. SKIN: Denies color change, rash NEURO: Denies numbness, weakness PSYCHIATRIC: Denies confusion, agitation PFSH PFSH Social History Little interest or pleasure in doing things: not at all Feeling down, depressed, or hopeless: not at all Exam Narrative Exam Narrative: Vital signs reviewed Nurses notes noted CONST: Nontoxic, well appearing, well nourished, in no distress.? No diaphoresis.?? HENT: normocephalic, atraumatic, moist mucous membrane, no abnormalities of the nose noted, hearing normal EYES: normal appearing conjunctiva, no apparent discharge bilat NECK: normal appearance CV: normal rate, regular rhythm, no murmur RESP: normal effort, speaking in complete sentences. Lung sounds clear and equal bilat.? No wheezes, rales, rhonchi GI: normal bowel sounds, soft, no distension, nontender : no CVA tenderness MS: no edema, tenderness SKIN: no pallor NEURO: A&Ox 3, no focal findings PSYCH: normal mood, affect Constitutional Vital Signs, click to edit/add: Last Vital Signs Temp 98.5 F 09/01/24 13:32 Pulse 90 09/01/24 17:30 Resp 22 H 09/01/24 17:30 BP 134/77 09/01/24 17:30 Pulse Ox 98 09/01/24 17:30 O2 Del Method Room Air 09/01/24 13:32 Course Vital Signs Vital signs: Vital Signs Temperature 98.5 F 09/01/24 13:32 Pulse Rate 96 H 09/01/24 13:32 Respiratory Rate 20 09/01/24 13:32 Blood Pressure 140/83 09/01/24 13:32 Pulse Oximetry 98 09/01/24 13:32 Oxygen Delivery Method Room Air 09/01/24 13:32 Temperature 98.5 F 09/01/24 13:32 Pulse Rate 90 09/01/24 17:30 Respiratory Rate 22 H 09/01/24 17:30 Blood Pressure 134/77 09/01/24 17:30 Pulse Oximetry 98 09/01/24 17:30 Oxygen Delivery Method Room Air 09/01/24 13:32 Medical Decision Making [facility] Narrative Medical decision making narrative: This is a pleasant 73-year-old male presented to the emergency department with and daughter with complaint of low potassium and sodium levels noted on laboratory testing this morning. Patient states he has not been feeling well since last . States he has a sinus infection and was started on Augmentin and steroids today. Today he developed myalgias and joint pains. He has had diarrhea over time course and low-grade temperatures. Denies any abdominal pain. On arrival, a, vital signs were stable On exam nontoxic, well-appearing patient in no distress. Heart regular rate and rhythm. Lung sounds clear and equal bilaterally. Abdomen soft, nontender. Labs from earlier reviewed showing no leukocytosis, anemia, thrombocytopenia. Sodium 127, potassium 2.9. In the emergency department, hyponatremia and hypokalemia confirmed. He did not meet SIRS criteria. Lactate was 1.5. Patient was given 40 micro equivalents PO and 20 micro equivalents IV with small improvement of his lab testing. He did note some subjective improvement of his symptoms. Patient was informed that absorption of the potassium orally will take a little bit longer, but should continue to improve along with a prescription for K-Dur. He was also advised to drink such things as Pedialyte, Gatorade. History and record review Discussion with independent historian: Spouse and daughter Additional records reviewed: Labs from earlier today. EKG from 2022 Favor diarrhea, hypokalemia, hyponatremia, sinus infection Sepsis less likely based on vitals, H&P, lactate CHRISTOPHER less likely based on lab testing Additional tests and interventions EKG: See ED course below Reevaluation: Clinically improved and feeling better Disposition ? The patient was discharged. Plan: Patient will be discharged to home. Condition at time of disposition: stable Prescription for K-Dur transmitted to his pharmacy Advised to follow up with primary provider. Advised to return for any worsening and/or development of new, concerning signs or symptoms PLEASE NOTE: Portions of the medical record may have been produced using electronic swimmer and may contain errors with respect to translation of words which may not have been identified prior to finalization of the chart. Medical Records Medical records reviewed: Yes I reviewed the patient's medical records Lab Data Lab results reviewed: Yes I reviewed the patient's lab results Labs: Lab Results 09/01/24 09/01/24 Range/Units 14:00 16:59 Sodium 126 L 128 L (136-145) mmol/L Potassium 2.9 L* 3.0 L (3.5-5.1) mmol/L Chloride 90 L 93 L (98-107) mmol/L Carbon Dioxide 28.5 25.9 (21.0-32.0) mmol/L Anion Gap 10.4 12.1 BUN 11.0 13.0 (7.0-18.0) mg/dL Creatinine 0.98 1.01 (0.70-1.30) mg/dL Est GFR ( Amer) >60 >60 (>=60 mL/min/1.73m^2) Est GFR (Non-Af Amer) >60 >60 (>=60 mL/min/1.73m^2) BUN/Creatinine Ratio 11.2 12.9 Glucose 129 H 102 (74-106) mg/dL Lactate 1.5 (0.4-2.0) mmol/L Calcium 8.8 8.2 L (8.5-10.1) mg/dL Total Bilirubin 0.8 (0.2-1.0) mg/dL AST 16 (15-37) U/L ALT 19 (16-63) U/L Alkaline Phosphatase 59 (46-116) U/L Total Protein 6.8 (6.4-8.2) g/dL Albumin 3.2 L (3.4-5.0) g/dL Globulin 3.6 g/dL Albumin/Globulin Ratio 0.9 ECG Data Attestation: I personally reviewed and interpreted this ECG as follows: (EKG performed at 1418 hrs. reveals sinus rhythm at 96 bpm. First-degree AV block. Left bundle branch block, left axis deviation. No changes when compared to EKG performed on 03/06/2023 from his primary provider's office which was faxed to our facility) Prior ECG tracings: available for review Discharge Plan Discharge Chief Complaint: Recheck/Abnormal Lab/Rx Clinical Impression: Hypokalemia, Acute hyponatremia, Myalgia Diarrhea Qualifiers: Diarrhea type: unspecified type Qualified Code(s): R19.7 - Diarrhea, unspecified Patient Disposition: Home, Self-Care Time of Disposition Decision: 17:31 Condition: Good Mode of Transportation: Private Vehicle Prescriptions / Home Meds: New potassium chloride 20 mEq tablet,ER particles/crystals 20 meq PO DAILY 5 Days Qty: 5 0RF Print Language: [place] Instructions: Hyponatremia (ED), Hypokalemia (ED) Referrals: LIANE ALVARES [Primary Care Provider] - 09/02/24 Discharge Date/Time: 09/01/24 17:53
== END 2024-09-01 17:53 | disposition home or self-care (01) ==
PROVIDERS: Physician Assistant; Emergency Provider Student in an Organized Health Care Education/Training Program; PCP Internal Medicine
DX: R50.9 Fever, unspecified (principal); R25.2 Cramp and spasm; M25.50 Pain in unspecified joint; E87.6 Hypokalemia; E87.1 Hypo-osmolality and hyponatremia; M79.10 Myalgia, unspecified site
CPT/HCPCS: 36415; 80048; 80053; 83605; 83735; 84550; 85007; 85027; 93005; 96365; 96366; 96375; 99285; J1885; J3480

== ENCOUNTER 2025-06-07 06:21 | Outpatient (OUT) | payer MEDICARE, SELFPAY ==
--- OUTSIDE RECORDS SUMMARY | 2025-06-07 06:27 | XMS_ITS | CCD ---
Author Organization [facility] Care Team Providers Care Tank Builder Name Role Phone FRANK, DR TINAJERO Admitting Unavailable PERON, DR TINAJERO Attending Unavailable JEY, DR ROB Primary Care Unavailable PERON, DR TINAJERO Consulting Unavailable HEMMER, DR NURIS Nolasco Admitting Unavailable HEMMER, DR NURIS Nolasco Attending Unavailable JEY, DR ROB Primary Care Unavailable BA, DR BRIDGER Neville Consulting Unavailable HEMMER, DR NURIS Nolasco Consulting Unavailable ALISE PALOMINO Admitting Unavailable GEORGETTE, ALISE Attending Unavailable JEY, DR ROB Primary Care Unavailable JEY, DR ROB Consulting Unavailable BA, DR BRIDGER Neville Consulting Unavailable GEORGETTE, ALISE Consulting Unavailable JEY, DR ROB Primary Care Unavailable BLANE NAIK Admitting Unavailable BLANE NAIK Attending Unavailable BA, DR BRIDGER Neville Consulting Unavailable BLANE NAIK Consulting Unavailable Unavailable Primary Care Provider UnavailMD Ernie Hines Attending Provider LAURA Khanna Primary Care Provider Speedy Khanna II Primary Care Provider SPEEDY [...] MELCHOR Referring Unavailable ANGLE MELCHOR Attending Unavailable Speedy Khanna MD Unavailable Speedy Khanna MD Primary Care Provider SPEEDY KHANNA Primary Care Physician [phone] Tray CASTILLO Attending Unavailable Tray CASTILLO Attending Unavailable Tray CASTILLO Attending Unavailable LAURA Khanna Primary Care Provider Delma [facility] Aga Paige Emergency Provider DO Angle Logan Admit Provider DO Angle Logan Attending Provider MD Angle Castorena Other Provider DO Tray Sanon Emergency Provider MD Merlyn De La Torre Admit Provider MD Merlyn De La Torre Attending Provider DO Nj Romero Attending Provider DO Tima Healy Other Provider Speedy Khanna II Primary Care Provider Milton Lyon MD Attending Provider [phone] NURSI DOCKERY Attending Unavailable PEGGY LOWE Attending Unavailable SARAH MENDEZ Attending Unavailable NURIS DOCKERY Attending Unavailable SPEEDY KHANNA Attending Unavailable Milton Lyon Admitting Unavaila Milton Ortiz Attending Unavaila Speedy Vera Primary Care Unavailable Angle Castorena Consulting Unavailable Angle Logan Admitting Unavailable Angle Logan Attending Unavailable Speedy Khanna Primary Care Unavailable Nj Romero Attending UnavailMerlyn Velazquez Admitting Unavailable Tima Healy Consulting Unavailable Speedy Khanna Primary Care Unavailable Allergies Allergy Classification Reported Allergen(s) Allergy Type Date of Onset Reaction(s) Facility (1 source) benzoin resin Drug Allergy 7 [facility] Repository (1 source) Misc-Other; Translations: [Misc-Other] Propensity to adverse reactions (disorder) 7 [facility] Repository (20 sources) atorvastatin Drug Allergy 3 Other [facility] Healthcare (20 sources) benzoin resin Drug Allergy 3 Unknown [facility] Healthcare (1 source) No Known Medication Allergies; Translations: [No Known Medication Allergies] Propensity to adverse reactions (disorder) [facility] Repository (13 sources) Losartan Drug Allergy 4 [facility] Work Phone: Medications Current Medications Medication Drug Class(es) Dates Sig (Normalized) Sig (Original) azelastine hydrochloride 0.137 mg/actuat metered dose nasal spray (2 sources) Histamine-1 Receptor Antagonist Start: 04-12-2025 End: 04-26-2025 take 1 spray(s) nasal route in the morning Azelastine HCl 137 MCG/SPRAY solution Indications: Acute dysfunction of left eustachian tube Administer 1 spray into affected nostril(s) in the morning and 1 spray before bedtime. Do all this for 14 days. 30 mL 04/12/2025 04/26/2025 Active candesartan cilexetil 32 mg / hydroCHLOROthiazide 25 mg oral tablet (17 sources) Thiazide Diuretic, Angiotensin 2 Receptor Lexi Start: 11-21-2023 End: 09-25-2024 Candesartan Cilexetil-HCTZ 32-25 MG tablet Indications: Primary hypertension (CMS/HCC) TAKE 1 TABLET IN THE MORNING 100 tablet 3 11/21/2023 09/25/2024 Discontinued Start: 12-12-2022 Candesartan-Hy drochlorothiazid 32-25 mg tab Candesartan-Hydrochlorothiazid Active 1 TAB PO Daily December 12, 2022 12:00am 0 12/12/2022 Active Start: 12-12-2022 End: 09-04-2024 take 1 tablet by mouth once daily Candesartan-Hydrochlorothiazid 32-25 mg tablet Discontinued 1 TAB PO Daily December 12, 2022 1:00am September 04, 2024 6:35pm Comment on above: Candesartan-Hydrochlorothiazid Active 1 TAB PO Daily December 12, 2022 12:00am cefdinir 300 mg oral capsule (4 sources) Cephalosporin Antibacterial Start: 2024 End: 2024 take 1 capsule by mouth in the morning cefdinir (Omnicef) 300 MG capsule Indications: Acute non-recurrent maxillary sinusitis Take 1 capsule (300 mg) by mouth in the morning and 1 capsule (300 mg) before bedtime. Do all this for 7 days. 14 capsule 02/22/2025 03/01/2025 Active Start: 11-05-2024 End: 11-12-2024 take 1 capsule by mouth in the morning cefdinir (Omnicef) 300 MG capsule Indications: Acute non-recurrent sinusitis, unspecified location Take 1 capsule (300 mg) by mouth in the morning and 1 capsule (300 mg) before bedtime. Do all this for 7 days. 14 capsule 11/05/2024 11/12/2024 Active cetirizine hydrochloride 10 mg oral tablet (2 sources) Histamine-1 Receptor Antagonist Start: 04-12-2025 End: 04-26-2025 take 1 tablet by mouth once daily cetirizine (ZyrTEC) 10 MG tablet Indications: Acute dysfunction of left eustachian tube Take 1 tablet (10 mg) by mouth Daily for 14 days 14 tablet 04/12/2025 04/26/2025 Active diclofenac sodium 0.01 mg/mg topical gel (18 sources) Nonsteroidal Anti-inflammatory Drug Start: 09-04-2024 diclofenac sodium 1 % gel Apply 2 g topically 3 (three) times a day as needed for pain 09/04/2024 Active Start: 09-04-2024 apply 2 g topically three times daily Diclofenac Sodium Active 2 GM TOPICAL Three times daily September 04, 2024 12:00am doxycycline hyclate 100 mg oral tablet (20 sources) Tetracycline-class Drug Start: 04-09-2025 take 1 tablet by mouth once daily doxycycline (Vibra-Tabs) 100 MG tablet Take 100 mg by mouth Daily 04/09/2025 Active Start: 12-12-2022 End: 09-21-2024 take 1 tablet by mouth once daily Doxycycline Hyclate 50 mg tablet Discontinued 50 MG PO Daily December 12, 2022 1:00am September 21, 2024 11:40pm End: 04-12-2025 take 1 tablet by mouth in the morning as needed doxycycline (Adoxa) 50 MG tablet Take 50 mg by mouth in the morning and 50 mg before bedtime. Take with a full glass of water and do not lie down for at least 30 minutes after. PRN for rosacea. 04/12/2025 Discontinued (Other) losartan potassium 50 mg oral tablet (7 sources) Angiotensin 2 Receptor Lexi Start: 09-04-2024 End: 09-25-2024 take 1 tablet by mouth once daily Losartan 50 mg tablet Active 50 MG PO Daily September 04, 2024 12:00am sildenafil 100 mg oral tablet (2 sources) Phosphodiesterase 5 Inhibitor Start: 12-16-2023 End: 09-01-2024 take 1 tablet by mouth once daily as needed sildenafil (Viagra) 100 MG tablet Indications: Erectile dysfunction, unspecified erectile dysfunction type Take 1 tablet (100 mg) by mouth Daily as needed for erectile dysfunction 10 tablet 11 12/16/2023 09/01/2024 Discontinued (Other) Completed/Discontinued Medications Medication Drug Class(es) Dates Sig [...] every 6 hours as needed for pain. amoxicillin 875 mg / clavulanate 125 mg oral tablet (10 sources) Penicillin-class Antibacterial Start: 09-03-2024 End: 09-21-2024 take 1 tablet by mouth twice daily Amoxicillin-Pot Clavulanate 875-125 mg tablet Discontinued 1 TAB PO Twice daily September 03, 2024 12:00am September 21, 2024 11:39pm Start: 09-01-2024 End: 09-11-2024 take 1 tablet by mouth in the morning amoxicillin-clavulanate (Augmentin) 875-125 MG tablet Indications: Acute non-recurrent pansinusitis Take 1 tablet (875 mg) by mouth in the morning and 1 tablet (875 mg) before bedtime. Do all this for 10 days. 20 tablet 09/01/2024 09/11/2024 Active methylPREDNISolone 4 mg oral tablet (10 sources) Corticosteroid Start: 09-03-2024 End: 09-21-2024 take 1 tablet by mouth once daily Methylprednisolone 4 mg tablets,dose pack Discontinued 4 MG PO Daily September 03, 2024 12:00am September 21, 2024 11:40pm Start: 09-01-2024 End: 09-08-2024 methylPREDNISolone (Medrol D ospak) 4 MG tablets Indications: Acute non-recurrent pansinusitis Follow schedule on package instructions 21 tablet 09/01/2024 09/08/2024 Active oxyCODONE hydrochloride 5 mg oral tablet (2 sources) Opioid Agonist Start: 03-10-2023 take 1 tablet by mouth every eight hours as needed oxyCODONE IR (ROXICODONE) 5 mg immediate release tablet Indications: Post-op pain Take 1 tablet by mouth every 8 hours as needed. 6 tablet 0 03/10/2023 Active Comment on above: Take 1 tablet by valarie every 8 hours as needed. microencapsulated potassium chloride 20 meq extended release oral tablet (5 sources) Start: 09-03-2024 End: 09-21-2024 take 1 tablet by mouth once daily Potassium Chloride 20 mEq tablet,ER particles/crystals Discontinued 20 MEQ PO Daily September 03, 2024 12:00am September 21, 2024 11:40pm Problems Active Problems Problem Classification Problem Date Documented Date Episodic/Chronic Acquired foot deformities (2 sources) Bunion; Translations: [Bunion of unspecified foot] Onset: 04-12-2025 04-12-2025 Episodic Administrative/socia l admission (2 sources) Patient encounter status; Translations: [Other specified counseling] 02-22-2025 Episodic Aortic; peripheral; and visceral artery aneurysms (20 sources) Abdominal aortic aneurysm, without rupture; Translations: [Abdominal aortic aneurysm without rupture] Onset: 10-31-2021 Resolved: 02-22-2025 Chronic Conduction disorders (20 sources) First degree atrioventricular block; Translations: [Atrioventricular block, first degree] Onset: 03-06-2023 Chronic Disorders of lipid metabolism (20 sources) Raised low density lipoprotein cholesterol; Translations: [Pure hypercholesterolemia, unspecified] Onset: 05-29-2023 05-29-2023 Chronic Esophageal disorders (20 sources) Gastroesophageal reflux disease; Translations: [Gastro-esophageal reflux disease without esophagitis] Onset: 05-29-2023 05-29-2023 Chronic Essential hypertension (20 sources) Essential hypertension; Translations: [Essential (primary) hypertension] Onset: 03-06-2023 Chronic Comment on above: Problem List clean-u p per request of Phys. 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] Onset: 04-12-2025 04-12-2025 Chronic Hyperplasia of prostate (20 sources) Benign prostatic hyperplasia without lower urinary tract symptoms; Translations: [Benign prostatic hyperplasia] Onset: 05-31-2022 Chronic Lymphadenitis (20 sources) Mesenteric lymphadenopathy; Translations: [Localized enlarged lymph nodes] Onset: 09-03-2024 09-03-2024 Episodic Other aftercare (1 source) Other fci (current) drug therapy; Translations: [OTH [facility]CI CURRENT DRUG THERAPY] Onset: 06-18-2022 Episodic Other and unspecified benign neoplasm (9 sources) History of polyp of colon; Translations: [History of colon polyps] Onset: 02-22-2025 02-22-2025 Episodic Other connective tissue disease (1 source) Myalgia, unspecified site; Translations: [MYALGIA UNSPECIFIED SITE] Onset: 06-18-2022 Episodic Other connective tissue disease (3 sources) Cramp; Translations: [Cramp and spasm] 09-01-2024 Episodic Other ear and sense organ disorders (2 sources) Bilateral hearing loss; Translations: [Unspecified hearing loss, bilateral] 12-30-2023 Chronic Other ear and sense organ disorders (20 sources) Sensorineural hearing loss, bilateral; Translations: [Sensorineural hearing loss, bilateral] Onset: 05-29-2023 05-29-2023 Chronic Other endocrine disorders (2 sources) Male hypogonadism; Translations: [Testicular hypofunction] Onset: 04-12-2025 04-12-2025 Chronic Other inflammatory condition of skin (20 sources) Rosacea; Translations: [Rosacea, unspecified] Onset: 08-22-2023 08-22-2023 Chronic Other liver diseases (5 sources) Elevated liver enzymes level; Translations: [Abnormal levels of other serum enzymes] 09-03-2024 Episodic Other lower respiratory disease (2 sources) Dyspnea on exertion; Translations: [Apnea, not elsewhere classified] 09-03-2024 Episodic Other male genital disorders (20 sources) Induratio penis plastica; Translations: [Induration penis plastica] Onset: 08-22-2023 08-22-2023 Chronic Other male genital disorders (2 sources) Secondary erectile dysfunction; Translations: [Male erectile dysfunction, unspecified] Onset: 04-12-2025 04-12-2025 Chronic Other nervous system disorders (1 source) Other acute postprocedural pain; Translations: [Post-op pain] Onset: 03-08-2023 Episodic Other non-traumatic joint disorders (10 sources) Joint pain; Translations: [Pain in unspecified joint] Onset: 09-25-2024 09-05-2024 Episodic Other nutritional; endocrine; and metabolic disorders (20 sources) Obese class I; Translations: [Obesity, unspecified] Onset: 03-07-2023 03-08-2023 Chronic Other upper respiratory infections (7 sources) Acute upper respiratory infection, unspecified; Translations: [Acute pansinusitis] Onset: 06-18-2022 09-01-2024 Episodic Otitis media and related conditions (2 sources) Dysfunction of eustachian tube; Translations: [Unspecified Eustachian tube disorder, left ear] 04-12-2025 Episodic Residual codes; unclassified (1 source) Family history of cancer; Translations: [Family history of malignant neoplasm of prostate] Onset: 06-24-2024 Episodic Residual codes; unclassified (3 sources) Edema of hand; Translations: [Localized edema] 09-05-2024 Episodic Screening and history of mental health [...] Problem Date Documented Date Episodic/Chronic Abdominal hernia (20 sources) Recurrent hernia of anterior abdominal wall; Translations: [Incisional hernia without obstruction or gangrene] Onset: 04-01-2023 Resolved: 02-22-2025 Episodic Abdominal pain (6 sources) Abdominal pain; Translations: [Unspecified abdominal pain] Onset: 09-22-2024 09-22-2024 Episodic Intestinal obstruction without hernia (8 sources) Partial obstruction of small bowel; Translations: [Partial intestinal obstruction, unspecified as to cause] Onset: 09-22-2024 09-22-2024 Episodic Mood disorders (7 sources) Mood disorders Onset: 02-22-2025 02-22-2025 Nausea and vomiting (8 sources) Nausea and vomiting; Translations: [Nausea with vomiting, unspecified] Onset: 09-22-2024 09-22-2024 Episodic Other and unspecified benign neoplasm (20 sources) Adenomatous polyp of colon ; Translations: [Benign neoplasm of colon, unspecified] Onset: 05-29-2023 Resolved: 02-22-2025 05-29-2023 Episodic Other ear and sense organ disorders (20 sources) Bilateral tinnitus; Translations: [Tinnitus, bilateral] Onset: 05-29-2023 05-29-2023 Episodic Other inflammatory condition of skin (20 sources) Itching of skin; Translations: [Pruritus, unspecified] Onset: 05-29-2023 Resolved: 02-22-2025 05-29-2023 Episodic Other liver diseases (5 sources) Abnormal levels of other serum enzymes; Translations: [Other nonspecific abnormal serum enzyme levels] Onset: 09-03-2024 09-03-2024 Episodic Other lower respiratory disease (20 sources) Nodule of lung; Translations: [Solitary pulmonary nodule] Onset: 09-25-2024 09-03-2024 Episodic Other lower respiratory disease (3 sources) Apnea, not elsewhere classified; Translations: [Other respiratory abnormalities] Onset: 09-03-2024 09-03-2024 Episodic Other lower respiratory disease (5 sources) Solitary pulmonary nodule; Translations: [Solitary pulmonary nodule] Onset: 09-03-2024 09-03-2024 Episodic Other nervous system disorders (20 sources) Postoperative pain ; Translations: [Other acute postprocedural pain] Onset: 03-08-2023 Resolved: 02-22-2025 03-08-2023 Episodic Other non-traumatic joint disorders (11 sources) Multiple joint pain; Translations: [Pain in unspecified joint] Onset: 09-25-2024 09-01-2024 Episodic Other non-traumatic joint disorders (3 sources) Pain in unspecified joint; Translations: [Pain in joint, site unspecified] Onset: 09-03-2024 09-04-2024 Episodic Other nutritional; endocrine; and metabolic disorders (20 sources) Body mass index 30+ - obesity; Translations: [Obesity, unspecified] Onset: 08-22-2023 Resolved: 09-25-2024 08-22-2023 Chronic Other screening for suspected conditions (not mental disorders or infectious disease) (20 sources) Encounter for screening for malignant neoplasm of prostate; Translations: [Raised prostate specific antigen] Onset: 06-04-2022 Resolved: 09-25-2024 08-22-2023 Episodic Residual codes; unclassified (20 sources) History of hernia repair; Translations: [Other specified postprocedural states] Onset: 03-08-2023 03-08-2023 Episodic Residual codes; unclassified (20 sources) Family history of prostate cancer; Translations: [Family history of malignant neoplasm of prostate] Onset: 08-22-2023 08-22-2023 Episodic Residual codes; unclassified (3 sources) Localized edema; Translations: [Edema] Onset: 09-03-2024 09-04-2024 Episodic Residual codes; unclassified (12 sources) History of excision of small intestine; Translations: [Acquired absence of other specified parts of digestive tract] Onset: 11-05-2024 11-05-2024 Episodic Viral infection (6 sources) Disease due to Rhinovirus; Translations: [Other viral infections of unspecified site] Onset: 09-03-2024 09-05-2024 Episodic Results Test Name Value Interpretation Reference Range Facility CT chest w [facility] 03-03-2025 CT chest w [facility] [address] CT Scan Report Signed Patient: Cha Elena MR#: [id number] : 1950 Acct:[id number] Age/Sex: 74 / M ADM Date: 03/03/25 Loc: CT Room: Type: [facility] Attending Dr: Milton Lyon MD Copies to: Milton Lyon MD Ordering Provider: Milton Lyon MD Date of Service: 03/03/25 CT/CT chest w con: R59.1 - Generalized enlarged lymph nodes CT CHEST WITH INTRAVENOUS CONTRAST: CLINICAL HISTORY: Follow-up lymphadenopathy. COMPARISON: CT chest 09/03/2024 TECHNIQUE: Spiral images were obtained through the chest following intravenous administration of IV contrast. This CT exam was performed using one or more following dose reduction techniques: Automated exposure control, adjustment of the mA and/or kV according to patient size, or use of iterative reconstruction technique. FINDINGS: Mediastinum:Thoracic aorta appears normal in caliber. Pulmonary trunk appears nondilated. No pericardial effusion. Partially calcified mediastinal and right hilar lymph nodes. The previously identified lymphadenopathy has resolved. The esophagus is grossly unremarkable. Lungs:Mild lung scarring. No consolidation pneumothorax or pleural effusion. Calcified granulomas. Abd:No acute findings. Soft tissues/Bones: Soft tissues surrounding the chest wall demonstrate no acute findings. Osseous structures demonstrate degenerative change. CT/CT chest w con IMPRESSION: The previously identified mediastinal and hilar lymphadenopathy has resolved. No acute process is seen on today's study. Impression dictated by: Maikel Ames Jr., D.O.03/03/2025 9:46 AM Dictation Location: [place] [address] Transcribed By: [facility] 03/03/25945 Dictated By: Maikel Ames Jr, DO 03/03/2544 Signed By: 03/03/25945 Normal [facility] Creatinine (Bld) [Mass/Vol]O rdered By: Milton Lyon on 03-03-2025 Creatinine [Mass/Vol] Whole blood creati nine measurement 0.6-1.3 [facility] Comment on above: ER/ESD physician is notified/shown all ISTAT results.Critical values may be confirmed by laboratory testing ifdeemed necessary by ER attending doctor. ISTAT XRay CREon 03-03-2025 Creatinine [Mass/Vol] 1.0 mg/dL Normal 0.6-1.3 [facility] Comment on above: Result Comment: ER/E SD physician is notified/shown all ISTAT results. Critical values may be confirmed by laboratory testing if deemed necessary by ER attending doctor. Performed By: #### I SCRE #### [address] ISTAT GFR >60.0 Normal [facility] Comment on above: Result Comment: PERF ORMED BY: [place] [address] PATHOLOGIST SYSTEMS PROTECTION TECHNICIAN ALISE GARZA M.D. Performed By: #### I SCRE #### [address] No Panel InformationOrdered By: Milton Lyon on 03-03-2025 Bedside Estimated GFR (eGFR) > 60.0 [facility] CBC (INCLUDES DIFF/PLT)on Basophils (Bld) [#/Vol] 0.05 10*3/uL Normal 0-200 [facility] Comment on above: Performed By: #### 1 0231, [id number] #### [facility] [address] [place] [address] Consumer Banker: Sharri Romero #### [phone] #### [facility] [address], [address] [place] [address] Consumer Banker: Jaiden De Santiago MD Basophils/100 WBC (Bld) 0.9 % Normal [facility] Comment on above: Performed By: #### 1 0231, [id number] #### [facility] [address] [place] [address] Consumer Banker: Sharri Romero #### [phone] #### [facility] [address], [address] [place] [address] Consumer Banker: Jaiden De Santiago MD Eosinophils (Bld) [#/Vol] 0.112 10*3/uL Normal 15-500 [facility] Comment on above: Performed By: #### 1 0231, [id number] #### [facility] [address] [place] [address] Consumer Banker: Sharri Romero #### [phone] #### [facility] [address], [address] [place] [address] Consumer Banker: Jaiden De Santiago MD Eosinophils/100 WBC (Bld) 2.0 % Normal [facility] Comment on above: Performed By: #### 1 0231, [id number] #### [facility] [address] [place] [address] Consumer Banker: Sharri Romero #### [phone] #### [facility] [address], [address] [place] [address] Consumer Banker: Jaiden De Santiago MD Erythrocyte distribution width (RBC) [Ratio] 13.1 % Normal 11.0-15.0 [facility] Comment on above: Performed By: #### 1 0231, [id number] #### [facility] [place] [address] Consumer Banker: Sharri Romero #### [phone] #### [facility] [address], [address] [place] [address] Consumer Banker: Jaiden De Santiago MD Hematocrit (Bld) [Volume fraction] 43.9 % Normal 38.5-50.0 [facility] Comment on above: Performed By: #### 1 0231, 6399 #### [facility] Consumer Banker: Sharri Romero #### [phone] #### [facility] [place] [address] Consumer Banker: Jaiden De Santiago MD Hemoglobin (Bld) [Mass/Vol] 14.7 g/dL Normal 13.2-17.1 [facility] Comment on above: Performed By: #### 1 0231, [id number] #### [facility] [address] [place] [address] Consumer Banker: Sharri Romero #### [phone] #### [facility] [place] [address] Consumer Banker: Jaiden De Santiago MD Lymphocytes (Bld) [#/Vol] 1.898 10*3/uL Normal 850-3900 [facility] Comment on above: Performed By: #### 1 0231, [id number] #### [facility] [address] [place], [place] [id number] Consumer Banker: Sharri Romero #### [phone] #### [facility] [address], [address] [place] [address] Consumer Banker: Jaiden De Santiago MD Lymphocytes/100 WBC (Bld) 33.9 % Normal [facility] Comment on above: Performed By: #### 1 230, 63 #### [facility] [address] [place] [address] Consumer Banker: Sharri Romero #### [phone] #### [facility] [address], [address] [place] [address] Consumer Banker: Jaiden De Santiago MD MCH (RBC) [Entitic mass] 30.4 pg Normal 27.0-33.0 [facility] Comment on above: Performed By: #### 1 230, 63 #### [facility] [address] [place] [address] Consumer Banker: Sharri Romero #### [phone] #### [facility] [address], [address] [place] [address] Consumer Banker: Jaiden De Santiago MD MCHC (RBC) [Mass/Vol] 33.5 g/dL Normal 32.0-36.[address] [facility] Comment on above: Result Comment: For adults, a slight decrease in the calculated MCHC value (in the range of 30 to 32 g/dL) is most likely not clinically significant; however, it should be interpreted with caution in correlation with other red cell parameters and the patient's clinical condition. Performed By: #### 1 230, 63 #### [facility] [address] [place], [place] [phone] Consumer Banker: Sharri Romero #### 7600 #### [facility] [address], [address] [place] [address] Consumer Banker: Jaiden De Santiago MD MCV (RBC) [Entitic vol] 90.7 fL Normal 80.0-100.0 [facility] Comment on above: Performed By: #### 1 0231, 6399 #### [facility] [address] [place] [address] Consumer Banker: Sharri Romero #### 7600 #### [facility] [address], [address] [place] [address] Consumer Banker: Jaiden De Santiago MD Monocytes (Bld) [#/Vol] 0.543 10*3/uL Normal 200-950 [facility] Comment on above: Performed By: #### 1 0231, 6399 #### [facility] [address] [place] [address] Consumer Banker: Sharri Romero #### 7600 #### [facility] [address], [address] [place] [address] Consumer Banker: Jaiden De Santiago MD Monocytes/100 WBC (Bld) 9.7 % Normal [facility] Comment on above: Performed By: #### 1 023, 6399 #### [facility] [address] [place] [address] Consumer Banker: Sharri Romero #### 7600 #### [facility] [address], [address] [place] [address] Consumer Banker: Jaiden De Santiago MD Neutrophils (Bld) [#/Vol] 2.996 10*3/uL Normal 5606-6169 [facility] Comment on above: Performed By: #### 1 0231, 6399 #### [facility] [address] [place], [place] [phone] Consumer Banker: Sharri Romero #### 7600 #### [facility] [place] [address] Consumer Banker: Jaiden De Santiago MD Neutrophils/100 WBC (Bld) 53.5 % Normal [facility] Comment on above: Performed By: #### 1 0231, 6399 #### [facility] [address] [place] [address] Consumer Banker: Sharri Romero #### 7600 #### [facility] [address], [address] [place] [address] Consumer Banker: Jaiden De Santiago MD Platelet mean volume (Bld) [Entitic vol] 9.8 fL Normal 7.5-12.5 [facility] Comment on above: Performed By: #### 1 0231, 6399 #### [facility] [address] [place] [address] Consumer Banker: Sharri Romero #### 7600 #### [facility] [address], [address] [place] [address] Consumer Banker: Jaiden De Santiago MD Platelets (Bld) [#/Vol] 314 10*3/uL Normal 140-400 [facility] Comment on above: Performed By: #### 1 023, 6399 #### [facility] [address] [place] [address] Consumer Banker: Sharri Romero #### 7600 #### [facility] [address], [address] [place] [address] Consumer Banker: Jaiden De Santiago MD RBC (Bld) [#/Vol] 4.84 10*6/uL Normal 4.20-5.80 [facility] Comment on above: Performed By: #### 1 023, 6399 #### [facility] [address] [place] [address] Consumer Banker: Sharri Romero #### 7600 #### [facility] [address], [address] [place] [address] Consumer Banker: Jaiden De Santiago MD WBC (Bld) [#/Vol] 5.6 10*3/uL Normal 3.8-10.8 [facility] Comment on above: Performed By: #### 1 0231, 6399 #### [facility] [address] [place] [address] Consumer Banker: Sharri Romero #### 7600 #### [facility] [address], [address] [place], [place] [phone] Consumer Banker: Jaiden De Santiago MD [facility] 02-25-2025 Albumin [Mass/Vol] 4.5 g/dL Normal 3.6-5.1 [facility] Comment on above: Performed By: #### 1 0231, 6399 #### [facility] [address] [place] [address] Consumer Banker: Sharri Romero #### 7600 #### [facility] [place] [address] [address] , [address] [place], [place] [phone] Consumer Banker: Jaiden De Santiago MD Albumin/Globulin [Mass ratio] 2.0 {ratio} Normal 1.0-2.5 [facility] Comment on above: Performed By: #### 1 0231, 6399 #### [facility] [address] [place], [place] [phone] Consumer Banker: Sharri Romero #### 7600 #### [facility] [place] [address] , [address] [place], [place] [phone] Consumer Banker: Jaiden De Santiago MD ALP [Catalytic activity/Vol] 47 U/L Normal 35-144 [facility] Comment on above: Performed By: #### 1 0231, 6399 #### [facility] [address] [place], [place] [phone] Consumer Banker: Sharri Romero #### 7600 #### [facility] [place] [address], [address] [place] [address] Consumer Banker: Jaiden De Santiago MD ALT [Catalytic activity/Vol] 15 U/L Normal 9-46 [facility] Comment on above: Performed By: #### 1 0231, 6399 #### [facility] [address] [place], [place] [phone] Consumer Banker: Sharri Romero #### 7600 #### [facility] [place] [address], [address] [place] [address] Consumer Banker: Jaiden De Santiago MD AST [Catalytic activity/Vol] 14 U/L Normal 10-35 [facility] Comment on above: Performed By: #### 1 0231, 6399 #### [facility] [address] [place] [address] Consumer Banker: Sharri Romero #### 7600 #### [facility] [address], [address] [place] [address] Consumer Banker: Jaiden De Santiago MD Bilirubin [Mass/Vol] 1.5 mg/dL High 0.2-1.2 [facility] Comment on above: Performed By: #### 1 0231, 6399 #### [facility] [address] [place] [address] Consumer Banker: Sharri Romero #### 7600 #### [facility] [address], [address] [place] [address] Consumer Banker: Jaiden De Santiago MD BUN/CREATININE RATIO SEE NOTE: Normal 6-22 [facility] Comment on above: Result Comment: Not Reported: BUN and Creatinine are within reference range. Performed By: #### 1 0231, 6399 #### [facility] [address] [place] [address] Consumer Banker: Sharri Romero #### 7600 #### [facility] [address], [address] [place] [address] Consumer Banker: Jaiden De Santiago MD Calcium [Mass/Vol] 9.6 mg/dL Normal 8.6-10.3 [facility] Comment on above: Performed By: #### 1 0231, 6399 #### [facility] [address] [place] [address] Consumer Banker: Sharri Romero #### 7600 #### [facility] [address], [address] [place] [address] Consumer Banker: Jaiden De Santiago MD Chloride [Moles/Vol] 103 mmol/L Normal 98-110 [facility] Comment on above: Performed By: #### 1 0231, 6399 #### [facility] [address] [place] [phone] Consumer Banker: Sharri Romero #### 7600 #### [facility] [address], [address] [place] [address] Consumer Banker: Jaiden De Santiago MD CO2 [Moles/Vol] 27 mmol/L Normal 20-32 [facility] Comment on above: Performed By: #### 1 0231, 6399 #### [facility] [phone] Consumer Banker: Sharri Romero #### 7600 #### [facility] [address], [address] [place] [address] Consumer Banker: Jaiden De Santiago MD Creatinine [Mass/Vol] 0.79 mg/dL Normal 0.70-1.[address] [facility] Comment on above: Performed By: #### 1 0231, 6399 #### [facility] [address] [place], [place] [phone] Consumer Banker: Sharri Romero #### 7600 #### [facility] [address], [address] [place] [address] Consumer Banker: Jaiden De Santiago MD GFR/1.73 sq M.predicted among non-blacks MDRD (S/P/Bld) [Vol rate/Area] 94 mL/min/{1.73_m2} Normal > OR = 60 [facility] Comment on above: Performed By: #### 1 0231, 6399 #### [facility] [address] [place] [phone] Consumer Banker: Sharri Romero #### 7600 #### [facility] [address], [address] [place] [address] Consumer Banker: Jaiden De Santiago MD Globulin (S) [Mass/Vol] 2.2 g/dL Normal 1.9-3.7 [facility] Comment on above: Performed By: #### 1 0231, 6399 #### [facility] [address] [place] [phone] Consumer Banker: Sharri Romero #### 7600 #### [facility] [address], [address] [place] [address] Consumer Banker: Jaiden De Santiago MD Glucose [Mass/Vol] 87 mg/dL Normal 65-99 [facility] Comment on above: Result Comment: Fasting reference interval Performed By: #### 1 0231, 6399 #### [facility] [address] [place] [phone] Consumer Banker: Sharri Romero #### 7600 #### [facility] [place] [address] Consumer Banker: Jaiden De Santiago MD Potassium [Moles/Vol] 4.5 mmol/L Normal 3.5-5.[address] [facility] Comment on above: Performed By: #### 1 023, 6399 #### [facility] [address] [place] [phone] Consumer Banker: Sharri Romero #### 7600 #### [facility] [place] [address] Consumer Banker: Jaiden De Santiago MD Protein [Mass/Vol] 6.7 g/dL Normal 6.1-8.1 [facility] Comment on above: Performed By: #### 1 0231, 6399 #### [facility] [address] [place] [phone] Consumer Banker: Sharri Romero #### 7600 #### [facility] [place] [address] Consumer Banker: Jaiden De Santiago MD Sodium [Moles/Vol] 141 mmol/L Normal 135-146 [facility] Comment on above: Performed By: #### 1 023, 6399 #### [facility] [address] [place] [phone] Consumer Banker: Sharri Romero #### 7600 #### [facility] [address], [address] [place] [address] Consumer Banker: Jaiden De Santiago MD Urea nitrogen [Mass/Vol] 12 mg/dL Normal 7-25 [facility] Comment on above: Performed By: #### 1 0231, 6399 #### [facility] [address] [place], [place] [phone] Consumer Banker: Sharri Romero #### 7600 #### [facility] [address], [address] [place] [address] Consumer Banker: Jaiden De Santiago MD LIPID PANEL, [facility] 04-0 Cholesterol [Mass/Vol] 203 mg/dL High <200 [facility] Comment on above: Order Comment: FASTI NG:YES PATIENT REFUSED SOME TESTING; PATIENT ENCOURAGED TO RETURN. FASTING: YES Performed By: #### 1 0231, 6399 #### [facility] [address] [place], [place] [phone] Consumer Banker: Sharri Romero #### 7600 #### [facility] [address], [address] [place] [address] Consumer Banker: Jaiden De Santiago MD Cholesterol in HDL [Mass/Vol] 76 mg/dL Normal > OR = 40 [facility] Comment on above: Order Comment: FASTI NG:YES PATIENT REFUSED SOME TESTING; PATIENT ENCOURAGED TO RETURN. FASTING: YES Performed By: #### 1 0231, 6399 #### [facility] [address] [place] [phone] Consumer Banker: Sharri Romero #### 7600 #### [facility] [address], [address] [place] [address] Consumer Banker: Jaiden De Santiago MD Cholesterol in LDL [Mass/Vol] 112 mg/dL High [facility] Comment on above: Order Comment: FASTI NG:YES PATIENT REFUSED SOME TESTING; PATIENT ENCOURAGED TO RETURN. FASTING: YES Result Comment: Refe rence range: <100 Desirable range <100 mg/dL for primary prevention; <70 mg/dL for patients with CHD or diabetic patients with > or = 2 CHD risk factors. LDL-C is now calculated using the Richard calculation, which is a validated novel method providing better accuracy than the Friedewald equation in the estimation of LDL-C. Asael AGUIRRE et al. ELDER. 2013;310(19): 0900-8341 (http://education.[employer]/faq/KZY947) Performed By: #### 1 0231, 6399 #### [facility] [place] [address] Consumer Banker: Sharri Romero #### 7600 #### [facility] [place] [address] Consumer Banker: Jaiden De Santiago MD Cholesterol.total/Chol esterol in HDL [Mass ratio] 2.7 {ratio} Normal <5.0 [facility] Comment on above: Order Comment: FASTI NG:YES PATIENT REFUSED SOME TESTING; PATIENT ENCOURAGED TO RETURN. FASTING: YES Performed By: #### 1 0231, 6399 #### [facility] [address] [place] [address] Consumer Banker: Sharri Romero #### 7600 #### [facility] [address], [address] [place] [address] Consumer Banker: Jadien De Santiago MD NON HDL CHOLESTEROL 127 mg/dL (calc) Normal <130 [facility] Comment on above: Order Comment: FASTI NG:YES PATIENT REFUSED SOME TESTING; PATIENT ENCOURAGED TO RETURN. FASTING: YES Result Comment: For patients with diabetes plus 1 major ASCVD risk factor, treating to a non-HDL-C goal of <100 mg/dL (LDL-C of <70 mg/dL) is considered a therapeutic option. Performed By: #### 1 0231, 6399 #### [facility] [address] [place] [phone] Consumer Banker: Sharri Romero #### 7600 #### [facility] [address], [address] [place] [address] Consumer Banker: Jaiden De Santiago MD Triglyceride [Mass/Vol] 64 mg/dL Normal <150 [facility] Comment on above: Order Comment: FASTI NG:YES PATIENT REFUSED SOME TESTING; PATIENT ENCOURAGED TO RETURN. FASTING: YES Performed By: #### 1 0231, 6399 #### [facility] [address] [place] [address] Consumer Banker: Sharri Romero #### 7600 #### [facility] [address] [facility], [address] [place] [address] Consumer Banker: Jaiden De Santiago MD CT abdomen pelvis w [facility] CT abdomen pelvis w [facility] [place] [address] [place] [address] Scan Report Signed Patient: Cha Elena MR#: [id number] : 1950 Acct:[id number] Age/Sex: 73 / M ADM Date: 09/21/24 Loc: ER Room: Type: [facility] ER Attending Dr: Copies to: Tray Sanon DO Ordering Provider: Tray Sanon DO Date of Service: 09/21/24 CT/CT abdomen pelvis w con: nausea, vomiting, diarrhea CT Abdomen and Pelvis withcontrast TECHNIQUE: Axial imaging with 2-D reconstruction.90 cc of Isovue-300. The CT exam was performed using one or more the following dose reduction techniques: Automated exposure control, adjustment of the MA and/or Kv according to patient size, or use of the iterative reconstruction technique. COMPARISON: 09/03/24 History: Nausea and vomiting. Abdominal pain. LIMITATIONS: None LOWER THORAX Unremarkable LIVER: Unremarkable GALLBLADDER: Cholecystectomy clips identified. BILE DUCTS: No dilatation SPLEEN: Unremarkable PANCREAS: Unremarkable ADRENAL GLANDS: Unremarkable KIDNEYS:Unremarkable AORTA: No abdominal aortic aneurysm identified. RETROPERITONEUM: No significant retroperitoneal abnormalities identified. MESENTERY:Similar straightening of central portion of the mesentery with small lymph nodes. May suggest similar panniculitis. SMALL BOWEL: Redemonstration of small bowel resection changes with anastomosis. Proximal small bowel distention with transition zone identified in region of anastomosis. May consider at least partial small bowel obstruction. This is seen with image #55. APPENDIX: The appendix is normal. COLON: Moderate stool. URINARY BLADDER: Urinary bladder is unremarkable. REPRODUCTIVE SYSTEM: Reproductive structures are unremarkable. PNEUMOPERITONEUM: None PERITONEAL FLUID:Trace pelvic ascites BONY STRUCTURES: Degenerative change. ABDOMINAL WALL: Unremarkable CT/CT abdomen pelvis w con IMPRESSION: Dilated multiple loops of proximal small bowel with region of transition identified in the area of small bowel anastomosis. Concern for at least a partial small bowel obstruction. Impression dictated by: Bhupendra Moe M.D.09/22/2024 12:49 AM Dictation Location: [place] [address] Transcribed By: [facility] 09/22/2448 Dictated By: Bhupendra Moe DO 09/22/2441 Signed By: 09/22/2448 Normal [facility] Phosphate [Mass/volume] in S jen or PlasmaOrdered By: Alexandria Doyle on 09-22-2024 Phosphate [Mass/Vol] 2.8 mg/dL Normal 2.5-4.5 [facility] Comment on above: Result Comment: PERF ORMED BY: [place] [address] PATHOLOGIST SYSTEMS PROTECTION TECHNICIAN JAIMIE CAMPBELL M.D. Performed By: #### B MP, MG, HEPATIC, CBC #### [address] XR abdomen 1Von 09-22-2024 XR abdomen 1V [facility] [place] [address] [place] [address] XRay Report Signed Patient: Cha Elena MR#: [id number] : 1950 Acct:[id number] Age/Sex: 73 / M ADM Date: 09/22/24 Loc: Room: [address] [place] [address] Type: ADM IN Attending Dr: Nj Romero DO Copies to: Alexandria Doyle DO, KIELA Romero DO Ordering Provider: Alexandria Doyle DO, RES Date of Service: 09/22/24 XR/XR abdomen 1V: SBO Single view of abdomen COMPARISON: 09/22/24 HISTORY: Follow-up small bowel obstruction THORAX: Lung bases unremarkable. FREE AIR: Supine position limits assessment BOWEL: There are NG tube unchanged. Continued gaseous intestinal distention. STOOL: Moderate constipation RENAL STONES: No significant stones present. VASCULAR CALCIFICATIONS: Unremarkable SOFT TISSUE: Unremarkable BONES: Unremarkable POSTSURGICAL CHANGES: None XR/XR abdomen 1V IMPRESSION: Continued moderate gaseous intestinal distention. Moderate constipation. Impression dictated by: Bhupendra Moe M.D.09/22/2024 3:51 PM Dictation Location: [place] [address] Transcribed By: [facility] 09/22/24 1551 Dictated By: Bhupendra Moe DO 09/22/24 1543 Signed By: 09/22/24 1551 Normal [facility] XR abdomen 1V [facility] [place] [address] XRay Report Signed Patient: Cha Elena MR#: [id number] : 1950 Acct:[id number] Age/Sex: 73 / M ADM Date: 09/22/24 Loc: Room: [address] [place] [address] Type: ADM IN Attending Dr: Merlyn De La Torre MD Copies to: MD Tray Hernandez DO Ordering Provider: Tray Sanon DO Date of Service: 09/22/24 XR/XR abdomen 1V: Nausea/Vomiting/Diarrhea PORTABLE SINGLE VIEW ABDOMEN COMPARISON: CT 09/22/2024 CLINICAL DATA: NG tube placement Supine view of the abdomen was obtained. The NG tube extends into the stomach. The side-port is near the GE junction. Advancement could be considered. There is some air within the stomach. This also air within small and large bowel loops in the field of view. There is endplate spurring at the spine. XR/XR abdomen 1V IMPRESSION: NG TUBE AT THE PROXIMAL STOMACH. Impression dictated by: Nuris Bedolla M.D.09/22/2024 7:15 AM Dictation Location: [facility] Transcribed By: [facility] 09/22/24 0715 Dictated By: Nuris Bedolla MD 09/22/24 0714 Signed By: 09/22/24 0715 Normal [facility] Alanine aminotransferase [En zymatic activity/volume] in Serum or PlasmaOrdered By: Tray Sanon on 09-21-2024 ALT [Catalytic activity/Vol] 15 U/L Normal 7-52 [facility] Comment on above: Performed By: #### C MP, CBC, LIPASE #### [address] Albumin [Mass/volume] in Ser um or Plasma by Bromocresol green (BCG) dye binding methoOrdered By: Tray Sanon on 09-21-2024 Albumin BCG dye [Mass/Vol] 4.5 g/dL 3.5-5.7 [facility] Alkaline phosphatase [Enzyma tic activity/volume] in Serum or PlasmaOrdered By: Tray Sanon on 09-21-2024 ALP [Catalytic activity/Vol] 51 U/L Normal 34-104 [facility] Comment on above: Performed By: #### C MP, CBC, LIPASE #### [address] Aspartate aminotransferase [ Enzymatic activity/volume] in Serum or PlasmaOrdered By: Tray Sanon on 09-21-2024 AST [Catalytic activity/Vol] 14 U/L Normal 13-39 [facility] Comment on above: Performed By: #### C MP, CBC, LIPASE #### [address] Automated basophil %Ordered By: Tray Sanon on 09-21-2024 Basophils/100 WBC (Bld) 1.6 % Normal . [facility] Comment on above: Performed By: #### C MP, CBC, LIPASE #### [address] Automated basophil countOrde red By: Tray Sanon on 09-21-2024 Basophils (Bld) [#/Vol] 0.2 10*3/uL Normal 0.0-0.2 [facility] Comment on above: Result Comment: PERF ORMED BY: [place] [address] PATHOLOGIST SYSTEMS PROTECTION TECHNICIAN JAIMIE CAMPBELL M.D. Performed By: #### C MP, CBC, LIPASE #### [address] Automated blood monocyte cou ntOrdered By: Tray Sanon on 09-21-2024 Monocytes (Bld) [#/Vol] 0.3 10*3/uL Normal 0.0-0.8 [facility] Comment on above: Performed By: #### C MP, CBC, LIPASE #### [address] Automated eosinophil %Ordere d By: Tray Sanon on 09-21-2024 Eosinophils/100 WBC (Bld) 0.7 % Normal . [facility] Comment on above: Performed By: #### C MP, CBC, LIPASE #### [address] Automated eosinophil countOr dered By: Tray Sanon on 09-21-2024 Eosinophils (Bld) [#/Vol] 0.1 10*3/uL Normal 0.0-0.45 [facility] Comment on above: Performed By: #### C MP, CBC, LIPASE #### [address] Automated monocyte %Ordered By: Tray Sanon on 09-21-2024 Monocytes/100 WBC (Bld) 3.3 % Normal . [facility] Comment on above: Performed By: #### C MP, CBC, LIPASE #### [address] Automated neutrophil %Ordere d By: Tray Sanon on 09-21-2024 Neutrophils/100 WBC (Bld) 83.0 % Normal . [facility] Comment on above: Performed By: #### C MP, CBC, LIPASE #### [address] Bilirubin.total [Mass/volume ] in Serum or PlasmaOrdered By: Tray Sanon on 09-21-2024 Bilirubin [Mass/Vol] 1.2 mg/dL High 0.3-1.0 [facility] Comment on above: Performed By: #### C MP, CBC, LIPASE #### [address] Calcium [Mass/volume] in Ser um or PlasmaOrdered By: Tray Sanon on 09-21-2024 Calcium [Mass/Vol] 10.2 mg/dL Normal 8.6-10.3 [facility] Comment on above: Performed By: #### C MP, CBC, LIPASE #### [address] Carbon dioxide, total [Moles /volume] in Serum or PlasmaOrdered By: Tray Sanon on 09-21-2024 CO2 [Moles/Vol] 26.7 mmol/L Normal 21.0-31.0 [facility] Comment on above: Performed By: #### C MP, CBC, LIPASE #### [address] Chloride [Moles/volume] in S jen or PlasmaOrdered By: Tray Sanon on 09-21-2024 Chloride [Moles/Vol] 101 mmol/L Normal 98-107 [facility] Comment on above: Performed By: #### C MP, CBC, LIPASE #### [address] Complete Blood Count Auto Di ffon 09-21-2024 Mean Corpuscular HGB Conc 34.1 g/dL Normal 32.5-35.6 [facility] Comment on above: Performed By: #### C MP, CBC, LIPASE #### [address] Monocytes/100 WBC (Bld) 14.85 % Normal 0.00-20.00 [facility] Comment on above: Performed By: #### C MP, CBC, LIPASE #### [address] NRBC% 0.0 /100{WBC} Normal 0-0.5 [facility] Comment on above: Performed By: #### C MP, CBC, LIPASE #### [address] Comprehensive Metabolic Pane carlos 09-21-2024 Albumin [Mass/Vol] 4.5 g/dL Normal 3.5-5.7 [facility] Comment on above: Performed By: #### C MP, CBC, LIPASE #### [address] Creatinine Clr Calc Pharmacy 96.54 Normal [facility] Comment on above: Performed By: #### C MP, CBC, LIPASE #### [address] GFR/1.73 sq M.predicted MDRD (S/P/Bld) [Vol rate/Area] mL/min/{1.73_m2} Normal [facility] Comment on above: Performed By: #### C MP, CBC, LIPASE #### [address] Creatinine [Mass/volume] in Serum or PlasmaOrdered By: Tray Sanon on 09-21-2024 Creatinine [Mass/Vol] 0.84 mg/dL Normal 0.70-1.30 [facility] Comment on above: Performed By: #### C MP, CBC, LIPASE #### [address] Erythrocyte distribution wid th [Ratio] by Automated countOrdered By: Tray Sanon on 09-21-2024 Erythrocyte distribution width (RBC) [Ratio] 14.0 % Normal 12.0-14.8 [facility] Comment on above: Performed By: #### C MP, CBC, LIPASE #### [address] Erythrocytes [#/volume] in B lood by Automated countOrdered By: Tray Sanon on 09-21-2024 RBC (Bld) [#/Vol] 4.80 10*6/uL Normal 3.90-5.60 [facility] Comment on above: Performed By: #### C MP, CBC, LIPASE #### [address] Glucose [Mass/volume] in Ser um or PlasmaOrdered By: Tray Sanon on 09-21-2024 Glucose [Mass/Vol] 137 mg/dL High 70-100 [facility] Comment on above: ADA recommended refe rence rangeRandom Glucose Reference Range is dependent on time and content of last meal. Glucose of more than 200 mg/dL in a nonstressed, ambulatory subject supports the diagnosis of Diabetes Mellitus. Result Comment: [place] Glucose Reference Range is dependent on time and content of last meal. Glucose of more than 200 mg/dL in a nonstressed, ambulatory subject supports the diagnosis of Diabetes Mellitus. ADA recommended reference range Performed By: #### C MP, CBC, LIPASE #### [address] Hematocrit [Volume Fraction] of Blood by Automated countOrdered By: Tray Sanon on 09-21-2024 Hematocrit (Bld) [Volume fraction] 43.9 % Normal 38.8-50.0 [facility] Comment on above: Performed By: #### C MP, CBC, LIPASE #### [address] Hemoglobin [Mass/volume] in BloodOrdered By: Tray Sanon on 09-21-2024 Hemoglobin (Bld) [Mass/Vol] 14.9 g/dL Normal 13.0-17.0 [facility] Comment on above: Performed By: #### C MP, CBC, LIPASE #### [address] Leukocytes [#/volume] correc indu for nucleated erythrocytes in Blood by Automated counOrdered By: Tray Sanon on 09-21-2024 WBC corrected for nucl RBC Auto (Bld) [#/Vol] 10.6 10*3/uL High 4.1-10.5 [facility] Leukocytes [#/volume] in Blo od by Automated countOrdered By: Tray Sanon on 09-21-2024 WBC (Bld) [#/Vol] 10.6 10*3/uL High 4.1-10.5 [facility] Comment on above: Performed By: #### C MP, CBC, LIPASE #### [place] [id number] [place] Lipase [Enzymatic activity/v olume] in Serum or PlasmaOrdered By: Trya Sanon on 09-21-2024 Lipase [Catalytic activity/Vol] 21.0 U/L Normal 11.0-82.0 [facility] Comment on above: Result Comment: PERF ORMED BY: [address] [place] [address] PATHOLOGIST SYSTEMS PROTECTION TECHNICIAN JAIMIE CAMPBELL M.D. Performed By: #### C OVID19 FLU RSV, CEPHEID NEG, UA #### [facility] [address] [place] [address] Lymphocytes [#/volume] in Bl ood by Automated countOrdered By: Tray Sanon on 09-21-2024 Lymphocytes (Bld) [#/Vol] 1.2 10*3/uL Normal 1.00-4.8 [facility] Comment on above: Performed By: #### C MP, CBC, LIPASE #### [address] Lymphocytes/100 leukocytes i n Blood by Automated countOrdered By: Tray Sanon on 09-21-2024 Lymphocytes/100 WBC (Bld) 11.4 % Normal . [facility] Comment on above: Performed By: #### C MP, CBC, LIPASE #### [address] MCH [Entitic mass] by Automa indu countOrdered By: Tray Sanon on 09-21-2024 MCH (RBC) [Entitic mass] 31.1 pg Normal 27.5-35.2 [facility] Comment on above: Performed By: #### C MP, CBC, LIPASE #### [address] MCHC Auto (RBC) [Mass/Vol]Or dered By: Tray Sanon on 09-21-2024 MCHC (RBC) [Mass/Vol] 34.1 g/dL 32.5-35.6 [facility] MCV [Entitic volume] by Auto mated countOrdered By: Tray Sanon on 09-21-2024 MCV (RBC) [Entitic vol] 91.4 fL Normal 83.5-101 [facility] Comment on above: Performed By: #### C MP, CBC, LIPASE #### [address] Monocyte distribution width [Entitic volume] in Blood by AutomatedOrdered By: Tray Sanon on 09-21-2024 Monocyte distribution width Auto (Bld) [Entitic vol] 14.85 % 0.00-20.00 [facility] Neutrophils [#/volume] in Bl ood by Automated countOrdered By: Tray Sanon on 09-21-2024 Neutrophils (Bld) [#/Vol] 8.8 10*3/uL High 1.8-7.7 [facility] Comment on above: Performed By: #### C MP, CBC, LIPASE #### [address] No Panel InformationOrdered By: Tray Sanon on 09-21-2024 Estimated GFR (CKD-EPI) > 60.0 mL/Min [facility] Creatinine Clearance (Chem 96.54 [facility] Nucleated erythrocytes [Pres ence] in Blood by Automated countOrdered By: Tray Sanon on 09-21-2024 Nucleated RBC Auto Ql (Bld) 0.0 /100{WBC} 0-0.5 [facility] Platelet mean volume [Entiti c volume] in Blood by Automated countOrdered By: Tray Sanon on 09-21-2024 Platelet mean volume (Bld) [Entitic vol] 8.1 fL Normal 6.6-10.1 [facility] Comment on above: Performed By: #### C MP, CBC, LIPASE #### [facility] [address] [place] [address] [place] Platelets [#/volume] in Bloo d by Automated countOrdered By: Tray Sanon on 09-21-2024 Platelets (Bld) [#/Vol] 390 10*3/uL Normal 150-450 [facility] Comment on above: Performed By: #### C MP, CBC, LIPASE #### [facility] [address] [place] [address] Potassium [Moles/volume] in Serum or PlasmaOrdered By: Tray Sanon on 09-21-2024 Potassium [Moles/Vol] 3.6 mmol/L Normal 3.5-5.1 [facility] Comment on above: Performed By: #### C MP, CBC, LIPASE #### [address] Protein [Mass/volume] in Ser um or PlasmaOrdered By: Tray Sanon on 09-21-2024 Protein [Mass/Vol] 7.5 g/dL Normal 6.4-8.9 [facility] Comment on above: Performed By: #### C MP, CBC, LIPASE #### [address] Serum globulin measurement b y calculation (mass/volume)Ordered By: Tray Sanon on 09-21-2024 Globulin (S) [Mass/Vol] 3.0 g/dL [place] Comment on above: Performed By: #### C MP, CBC, LIPASE #### [address] Serum or plasma albumin/glob ulin mass ratioOrdered By: Tray Sanon on 09-21-2024 Albumin/Globulin [Mass ratio] 1.5 {ratio} [place] Comment on above: Performed By: #### C MP, CBC, LIPASE #### [address] Serum or plasma anion gap de terminationOrdered By: Tray Sanon on 09-21-2024 Anion gap [Moles/Vol] 12.9 mmol/L Normal 6.0-15.0 [facility] Comment on above: Performed By: #### C MP, CBC, LIPASE #### [address] Sodium [Moles/volume] in Ser um or PlasmaOrdered By: Tray Sanon on 09-21-2024 Sodium [Moles/Vol] 137 mmol/L Normal 136-145 [facility] Comment on above: Performed By: #### C MP, CBC, LIPASE #### [address] Urea nitrogen [Mass/volume] in Serum or PlasmaOrdered By: Tray Sanon on 09-21-2024 Urea nitrogen [Mass/Vol] 18 mg/dL Normal 06-18 [facility] Comment on above: Performed By: #### C MP, CBC, LIPASE #### [address] JESSICA Antinuclear Antibodieson 09-04-2024 Antinuclear Abs, IFA Negative Normal . [facility] Comment on above: Result Comment: Nega tive <1:80 Borderline 1:80 Positive >1:80 ICAP nomenclature: AC-0 For more information about Hep-2 cell patterns use ANApatterns.org, the official website for the International Consensus on Antinuclear Antibody (JESSICA) Patterns (ICAP). Performed at: - [facility] [id number] Purchasing Assistant: Augusto Lopez PhD, Phone: [phone] PERFORMED BY: [place] [address] PATHOLOGIST SYSTEMS PROTECTION TECHNICIAN JAIMIE CAMPBELL M.D. Performed By: #### C OVID19 FLU RSV, CEPHEID NEG, UA #### [address] Activated partial thrombopla stin time (aPTT) in platelet poor plasma by coagulation aOrdered By: Angle Logan on 09-04-2024 aPTT Coag (PPP) [Time] 27.5 s 25.1-36.5 [facility] Comment on above: A hematocrit value g reater than 55% may lead to inaccurate results in coagulation testing. Patients having hematocrit values >55% require a special collection tube for coagulation studies. Please contact the laboratory at [phone] for redraw instructions. Automated basophil %Ordered By: Angle Logan on 09-04-2024 Basophils/100 WBC (Bld) 0.6 % Normal . [facility] Comment on above: Performed By: #### B MP, MG, HEPATIC, CBC #### [facility] [address] [place] [address] Automated basophil countOrde red By: Angle Logan on 09-04-2024 Basophils (Bld) [#/Vol] 0.0 10*3/uL Normal 0.0-0.2 [facility] Comment on above: Result Comment: PERF ORMED BY: [place] [address] PATHOLOGIST SYSTEMS PROTECTION TECHNICIAN JAIMIE CAMPBELL M.D. Performed By: #### B MP, MG, HEPATIC, CBC #### [address] Automated blood monocyte cou ntOrdered By: Angle Logan on 09-04-2024 Monocytes (Bld) [#/Vol] 0.5 10*3/uL Normal 0.0-0.8 [facility] Comment on above: Performed By: #### B MP, MG, HEPATIC, CBC #### [address] Automated eosinophil %Ordere d By: Angle Logan on 09-04-2024 Eosinophils/100 WBC (Bld) 4.9 % Normal . [facility] Comment on above: Performed By: #### B MP, MG, HEPATIC, CBC #### [address] Automated eosinophil countOr dered By: Angle Logan on 09-04-2024 Eosinophils (Bld) [#/Vol] 0.3 10*3/uL Normal 0.0-0.45 [facility] Comment on above: Performed By: #### B MP, MG, HEPATIC, CBC #### [address] Automated monocyte %Ordered By: Angle Logan on 09-04-2024 Monocytes/100 WBC (Bld) 7.7 % Normal . [facility] Comment on above: Performed By: #### B MP, MG, HEPATIC, CBC #### [address] Automated neutrophil %Ordere d By: Angle Logan on 09-04-2024 Neutrophils/100 WBC (Bld) 66.2 % Normal . [facility] Comment on above: Performed By: #### B MP, MG, HEPATIC, CBC #### [address] Bacteria identification by s terile body fluid cultureOrdered By: Angle Logan on 09-04-2024 Bacteria identified Sterile body fluid culture Nom (Unsp spec) Not indicated. . [facility] Bacteria identification dete ction in isolate by cultureOrdered By: Angle Logan on 09-04-2024 Bacteria Identification Cx Ql (Isol) Not indicated. . [facility] Basic Metabolic Panelon 08-25 Creatinine Clr Calc Pharmacy 101.81 Normal [facility] Comment on above: Performed By: #### B MP, MG, HEPATIC, CBC #### [address] GFR/1.73 sq M.predicted MDRD (S/P/Bld) [Vol rate/Area] mL/min/{1.73_m2} Normal [facility] Comment on above: Performed By: #### B MP, MG, HEPATIC, CBC #### [place] [address] [place] Calcium [Mass/volume] in Ser um or PlasmaOrdered By: Angle Logan on 09-04-2024 Calcium [Mass/Vol] 8.3 mg/dL Low 8.6-10.3 [facility] Comment on above: Performed By: #### B MP, MG, HEPATIC, CBC #### [place] [address] [place] Carbon dioxide, total [Moles /volume] in Serum or PlasmaOrdered By: Angle Logan on 09-04-2024 CO2 [Moles/Vol] 26.9 mmol/L Normal 21.0-31.0 [facility] Comment on above: Performed By: #### B MP, MG, HEPATIC, CBC #### [place] [address] [place] Chloride [Moles/volume] in S jen or PlasmaOrdered By: Angle Logan on 09-04-2024 Chloride [Moles/Vol] 97 mmol/L Low 98-107 [facility] Comment on above: Performed By: #### B MP, MG, HEPATIC, CBC #### [address] Coagulation Profileon 2023 aPTT Coag (Bld) [Time] 27.5 s Normal 25.1-36.5 [facility] Comment on above: Result Comment: A he matocrit value greater than 55% may lead to inaccurate results in coagulation testing. Patients having hematocrit values >55% require a special collection tube for coagulation studies. Please contact the laboratory at [phone] for redraw instructions. PERFORMED BY: [place] [address] PATHOLOGIST SYSTEMS PROTECTION TECHNICIAN JAIMIE CAMPBELL M.D. Performed By: #### B MP, MG, HEPATIC, CBC #### [address] Complete Blood Count Auto Di ffon 09-04-2024 Mean Corpuscular HGB Conc 35.0 g/dL Normal 32.5-35.6 [facility] Comment on above: Performed By: #### B MP, MG, HEPATIC, CBC #### [address] NRBC% 0.1 /100{WBC} Normal 0-0.5 [facility] Comment on above: Performed By: #### B MP, MG, HEPATIC, CBC #### [address] Creatinine [Mass/volume] in Serum or PlasmaOrdered By: Angle Logan on 09-04-2024 Creatinine [Mass/Vol] 0.75 mg/dL Normal 0.70-1.30 [facility] Comment on above: Performed By: #### B MP, MG, HEPATIC, CBC #### [address] ECG 12 lead ECGon 09-04-2024 ECG 12 lead ECG [place] [id number] Electrocardiograph Report Signed Patient: Cha Elena MR#: [id number] : 1950 Acct:[id number] Age/Sex: 73 / M ADM Date: 09/03/24 Loc: 3T Room: [address] [place] [address] Type: ADM IN Attending Dr: Angle Logan DO Ordering Provider: Angle Logan DO Date of Service: 09/04/2410/18/500 ECG/ECG 12 lead ECG: abnormal ekg Copies to: Test Reason : Blood Pressure : */* mmHG Vent. Rate : 80 BPM Atrial Rate : 80 BPM P-R Int : 216 ms QRS Dur : 164 ms QT Int : 426 ms P-R-T Axes : 24 241 38 degrees QTcB Int : 491 ms Sinus rhythm with 1st degree AV block Left bundle branch block Abnormal ECG When compared with ECG of 03-Sep-2024 13:06, No significant change was found Confirmed by Silvana Lee ([id number]) on 09/04/2024 10:07:43 AM Referred By: Electronically Signed By: Silvana Lee Transcribed By: MUS Signed By Silvana Lee MD 4 1007 Normal [facility] ECH echo transthoracicon ECH echo transthoracic [place] [id number] Echocardiogram Signed Patient: Cha Elena MR#: [id number] : 1950 Acct:[id number] Age/Sex: 73 / M ADM Date: 09/03/24 Loc: 3T Room: [address] [place] [address] Type: ADM IN Attending Dr: Angle Logan DO Ordering Provider: Angle Logan DO Date of Service: 09/03/2409/17/1351 ECH/ECH echo transthoracic: Recheck/Abnormal Lab/Rx Copies to: MD Angle Jacobo DO Weight: 234 lb Performed By: Maria Elena Campo BSA: 2.2 m2 BP: 136/77 mmHg HR: 79 Reason For Study: Recheck/Abnormal Lab/Rx History: HTN, FS, Alcohol use Interpretation Summary Ejection Fraction = 55-60%. There is septal asymmetric left ventricular hypertrophy. A variety of Doppler measurements indicate normal left ventricular diastolic function. Septal bounce is seen. No regional wall motion abnormalities noted. The left atrium appears mildly dilated. There is trace tricuspid regurgitation. There is no comparison study available. Procedure/Quality: A two-dimensional transthoracic echocardiogram with color flow, Doppler and injection of contrast agent Definity was performed. The study was technically suboptimal in quality due to poor acoustic windows . Left Ventricle: The left ventricular size is normal. There is septal asymmetric left ventricular hypertrophy. Ejection Fraction = 55-60%. A variety of Doppler measurements indicate normal left ventricular diastolic function. No regional wall motion abnormalities noted. Septal bounce is seen. Left Atrium: The left atrium appears mildly dilated. Right Atrium: The right atrium appears normal in size. Right Ventricle: The right ventricle is normal in size and function. Aortic Valve: The aortic valve is normal in structure. The aortic valve is trileaflet. No hemodynamically significant valvular aortic stenosis. No aortic regurgitation is present. Mitral Valve: The mitral valve is normal in structure. No significant mitral valve stenosis. There is no mitral regurgitation noted. Tricuspid Valve: The tricuspid valve is normal in structure. There is trace tricuspid regurgitation. Pulmonic Valve: The pulmonic valve is not well visualized. No significant pulmonic regurgitation. Arteries: Mild aortic root dilatation. Pericardium/Pleura: No pericardial effusion seen. There is no pleural effusion. IVC/Hepatic Veins: The inferior vena cava is normal in size, with a normal collapsibility index. Measurements with Normals IVSd: 1.6 cm (0.7-1.1 cm)LVIDd: 4.6 cm (3.7-5.4 cm) LVPWd: 1.1 cm (0.7-1.1 cm)LVIDs: 3.2 cm (2.3-3.6 cm) LA dimension: 4.3 cm (2.3-4.0 cm)Ao root diam: 3.6 cm(2.0-3.6 cm) asc Aorta Diam: 3.3 cm(2.1-3.4cm) Doppler with Normals RVSP(TR): 19.1 mmHg (18-35mmHg) LV V1 max: 117.5 cm/sec (0.7-1.7m/s)MV E max meggan: 87.5 cm/sec(0.8-1.3m/s) MV A max meggan: 115.1 cm/sec(0.0-0.0m/s) MV E/A: 0.76 (<1.5) MMode/2D Measurements Calculations RVDd: 3.8 cm FS: 30.4 % Ao root area: LVOT diam: 2.0 cm TAPSE: 2.3 cm EDV(Teich): 10.0 cm2 LVOT area: 3.2 cm2 RV S Meggan: 97.5 ml 14.1 cm/sec ESV(Teich): 41.1 ml EF(Teich): 57.9 % __ LVLd ap4: 9.7 cm SV(MOD-sp4): LAV(MOD-sp4): LA A2 area: 19.0 cm2 EDV(MOD-sp4): 90.2 ml 32.7 ml 187.0 ml LAV(MOD-sp2): LA A4 area: 14.8 cm2 LVLs ap4: 8.1 cm 52.6 ml LA length (vol): ESV(MOD-sp4): 5.5 cm 96.8 ml LA vol: 43.3 ml EF(MOD-sp4): 48.2 % LA vol index: 19.5 ml/m2 Doppler Measurements Calculations MV dec time: MV max PG: E/E' lat: 10.6 MV dec slope: 0.16 sec 12.0 mmHg E/E' med: 9.9 552.4 cm/sec2 __ Ao V2 max: LV V1 max PG: MR max meggan: TV max P.0 mmHg 150.7 cm/sec 5.5 mmHg 171.0 cm/sec Ao max P.1 mmHgLV V1 mean PG: MR max PG: Ao mean P.9 mmHg 11.7 mmHg 5.7 mmHg LV V1 mean: Ao V2 mean: 77.7 cm/sec 114.4 cm/sec LV V1 VTI: 21.3 cm Ao V2 VTI: 30.5 cm JANNA(I,D): 2.3 cm2 JANNA(V,D): 2.5 cm2 __ TR max meggan: 200.9 cm/sec TR max P.1 mmHg RAP systole: 3.0 mmHg Transcribed By: LISA Performed At: 09/04/24 1332 Signed By: Abraham Jaramillo MD 09/04/24 1611 Normal [facility] Erythrocyte distribution wid th [Ratio] by Automated countOrdered By: Angle Logan on 09-04-2024 Erythrocyte distribution width (RBC) [Ratio] 13.4 % Normal 12.0-14.8 [facility] Comment on above: Performed By: #### B MP, MG, HEPATIC, CBC #### [facility] [address] [place] [address] [place] Erythrocytes [#/volume] in B lood by Automated countOrdered By: Angle Logan on 09-04-2024 RBC (Bld) [#/Vol] 4.08 10*6/uL Normal 3.90-5.60 [facility] Comment on above: Performed By: #### B MP, MG, HEPATIC, CBC #### [facility] [address] Glucose [Mass/volume] in Ser um or PlasmaOrdered By: Angle Logan on 09-04-2024 Glucose [Mass/Vol] 103 mg/dL High 70-100 [facility] Comment on above: ADA recommended refe rence rangeRandom Glucose Reference Range is dependent on time and content of last meal. Glucose of more than 200 mg/dL in a nonstressed, ambulatory subject supports the diagnosis of Diabetes Mellitus. Result Comment: [place] Glucose Reference Range is dependent on time and content of last meal. Glucose of more than 200 mg/dL in a nonstressed, ambulatory subject supports the diagnosis of Diabetes Mellitus. ADA recommended reference range Performed By: #### B MP, MG, HEPATIC, CBC #### [address] Hematocrit [Volume Fraction] of Blood by Automated countOrdered By: Angle Logan on 09-04-2024 Hematocrit (Bld) [Volume fraction] 36.2 % Low 38.8-50.0 [facility] Comment on above: Performed By: #### B MP, MG, HEPATIC, CBC #### [address] Hemoglobin [Mass/volume] in BloodOrdered By: Angle Logan on 09-04-2024 Hemoglobin (Bld) [Mass/Vol] 12.7 g/dL Low 13.0-17.0 [facility] Comment on above: Performed By: #### B MP, MG, HEPATIC, CBC #### [address] Histoplasma Galacto Ag, Uron 09-04-2024 Histoplasma GALACTOMANNAN, UR Negative Normal <0.2 ng/mL [facility] Comment on above: Result Comment: Perf ormed at: BN - [facility] [address] [id number] Purchasing Assistant: Zully Aldrich MD, Phone: [phone] Performed By: #### C OVID19 FLU RSV, CEPHEID NEG, UA #### [address] Histoplasmosis IgG and IgMon 09-04-2024 Histoplasmosis IgG and IgM Normal [facility] Comment on above: Result Comment: See report. Scanned copy available in EMR. PERFORMED BY: [place] [address] PATHOLOGIST SYSTEMS PROTECTION TECHNICIAN JAIMIE CAMPBELL M.D. Performed By: #### C OVID19 FLU RSV, CEPHEID NEG, UA #### [address] INR in Platelet poor plasma by Coagulation assayOrdered By: Angle Logan on 09-04-2024 INR Coag (PPP) [Relative time] 1.1 {INR} Normal [facility] Comment on above: INR Therapeutic Rang e A) Pre- and Peroperative OAT started two weeks before surgery. NOT HIP SURGERY: 1.5 - 2.5 HIP SURGERY: 2 - 3B) Primary and secondary prevention of venous THROMBOSIS: 2 - 3C) Active venous thrombosis, pulmonary embolismand prevention of recurrent venous thrombosis: 2 - 3D) Prevention of arterial thromboembolismincluding patients with mechanical heart valves: 3 - 4.5 Result Comment: INR Therapeutic Range A) Pre- and Peroperative OAT started two weeks before surgery. NOT HIP SURGERY: 1.5 - 2.5 HIP SURGERY: 2 - 3 B) Primary and secondary prevention of venous THROMBOSIS: 2 - 3 C) Active venous thrombosis, pulmonary embolism and prevention of recurrent venous thrombosis: 2 - 3 D) Prevention of arterial thromboembolism including patients with mechanical heart valves: 3 - 4.5 Performed By: #### B MP, MG, HEPATIC, CBC #### [address] Legionella Pneu 1-6 Antibodi eson 09-04-2024 Legionella Pneu 1-6 Antibodies Non-Reactive Normal Non Reactive [facility] Comment on above: Result Comment: This is a qualitative assay that detects total antibodies (IgG/IgM/IgA) to L. pneumophila Groups 1-6 by EIA method. This assay cannot differentiate between previous exposure/infection and current infection. Serological testing is not recommended for diagnosis. Per current recommendations, culture of lower respiratory secretions and/or the Legionella urinary antigen test should be used for diagnosis of infection with Legionella. Performed at: [facility] [id number] Purchasing Assistant: Zully Aldrich MD, Phone: [phone] Performed By: #### C OVID19 FLU RSV, CEPHEID NEG, UA #### [place] [id number] [facility] Legionella Pneumophilia Ag, Uron 09-04-2024 Legionella Pneumophilia Ag, Ur Negative Normal Negative [facility] Comment on above: Result Comment: Pres umptive negative for L. pneumophila serogroup 1 antigen in urine, suggesting no recent or current infection. Legionnaires' disease cannot be ruled out since other serogroups and species may also cause disease. Performed at: [facility] [id number] Purchasing Assistant: Zully Aldrich MD, Phone: [phone] Performed By: #### C OVID19 FLU RSV, CEPHEID NEG, UA #### [facility] [address] Legionella pneumophila type 1-6 antibody assayOrdered By: Angle Logan on 09-04-2024 L. pneumophila 1+2+3+4+5+6 Ab (S) [Titer] Non-Reactive Non Reactive [facility] Comment on above: This is a qualitativ e assay that detects total antibodies(IgG/IgM/IgA) to L. pneumophila Groups 1-6 by EIA method.This assay cannot differentiate between previousexposure/infection and current infection. Serologicaltesting is not recommended for diagnosis. Per currentrecommendations, culture of lower respiratory secretionsand/or the Legionella urinary antigen test should be usedfor diagnosis of infection with Legionella.Performed at: [address] [id number] Director: Zully Aldrich MD, Phone: [phone] Leukocytes [#/volume] correc indu for nucleated erythrocytes in Blood by Automated counOrdered By: Angle Logan on 09-04-2024 WBC corrected for nucl RBC Auto (Bld) [#/Vol] 6.7 10*3/uL 4.1-10.5 [facility] Leukocytes [#/volume] in Blo od by Automated countOrdered By: Angle Logan on 09-04-2024 WBC (Bld) [#/Vol] 6.7 10*3/uL Normal 4.1-10.5 [facility] Comment on above: Performed By: #### B MP, MG, HEPATIC, CBC #### [facility] [address] [place] [address] [place] Lymphocytes [#/volume] in Bl ood by Automated countOrdered By: Angle Logan on 09-04-2024 Lymphocytes (Bld) [#/Vol] 1.4 10*3/uL Normal 1.00-4.8 [facility] Comment on above: Performed By: #### B MP, MG, HEPATIC, CBC #### [facility] [address] Lymphocytes/100 leukocytes i n Blood by Automated countOrdered By: Angle Logan on 09-04-2024 Lymphocytes/100 WBC (Bld) 20.6 % Normal . [facility] Comment on above: Performed By: #### B MP, MG, HEPATIC, CBC #### [facility] [address] M Pneumoniae, IgG Abon 09-04 M Pneumoniae, IgG Ab 162 High 0-99 [facility] Comment on above: Result Comment: Nega tive: <100 Indeterminate: 100 - 320 Positive: >320 The reference interval established is intended as a baseline only. Values >100 may indicate a recent infection with Mycoplasma pneumoniae and need to be confirmed either by a positive IgM result and/or an additional specimen drawn 2-4 weeks later showing a significant increase in antibody levels. Performed at: [facility] [address] [id number] Purchasing Assistant: Augusto Lopez PhD, Phone: [phone] Performed By: #### C OVID19 FLU RSV, CEPHEID NEG, UA #### [address] M Pneumoniae, IgM Abon 09-04 M Pneumoniae, IgM Ab <770 Normal 0-769 [facility] Comment on above: Result Comment: Nega tive <770 Clinically significant amount of M. pneumoniae antibody not detected. Low Positive 770 - 950 M. pneumoniae specific IgM presumptively detected. It is recommended that another sample be collected 1-2 weeks later to assure reactivity. Positive >950 Highly significant amount of M. pneumoniae specific IgM antibody detected. Performed By: #### C OVID19 FLU RSV, CEPHEID NEG, UA #### [place] [address] [place] MCH [Entitic mass] by Automa indu countOrdered By: Angle Logan on 09-04-2024 MCH (RBC) [Entitic mass] 31.0 pg Normal 27.5-35.2 [facility] Comment on above: Performed By: #### B MP, MG, HEPATIC, CBC #### [address] MCHC Auto (RBC) [Mass/Vol]Or dered By: Angle Logan on 09-04-2024 MCHC (RBC) [Mass/Vol] 35.0 g/dL 32.5-35.6 [facility] MCV [Entitic volume] by Auto mated countOrdered By: Angle Logan on 09-04-2024 MCV (RBC) [Entitic vol] 88.6 fL Normal 83.5-101 [facility] Comment on above: Performed By: #### B MP, MG, HEPATIC, CBC #### [facility] [address] Magnesium [Mass/volume] in S jen or PlasmaOrdered By: Angle Logan on 09-04-2024 Magnesium [Mass/Vol] 1.9 mg/dL Normal 1.9-2.7 [facility] Comment on above: Result Comment: PERF ORMED BY: [place] [address] PATHOLOGIST SYSTEMS PROTECTION TECHNICIAN JAIMIE CAMPBELL M.D. Performed By: #### B MP, MG, HEPATIC, CBC #### [facility] [address] Neutrophils [#/volume] in Bl ood by Automated countOrdered By: Angle Logan on 09-04-2024 Neutrophils (Bld) [#/Vol] 4.4 10*3/uL Normal 1.8-7.7 [facility] Comment on above: Performed By: #### B MP, MG, HEPATIC, CBC #### [facility] [address] No Panel InformationOrdered By: Angle Logan on 09-04-2024 Estimated GFR (CKD-EPI) > 60.0 mL/Min [facility] Creatinine Clearance (Chem 101.81 [facility] Strep pneumoniae Special Info Comment . [facility] Comment on above: [employer] standards require aculture to be performed on CSF specimens submitted forbacterial antigen testing. (CAP [id number]) Urine specimenswill not be cultured. [employer] standards require aculture to be performed on CSF specimens submitted forbacterial antigen testing. (CAP YOBANI.[id number]) Urine specimenswill not be cultured.Performed at: [facility] [address] [id number] Director: Zully Aldrich MD, Phone: [phone] --- 09/06/24 6717 ---Please Note: previously reported as: Comment [employer] standards require aculture to be performed on CSF specimens submitted forbacterial antigen testing. (CAP YOBANI.[id number]) Urine specimenswill not be cultured. U Histoplasma Galactomannan Antigen Negative <0.2 ng/mL [facility] Comment on above: Performed at: [employer] [facility] [address] [id number] Director: Zully Aldrich MD, Phone: [phone] Histoplasmosis Interpretation See comment [facility] Comment on above: See report. Scanned copy available in EMR. Nucleated erythrocytes [Pres ence] in Blood by Automated countOrdered By: Angle Logan on 09-04-2024 Nucleated RBC Auto Ql (Bld) 0.1 /100{WBC} 0-0.5 [facility] Platelet mean volume [Entiti c volume] in Blood by Automated countOrdered By: Angle Logan on 09-04-2024 Platelet mean volume (Bld) [Entitic vol] 7.7 fL Normal 6.6-10.1 [facility] Comment on above: Performed By: #### B MP, MG, HEPATIC, CBC #### [facility] [address] [place] [address] [place] Platelets [#/volume] in Bloo d by Automated countOrdered By: Angle Logan on 09-04-2024 Platelets (Bld) [#/Vol] 305 10*3/uL Normal 150-450 [facility] Comment on above: Performed By: #### B MP, MG, HEPATIC, CBC #### [facility] [address] [place] [id number] [place] Potassium [Moles/volume] in Serum or PlasmaOrdered By: Angle Logan on 09-04-2024 Potassium [Moles/Vol] 3.5 mmol/L Normal 3.5-5.1 [facility] Comment on above: Performed By: #### B MP, MG, HEPATIC, CBC #### [facility] [address] Prothrombin time (PT)Ordered By: Angle Logan on 09-04-2024 PT Coag (PPP) [Time] 13.0 s High 9.0-12.9 [facility] Comment on above: A hematocrit value g reater than 55% may lead to inaccurate results in coagulation testing. Patients having hematocrit values >55% require a special collection tube for coagulation studies. Please contact the laboratory at [phone] for redraw instructions. Result Comment: A he matocrit value greater than 55% may lead to inaccurate results in coagulation testing. Patients having hematocrit values >55% require a special collection tube for coagulation studies. Please contact the laboratory at [phone] for redraw instructions. Performed By: #### B MP, MG, HEPATIC, CBC #### [facility] [address] [place] [id number] [facility] Rickettsia rickettsii IgG Ab [Presence] in Serum by ImmunoassayOrdered By: Angle Logan on 09-04-2024 R. rickettsii IgG IA Ql (S) . [facility] Comment on above: See report. Scanned copy available in EMR. Rickettsia rickettsii IgM Ab [Units/volume] in SerumOrdered By: Angle Logan on 09-04-2024 R. rickettsii IgM Qn (S) . [facility] Comment on above: See report. Scanned copy available in EMR. [place] [facility] gGon 09-04-2024 RMSF IgG EIA . Normal [facility] Comment on above: Result Comment: See report. Scanned copy available in EMR. Performed By: #### C OVID19 FLU RSV, CEPHEID NEG, UA #### [facility] [address] [place] [id number] [facility] gMon 09-04-2024 [place] [facility] IgM . Normal [facility] Comment on above: Result Comment: See report. Scanned copy available in EMR. PERFORMED BY: [facility] [address] [place] [address] PATHOLOGIST SYSTEMS PROTECTION TECHNICIAN JAIMIE CAMPBELL M.D. Performed By: #### C OVID19 FLU RSV, CEPHEID NEG, UA #### [facility] [address] Serum Mycoplasma pneumoniae IgG antibody assay by immunoassay (units/volume)Ordered By: Angle Logan on 09-04-2024 M. pneumoniae IgG IA Qn (S) 162 U/mL High 0-99 [facility] Comment on above: Negative: <100 Indet erminate: 100 - 320 Positive: >320The reference interval established is intended as abaseline only. Values >100 may indicate a recentinfection with Mycoplasma pneumoniae and need to beconfirmed either by a positive IgM result and/or anadditional specimen drawn 2-4 weeks later showing asignificant increase in antibody levels.Performed at: [facility] [place] [id number] Director: Augusto Lopez PhD, Phone: [phone] Serum Mycoplasma pneumoniae IgM antibody assay (units/volume)Ordered By: Angle Logan on 09-04-2024 M. pneumoniae IgM Qn (S) <770 U/mL 0-769 [facility] Comment on above: Negative <770Clinica lly significant amount of M. pneumoniae antibodynot detected. Low Positive 770 - 950M. pneumoniae specific IgM presumptively detected. Itis recommended that another sample be collected 1-2weeks later to assure reactivity. Positive >950Highly significant amount of M. pneumoniae specificIgM antibody detected. Serum nuclear antibody titer Ordered By: Angle Logan on 09-04-2024 Nuclear Ab (S) [Titer] Negative . [facility] Comment on above: Negative <1:80 Borde rline 1:80 Positive >1:80ICAP nomenclature: AC-0For more information about Hep-2 cell patterns useANApatterns.org, the official website for theInternational Consensus on Antinuclear Antibody (JESSICA)Patterns (ICAP).Performed at: [facility] [address] [place], [place] [id number] Director: Augusto Lopez PhD, Phone: [phone] Serum or plasma anion gap de terminationOrdered By: Angle Logan on 09-04-2024 Anion gap [Moles/Vol] 12.6 mmol/L Normal 6.0-15.0 [facility] Comment on above: Performed By: #### B MP, MG, HEPATIC, CBC #### [facility] [address] Sodium [Moles/volume] in Ser um or PlasmaOrdered By: Angle Logan on 09-04-2024 Sodium [Moles/Vol] 133 mmol/L Low 136-145 [facility] Comment on above: Performed By: #### B MP, MG, HEPATIC, CBC #### [facility] [address] Specimen source identifiedOr dered By: Angle Logan on 09-04-2024 Specimen source Nom (Unsp spec) Urine Normal . [facility] Comment on above: Performed By: #### C OVID19 FLU RSV, CEPHEID NEG, UA #### [address] Strep Pneumoniae Ag, Uron Body Fluid Culture Not indicated. Normal . [facility] Comment on above: Performed By: #### C OVID19 FLU RSV, CEPHEID NEG, UA #### [address] Organism ID Not indicated. Normal . [facility] Comment on above: Performed By: #### C OVID19 FLU RSV, CEPHEID NEG, UA #### [address] Please Note: Comment Normal . [facility] Comment on above: Result Comment: Adriana [employer] standards require a culture to be performed on CSF specimens submitted for bacterial antigen testing. (CAP YOBANI.[id number]) Urine specimens will not be cultured. [employer] standards require a culture to be performed on CSF specimens submitted for bacterial antigen testing. (CAP YOBANI.97577) Urine specimens will not be cultured. Performed at: [address] [id number] Purchasing Assistant: Zully Aldrich MD, Phone: [phone] --- 09/06/24 6057 --- Please Note: previously reported as: Comment [employer] standards require a culture to be performed on CSF specimens submitted for bacterial antigen testing. (CAP YOBANI.[id number]) Urine specimens will not be cultured. PERFORMED BY: [place] [address] PATHOLOGIST SYSTEMS PROTECTION TECHNICIAN JAIMIE CAMPBELL M.D. Performed By: #### C OVID19 FLU RSV, CEPHEID NEG, UA #### [facility] [address] [place] [address] Streptococcus Pneumoniae Ag Negative Normal Negative [facility] Comment on above: Performed By: #### C OVID19 FLU RSV, CEPHEID NEG, UA #### [facility] [address] [place] [address] Streptococcus pneumoniae ant igen detectionOrdered By: Angle Logan on 09-04-2024 S. pneumoniae Ag Ql (Unsp spec) Negative Negative [facility] US venous duplex LE BIon US venous duplex LE BI [facility] [place] [address] [place] [address] Ultrasound Report Signed Patient: Cha Elena MR#: [id number] : 1950 Acct:[id number] Age/Sex: 73 / M ADM Date: 09/03/24 Loc: Room: [address] [place] [address] Type: ADM IN Attending Dr: Angle Logan DO Ordering Provider: Angle Logan DO Date of Service: 09/03/24 US/US venous duplex LE BI: lower extremity edema Copies to: Angle Logan DO BILATERAL LOWER EXTREMITY VENOUS DUPLEX INDICATION: Bilateral lower extremity edema. PROCEDURE: Color-flow duplex scanning is used to interrogate the deep venous system of the right and left lower extremities. The common femoral vein, femoral vein and popliteal vein show good compressibility with normal proximal and distal augmentation. The calf veins are compressible. US/US venous duplex LE BI IMPRESSION: NO EVIDENCE FOR DEEP VEIN THROMBOSIS OR PROXIMAL SUPERFICIAL THROMBOPHLEBITIS IN THE RIGHT OR LEFT LOWER EXTREMITY. Impression dictated by: Jim Dominguez MD09/04/2024 8:59 AM Dictation Location: [place] [address] Tech: Dolores Chong Transcribed By: BETH 09/04/24858 Dictated By: Jim Dominguez MD 09/04/24857 Signed By: 09/04/24858 Normal [facility] Urea nitrogen [Mass/volume] in Serum or PlasmaOrdered By: Angle Logan on 09-04-2024 Urea nitrogen [Mass/Vol] 15 mg/dL Normal 06-18 [facility] Comment on above: Performed By: #### B MP, MG, HEPATIC, CBC #### [facility] [address] [place] [address] Urine Legionella antigen det ectionOrdered By: Angle Logan on 09-04-2024 Legionella sp Ag Ql (U) Negative Negative [facility] Comment on above: Presumptive negative for L. pneumophila serogroup 1 antigenin urine, suggesting no recent or current infection.Legionnaires' disease cannot be ruled out since otherserogroups and species may also cause disease.Performed at: - [facility] [id number] Director: Zully Aldrich MD, Phone: [phone] JESSICA with Reflexon 09-03-2024 JESSICA with Reflex Negative Normal Negative [facility] Comment on above: Order Comment: Comme nt ADD ON to ER labs Result Comment: Perf ormed at: - [facility] [id number] Purchasing Assistant: Augusto Lopez PhD, Phone: [phone] Performed By: #### B MP, MG, HEPATIC, CBC #### [facility] [address] [place] [address] [place] Alanine aminotransferase [En zymatic activity/volume] in Serum or PlasmaOrdered By: Angle Logan on 09-03-2024 ALT [Catalytic activity/Vol] 64 U/L High [facility] Comment on above: Performed By: #### B MP, MG, HEPATIC, CBC #### [facility] [address] [place] [id number] [place] Alanine aminotransferase [En zymatic activity/volume] in Serum or PlasmaOrdered By: Aga Broussardimore on 09-03-2024 ALT [Catalytic activity/Vol] 71 U/L High 7-52 [facility] Comment on above: Performed By: #### I SCRE #### [facility] [address] [place] [address] [place] Albumin [Mass/volume] in Ser um or Plasma by Bromocresol green (BCG) dye binding methoOrdered By: Angle Logan on 09-03-2024 Albumin BCG dye [Mass/Vol] 3.6 g/dL 3.5-5.7 [facility] Albumin [Mass/volume] in Ser um or Plasma by Bromocresol green (BCG) dye binding methoOrdered By: Aga Nguyễn on 09-03-2024 Albumin BCG dye [Mass/Vol] 3.7 g/dL 3.5-5.7 [facility] Alkaline phosphatase [Enzyma tic activity/volume] in Serum or PlasmaOrdered By: Angle Logan on 09-03-2024 ALP [Catalytic activity/Vol] 121 U/L High 34-104 [facility] Comment on above: Performed By: #### B MP, MG, HEPATIC, CBC #### [facility] [address] [place] [address] Alkaline phosphatase [Enzyma tic activity/volume] in Serum or PlasmaOrdered By: Aga Nguyễn on 09-03-2024 ALP [Catalytic activity/Vol] 134 U/L High 34-104 [facility] Comment on above: Performed By: #### I SCRE #### [facility] [address] [place] [address] Anti-Streptolysin O Antibody on 09-03-2024 Anti-Streptolysin O Antibody 43.9 Normal 0.0-200.0 [facility] Comment on above: Order Comment: Comme nt ADD ON to ER labs Result Comment: Perf ormed at: CB - [facility] [address] [id number] Purchasing Assistant: Augusto Lopez PhD, Phone: [phone] PERFORMED BY: [place] [address] PATHOLOGIST SYSTEMS PROTECTION TECHNICIAN JAIMIE CAMPBELL M.D. Performed By: #### B MP, MG, HEPATIC, CBC #### [address] Aspartate aminotransferase [ Enzymatic activity/volume] in Serum or PlasmaOrdered By: Angle Logan on 09-03-2024 AST [Catalytic activity/Vol] 42 U/L [address] Comment on above: Performed By: #### B MP, MG, HEPATIC, CBC #### [address] Aspartate aminotransferase [ Enzymatic activity/volume] in Serum or PlasmaOrdered By: Aga Bullimore on 09-03-2024 AST [Catalytic activity/Vol] 53 U/L [address] Comment on above: Performed By: #### I SCRE #### [address] Automated basophil %Ordered By: Aga Bullimore on 09-03-2024 Basophils/100 WBC (Bld) 0.6 % Normal . [facility] Comment on above: Performed By: #### I SCRE #### [address] Automated basophil countOrde red By: Aga Bullimore on 09-03-2024 Basophils (Bld) [#/Vol] 0.1 10*3/uL Normal 0.0-0.2 [facility] Comment on above: Result Comment: PERF ORMED BY: [place] [address] PATHOLOGIST SYSTEMS PROTECTION TECHNICIAN JAIMIE CAMPBELL M.D. Performed By: #### I SCRE #### [address] Automated blood monocyte cou ntOrdered By: Aga Bullimore on 09-03-2024 Monocytes (Bld) [#/Vol] 0.6 10*3/uL Normal 0.0-0.8 [facility] Comment on above: Performed By: #### I SCRE #### [place] [id number] [place] Automated eosinophil %Ordere d By: Aga Bullimore on 09-03-2024 Eosinophils/100 WBC (Bld) 1.1 % Normal . [facility] Comment on above: Performed By: #### I SCRE #### [address] Automated eosinophil countOr dered By: Aga Bullimore on 09-03-2024 Eosinophils (Bld) [#/Vol] 0.1 10*3/uL Normal 0.0-0.45 [facility] Comment on above: Performed By: #### I SCRE #### [address] Automated monocyte %Ordered By: Aga Bullimore on 09-03-2024 Monocytes/100 WBC (Bld) 6.3 % Normal . [facility] Comment on above: Performed By: #### I SCRE #### [address] Automated neutrophil %Ordere d By: Aga Bullimore on 09-03-2024 Neutrophils/100 WBC (Bld) 80.8 % Normal . [facility] Comment on above: Performed By: #### I SCRE #### [address] BNP ser/plasOrdered By: Ging er Bullimore on 09-03-2024 Natriuretic peptide B (Bld) [Mass/Vol] 500.0 pg/mL High 5-100 [facility] Comment on above: Result Comment: PERF ORMED BY: [place] [address] PATHOLOGIST SYSTEMS PROTECTION TECHNICIAN JAIMIE CAMPBELL M.D. Performed By: #### B MP, MG, HEPATIC, CBC #### [address] Basic Metabolic Panelon 08-25 Anion gap [Moles/Vol] 12.3 mmol/L Normal 6.0-15.0 [facility] Comment on above: Performed By: #### B MP, MG, HEPATIC, CBC #### [facility] [address] [place] [address] [place] Calcium [Mass/Vol] 8.6 mg/dL Normal 8.6-10.3 [facility] Comment on above: Performed By: #### B MP, MG, HEPATIC, CBC #### [facility] [address] [place] [address] [place] Chloride [Moles/Vol] 99 mmol/L Normal 98-107 [facility] Comment on above: Performed By: #### B MP, MG, HEPATIC, CBC #### [facility] [address] [place] [address] [place] CO2 [Moles/Vol] 28.4 mmol/L Normal 21.0-31.0 [facility] Comment on above: Performed By: #### B MP, MG, HEPATIC, CBC #### [place] [address] [place] Creatinine [Mass/Vol] 0.65 mg/dL Low 0.70-1.30 [facility] Comment on above: Performed By: #### B MP, MG, HEPATIC, CBC #### [facility] [address] [place] [address] [place] Creatinine Clr Calc Pharmacy 101.88 Normal [facility] Comment on above: Performed By: #### B MP, MG, HEPATIC, CBC #### [place] [address] [place] GFR/1.73 sq M.predicted MDRD (S/P/Bld) [Vol rate/Area] mL/min/{1.73_m2} Normal [facility] Comment on above: Performed By: #### B MP, MG, HEPATIC, CBC #### [facility] [address] [place] [address] [place] Glucose [Mass/Vol] 106 mg/dL High 70-100 [facility] Comment on above: Result Comment: [place] Glucose Reference Range is dependent on time and content of last meal. Glucose of more than 200 mg/dL in a nonstressed, ambulatory subject supports the diagnosis of Diabetes Mellitus. ADA recommended reference range Performed By: #### B MP, MG, HEPATIC, CBC #### [facility] [address] Potassium [Moles/Vol] 3.7 mmol/L Normal 3.5-5.1 [facility] Comment on above: Performed By: #### B MP, MG, HEPATIC, CBC #### [facility] [address] Sodium [Moles/Vol] 136 mmol/L Normal 136-145 [facility] Comment on above: Performed By: #### B MP, MG, HEPATIC, CBC #### [facility] [address] Urea nitrogen [Mass/Vol] 9 mg/dL Normal 7-25 [facility] Comment on above: Performed By: #### B MP, MG, HEPATIC, CBC #### [facility] [address] Bilirubin Test strip Ql (U)O rdered By: Aga Nguyễn on 09-03-2024 Bilirubin Ql (U) Negative Negative [facility] Bilirubin.direct [Mass/volum e] in Serum or PlasmaOrdered By: Angle Logan on 09-03-2024 Bilirubin.direct [Mass/Vol] 0.20 mg/dL High 0.03-0.18 [facility] Bilirubin.total [Mass/volume ] in Serum or PlasmaOrdered By: Angle Logan on 09-03-2024 Bilirubin [Mass/Vol] 0.7 mg/dL Normal 0.3-1.0 [facility] Comment on above: Performed By: #### B MP, MG, HEPATIC, CBC #### [facility] [address] Bilirubin.total [Mass/volume ] in Serum or PlasmaOrdered By: Aga Nguyễn on 09-03-2024 Bilirubin [Mass/Vol] 0.7 mg/dL Normal 0.3-1.0 [facility] Comment on above: Performed By: #### I SCRE #### [address] BioFire Not Detectedon 09-03 BioFire Not Detected Not detected Normal Not Detecte [facility] Comment on above: Result Comment: This is a duplicate RP2.1 COVID (PCR) result to be used for statistical tracking purpose only. PERFORMED BY: [facility] [address] [place] [address] PATHOLOGIST SYSTEMS PROTECTION TECHNICIAN JAIMIE CAMPBELL M.D. Performed By: #### B MP, MG, HEPATIC, CBC #### [facility] [address] Borrelia burgdorferi Ab [Int erpretation] in SerumOrdered By: Angle Logan on 09-03-2024 B. burgdorferi Ab (S) [Interp] N/A [facility] Borrelia burgdorferi IgG Ab [Presence] in Serum or Plasma by ImmunoassayOrdered By: Angle Logan on 09-03-2024 B. burgdorferi IgG IA Ql N/A [facility] Borrelia burgdorferi IgG+IgM Ab [Presence] in Serum by ImmunoassayOrdered By: Angle Logan on 09-03-2024 B. burgdorferi IgG+IgM IA Ql (S) Negative Negative [facility] Comment on above: Lyme antibodies not detected. Reflex testing is notindicated.No laboratory evidence of infection with B. burgdorferi(Lyme disease). Negative results may occur in patientsrecently infected (less than or equal to 14 days) with B.burgdorferi. If recent infection is suspected, repeattesting on a new sample collected in 7 to 14 days isrecommended.Performed at: - [facility] [id number] Director: Augusto Lopez PhD, Phone: [phone] Borrelia burgdorferi IgM Ab [Presence] in Serum or Plasma by ImmunoassayOrdered By: Angle Logan on 09-03-2024 B. burgdorferi IgM IA Ql N/A [facility] C reactive protein [Mass/vol ume] in Serum or PlasmaOrdered By: Aga Nguyễn on 09-03-2024 CRP [Mass/Vol] 18.7 mg/dL High 0.0-0.5 [facility] C-Reactive Proteinon 024 C-Reactive Protein 18.7 mg/dL High 0.0-0.5 [facility] Comment on above: Result Comment: PERF ORMED BY: [facility] [address] [place] [address] PATHOLOGIST SYSTEMS PROTECTION TECHNICIAN JAIMIE CAMPBELL M.D. Performed By: #### C OVID19 FLU RSV, CEPHEID NEG, UA #### [facility] [address] COVID CepheidOrdered By: Marcelina Nguyễn on 09-03-2024 SARS-CoV-2 (COVID-19) Ab IA Ql Negative Negative [facility] Comment on above: This is a duplicate Cepheid Xpert Xpress CoV-2/Flu/RSV Plus RNA by RT-PCR result to be used for statistical tracking purpose only. SARS-CoV-2 (COVID-19) RNA SUMAN+probe Ql (Unsp spec) [facility] COVID-19 / Flu A/B / RSV PCR on 09-03-2024 SARS-CoV-2 (COVID-19) RNA SUMAN+probe Ql (Unsp spec) COVID-19 Cepheid Result Negative for SARS-CoV-2 RNA by RT-PCR Flu A Cepheid Result Negative for Flu A RNA by RT-PCR Flu B Cepheid Result Negative for Flu B RNA by RT-PCR RSV Cepheid Result Negative for RSV RNA by RT-PCR COVID19 Blank Space -- Reference: Negative COVID19 Blank Space -- Cepheid Disclaimer The Cepheid Xpert Xpress CoV-2/Flu/RSV Plus has Cepheid Disclaimer not been FDA cleared or approved; this test has Cepheid Disclaimer been authorized by FDA under an EUA for use by Cepheid Disclaimer authorized laboratories; this test has been Cepheid Disclaimer authorized only for the simultaneous qualitative Cepheid Disclaimer detection and differentiation of nucleic acids from Cepheid Disclaimer SARS-CoV-2, influenza A, influenza B, and Cepheid Disclaimer respiratory syncytial virus (RSV), and not for any Cepheid Disclaimer other viruses or pathogens; and this test is only Cepheid Disclaimer authorized for the duration of the declaration that Cepheid Disclaimer circumstances exist justifying the authorization of Cepheid Disclaimer emergency use of in vitro diagnostic tests for Cepheid Disclaimer detection and/or diagnosis of COVID-19 under Cepheid Disclaimer Section 564(b)(1) of the Act, 21 U.S.C. 360bbb- Cepheid Disclaimer 3(b)(1), unless the authorization is terminated or Cepheid Disclaimer revoked sooner. PERFORMED BY: [place] [address] PATHOLOGIST SYSTEMS PROTECTION TECHNICIAN JAIMIE CAMPBELL M.D. Normal [facility] Comment on above: Performed By: #### C OVID19 FLU RSV, CEPHEID NEG, UA #### [address] COVID-19 Detected/Not Detect edOrdered By: Angle Logan on 09-03-2024 SARS-CoV-2 (COVID-19) RNA SUMAN+non-probe Ql (Nph) Not detected Not Detecte [facility] Comment on above: This is a duplicate RP2.1 COVID (PCR) result to be used for statistical tracking purpose only. CT abdomen pelvis w conon CT abdomen pelvis w [facility] [place] [address] [place] [address] CT Scan Report Signed Patient: Cha Elena MR#: [id number] : 1950 Acct:[id number] Age/Sex: 73 / M ADM Date: 09/03/24 Loc: ER Room: Type: [facility] ER Attending Dr: Copies to: VALERI Morrison Ordering Provider: VALERI Morrison Date of Service: 09/03/24 CT/CT angio chest PE protocol: elev dimer weakness ([id number]) CT/CT abdomen pelvis w con: low sodium low K weakness CTA Chest with PE protocol TECHNIQUE: Axial imaging with 2-D and 3-D reconstruction. 90cc of Isovue-[address] exam was performed using one or more the following dose reduction techniques: Automated exposure control, adjustment of the MA and/or Kv according to patient size, or use of the iterative reconstruction technique. History: Elevated d-dimer. Low sodium and potassium. Leg cramps. Nausea COMPARISON: None THYROID: Unremarkable TRACHEA AND BRONCHI: Patent ESOPHAGUS: Unremarkable. HEART: Within normal limits PERICARDIAL EFFUSION: None CORONARY ARTERY CALCIFICATION: None MEDIASTINUM: Multiple small mediastinal lymph nodes. PULMONARY TARA: Mildly prominent bilateral hilar lymph nodes. THORACIC AORTA Unremarkable PULMONARY EMBOLUS: None LUNG NODULE noncalcified 4 mm solid nodule of the right middle lobe. 2 mm nodular density of the right middle lobe. LUNGS: Lungs are clear 5 mm lateral right basilar calcified granuloma. PLEURAL EFFUSION: None PNEUMOTHORAX: No pneumothorax seen. CHEST WALL: No abnormality AXILLA: Unremarkable BONY STRUCTURES Intact UPPER ABDOMEN: Images of the upper abdomen are noncontributory. CT/CT angio chest PE protocol IMPRESSION: No acute pulmonary embolus. Small right middle lobe lung nodules. Consider elective short-term follow-up assessment. Remote granulomatous changes. Small mediastinal and mildly prominent hilar lymph nodes. CT Abdomen and Pelvis withcontrast TECHNIQUE: Axial imaging with 2-D reconstruction. . The CT exam was performed using one or more the following dose reduction techniques: Automated exposure control, adjustment of the MA and/or Kv according to patient size, or use of the iterative reconstruction technique. COMPARISON: None LIMITATIONS: None LOWER THORAX coronary artery calcification. Calcified right hilar lymph nodes. Calcified mediastinal lymph nodes. LIVER: Mild hepatic steatosis. GALLBLADDER: Cholecystectomy clips identified. BILE DUCTS: No dilatation SPLEEN: Unremarkable PANCREAS: Unremarkable ADRENAL GLANDS: Unremarkable KIDNEYS:Unremarkable AORTA: No abdominal aortic aneurysm identified. RETROPERITONEUM: No significant retroperitoneal abnormalities identified. MESENTERY:Reticular densities of the central portion of mesenteric small lymph nodes. SMALL BOWEL: The small bowel loops are nondistended. Bowel resection changes. APPENDIX: The appendix is normal. COLON: Unremarkable URINARY BLADDER: Urinary bladder is unremarkable. REPRODUCTIVE SYSTEM: Reproductive structures are unremarkable. PNEUMOPERITONEUM: None PERITONEAL FLUID:None BONY STRUCTURES: Degenerative change ABDOMINAL WALL: Unremarkable anterior midline incision. IMPRESSION: No bowel obstruction. Central mesenteric stranding and adenopathy. May represent panniculitis. Otherwise, no acute abdominal or pelvic findings. Impression dictated by: Bhupendra Moe M.D.09/03/2024 12:44 PM Dictation Location: RADIO-PC-12 Transcribed By: BETH 09/03/24 1244 Dictated By: Bhupendra Moe DO 09/03/24 1234 Signed By: 09/03/24 1244 Normal [facility] CT head/brain wo conon 09-03 CT head/brain wo con [facility] [place] [address] [place] [address] CT Scan Report Signed Patient: Cha Elena MR#: [id number] : 1950 Acct:[id number] Age/Sex: 73 / M ADM Date: 09/03/24 Loc: ER Room: Type: [facility] ER Attending Dr: Copies to: VALERI Morrison Ordering Provider: VALERI Morrison Date of Service: 09/03/24 CT/CT head/brain wo con: neurological sxs Unenhanced head CT TECHNIQUE: Contiguous axial imaging of the head. The CT exam was performed using one or more the following dose reduction techniques: Automated exposure control, adjustment of the MA and/or Kv according to patient size, or use of the iterative reconstruction technique. COMPARISON: None HISTORY: Low potassium and sodium. Leg cramps. Nausea. VENTRICLES: Within normal limits ATROPHY: None BRAIN PARENCHYMA: Adequate chandler-white matter differentiation identified. HEMORRHAGE: None HERNIATION: No mass effect or herniation INFARCTION: No recent vascular distribution infarction is seen. EXTRA-AXIAL FLUID COLLECTIONS None MIDBRAIN: Unremarkable JACE: Unremarkable MEDULLA: Unremarkable SINUSES: Unremarkable ORBITS: Grossly unremarkable MASTOIDS: Unremarkable BONY STRUCTURES Intact ADDITIONAL FINDINGS: CT/CT head/brain wo con IMPRESSION: No acute findings. Impression dictated by: Bhupendra Moe M.D.09/03/2024 12:34 PM Dictation Location: RADIO-PC-12 Transcribed By: BETH 09/03/24 1234 Dictated By: Bhupendra Moe DO 09/03/24 1233 Signed By: 10/10/24 1234 Normal [facility] Calcium [Mass/volume] in Ser um or PlasmaOrdered By: Aga Hardinore on 09-03-2024 Calcium [Mass/Vol] 8.9 mg/dL Normal 8.6-10.3 [facility] Comment on above: Performed By: #### I SCRE #### [address] Carbon dioxide, total [Moles /volume] in Serum or PlasmaOrdered By: Aga Broussardimore on 09-03-2024 CO2 [Moles/Vol] 27.6 mmol/L Normal 21.0-31.0 [facility] Comment on above: Performed By: #### I SCRE #### [address] Cepheid COVID PCR Negativeon 09-03-2024 SARS-CoV-2 (COVID-19) RNA SUMAN+probe Ql (Unsp spec) Negative Normal Negative [facility] Comment on above: Result Comment: This is a duplicate Cepheid Xpert Xpress CoV-2/Flu/RSV Plus RNA by RT-PCR result to be used for statistical tracking purpose only. PERFORMED BY: [place] [address] PATHOLOGIST SYSTEMS PROTECTION TECHNICIAN JAIMIE CAMPBELL M.D. Performed By: #### C OVID19 FLU RSV, CEPHEID NEG, UA #### [place] [address] [place] Chloride [Moles/volume] in S jen or PlasmaOrdered By: Aga Nguyễn on 09-03-2024 Chloride [Moles/Vol] 97 mmol/L Low 98-107 [facility] Comment on above: Performed By: #### I SCRE #### [place] [address] [place] Color of Urine by AutoOrdere d By: Aga Nguyễn on 09-03-2024 Color (U) Colorless Normal Yellow [facility] Comment on above: Order Comment: Name Collection Type:: Clean-Voided Midstream Performed By: #### C OVID19 FLU RSV, CEPHEID NEG, UA #### [address] Complete Blood Count Auto Di ffon 09-03-2024 Basophils (Bld) [#/Vol] 0.1 10*3/uL Normal 0.0-0.2 [facility] Comment on above: Result Comment: PERF ORMED BY: [place] [address] PATHOLOGIST SYSTEMS PROTECTION TECHNICIAN JAIMIE CAMPBELL M.D. Performed By: #### B MP, MG, HEPATIC, CBC #### [address] Basophils/100 WBC (Bld) 0.8 % Normal . [facility] Comment on above: Performed By: #### B MP, MG, HEPATIC, CBC #### [address] Eosinophils (Bld) [#/Vol] 0.2 10*3/uL Normal 0.0-0.45 [facility] Comment on above: Performed By: #### B MP, MG, HEPATIC, CBC #### [address] Eosinophils/100 WBC (Bld) 1.9 % Normal . [facility] Comment on above: Performed By: #### B MP, MG, HEPATIC, CBC #### [address] Erythrocyte distribution width (RBC) [Ratio] 13.2 % Normal 12.0-14.8 [facility] Comment on above: Performed By: #### B MP, MG, HEPATIC, CBC #### [address] Hematocrit (Bld) [Volume fraction] 37.6 % Low 38.8-50.0 [facility] Comment on above: Performed By: #### B MP, MG, HEPATIC, CBC #### [address] Hemoglobin (Bld) [Mass/Vol] 13.2 g/dL Normal 13.0-17.0 [facility] Comment on above: Performed By: #### B MP, MG, HEPATIC, CBC #### [address] Lymphocytes (Bld) [#/Vol] 1.3 10*3/uL Normal 1.00-4.8 [facility] Comment on above: Performed By: #### B MP, MG, HEPATIC, CBC #### [address] Lymphocytes/100 WBC (Bld) 16.1 % Normal . [facility] Comment on above: Performed By: #### B MP, MG, HEPATIC, CBC #### [address] MCH (RBC) [Entitic mass] 31.1 pg Normal 27.5-35.2 [facility] Comment on above: Performed By: #### B MP, MG, HEPATIC, CBC #### [address] MCV (RBC) [Entitic vol] 89.0 fL Normal 83.5-101 [facility] Comment on above: Performed By: #### B MP, MG, HEPATIC, CBC #### [address] Mean Corpuscular HGB Conc 35.0 g/dL Normal 32.5-35.6 [facility] Comment on above: Performed By: #### B MP, MG, HEPATIC, CBC #### [address] Monocytes (Bld) [#/Vol] 0.6 10*3/uL Normal 0.0-0.8 [facility] Comment on above: Performed By: #### B MP, MG, HEPATIC, CBC #### [address] Monocytes/100 WBC (Bld) 29.92 % High 0.00-20.00 [facility] Comment on above: Result Comment: For adults in ED, MDW > 20.0 may be associated with a higher risk of sepsis during the first 12 hrs of hospital admission Performed By: #### B MP, MG, HEPATIC, CBC #### [facility] [address] [place] [address] [place] Monocytes/100 WBC (Bld) 7.1 % Normal . [facility] Comment on above: Performed By: #### B MP, MG, HEPATIC, CBC #### [facility] [address] Neutrophils (Bld) [#/Vol] 5.8 10*3/uL Normal 1.8-7.7 [facility] Comment on above: Performed By: #### B MP, MG, HEPATIC, CBC #### [facility] [address] [place] [address] [place] Neutrophils/100 WBC (Bld) 74.1 % Normal . [facility] Comment on above: Performed By: #### B MP, MG, HEPATIC, CBC #### [facility] [address] [place] [address] [place] NRBC% 0.3 /100{WBC} Normal 0-0.5 [facility] Comment on above: Performed By: #### B MP, MG, HEPATIC, CBC #### [facility] [address] [place] [address] [place] Platelet mean volume (Bld) [Entitic vol] 7.7 fL Normal 6.6-10.1 [facility] Comment on above: Performed By: #### B MP, MG, HEPATIC, CBC #### [facility] [address] [place] [address] [place] Platelets (Bld) [#/Vol] 278 10*3/uL Normal 150-450 [facility] Comment on above: Performed By: #### B MP, MG, HEPATIC, CBC #### [facility] [address] [place] [address] [place] RBC (Bld) [#/Vol] 4.23 10*6/uL Normal 3.90-5.60 [facility] Comment on above: Performed By: #### B MP, MG, HEPATIC, CBC #### [facility] [address] [place] [address] [place] WBC (Bld) [#/Vol] 7.9 10*3/uL Normal 4.1-10.5 [facility] Comment on above: Performed By: #### B MP, MG, HEPATIC, CBC #### [address] Mean Corpuscular HGB Conc 35.0 g/dL Normal 32.5-35.6 [facility] Comment on above: Performed By: #### I SCRE #### [address] Monocytes/100 WBC (Bld) 31.33 % High 0.00-20.00 [facility] Comment on above: Result Comment: For adults in ED, MDW > 20.0 may be associated with a higher risk of sepsis during the first 12 hrs of hospital admission Performed By: #### I SCRE #### [address] NRBC% 0.3 /100{WBC} Normal 0-0.5 [facility] Comment on above: Performed By: #### I SCRE #### [address] Comprehensive Metabolic Pane carlos 09-03-2024 Albumin [Mass/Vol] 3.7 g/dL Normal 3.5-5.7 [facility] Comment on above: Performed By: #### I SCRE #### [address] Creatinine Clr Calc Pharmacy 101.88 Normal [facility] Comment on above: Result Comment: PERF ORMED BY: [place] [address] PATHOLOGIST SYSTEMS PROTECTION TECHNICIAN JAIMIE CAMPBELL M.D. Performed By: #### I SCRE #### [address] GFR/1.73 sq M.predicted MDRD (S/P/Bld) [Vol rate/Area] mL/min/{1.73_m2} Normal [facility] Comment on above: Performed By: #### I SCRE #### [address] Creatinine [Mass/volume] in Serum or PlasmaOrdered By: Aga Nguyễn on 09-03-2024 Creatinine [Mass/Vol] 0.71 mg/dL Normal 0.70-1.30 [facility] Comment on above: Performed By: #### I SCRE #### [address] D-Dimer High Sensitivityon 1 D-Dimer High Sensitivity 326 ng/mL High 0-243 [facility] Comment on above: Result Comment: The reference range for D-dimer is <243 ng/mL D-dimer units. D-dimer results must be used in conjunction with a clinical pretest probability (PTP) assessment model for deep vein thrombosis (DVT) and pulmonary embolism (PE). Results <230 ng/mL d-dimer units can be used as a negative predictor in patients with low or moderate probability for DVT/PE. Results above the exclusion threshold of 230 ng/ml D-dimer units for DVT/PE may indicate the need for further diagnostic testing. D-Dimer can be increased in hospitalized patients due to co-morbid conditions. A hematocrit value greater than 55% may lead to inaccurate results in coagulation testing. Patients having hematocrit values >55% require a special collection tube for coagulation studies. Please contact the laboratory at [phone] for redraw instructions. PERFORMED BY: [place] [address] PATHOLOGIST SYSTEMS PROTECTION TECHNICIAN JAIMIE CAMPBELL M.D. Performed By: #### I SCRE #### [address] ECG 12 lead ECGon 09-03-2024 ECG 12 lead ECG [facility] [place] [address] [place] [address] Electrocardiograph Report Signed Patient: Cha Elena MR#: [id number] : 1950 Acct:[id number] Age/Sex: 73 / M ADM Date: 09/03/24 Loc: Room: [address] [place] [address] Type: ADM IN Attending Dr: Angle Logan DO Ordering Provider: Tameka Armijo MD Date of Service: 09/03/2409/17/1258 ECG/ECG 12 lead ECG: Recheck/Abnormal Lab/Rx Copies to: Test Reason : Blood Pressure : 104/62 mmHG Vent. Rate : 75 BPM Atrial Rate : 75 BPM P-R Int : 216 ms QRS Dur : 160 ms QT Int : 436 ms P-R-T Axes : 63 198 20 degrees QTcB Int : 486 ms Sinus rhythm with 1st degree AV block Nonspecific intraventricular block Nonspecific ST abnormality Abnormal ECG No previous ECGs available Confirmed by Tameka Armijo MD ([id number]) on 09/04/2024 6:08:12 AM Referred By: Electronically Signed By: Tameka Armijo MD Transcribed By: MUS Signed By Tameka Armijo MD 08/25 12/18 0608 Normal [facility] Erythrocyte Sedimentation Ra asa 09-03-2024 ESR (Bld) [Velocity] 57 mm/h High 0-19 [facility] Comment on above: Result Comment: PERF ORMED BY: [place] [address] PATHOLOGIST SYSTEMS PROTECTION TECHNICIAN JAIMIE CAMPBELL M.D. Performed By: #### C OVID19 FLU RSV, CEPHEID NEG, UA #### [facility] [address] [place] [address] Erythrocyte distribution wid th [Ratio] by Automated countOrdered By: Aga Nguyễn on 09-03-2024 Erythrocyte distribution width (RBC) [Ratio] 13.1 % Normal 12.0-14.8 [facility] Comment on above: Performed By: #### I SCRE #### [facility] [address] [place] [address] Erythrocyte sedimentation ra te by Photometric methodOrdered By: Aga Bullimore on 09-03-2024 ESR Photometric method (Bld) [Velocity] 57 mm/hr High 0-19 [facility] Erythrocytes [#/volume] in B lood by Automated countOrdered By: Aga Bullimore on 09-03-2024 RBC (Bld) [#/Vol] 4.29 10*6/uL Normal 3.90-5.60 [facility] Comment on above: Performed By: #### I SCRE #### [facility] [address] [place] [id number] [place] Ethanol [Mass/volume] in Ser um or PlasmaOrdered By: Aga Nguyễn on 09-03-2024 Ethanol [Mass/Vol] mg/dL Normal [facility] Comment on above: Performed By: #### I SCRE #### [facility] [address] Ethanol [Mass/Vol] TNP [facility] Comment on above: Test not performed Ethyl Alcohol Profileon 08-25 Percent Ethanol Not performed Normal [facility] Comment on above: Result Comment: PERF ORMED BY: [place] [address] PATHOLOGIST SYSTEMS PROTECTION TECHNICIAN JAIMIE CAMPBELL M.D. Performed By: #### I SCRE #### [facility] [address] [place], [place] [id number] [facility] Fibrin D-dimer [Presence] in Platelet poor plasma by Latex agglutinationOrdered By: Aga Nguyễn on 09-03-2024 Fibrin D-dimer LA Ql (PPP) 326 ng/mL High 0-243 [facility] Comment on above: The reference range for D-dimer is <243 ng/mL D-dimer units.D-dimer results must be used in conjunction with a clinicalpretest probability (PTP) assessment model for deep veinthrombosis (DVT) and pulmonary embolism (PE). Results <230ng/mL d-dimer units can be used as a negative predictor inpatients with low or moderate probability for DVT/PE.Results above the exclusion threshold of 230 ng/ml D-dimerunits for DVT/PE may indicate the need for furtherdiagnostic testing.D-Dimer can be increased in hospitalized patients due toco-morbid conditions.A hematocrit value greater than 55% may lead to inaccurate results in coagulation testing. Patients having hematocrit values >55% require a special collection tube for coagulation studies. Please contact the laboratory at [phone] for redraw instructions. Glucose [Mass/volume] in Ser um or PlasmaOrdered By: Aga Hardinore on 09-03-2024 Glucose [Mass/Vol] 123 mg/dL High 70-100 [facility] Comment on above: ADA recommended refe rence rangeRandom Glucose Reference Range is dependent on time and content of last meal. Glucose of more than 200 mg/dL in a nonstressed, ambulatory subject supports the diagnosis of Diabetes Mellitus. Result Comment: [place] om Glucose Reference Range is dependent on time and content of last meal. Glucose of more than 200 mg/dL in a nonstressed, ambulatory subject supports the diagnosis of Diabetes Mellitus. ADA recommended reference range Performed By: #### I SCRE #### [address] Glucose [Mass/volume] in Uri ne by Test stripOrdered By: Aga Nguyễn on 09-03-2024 Glucose Test strip (U) [Mass/Vol] Normal mg/dL Normal [facility] Hematocrit [Volume Fraction] of Blood by Automated countOrdered By: Aga Nguyễn on 09-03-2024 Hematocrit (Bld) [Volume fraction] 38.3 % Low 38.8-50.0 [facility] Comment on above: Performed By: #### I SCRE #### [address] Hemoglobin Test strip Ql (U) Ordered By: Agaluz Broussardpiper on 09-03-2024 Hemoglobin Ql (U) Negative Negative [facility] Hemoglobin [Mass/volume] in BloodOrdered By: Aga Bullimpiper on 09-03-2024 Hemoglobin (Bld) [Mass/Vol] 13.4 g/dL Normal 13.0-17.0 [facility] Comment on above: Performed By: #### I SCRE #### [address] Hepatic Panelon 09-03-2024 Albumin [Mass/Vol] 3.6 g/dL Normal 3.5-5.7 [facility] Comment on above: Performed By: #### B MP, MG, HEPATIC, CBC #### [address] Bilirubin,Indirect 0.5 mg/dL Normal [facility] Comment on above: Performed By: #### B MP, MG, HEPATIC, CBC #### [place] [address] Bilirubin.indirect [Mass/Vol] 0.20 mg/dL High 0.03-0.18 [facility] Comment on above: Performed By: #### B MP, MG, HEPATIC, CBC #### [address] Ketones [Presence] in Urine by Test stripOrdered By: Aga Nguyễn on 09-03-2024 Ketones Ql (U) Negative Normal Negative [facility] Comment on above: Order Comment: Name Collection Type:: Clean-Voided Midstream Performed By: #### C OVID19 FLU RSV, CEPHEID NEG, UA #### [address] Leukocyte esterase [Presence ] in Urine by Test stripOrdered By: Aga Nguyễn on 09-03-2024 Leukocyte esterase Test strip Ql (U) Negative Normal Negative [facility] Comment on above: Order Comment: Name Collection Type:: Clean-Voided Midstream Performed By: #### C OVID19 FLU RSV, CEPHEID NEG, UA #### [address] Leukocytes [#/volume] correc indu for nucleated erythrocytes in Blood by Automated counOrdered By: Aga Nguyễn on 09-03-2024 WBC corrected for nucl RBC Auto (Bld) [#/Vol] 9.1 10*3/uL 4.1-10.5 [facility] Leukocytes [#/volume] in Blo od by Automated countOrdered By: Aga Nguyễn on 09-03-2024 WBC (Bld) [#/Vol] 9.1 10*3/uL Normal 4.1-10.5 [facility] Comment on above: Performed By: #### I SCRE #### [address] Lyme, Total Ab with Reflexon 09-03-2024 Lyme Total Antibody Negative Normal Negative [facility] Comment on above: Order Comment: Comme nt ADD ON to ER labs Result Comment: Lyme antibodies not detected. Reflex testing is not indicated. No laboratory evidence of infection with B. burgdorferi (Lyme disease). Negative results may occur in patients recently infected (less than or equal to 14 days) with B. burgdorferi. If recent infection is suspected, repeat testing on a new sample collected in 7 to 14 days is recommended. Performed at: - [facility] [id number] Purchasing Assistant: Augusto Lopez PhD, Phone: [phone] PERFORMED BY: [place] [address] PATHOLOGIST SYSTEMS PROTECTION TECHNICIAN JAIMIE CAMPBELL M.D. Performed By: #### C OVID19 FLU RSV, CEPHEID NEG, UA #### [place] [address] [place] Lymphocytes [#/volume] in Bl ood by Automated countOrdered By: Aga Nguyễn on 09-03-2024 Lymphocytes (Bld) [#/Vol] 1.0 10*3/uL Normal 1.00-4.8 [facility] Comment on above: Performed By: #### I SCRE #### [address] Lymphocytes/100 leukocytes i n Blood by Automated countOrdered By: Aga Broussardimpiper on 09-03-2024 Lymphocytes/100 WBC (Bld) 11.2 % Normal . [facility] Comment on above: Performed By: #### I SCRE #### [place] [address] [place] MCH [Entitic mass] by Automa indu countOrdered By: Aga Broussardimpiper on 09-03-2024 MCH (RBC) [Entitic mass] 31.2 pg Normal 27.5-35.2 [facility] Comment on above: Performed By: #### I SCRE #### [address] MCHC Auto (RBC) [Mass/Vol]Or dered By: Aga Broussardimore on 09-03-2024 MCHC (RBC) [Mass/Vol] 35.0 g/dL 32.5-35.6 [facility] MCV [Entitic volume] by Auto mated countOrdered By: Aga Nguyễn on 09-03-2024 MCV (RBC) [Entitic vol] 89.2 fL Normal 83.5-101 [facility] Comment on above: Performed By: #### I SCRE #### [facility] [address] [place] [address] Magnesiumon 09-03-2024 Magnesium [Mass/Vol] 2.0 mg/dL Normal 1.9-2.7 [facility] Comment on above: Result Comment: PERF ORMED BY: [place] [address] PATHOLOGIST SYSTEMS PROTECTION TECHNICIAN JAIMIE CAMPBELL M.D. Performed By: #### B MP, MG, HEPATIC, CBC #### [facility] [address] [place] [address] Magnesium [Mass/volume] in S jen or PlasmaOrdered By: Aga Broussardimore on 09-03-2024 Magnesium [Mass/Vol] 2.1 mg/dL Normal 1.9-2.7 [facility] Comment on above: Result Comment: PERF ORMED BY: [place] [address] PATHOLOGIST SYSTEMS PROTECTION TECHNICIAN JAIMIE CAMPBELL M.D. Performed By: #### B MP, MG, HEPATIC, CBC #### [address] Monocyte distribution width [Entitic volume] in Blood by AutomatedOrdered By: Angle Logan on 09-03-2024 Monocyte distribution width Auto (Bld) [Entitic vol] 29.92 % High 0.00-20.00 [facility] Comment on above: For adults in ED, MD W > 20.0 may be associated with a higher risk of sepsis during the first 12 hrs of hospital admission Monocyte distribution width [Entitic volume] in Blood by AutomatedOrdered By: Aga Nguyễn on 09-03-2024 Monocyte distribution width Auto (Bld) [Entitic vol] 31.33 % High 0.00-20.00 [facility] Comment on above: For adults in ED, MD W > 20.0 may be associated with a higher risk of sepsis during the first 12 hrs of hospital admission Neutrophils [#/volume] in Bl ood by Automated countOrdered By: Aga Nguyễn on 09-03-2024 Neutrophils (Bld) [#/Vol] 7.3 10*3/uL Normal 1.8-7.7 [facility] Comment on above: Performed By: #### I SCRE #### [address] Nitrite Test strip Ql (U)Ord ered By: Aga Nguyễn on 09-03-2024 Nitrite Ql (U) Negative Negative [facility] No Panel InformationOrdered By: Aga Nguyễn on 09-03-2024 Estimated GFR (CKD-EPI) > 60.0 mL/Min [facility] Creatinine Clearance (Chem 101.88 [facility] Nucleated erythrocytes [Pres ence] in Blood by Automated countOrdered By: Aga Nguyễn on 09-03-2024 Nucleated RBC Auto Ql (Bld) 0.3 /100{WBC} 0-0.5 [facility] Platelet mean volume [Entiti c volume] in Blood by Automated countOrdered By: Aga Nguễyn on 09-03-2024 Platelet mean volume (Bld) [Entitic vol] 8.0 fL Normal 6.6-10.1 [facility] Comment on above: Performed By: #### I SCRE #### [address] Platelets [#/volume] in Bloo d by Automated countOrdered By: Aga Nguyễn on 09-03-2024 Platelets (Bld) [#/Vol] 277 10*3/uL Normal 150-450 [facility] Comment on above: Performed By: #### I SCRE #### [address] Potassium [Moles/volume] in Serum or PlasmaOrdered By: Aga Nguyễn on 09-03-2024 Potassium [Moles/Vol] 3.7 mmol/L Normal 3.5-5.1 [facility] Comment on above: Performed By: #### I SCRE #### [place] [id number] [place] Protein Test strip (U) [Mass /Vol]Ordered By: Aga Nguyễn on 09-03-2024 Protein (U) [Mass/Vol] Negative Negative [facility] Protein [Mass/volume] in Ser um or PlasmaOrdered By: Angle Logan on 09-03-2024 Protein [Mass/Vol] 6.7 g/dL Normal 6.4-8.9 [facility] Comment on above: Performed By: #### B MP, MG, HEPATIC, CBC #### [facility] [address] Protein [Mass/volume] in Ser um or PlasmaOrdered By: Aga Broussardimpiper on 09-03-2024 Protein [Mass/Vol] 6.9 g/dL Normal 6.4-8.9 [facility] Comment on above: Performed By: #### I SCRE #### [facility] [address] [place] [address] Respiratory (Upper) Panel, P CRon 09-03-2024 Respiratory (Upper) Panel, PCR Adenovirus Not detected Bordetella parapertussis Not detected Chlamydia pneumoniae Not detected Coronavirus 229E Not detected Coronavirus HKU1 Not detected Coronavirus NL63 Not detected Coronavirus OC43 Not detected Influenza A Not detected Influenza B Not detected Human Metapneumovirus Not detected Mycoplasma pneumoniae Not detected Parainfluenza Virus 1 Not detected Parainfluenza Virus 2 Not detected Parainfluenza Virus 3 Not detected Parainfluenza Virus 4 Not detected Bordetella pertussis-ptxP Not detected Human Rhino/Enterovirus Detected Resp. Syncytial Virus Not detected COVID-19 Detected/Not Detected Not detected Blank Space -- FLUA TEST INCLUDES Influenza A tests for the following clinically FLUA TEST INCLUDES significant subtypes: FLUA TEST INCLUDES - Influenza A FLUA TEST INCLUDES - Influenza A H1 FLUA TEST INCLUDES - Influenza A H1 2009 FLUA TEST INCLUDES - Influenza A H3 Blank Space -- PERFORMED BY: [place] [address] PATHOLOGIST SYSTEMS PROTECTION TECHNICIAN JAIMIE CAMPBELL M.D. Normal [facility] Comment on above: Performed By: #### B MP, MG, HEPATIC, CBC #### [address] Respiratory pathogens DNA an d RNA panel - Nasopharynx by SUMAN with non-probe detectionOrdered By: Angle Logan on 09-03-2024 Respiratory pathogens DNA and RNA panel SUMAN+non-probe (Nph) [facility] Rheumatoid Factoron 09-03-20 24 Rheumatoid Factor 14.5 High <14.0 [facility] Comment on above: Order Comment: Comme nt ADD ON to ER labs Result Comment: Perf ormed at: CB - [facility] [place] [id number] Purchasing Assistant: Augusto Lopez PhD, Phone: [phone] Performed By: #### C OVID19 FLU RSV, CEPHEID NEG, UA #### [address] Serum globulin measurement b y calculation (mass/volume)Ordered By: Angle Logan on 09-03-2024 Globulin (S) [Mass/Vol] 3.1 g/dL [place] Comment on above: Performed By: #### B MP, MG, HEPATIC, CBC #### [address] Serum globulin measurement b y calculation (mass/volume)Ordered By: Aga Nguyễn on 09-03-2024 Globulin (S) [Mass/Vol] 3.2 g/dL [place] Comment on above: Performed By: #### I SCRE #### [address] Serum or plasma albumin/glob ulin mass ratioOrdered By: Angle Logan on 09-03-2024 Albumin/Globulin [Mass ratio] 1.2 {ratio} Normal [facility] Comment on above: Performed By: #### B MP, MG, HEPATIC, CBC #### [facility] [address] [place] [address] Serum or plasma albumin/glob ulin mass ratioOrdered By: Aga Bullimore on 09-03-2024 Albumin/Globulin [Mass ratio] 1.2 {ratio} Normal [facility] Comment on above: Performed By: #### I SCRE #### [facility] [address] [place] [address] Serum or plasma anion gap de terminationOrdered By: Aga Bullimore on 09-03-2024 Anion gap [Moles/Vol] 12.1 mmol/L Normal 6.0-15.0 [facility] Comment on above: Performed By: #### I SCRE #### [facility] [address] [place] [address] Serum or plasma free cefurox vikki measurement (mass/volume)Ordered By: Angle Logan on 09-03-2024 Cefuroxime free [Mass/Vol] Negative Negative [facility] Comment on above: Performed at: [facility] [id number] [place], [place] [id number] Director: Augusto oLpez PhD, Phone: [phone] Serum or plasma non-glucuron idated bilirubin measurement (mass/volume)Ordered By: Angle Logan on 09-03-2024 Bilirubin.indirect [Mass/Vol] 0.5 mg/dL [facility] Serum or plasma rheumatoid f actor measurement (units/volume)Ordered By: Angle Logan on 09-03-2024 Rheumatoid factor Qn 14.5 [IU]/mL High <14.0 [facility] Comment on above: Performed at: [facility] [place] [id number] Director: Augusto Lopez PhD, Phone: [phone] Sodium [Moles/volume] in Ser um or PlasmaOrdered By: Aga Bullimpiper on 09-03-2024 Sodium [Moles/Vol] 133 mmol/L Low 136-145 [facility] Comment on above: Performed By: #### I SCRE #### [address] Specific gravity Test strip (U) [Rel density]Ordered By: Aga Nguyễn on 09-03-2024 Specific gravity (U) [Rel density] 1.006 1.001-1.03 0 [facility] Streptolysin O Ab [Units/vol ume] in Serum or PlasmaOrdered By: Angle Logan on 09-03-2024 Streptolysin O Ab Qn 43.9 [IU]/mL 0.0-200.0 [facility] Comment on above: Performed at: [place] [id number] Director: Augusto Lopez PhD, Phone: [phone] Troponin I High Sensitivityo n 09-03-2024 Troponin I High Sensitivity 16.0 pg/mL Normal 0.0-20.0 [facility] Comment on above: Result Comment: PERF ORMED BY: [place] [address] PATHOLOGIST SYSTEMS PROTECTION TECHNICIAN JAIMIE CAMPBELL M.D. Performed By: #### C OVID19 FLU RSV, CEPHEID NEG, UA #### [facility] [address] [place] [address] Troponin I High Sensitivity 15.4 pg/mL Normal 0.0-20.0 [facility] Comment on above: Result Comment: PERF ORMED BY: [place] [address] PATHOLOGIST SYSTEMS PROTECTION TECHNICIAN JAIMIE CAMPBELL M.D. Performed By: #### B MP, MG, HEPATIC, CBC #### [facility] [address] [place] [address] Troponin I.cardiac [Mass/vol ume] in Serum or Plasma by Detection limit <= 0.01 ng/Ordered By: Tameka Armijo on 09-03-2024 Troponin I.cardiac DL <= 0.01 ng/mL [Mass/Vol] 16.0 pg/mL 0.0-20.0 [facility] Urea nitrogen [Mass/volume] in Serum or PlasmaOrdered By: Aga Nguyễn on 09-03-2024 Urea nitrogen [Mass/Vol] 10 mg/dL Normal 7-25 [facility] Comment on above: Performed By: #### I SCRE #### [address] Urinalysison 09-03-2024 Bilirubin,Urine Negative Normal Negative [facility] Comment on above: Order Comment: Name Collection Type:: Clean-Voided Midstream Performed By: #### C OVID19 FLU RSV, CEPHEID NEG, UA #### [address] Glucose Ql (U) Normal Normal Normal [facility] Comment on above: Order Comment: Name Collection Type:: Clean-Voided Midstream Performed By: #### C OVID19 FLU RSV, CEPHEID NEG, UA #### [place] [address] [place] Nitrite,Urine Negative Normal Negative [facility] Comment on above: Order Comment: Name Collection Type:: Clean-Voided Midstream Performed By: #### C OVID19 FLU RSV, CEPHEID NEG, UA #### [place] [address] [place] Occult Blood,Urine Negative Normal Negative [facility] Comment on above: Order Comment: Name Collection Type:: Clean-Voided Midstream Result Comment: PERF ORMED BY: [place] [address] PATHOLOGIST SYSTEMS PROTECTION TECHNICIAN JAIMIE CAMPBELL M.D. Performed By: #### C OVID19 FLU RSV, CEPHEID NEG, UA #### [place] [address] [place] Protein,Urine Negative Normal Negative [facility] Comment on above: Order Comment: Name Collection Type:: Clean-Voided Midstream Performed By: #### C OVID19 FLU RSV, CEPHEID NEG, UA #### [place] [address] [place] Specificy Kimball,Urine 1.006 Normal 1.001-1.03 0 [facility] Comment on above: Order Comment: Name Collection Type:: Clean-Voided Midstream Performed By: #### C OVID19 FLU RSV, CEPHEID NEG, UA #### [address] Urobilinogen,Urine Normal Normal Normal [facility] Comment on above: Order Comment: Name Collection Type:: Clean-Voided Midstream Performed By: #### C OVID19 FLU RSV, CEPHEID NEG, UA #### [address] Urine appearanceOrdered By: Aga Nguyễn on 09-03-2024 Appearance (U) Clear Normal Clear [facility] Comment on above: Order Comment: Name Collection Type:: Clean-Voided Midstream Performed By: #### C OVID19 FLU RSV, CEPHEID NEG, UA #### [address] Urobilinogen Test strip (U) [Mass/Vol]Ordered By: Aga Nguyễn on 09-03-2024 Urobilinogen (U) [Mass/Vol] Normal mg/dL Normal [facility] pH of Urine by Test stripOrd ered By: Aga Nguyễn on 09-03-2024 pH (U) 6.0 [pH] Normal 5.0-9.0 [facility] Comment on above: Order Comment: Name Collection Type:: Clean-Voided Midstream Performed By: #### C OVID19 FLU RSV, CEPHEID NEG, UA #### [address] ALL CBC WITH AUTO DIFFon Erythrocyte distribution width (RBC) [Ratio] 12.1 % 11.0 - 15.0 % [facility] Hematocrit (Bld) [Volume fraction] 40.9 % Low 42.0 - 54.0 % [facility] Hemoglobin (Bld) [Mass/Vol] 14.4 g/dL 14.0 - 18.0 g/dL [facility] Interpretation and review of laboratory results Abnormal [facility] MCH (RBC) [Entitic mass] 31.0 pg 25.9 - 34.0 pg [facility] MCHC (RBC) [Mass/Vol] 35.2 g/dL 29.9 - 35.2 g/dL [facility] MCV (RBC) [Entitic vol] 88.0 fL 80.0 - 94.0 fL [facility] Platelet mean volume (Bld) [Entitic vol] 10.5 fL 9.5 - 13.5 fL [facility] TBH PLT 277 [facility] RBC 4.65 Low [facility] WBC 8.0 [facility] Ambulatory Visit Summaryon 0 06-24-2024 Ambulatory Visit Summary Ambulatory Visit Summary CHA ELENA :1950 Visit Date:06/24/2024 Ambulatory Visit Instructions Your Diagnosis BPH with urinary obstruction Family history of prostate cancer Your Care Team Attending Physician - Tray CASTILLO MD Primary Care Physician - SPEEDY KHANNA MD This Is Your Medications List Contact prescribing physician if questions or concerns candesartan-hydrochlorothi azide (candesartan-hydrochloroth iazide 32 mg-25 mg oral tablet) doxycycline (doxycycline [...] Appointments Saturday 8:45 AM EDT With: Tray CASTILLO MD Where: [facility] [address] [place] [address]- You Need to Schedule the Following Appointments Follow Up with Tray CASTILLO MD, URL When: Where: [facility] [address], [place] [address]- Medications What How Much When Instructions Unchanged candesartan-hydrochlorothi azide (candesartan-hydrochloroth iazide 32 mg-25 mg oral tablet) 1 Tablets [...] the res (more content not included)... Normal [facility] Urology Office/Clinic Noteon 06-24-2024 Urology [...] and history for this patient from Dr. Castillo. I have reviewed and verified the staff [...] 3.01 05/23/20 - 1.71 05/24/21 - 1.29 - 1.37 06/04/23 - 1.25 06/03/24 - [...] Tray Gilbert, URL [facility] [address] [place] [address]- Additional Instructions: 1 yr PSA Patient Education Prostate Cancer Screening Gissell Najera, personally scribed for Dr. Castillo on 06/24/2024 13:30:41. . Documentation recorded by the Gissell schmid, accurately reflects the services(s) I performed and decisions made by me. Authenticated by Dr. Castillo on 06/24/2024 13:35:09. Problem List/Past Medical History Ongoing BPH with urinary obstruction Elevated PSA Family history of prostate cancer Hypertension Peyronie's disease Rosacea Historical No qualifying data Procedure/Surgical History Transrectal biopsy of prostate using ultrasound guidance (06/26/2010), Cholecystectomy, Hernia, Stomach. Medications candesartan-hydrochlorothi azide 32 mg-25 mg oral tablet, 1 tab(s), [...] Negative (06/24 (more content not included)... Normal [facility] Comment on above: Result Comment: Elec tronically Signed By: Tray CASTILLO MD\.br\Date and Time Signed: 06/24/24 13:35 EDT\.br\Electronically Co-Signed By: Gissell Shah.br\Date and Time Co-Signed: 06/24/24 13:30 EDT CNOVon 04-01-2023 CNOV Office Visit (GENN ) -- CHA ELENA ([id number]) 1950 M DEF Date Time Provider Department 04/01/23 11:20 AM ANGLE MELCHOR During your visit today, we recorded the following information about you: Temperature Pulse Respiration Blood pressure 96.9 degrees 91/minute 14/minute 154/80 Weight Height 108 kg 1.778 m Miguel Tl 04/01/2023 11:34 AM Signed What is the reason for your visit today? Post op Who is your referring physician? Dr. Melchor Are you having poor oral intake? NO Have you had unintentional weight loss of 15 lbs/7 Kg in the last 3-6 months? NO Bowels: regular Wound: clean AND dry Temperature: No Drains: No Tarik Person MD 04/01/2023 1:32 PM Signed [facility] Abdominal [facility] - HISTORY AND PHYSICAL Chief Complaint: [...] 8 hours as needed. 6 tablet 0 Candesartan-Hydrochlorothi azid 32-25 mg tab Candesartan-Hydrochlorothi azid Active 1 TAB PO Daily December 12, [...] PM Signed 30-DAY FOLLOW UP NOTE FROM [facility] Cha Elena is a 72 year-old [...] Reviewed: 03/08/2023 Reviewed by: Maria M Vaz APRN.REAL ESTATE PROFESSOR - Fully Assessed Reason for Visit: Post Op [174] Primary Visit Diagnosis:Recurrent ventral hernia [K43.2] Prescriptions as of 04/01/2023 - acetaminophen (TYLENOL) 500 mg tablet Take 2 tablets by mouth every 6 hours as needed for pain. - oxyCODONE IR (ROXICODONE) 5 mg immediate release tablet Take 1 tablet by mouth every 8 hours as needed. - Candesartan-Hydrochlorothi azid 32-25 mg tab Candesartan-Hydrochlorothi azid Active 1 TAB PO Daily December 12, 2022 12:00am Problem List As Of Date 04/01/2023 Noted Resolved Abdominal aortic aneurysm without rupture (HCC)*11/04/2021 Benign prostatic hyperplasia without lower urin*06/04/2022 Primary hypertension [I10] (more content not included)... Normal [facility] CNPNon 03-15-2023 CNPN Telephone (PODCCP) -- CHA ELENA ([id number]) 1950 M DEF Date Time Provider Department 03/15/23 BHAVYA COLUNGA During your visit today, we recorded the following information about you: Bhavya Colunga RN 03/15/2023 2:27 PM Signed PATIENT INFORMATION Record ID: [id number] Patient Name: [facility]: [facility] [place]: [facility] [place] Attending: Angle Melchor Center: General Surgery INSTRUCTIONS SN to remind patient of appointment date, time, location All Clear All Clear SURVEY INFORMATION Medical/Nurse Poker Manager: Bhavya Colunga 1. Your discharge instructions are important in [...] Reviewed: 03/08/2023 Reviewed by: Maria M Vaz APRN.REAL ESTATE PROFESSOR - Fully Assessed Reason for Visit: Follow Up Phone Call [[phone]] Cmt: All clear Prescriptions as of 03/15/2023 - acetaminophen (TYLENOL) 500 mg tablet Take 2 tablets by mouth every 6 hours as needed for pain. - oxyCODONE IR (ROXICODONE) 5 mg immediate release tablet Take 1 tablet by mouth every 8 hours as needed. - Candesartan-Hydrochlorothi azid 32-25 mg tab Candesartan-Hydrochlorothi azid Active 1 TAB PO Daily December 12, [...] [Z98.890, Z87.19] 03/08/2023 Encounter Status:Closed by BHAVYA COLUNGA on 03/15/23 Normal [facility] Basic metabolic 2000 panelon 03-10-2023 Anion gap [Moles/Vol] 10 mmol/L Normal 9-18 [facility] Comment on above: Order Comment: Speci men Type: BLOOD SPECIMEN Ordering Facility: [facility] Address: [address] [place] [address] [place] [address] Performed By: #### 1 9123-9, 53066-3, 1988-03, HSTNT, 2776- #### [facility] CLIA [id number] [address] [place] [address] [place] Calcium [Mass/Vol] 8.8 mg/dL Normal 8.5-10.2 [facility] Comment on above: Order Comment: Speci men Type: BLOOD SPECIMEN Ordering Facility: [facility] Address: [address] [place] [phone] Performed By: #### 1 9123-9, , 1988-03, HSTNT, 2776-11 #### [facility] CLIA [id number] [address] [place] [address] [place] Chloride [Moles/Vol] 103 mmol/L Normal 97-105 [facility] Comment on above: Order Comment: Speci men Type: BLOOD SPECIMEN Ordering Facility: [facility] Address: [address] [place] [phone] Performed By: #### 1 239, , 1988-03, HSTNT, 2776-11 #### [facility] CLIA [id number] [address] [place] [address] [place] CO2 [Moles/Vol] 25 mmol/L Normal 22-30 [facility] Comment on above: Order Comment: Speci men Type: BLOOD SPECIMEN Ordering Facility: [facility] Address: [address] [place] [phone] Performed By: #### 1 9123-9, , 1988-03, HSTNT, 2776-11 #### [facility] CLIA [id number] [address] [place] [address] [place] Creatinine [Mass/Vol] 0.68 mg/dL Low 0.73-1.22 [facility] Comment on above: Order Comment: Speci men Type: BLOOD SPECIMEN Ordering Facility: [facility] Address: [address] [place] [phone] Performed By: #### 1 9123-9, 74996-4, 1988-03, HSTNT, 2777- #### [facility] CLIA [id number] [address] [place] [address] [place] ESTIMATED GLOMERULAR FILTRATION RATE 99 mL/min/1.73m??? Normal >=60 [facility] Comment on above: Order Comment: Latoya hartman Type: BLOOD SPECIMEN Ordering Facility: [facility] Address: [address] [phone] Result Comment: Constance mated Glomerular Filtration Rate [...] actual GFR. Performed By: #### 1 9123-9, 74366-9, 1988-03, HSTNT, 2777- #### [facility] CLIA [id number] [facility] [place] [address] [place] Glucose [Mass/Vol] 97 mg/dL Normal 74-99 [facility] Comment on above: Order Comment: Latoya hartman Type: BLOOD SPECIMEN Ordering Facility: [facility] Address: [address] Result Comment: The [place] [employer] (ADA) provides guidance for cutoff [...] Standards of Medical Care in Diabetes 2016, [place] [employer]. Diabetes Care. 2016.39(Suppl 1). Performed By: #### 1 23-9, , 1988-03, HSTNT, 2776-11 #### [facility] CLIA [id number] [address] [place] [address] [place] Potassium [Moles/Vol] 3.8 mmol/L Normal 3.7-5.1 [facility] Comment on above: Order Comment: Speci men Type: BLOOD SPECIMEN Ordering Facility: [facility] Address: [address] [phone] Performed By: #### 1 9, , 1988-03, HSTNT, 2776-11 #### [facility] CLIA [id number] [address] [place] [address] [place] Sodium [Moles/Vol] 138 mmol/L Normal 136-144 [facility] Comment on above: Order Comment: Speci men Type: BLOOD SPECIMEN Ordering Facility: [facility] Address: [address] [address] Performed By: #### 1 9, , 1988-03, HSTNT, 2776-11 #### [facility] CLIA [id number] [address] [place] [address] [place] Urea nitrogen [Mass/Vol] 11 mg/dL Normal 9-24 [facility] Comment on above: Order Comment: Speci men Type: BLOOD SPECIMEN Ordering Facility: [facility] Address: [address] [phone] Performed By: #### 1 23-9, , 1988-03, HSTNT, 2776-11 #### [facility] CLIA [id number] [address] [place] [address] [place] CBC panel Auto (Bld)on 03-10 Erythrocyte distribution width (RBC) [Ratio] 12.2 % Normal 11.5-15.0 [facility] Comment on above: Order Comment: Speci men Type: BLOOD SPECIMEN Ordering Facility: [facility] Address: [address] [place] [address] Performed By: #### 1 9, , 1988-03, HSTNT, 2776-11 #### [facility] CLIA [id number] [facility] [place] [address] [place] Hematocrit (Bld) [Volume fraction] 38.4 % Low 39.0-51.0 [facility] Comment on above: Order Comment: Speci men Type: BLOOD SPECIMEN Ordering Facility: [facility] Address: [address] [place] [address] Performed By: #### 1 9, , 1988-03, HSTNT, 2776-11 #### [facility] CLIA [id number] [address] [place] [address] [place] Hemoglobin (Bld) [Mass/Vol] 13.2 g/dL Normal 13.0-17.0 [facility] Comment on above: Order Comment: Speci men Type: BLOOD SPECIMEN Ordering Facility: [facility] Address: [address] [place] [address] Performed By: #### 1 9, , 1988-03, HSTNT, 2776-11 #### [facility] CLIA [id number] [address] [place] [address] [place] MCH (RBC) [Entitic mass] 31.4 pg Normal 26.0-34.0 [facility] Comment on above: Order Comment: Speci men Type: BLOOD SPECIMEN Ordering Facility: [facility] Address: [address] [place] [address] Performed By: #### 1 9, , 1988-03, HSTNT, 2776- #### [facility] CLIA [id number] [address] [place] [address] [place] MCHC (RBC) [Mass/Vol] 34.4 g/dL Normal 30.5-36.0 [facility] Comment on above: Order Comment: Speci men Type: BLOOD SPECIMEN Ordering Facility: [facility] Address: [address] [place], [place] [phone] Performed By: #### 1 9, , 1988-03, HSTNT, 2776- #### [facility] CLIA [id number] [address] [place] [address] [place] MCV (RBC) [Entitic vol] 91.2 fL Normal 80.0-100.0 [facility] Comment on above: Order Comment: Speci men Type: BLOOD SPECIMEN Ordering Facility: [facility] Address: [address] [place], [place] [phone] Performed By: #### 1 9, , 1988-03, HSTNT, 2776- #### [facility] CLIA [id number] [address] [place] [address] [place] Nucleated RBC (Bld) [#/Vol] 10*3/uL Normal <0.01 [facility] Comment on above: Order Comment: Speci men Type: BLOOD SPECIMEN Ordering Facility: [facility] Address: [address] [place], [place] [phone] Performed By: #### 1 9, , 1988-03, HSTNT, 2776- #### [facility] CLIA [id number] [address] [place] [address] [place] Platelet mean volume (Bld) [Entitic vol] 10.1 fL Normal 9.0-12.7 [facility] Comment on above: Order Comment: Speci men Type: BLOOD SPECIMEN Ordering Facility: [facility] Address: [address] [place], [place] [phone] Performed By: #### 1 9, , 1988-03, HSTNT, 2776-11 #### [facility] CLIA [id number] [address] [place] [address] [place] Platelets (Bld) [#/Vol] 250 10*3/uL Normal 150-400 [facility] Comment on above: Order Comment: Speci men Type: BLOOD SPECIMEN Ordering Facility: [facility] Address: [address] [place] [address] Performed By: #### 1 91-9, , 1988-03, HSTNT, 2776-11 #### [facility] CLIA [id number] [address] [place] [address] [place] RBC (Bld) [#/Vol] 4.21 10*6/uL Normal 4.20-6.00 [facility] Comment on above: Order Comment: Speci men Type: BLOOD SPECIMEN Ordering Facility: [facility] Address: [address] [place] [address] Performed By: #### 1 239, , 1988-03, HSTNT, 2776-11 #### [facility] CLIA [id number] [address] [place] [address] [place] WBC (Bld) [#/Vol] 6.47 10*3/uL Normal 3.70-11.00 [facility] Comment on above: Order Comment: Speci men Type: BLOOD SPECIMEN Ordering Facility: [facility] Address: [address] [place] [address] Performed By: #### 1 239, , 1988-03, HSTNT, 2776-11 #### [facility] CLIA [id number] [address] [place] [address] [place] CNDSon 03-10-2023 CNDS HNO ID: [id number] Author: Fareed Velarde MD Service: General Surgery Author Type: Resident Type: Discharge Summary Filed: 03/10/2023 10:32 AM Note Text: -- Attestation signed by Angle Melchor MD at 03/13/2023 8:51 AM Angle Melchor MD -- GENERAL SURGERY DISCHARGE SUMMARY PATIENT NAME: Cha Elena ADMISSION DATE: 03/07/2023 DISCHARGE DATE: 03/10/2023 ATTENDING PHYSICIAN: Angel Melchor MD Code Status: Not on file [...] operative report for details. On POD1 his christianson was removed and he was able to [...] Attending Provider: Angle Melchor MD Primary Service: Kayla CAMRON PATIENT CONDITION AT DISCHARGE: Stable DISCHARGE DISPOSITION: [...] CONTINUE these medications which have NOT CHANGED Candesartan-Hydrochlorothi azid 32-25 mg tab Candesartan-Hydrochlorothi azid Active 1 TAB PO Daily December 12, 2022 12:00am PLAN OF CARE: Plan of care discussed with Provider, RN, Patient and Care Management FUTURE APPOINTMENTS: Future Appointments Date Time Provider Department Center 04/01/2023 11:20 AM MD TK Cortez A Bld[facility] The patient's risk for 30-day readmission is determined using the following contributing factors: Pt variables contributing to increased readmission risk: 16 Most Recent BUN Result 14 Active Medication Orders 8.6 First Resulted Calcium During Admission 1 Insurance - Medicare 1 Active Anticoagulant I have performed the substantive portion including pvtk-kw-kwkz and relevant services for a total of >30 minutes. SIGNATURE: Fareed Velarde MD DATE: March 10, 2023 TIME: 12:10 PM Normal [facility] CRP SerPl-mCncon 03-10-2023 CRP [Mass/Vol] 7.1 mg/dL High <0.9 [facility] Comment on above: Order Comment: Latoya hartman Type: BLOOD SPECIMEN Ordering Facility: [facility] Address: [address] [place], [place] [phone] Performed By: #### 1 9123-9, 14876-1, 1988-03, HSTNT, 2776-11 #### [facility] CLIA [id number] [address] [place], [place] [address] [place] [facility]10 Magnesium [Mass/Vol] 2.3 mg/dL Normal 1.7-2.3 [facility] Comment on above: Order Comment: Latoya hartman Type: BLOOD SPECIMEN Ordering Facility: [facility] Address: [address] [place] [phone] Performed By: #### 1 9123-9, 82608-0, 1988-03, HSTNT, 2776-11 #### [facility] CLIA [id number] [address] [place], [place] [address] [place] NURSING PROGon 03-10-2023 NURSING PROG HNO ID: [id number] Author: Elizabet Morrissey RN Service: ? Author Type: Registered Nurse Type: Nursing Progress Note Filed: 03/10/2023 6:48 AM Note Text: On initial assess, pt resting in bed.. Verbalized that he is doing all right . Denied any h/a, c/p, nausea, or cough. Reviewed orders and HS POC. Reinforced hourly use of IS- up to 1999. States abd discomfort is a 1 . Midline ISAIAH w/o s/s complications- abd softly distended. ETHAN [...] per Q1-2hr rounds t/o the night. Normal [facility] Phosphate SerPl-mCncon 03-10 Phosphate [Mass/Vol] 1.6 mg/dL Low 2.7-4.8 [facility] Comment on above: Order Comment: Speci men Type: BLOOD SPECIMEN Ordering Facility: [facility] Address: [address] [place], [place] [phone] Performed By: #### 1 9123-9, 39860-1, 1987-, HSTNT, 2777-1 #### [facility] CLIA [id number] [address] [place] [address] [place] Basic metabolic 2000 panelon 03-09-2023 Anion gap [Moles/Vol] 15 mmol/L Normal 9-18 [facility] Comment on above: Order Comment: Speci men Type: BLOOD SPECIMEN Ordering Facility: [facility] Address: [address] [place] Performed By: #### 1 23-9, 46854-6, 1988-03, HSTNT, 277- #### [facility] CLIA [id number] [address] [place], [place] [address] [place] Calcium [Mass/Vol] 9.0 mg/dL Normal 8.5-10.2 [facility] Comment on above: Order Comment: Speci men Type: BLOOD SPECIMEN Ordering Facility: [facility] Address: [address] [place] [phone] Performed By: #### 1 9122-9, , 1988-03, HSTNT, 2776-11 #### [facility] CLIA [id number] [address] [place] [address] [place] Chloride [Moles/Vol] 98 mmol/L Normal 97-105 [facility] Comment on above: Order Comment: Speci men Type: BLOOD SPECIMEN Ordering Facility: [facility] Address: [address] [place] [phone] Performed By: #### 1 23-9, , 1988-03, HSTNT, 2776- #### [facility] CLIA [id number] [address] [place] [address] [place] CO2 [Moles/Vol] 25 mmol/L Normal 22-30 [facility] Comment on above: Order Comment: Speci men Type: BLOOD SPECIMEN Ordering Facility: [facility] Address: [address] [place] [phone] Performed By: #### 1 9123-9, , 1988-03, HSTNT, 2776- #### [facility] CLIA [id number] [address] [place] [address] [place] Creatinine [Mass/Vol] 0.74 mg/dL Normal 0.73-1.22 [facility] Comment on above: Order Comment: Speci men Type: BLOOD SPECIMEN Ordering Facility: [facility] Address: [address] [phone] Performed By: #### 1 9123-9, 68532-1, 1988-03, HSTNT, 2777- #### [facility] CLIA [id number] [address] [place] [address] [place] ESTIMATED GLOMERULAR FILTRATION RATE 97 mL/min/1.73m??? Normal >=60 [facility] Comment on above: Order Comment: Latoya hartman Type: BLOOD SPECIMEN Ordering Facility: [facility] Address: [address] [phone] Result Comment: Constance mated Glomerular Filtration Rate [...] actual GFR. Performed By: #### 1 9123-9, 77510-3, 1988-03, TNT, 2777- #### [facility] CLIA [id number] [facility] [place] [address] [place] Glucose [Mass/Vol] 114 mg/dL High 74-99 [facility] Comment on above: Order Comment: Latoya hartman Type: BLOOD SPECIMEN Ordering Facility: [facility] Address: [address] Result Comment: The [place] [employer] (ADA) provides guidance for cutoff [...] Standards of Medical Care in Diabetes 2016, [place] [employer]. Diabetes Care. 2016.39(Suppl 1). Performed By: #### 1 23-9, , 1988-03, HSTNT, 2776-11 #### [facility] CLIA [id number] [address] [place] [address] [place] Potassium [Moles/Vol] 3.4 mmol/L Low 3.7-5.1 [facility] Comment on above: Order Comment: Speci men Type: BLOOD SPECIMEN Ordering Facility: [facility] Address: [address] [phone] Performed By: #### 1 239, , 1988-03, HSTNT, 2776-11 #### [facility] CLIA [id number] [address] [place] [address] [place] Sodium [Moles/Vol] 138 mmol/L Normal 136-144 [facility] Comment on above: Order Comment: Speci men Type: BLOOD SPECIMEN Ordering Facility: [facility] Address: [address] [address] Performed By: #### 1 9, , 1988-03, HSTNT, 2776-11 #### [facility] CLIA [id number] [address] [place] [address] [place] Urea nitrogen [Mass/Vol] 12 mg/dL Normal 9-24 [facility] Comment on above: Order Comment: Speci men Type: BLOOD SPECIMEN Ordering Facility: [facility] Address: [address] [phone] Performed By: #### 1 23-9, , 1988-03, HSTNT, 2776-11 #### [facility] CLIA [id number] [address] [place] [address] [place] CBC W Auto Differential pane l (Bld)on 03-09-2023 Basophils (Bld) [#/Vol] 0.03 10*3/uL Normal <0.11 [facility] Comment on above: Order Comment: Speci men Type: BLOOD SPECIMEN Ordering Facility: [facility] Address: [address] Performed By: #### 5 7021-8 #### [facility] CLIA [id number] [address] [place] [address] [place] Basophils/100 WBC (Bld) 0.3 % Normal [facility] Comment on above: Order Comment: Speci men Type: BLOOD SPECIMEN Ordering Facility: [facility] Address: [address] Performed By: #### 5 7021-8 #### [facility] CLIA [id number] [address] [place] [address] [place] Differential cell count method Nom (Bld) Auto Normal [facility] Comment on above: Order Comment: Speci men Type: BLOOD SPECIMEN Ordering Facility: [facility] Address: [address] Performed By: #### 5 7021-8 #### [facility] CLIA [id number] [address] [place] [address] [place] Eosinophils (Bld) [#/Vol] 10*3/uL Normal <0.46 [facility] Comment on above: Order Comment: Speci men Type: BLOOD SPECIMEN Ordering Facility: [facility] Address: [address] Performed By: #### 5 7021-8 #### [facility] CLIA [id number] [address] [place] [address] [place] Eosinophils/100 WBC (Bld) 0.2 % Normal [facility] Comment on above: Order Comment: Speci men Type: BLOOD SPECIMEN Ordering Facility: [facility] Address: [address] Performed By: #### 5 7021-8 #### [facility] CLIA [id number] [address] [place] [address] [place] Erythrocyte distribution width (RBC) [Ratio] 12.5 % Normal 11.5-15.0 [facility] Comment on above: Order Comment: Speci men Type: BLOOD SPECIMEN Ordering Facility: [facility] Address: [address] [place] [address] Performed By: #### 5 7021-8 #### [facility] CLIA [id number] [address] [place] [address] [place] Hematocrit (Bld) [Volume fraction] 36.7 % Low 39.0-51.0 [facility] Comment on above: Order Comment: Speci men Type: BLOOD SPECIMEN Ordering Facility: [facility] Address: [address] [place] [address] Performed By: #### 5 7021-8 #### [facility] IA [id number] [address] [place] [address] [place] Hemoglobin (Bld) [Mass/Vol] 12.6 g/dL Low 13.0-17.0 [facility] Comment on above: Order Comment: Speci men Type: BLOOD SPECIMEN Ordering Facility: [facility] Address: [address] [place], [place] [phone] Performed By: #### 5 7021-8 #### [facility] CLIA [id number] [address] [place] [address] [place] Immature granulocytes (Bld) [#/Vol] 10*3/uL Normal <0.10 [facility] Comment on above: Order Comment: Speci men Type: BLOOD SPECIMEN Ordering Facility: [facility] Address: [address] [place], [place] [phone] Performed By: #### 5 7021-8 #### [facility] CLIA [id number] [address] [place] [address] [place] Immature granulocytes/100 WBC (Bld) 0.2 % Normal [facility] Comment on above: Order Comment: Speci men Type: BLOOD SPECIMEN Ordering Facility: [facility] Address: [address] Performed By: #### 5 7021-8 #### [facility] CLIA [id number] [address] [place] [address] [place] Lymphocytes (Bld) [#/Vol] 1.41 10*3/uL Normal 1.00-4.00 [facility] Comment on above: Order Comment: Speci men Type: BLOOD SPECIMEN Ordering Facility: [facility] Address: [address] Performed By: #### 5 7021-8 #### [facility] CLIA [id number] [address] [place] [address] [place] Lymphocytes/100 WBC (Bld) 15.4 % Normal [facility] Comment on above: Order Comment: Speci men Type: BLOOD SPECIMEN Ordering Facility: [facility] Address: [address] Performed By: #### 5 7021-8 #### [facility] CLIA [id number] [address] [place] [address] [place] MCH (RBC) [Entitic mass] 31.3 pg Normal 26.0-34.0 [facility] Comment on above: Order Comment: Speci men Type: BLOOD SPECIMEN Ordering Facility: [facility] Address: [address] [place] [address] Performed By: #### 5 7021-8 #### [facility] CLIA [id number] [address] [place] [address] [place] MCHC (RBC) [Mass/Vol] 34.3 g/dL Normal 30.5-36.0 [facility] Comment on above: Order Comment: Speci men Type: BLOOD SPECIMEN Ordering Facility: [facility] Address: [address] [place] [address] Performed By: #### 5 7021-8 #### [facility] CLIA [id number] [address] [place] [address] [place] MCV (RBC) [Entitic vol] 91.3 fL Normal 80.0-100.0 [facility] Comment on above: Order Comment: Speci men Type: BLOOD SPECIMEN Ordering Facility: [facility] Address: [address] Performed By: #### 5 7021-8 #### [facility] CLIA [id number] [address] [place] [address] [place] Monocytes (Bld) [#/Vol] 0.63 10*3/uL Normal <0.87 [facility] Comment on above: Order Comment: Speci men Type: BLOOD SPECIMEN Ordering Facility: [facility] Address: [address] [place], [place] [phone] Performed By: #### 5 7021-8 #### [facility] CLIA [id number] [address] [place] [address] [place] Monocytes/100 WBC (Bld) 6.9 % Normal [facility] Comment on above: Order Comment: Speci men Type: BLOOD SPECIMEN Ordering Facility: [facility] Address: [address] [place], [place] [phone] Performed By: #### 5 7021-8 #### [facility] CLIA [id number] [address] [place] [address] [place] Neutrophils (Bld) [#/Vol] 7.06 10*3/uL Normal 1.45-7.50 [facility] Comment on above: Order Comment: Speci men Type: BLOOD SPECIMEN Ordering Facility: [facility] Address: [address] Performed By: #### 5 7021-8 #### [facility] CLIA [id number] [address] [place] [address] [place] Neutrophils/100 WBC (Bld) 77.0 % Normal [facility] Comment on above: Order Comment: Speci men Type: BLOOD SPECIMEN Ordering Facility: [facility] Address: [address] [place] [address] Performed By: #### 5 7021-8 #### [facility] CLIA [id number] [address] [place] [address] [place] Nucleated RBC (Bld) [#/Vol] 10*3/uL Normal <0.01 [facility] Comment on above: Order Comment: Speci men Type: BLOOD SPECIMEN Ordering Facility: [facility] Address: [address] [place], [place] [phone] Performed By: #### 5 7021-8 #### [facility] CLIA [id number] [address] [place] [address] [place] Nucleated RBC/100 WBC (Bld) [Ratio] 0.0 /100 WBC Normal [facility] Comment on above: Order Comment: Speci men Type: BLOOD SPECIMEN Ordering Facility: [facility] Address: [address] [place], [place] [phone] Performed By: #### 5 7021-8 #### [facility] CLIA [id number] [address] [place] [address] [place] Platelet mean volume (Bld) [Entitic vol] 10.4 fL Normal 9.0-12.7 [facility] Comment on above: Order Comment: Speci men Type: BLOOD SPECIMEN Ordering Facility: [facility] Address: [address] [place] [phone] Performed By: #### 5 7021-8 #### [facility] CLIA [id number] [address] [place] [address] [place] Platelets (Bld) [#/Vol] 252 10*3/uL Normal 150-400 [facility] Comment on above: Order Comment: Speci men Type: BLOOD SPECIMEN Ordering Facility: [facility] Address: [address] [place], [place] [phone] Performed By: #### 5 7021-8 #### [facility] CLIA [id number] [address] [place] [address] [place] RBC (Bld) [#/Vol] 4.02 10*6/uL Low 4.20-6.00 [facility] Comment on above: Order Comment: Speci men Type: BLOOD SPECIMEN Ordering Facility: [facility] Address: [address] [place], [place] [phone] Performed By: #### 5 7021-8 #### [facility] CLIA [id number] [address] [place] [address] [place] WBC (Bld) [#/Vol] 9.17 10*3/uL Normal 3.70-11.00 [facility] Comment on above: Order Comment: Speci men Type: BLOOD SPECIMEN Ordering Facility: [facility] Address: [address] [place] [address] Performed By: #### 5 7021-8 #### [facility] CLIA [id number] [address] [place] [address] [place] CBC panel Auto (Bld)on 03-09 Erythrocyte distribution width (RBC) [Ratio] 12.0 % Normal 11.5-15.0 [facility] Comment on above: Order Comment: Speci men Type: BLOOD SPECIMEN Ordering Facility: [facility] Address: [address] [place], [place] [phone] Performed By: #### 1 9123-9, 16702-8, 1987-5, HSTNT, 2777-1 #### [facility] CLIA [id number] [address] [place] [address] [place] Hematocrit (Bld) [Volume fraction] 36.8 % Low 39.0-51.0 [facility] Comment on above: Order Comment: Speci men Type: BLOOD SPECIMEN Ordering Facility: [facility] Address: [address] [phone] Performed By: #### 1 9, , 1988-03, HSTNT, 2776-11 #### [facility] CLIA [id number] [address] [place] [address] [place] Hemoglobin (Bld) [Mass/Vol] 12.8 g/dL Low 13.0-17.0 [facility] Comment on above: Order Comment: Speci men Type: BLOOD SPECIMEN Ordering Facility: [facility] Address: [address] [place], [place] [phone] Performed By: #### 1 9, , 1988-03, HSTNT, 2776-11 #### [facility] CLIA [id number] [address] [place] [address] [place] MCH (RBC) [Entitic mass] 31.5 pg Normal 26.0-34.0 [facility] Comment on above: Order Comment: Speci men Type: BLOOD SPECIMEN Ordering Facility: [facility] Address: [address] [place], [place] [phone] Performed By: #### 1 9, , 1988-03, HSTNT, 2776-11 #### [facility] CLIA [id number] [address] [place] [address] [place] MCHC (RBC) [Mass/Vol] 34.8 g/dL Normal 30.5-36.0 [facility] Comment on above: Order Comment: Speci men Type: BLOOD SPECIMEN Ordering Facility: [facility] Address: [address] [place], [place] [phone] Performed By: #### 1 9, , 1988-03, HSTNT, 2776-11 #### [facility] CLIA [id number] [address] [place] [address] [place] MCV (RBC) [Entitic vol] 90.6 fL Normal 80.0-100.0 [facility] Comment on above: Order Comment: Speci men Type: BLOOD SPECIMEN Ordering Facility: [facility] Address: [address] [place] [address] Performed By: #### 1 9123-07, , 1988-03, HSTNT, 2776- #### [facility] CLIA [id number] [facility] [place] [address] [place] Nucleated RBC (Bld) [#/Vol] 10*3/uL Normal <0.01 [facility] Comment on above: Order Comment: Speci men Type: BLOOD SPECIMEN Ordering Facility: [facility] Address: [address] [place] [address] Performed By: #### 1 9, , 1988-03, HSTNT, 2776-11 #### [facility] CLIA [id number] [address] [place] [address] [place] Platelet mean volume (Bld) [Entitic vol] 9.9 fL Normal 9.0-12.7 [facility] Comment on above: Order Comment: Speci men Type: BLOOD SPECIMEN Ordering Facility: [facility] Address: [address] [place] [address] Performed By: #### 1 9, , 1988-03, HSTNT, 2776-11 #### [facility] CLIA [id number] [address] [place] [address] [place] Platelets (Bld) [#/Vol] 256 10*3/uL Normal 150-400 [facility] Comment on above: Order Comment: Speci men Type: BLOOD SPECIMEN Ordering Facility: [facility] Address: [address] [place], [place] [phone] Performed By: #### 1 9, , 1988-03, HSTNT, 2776- #### [facility] CLIA [id number] [address] [place] [address] [place] RBC (Bld) [#/Vol] 4.06 10*6/uL Low 4.20-6.00 [facility] Comment on above: Order Comment: Speci men Type: BLOOD SPECIMEN Ordering Facility: [facility] Address: [address] [place] [address] Performed By: #### 1 9123-9, , 1988-03, HSTNT, 7- #### [facility] CLIA [id number] [address] [place] [address] [place] WBC (Bld) [#/Vol] 7.45 10*3/uL Normal 3.70-11.00 [facility] Comment on above: Order Comment: Speci men Type: BLOOD SPECIMEN Ordering Facility: [facility] Address: [address] [place] [address] Performed By: #### 1 91239, , 1988-03, HSTNT, 2776-1 #### [facility] CLIA [id number] [address] [place] [address] [place] CRP SerPl-mCncon 03-09-2023 CRP [Mass/Vol] 7.9 mg/dL High <0.9 [facility] Comment on above: Order Comment: Speci men Type: BLOOD SPECIMEN Ordering Facility: [facility] Address: [address] [place] [address] Performed By: #### 1 9123-9, , 1988-03, HSTNT, 2776- #### [facility] CLIA [id number] [address] [place] [address] [place] HIGH SENSITIVITY TROPONIN To n 03-09-2023 HIGH SENSITIVITY YUSEF 10 ng/L Normal <12 [facility] Comment on above: Order Comment: Speci men Type: BLOOD SPECIMEN Ordering Facility: [facility] Address: [address] [place] [address] Result Comment: When assessing risk for acute [...] day MACE. Performed By: #### 1 9123-9, 17850-3, 1988-03, HSTNT, 27705-25 #### [facility] CLIA [id number] [address] [address] [facility] [place] Magnesium SerPl-mCncon 03-09 Magnesium [Mass/Vol] 2.1 mg/dL Normal 1.7-2.3 [facility] Comment on above: Order Comment: Speci men Type: BLOOD SPECIMEN Ordering Facility: [facility] Address: [address] [place] [address] Performed By: #### 1 9123-9, 24956-4, 1988-03, HSTNT, 27705-25 #### [facility] CLIA [id number] [address] [place] [address] [place] NURSING PROGon 03-09-2023 NURSING PROG HNO ID: [id number] Author: Elizabet Morrissey RN Service: ? Author [...] per Q1-2hr rounds t/o the night. Normal [facility] Phosphate SerPl-mCncon 03-09 Phosphate [Mass/Vol] 1.3 mg/dL Low 2.7-4.8 [facility] Comment on above: Order Comment: Speci men Type: BLOOD SPECIMEN Ordering Facility: [facility] Address: [address] [place] [address] Result Comment: Resu lt rechecked. Performed By: #### 1 9123-9, 07104-5, 1988-5, HSTNT, 2777-1 #### [facility] CLIA [id number] [address] [facility] [address] [place] XR ABDOMEN 1V [...] colon. Other: Multilevel thoracolumbar spine degenerative arthropathy. Server Systems Administrator: LEANNE Transcribe Date/Time: Mar 09 2023 9:08A Dictated by : SPEEDY SERVIN DO This examination was interpreted and the report reviewed and electronically signed by: SPEEDY SERVIN DO on Mar 09 2023 9:10AM EST [id number] Normal [facility] Basic metabolic 2000 panelon 03-08-2023 Anion gap [Moles/Vol] 11 mmol/L Normal 9-18 [facility] Comment on above: Order Comment: Speci men Type: BLOOD SPECIMEN Ordering Facility: [facility] Address: [address] [place] [address] Performed By: #### 1 9123-9, , 1988-03, HSTNT, 2776-11 #### [facility] CLIA [id number] [address] [place] [address] [place] Calcium [Mass/Vol] 8.6 mg/dL Normal 8.5-10.2 [facility] Comment on above: Order Comment: Speci men Type: BLOOD SPECIMEN Ordering Facility: [facility] Address: [place] [address] Performed By: #### 1 9123-9, , 1988-03, HSTNT, 2776-11 #### [facility] CLIA [id number] [address] [place] [address] [place] Chloride [Moles/Vol] 105 mmol/L Normal 97-105 [facility] Comment on above: Order Comment: Speci men Type: BLOOD SPECIMEN Ordering Facility: [facility] Address: [address] [place] [address] Performed By: #### 1 9123-9, , 1988-03, HSTNT, 2776-11 #### [facility] CLIA [id number] [address] [id number] [place] CO2 [Moles/Vol] 25 mmol/L Normal 22-30 [facility] Comment on above: Order Comment: Speci men Type: BLOOD SPECIMEN Ordering Facility: [facility] Address: [address] [place] [address] Performed By: #### 1 9123-9, , 1988-03, HSTNT, 2776-11 #### [facility] CLIA [id number] [address] [place] [address] [place] Creatinine [Mass/Vol] 0.88 mg/dL Normal 0.73-1.22 [facility] Comment on above: Order Comment: Speci men Type: BLOOD SPECIMEN Ordering Facility: [facility] Address: [address] [place] [address] Performed By: #### 1 9, , 1988-03, HSTNT, 2776-11 #### [facility] CLIA [id number] [facility] [place] [address] [place] ESTIMATED GLOMERULAR FILTRATION RATE 92 mL/min/1.73m??? Normal >=60 [facility] Comment on above: Order Comment: Speci men Type: BLOOD SPECIMEN Ordering Facility: [facility] Address: [address] [place] [address] Result Comment: Constance mated Glomerular Filtration Rate [...] actual GFR. Performed By: #### 1 9123-9, , 1988-03, HSTNT, 2776-11 #### [facility] CLIA [id number] [address] [place] [address] [place] Glucose [Mass/Vol] 126 mg/dL High 74-99 [facility] Comment on above: Order Comment: Speci men Type: BLOOD SPECIMEN Ordering Facility: [facility] Address: [address] [place] [phone] Result Comment: The [place] [employer] (ADA) provides guidance for cutoff [...] Standards of Medical Care in Diabetes 2016, [place] [employer]. Diabetes Care. 2016.39(Suppl 1). Performed By: #### 1 9123-9, , 1988-03, HSTNT, 2776-11 #### [facility] CLIA [id number] [address] [place] [address] [place] Potassium [Moles/Vol] 4.6 mmol/L Normal 3.7-5.1 [facility] Comment on above: Order Comment: Speci men Type: BLOOD SPECIMEN Ordering Facility: [facility] Address: [address] [place] [address] Performed By: #### 1 91239, , 1988-03, HSTNT, 2776-11 #### [facility] CLIA [id number] [address] [place], [place] [id number] [place] Sodium [Moles/Vol] 141 mmol/L Normal 136-144 [facility] Comment on above: Order Comment: Speci men Type: BLOOD SPECIMEN Ordering Facility: [facility] Address: [address] [place] [address] Performed By: #### 1 91239, , 1988-03, HSTNT, 2776-11 #### [facility] CLIA [id number] [facility] [address] [address] [place] Urea nitrogen [Mass/Vol] 16 mg/dL Normal 9-24 [facility] Comment on above: Order Comment: Speci men Type: BLOOD SPECIMEN Ordering Facility: [facility] Address: [address] [place] [address] Performed By: #### 1 9, , 1988-03, HSTNT, 2776-11 #### [facility] CLIA [id number] [address] [place] [address] [place] CBC W Auto Differential pane l (Bld)on 03-08-2023 Basophils (Bld) [#/Vol] 0.07 10*3/uL Normal <0.11 [facility] Comment on above: Order Comment: Speci men Type: BLOOD SPECIMEN Ordering Facility: [facility] Address: [address] [place] [address] Performed By: #### 1 9, , 1988-03, HSTNT, 2776-11 #### [facility] CLIA [id number] [address] [place] [address] [place] Basophils/100 WBC (Bld) 0.6 % Normal [facility] Comment on above: Order Comment: Speci men Type: BLOOD SPECIMEN Ordering Facility: [facility] Address: [address] [place] [address] Performed By: #### 1 9, , 1988-03, HSTNT, 2776-11 #### [facility] CLIA [id number] [address] [place] [address] [place] Differential cell count method Nom (Bld) Auto Normal [facility] Comment on above: Order Comment: Speci men Type: BLOOD SPECIMEN Ordering Facility: [facility] Address: [address] [place] [address] Performed By: #### 1 9, , 1988-03, HSTNT, 2776-11 #### [facility] CLIA [id number] [address] [place] [address] [place] Eosinophils (Bld) [#/Vol] 10*3/uL Normal <0.46 [facility] Comment on above: Order Comment: Speci men Type: BLOOD SPECIMEN Ordering Facility: [facility] Address: [address] [place] [address] Performed By: #### 1 9123-9, 41322-8, 1988-03, HSTNT, 2776- #### [facility] CLIA [id number] [address] [place] [address] [place] Eosinophils/100 WBC (Bld) 0.0 % Normal [facility] Comment on above: Order Comment: Speci men Type: BLOOD SPECIMEN Ordering Facility: [facility] Address: [address] [place] [address] Performed By: #### 1 91239, , 1988-03, HSTNT, 2776-11 #### [facility] CLIA [id number] [address] [place] [address] [place] Erythrocyte distribution width (RBC) [Ratio] 12.7 % Normal 11.5-15.0 [facility] Comment on above: Order Comment: Speci men Type: BLOOD SPECIMEN Ordering Facility: [facility] Address: [address] [place] [address] Performed By: #### 1 9123-9, 48865-7, 1988-03, HSTNT, 2776- #### [facility] CLIA [id number] [address] [place] [address] [place] Hematocrit (Bld) [Volume fraction] 43.1 % Normal 39.0-51.0 [facility] Comment on above: Order Comment: Speci men Type: BLOOD SPECIMEN Ordering Facility: [facility] Address: [address] [place] [address] Performed By: #### 1 9123-9, 06163-6, 1988-03, HSTNT, 2776-11 #### [facility] CLIA [id number] [address] [place] [address] [place] Hemoglobin (Bld) [Mass/Vol] 14.2 g/dL Normal 13.0-17.0 [facility] Comment on above: Order Comment: Speci men Type: BLOOD SPECIMEN Ordering Facility: [facility] Address: [address] [place] [address] Performed By: #### 1 9, , 1988-03, HSTNT, 2776-11 #### [facility] CLIA [id number] [address] [place] [address] [place] Immature granulocytes (Bld) [#/Vol] 10*3/uL Normal <0.10 [facility] Comment on above: Order Comment: Speci men Type: BLOOD SPECIMEN Ordering Facility: [facility] Address: [address] [place] [address] Performed By: #### 1 9, , 1988-03, HSTNT, 2776-11 #### [facility] CLIA [id number] [address] [place] [address] [place] Immature granulocytes/100 WBC (Bld) 0.2 % Normal [facility] Comment on above: Order Comment: Speci men Type: BLOOD SPECIMEN Ordering Facility: [facility] Address: [address] [place] [address] Performed By: #### 1 23-9, , 1988-03, HSTNT, 2776-11 #### [facility] CLIA [id number] [address] [place] [address] [place] Lymphocytes (Bld) [#/Vol] 0.78 10*3/uL Low 1.00-4.00 [facility] Comment on above: Order Comment: Speci men Type: BLOOD SPECIMEN Ordering Facility: [facility] Address: [address] [place], [place] [address] Performed By: #### 1 9123-9, , 1988-03, HSTNT, 2776-11 #### [facility] CLIA [id number] [address] [place] [address] [place] Lymphocytes/100 WBC (Bld) 7.2 % Normal [facility] Comment on above: Order Comment: Speci men Type: BLOOD SPECIMEN Ordering Facility: [facility] Address: [address] [place] [address] Performed By: #### 1 9123-9, , 1988-03, HSTNT, 2776-11 #### [facility] CLIA [id number] [address] [place] [address] [place] MCH (RBC) [Entitic mass] 31.3 pg Normal 26.0-34.0 [facility] Comment on above: Order Comment: Speci men Type: BLOOD SPECIMEN Ordering Facility: [facility] Address: [address] [place], [place] [phone] Performed By: #### 1 239, , 1988-03, HSTNT, 2776-11 #### [facility] CLIA [id number] [address] [place] [address] [place] MCHC (RBC) [Mass/Vol] 32.9 g/dL Normal 30.5-36.0 [facility] Comment on above: Order Comment: Speci men Type: BLOOD SPECIMEN Ordering Facility: [facility] Address: [address] [place], [place] [phone] Performed By: #### 1 9123-9, , 1988-03, HSTNT, 2776-11 #### [facility] CLIA [id number] [address] [place] [address] [place] MCV (RBC) [Entitic vol] 94.9 fL Normal 80.0-100.0 [facility] Comment on above: Order Comment: Speci men Type: BLOOD SPECIMEN Ordering Facility: [facility] Address: [address] Performed By: #### 1 9, , 1988-03, HSTNT, 2776-11 #### [facility] CLIA [id number] [address] [place] [address] [place] Monocytes (Bld) [#/Vol] 0.89 10*3/uL High <0.87 [facility] Comment on above: Order Comment: Speci men Type: BLOOD SPECIMEN Ordering Facility: [facility] Address: [address] Performed By: #### 1 9, , 1988-03, HSTNT, 2776-11 #### [facility] CLIA [id number] [address] [place] [address] [place] Monocytes/100 WBC (Bld) 8.3 % Normal [facility] Comment on above: Order Comment: Speci men Type: BLOOD SPECIMEN Ordering Facility: [facility] Address: [address] [place], [place] [phone] Performed By: #### 1 9, , 1988-03, HSTNT, 2776-11 #### [facility] CLIA [id number] [address] [place] [address] [place] Neutrophils (Bld) [#/Vol] 9.01 10*3/uL High 1.45-7.50 [facility] Comment on above: Order Comment: Speci men Type: BLOOD SPECIMEN Ordering Facility: [facility] Address: [address] [place], [place] [phone] Performed By: #### 1 9, , 1988-03, HSTNT, 2776-11 #### [facility] CLIA [id number] [address] [place] [address] [place] Neutrophils/100 WBC (Bld) 83.7 % Normal [facility] Comment on above: Order Comment: Speci men Type: BLOOD SPECIMEN Ordering Facility: [facility] Address: [address] [place] [address] Performed By: #### 1 9123-07, , 1988-03, HSTNT, 2776-11 #### [facility] CLIA [id number] [address] [place] [address] [place] Nucleated RBC (Bld) [#/Vol] 10*3/uL Normal <0.01 [facility] Comment on above: Order Comment: Speci men Type: BLOOD SPECIMEN Ordering Facility: [facility] Address: [address] [place] [address] Performed By: #### 1 9123-07, , 1988-03, HSTNT, 2776-11 #### [facility] CLIA [id number] [address] [place] [address] [place] Nucleated RBC/100 WBC (Bld) [Ratio] 0.0 /100 WBC Normal [facility] Comment on above: Order Comment: Speci men Type: BLOOD SPECIMEN Ordering Facility: [facility] Address: [address] [place] [address] Performed By: #### 1 9, , 1988-03, HSTNT, 2776-11 #### [facility] CLIA [id number] [address] [place] [address] [place] Platelet mean volume (Bld) [Entitic vol] 10.3 fL Normal 9.0-12.7 [facility] Comment on above: Order Comment: Speci men Type: BLOOD SPECIMEN Ordering Facility: [facility] Address: [address] [place] [address] Performed By: #### 1 9, , 1988-03, HSTNT, 2776- #### [facility] CLIA [id number] [address] [place] [address] [place] Platelets (Bld) [#/Vol] 284 10*3/uL Normal 150-400 [facility] Comment on above: Order Comment: Speci men Type: BLOOD SPECIMEN Ordering Facility: [facility] Address: [address] [place], [place] [phone] Performed By: #### 1 9123-9, , 1988-03, HSTNT, 2776- #### [facility] CLIA [id number] [address] [place] [address] [place] RBC (Bld) [#/Vol] 4.54 10*6/uL Normal 4.20-6.00 [facility] Comment on above: Order Comment: Speci men Type: BLOOD SPECIMEN Ordering Facility: [facility] Address: [address] [place], [place] [phone] Performed By: #### 1 239, , 1988-03, HSTNT, 2776-11 #### [facility] CLIA [id number] [address] [place] [address] [place] WBC (Bld) [#/Vol] 10.77 10*3/uL Normal 3.70-11.00 [facility] Comment on above: Order Comment: Speci men Type: BLOOD SPECIMEN Ordering Facility: [facility] Address: [address] [place] [address] Performed By: #### 1 9123-9, , 1988-03, HSTNT, 2776- #### [facility] CLIA [id number] [address] [place] [address] [place] CRP SerPl-mCncon 03-08-2023 CRP [Mass/Vol] 3.1 mg/dL High <0.9 [facility] Comment on above: Order Comment: Speci men Type: BLOOD SPECIMEN Ordering Facility: [facility] Address: [address] [place], [place] [id number] Performed By: #### 1 9123-9, 91467-7, 1988-03, HSTNT, 7- #### [facility] CLIA [id number] [place] [address] [place] HIGH SENSITIVITY TROPONIN To n 03-08-2023 HIGH SENSITIVITY YUSEF 10 ng/L Normal <12 [facility] Comment on above: Order Comment: Speci men Type: BLOOD SPECIMEN Ordering Facility: [facility] Address: [address] [place] [id number] Result Comment: When assessing risk for acute [...] 1 9123-9, , 1988-03, HSTNT, 2776- #### [facility] CLIA [id number] [facility] [place] [id number] [place] Magnesium SerPl-mCncon 03-08 Magnesium [Mass/Vol] 2.3 mg/dL Normal 1.7-2.3 [facility] Comment on above: Order Comment: Speci men Type: BLOOD SPECIMEN Ordering Facility: [facility] Address: [address] [place] [phone] Performed By: #### 1 9123-9, 89575-4, 1988-03, HSTNT, 2777- #### [facility] CLIA [id number] [address] [place] [place] [id number] [place] Phosphate SerPl-mCncon 03-08 Phosphate [Mass/Vol] 4.3 mg/dL Normal 2.7-4.8 [facility] Comment on above: Order Comment: Speci men Type: BLOOD SPECIMEN Ordering Facility: [facility] Address: [address] [place] [address] Performed By: #### 1 9123-9, 82675-6, 1987-5, T, 2777-1 #### [facility] CLIA [id number] [address] [place], [place] [id number] [place] ANES POSTPROC EVALon 023 ANES POSTPROC EVAL HNO ID: [id number] Author: Lamberto Maradiaga MD, PhD Service: ? Author Type: Physician Type: Anesthesia Postprocedure Evaluation Filed: 03/07/2023 4:04 PM Note Text: POST ANESTHESIA EVALUATION NOTE : 1950 Procedure Summary Date: 03/07/23 Room / Location: [address] [facility] Anesthesia Start: 1105 Anesthesia Stop: 1341 Procedure: [...] March 07, 2023 TIME: 4:04 PM CSN: [id number] Normal [facility] ANES PRE-OPon 03-07-2023 [facility] PRE-OP HNO ID: [id number] Author: Lamberto Maradiaga MD, PhD Service: ? Author Type: Physician Type: Anesthesia Preprocedure Evaluation Filed: 03/07/2023 10:46 AM Note Text: ANESTHESIOLOGY DAY OF SURGERY NOTE : 1950 Procedure Information Date/Time: 03/07/23 1145 Procedure: COMPLEX REPAIR WOUND OF ABDOMEN 2.6 CM TO 7.5 CM (Abdomen) Location[facility] Surgeons: Angle Melchor MD Estimated body mass [...] and consent discussed: yes. Patient / Responsible Libertarian agrees to proceed: yes Patient / Surrogate [...] 03/07/23 1013 SpO2 97 % 03/07/23 1013 Facility-Administered Medications as of 03/07/2023 Medication Dose Route [...] March 07, 2023 TIME: 10:46 AM CSN: [id number] Normal [facility] BRIEF OP NOTon 03-07-2023 BRIEF OP NOT HNO ID: [id number] Author: Angle Melchor MD Service: General Surgery Author Type: Physician Type: Brief Op Note Filed: 03/07/2023 12:58 PM Note Text: VENTRAL HERNIA BRIEF OP NOTE FROM [facility] Surgery/Procedure Date: 03/07/2023 Pre-Op/Pre-Procedure Diagnosis: 2x recurrent incisional, hernia. The patient's hernia is painful, enlarging, and interfering with activities. Post-Op/Post-Procedure Diagnosis: 2x recurrent incisional, hernia. The patient's hernia is painful, enlarging, and interfering with activities. Procedure(s): ? Open incisional, hernia repair with 30 cm x 30 cm retromuscular and preperitoneal SURGIMESH WN ([facility]) ? Bilateral transversus abdominis and post rectus sheath incision myofascial release Surgeon(s)/Proceduralist(s ) and Poker Manager(s): Dr. Angle Melchor Anesthesia: General Findings: ? incisional, hernia measuring 10 cm x 12 cm comprising EHS Classification segments: [M1-4,] Estimated Blood Loss (cc): 50 Specimens: None Complications: None Normal [facility] CONFIRM BLOOD TYPEon 023 ABO A Normal [facility] Comment on above: Order Comment: Speci men Type: BLOOD SPECIMEN Ordering Facility: [facility] Address: [address] [place], [place] [address] Performed By: #### 1 9123-9, 07136-2, 1988-03, T, 2776-11 #### [facility] CLIA [id number] [address] [place] [address] [place] Rh Nom (Bld) Positive Normal [facility] Comment on above: Order Comment: Speci men Type: BLOOD SPECIMEN Ordering Facility: [facility] Address: [address] [place], [place] [address] Performed By: #### 1 9123-9, 97476-9, 1988-03, [facility], 2776-11 #### [facility] CLIA [id number] [address] [place] [address] [place] NURSING PROGon 03-07-2023 NURSING PROG HNO ID: [id number] Author: Dayan Dubose RN Service: Nursing Author Type: Registered Nurse Type: Nursing Progress Note Filed: 03/07/2023 6:01 PM Note Text: Pt doing well postoperatively. Vss, pain better controlled with IV sample maker hand. Pt verbalizes understanding of sample maker hand and demonstrates the ability to use. Pt being discharged from pacu in stable condition pending available bed. 1756: Pt status unchanged. Vss, pain controlled with iv sample maker hand. No acute distress noted or complaints voiced. Pt being discharged from pacu in stable condition. Normal [facility] OPERATIVE NOon 03-07-2023 OPERATIVE NO HNO ID: [id number] Author: Angle Melchor MD Service: General Surgery Author Type: Physician Type: Operative Report Filed: 03/07/2023 7:34 PM Note Text: [facility] - Operative Report [address] [place], [place] [address] [place] CHA ELENA : 1950 AGE: 72. SEX: M PATIENT TYPE: IN HOSP SVC: [facility] LOCATION: [place] [address] ATTENDING PHYSICIAN: Angle Melchor M.D. [facility] NUMBER: [id number] DATE OF SURGERY/PROCEDURE: 03/07/2023 INCISION/PROCEDURE START TIME: 11:38 AM INCISION CLOSE/PROCEDURE END TIME: 1:20 PM PREOPERATIVE DIAGNOSIS: Multiple recurrent incarcerated incisional hernia. POSTOPERATIVE DIAGNOSIS: Multiple recurrent incarcerated incisional hernia. SURGEON: Angle Melchor M.D. BOX FABRICATOR: Dr. Scarlett Valentino. Please note, Dr. Valentino was my instructional assistant given the complexity of the case. No [...] for the entire procedure. Angle Melchor M.D. MR:[id number] /[id number] Normal [facility] CBC W Auto Differential pane l (Bld)on 03-06-2023 Basophils (Bld) [#/Vol] 0.07 10*3/uL Normal <0.11 [facility] Comment on above: Order Comment: Speci men Type: BLOOD SPECIMEN Ordering Facility: [facility] Address: [address] [place] [phone] Performed By: #### 1 9123-9, 40647-7, 1988-, HSTNT, 2777-1 #### [facility] CLIA [id number] [address] [place] [address] [place] Basophils/100 WBC (Bld) 1.1 % Normal [facility] Comment on above: Order Comment: Speci men Type: BLOOD SPECIMEN Ordering Facility: [facility] Address: [address] [place] [address] Performed By: #### 1 9, , 1988-03, HSTNT, 2776-11 #### [facility] CLIA [id number] [address] [place] [address] [place] Differential cell count method Nom (Bld) Auto Normal [facility] Comment on above: Order Comment: Speci men Type: BLOOD SPECIMEN Ordering Facility: [facility] Address: [address] [place], [place] [phone] Performed By: #### 1 9, , 1988-03, HSTNT, 2776-11 #### [facility] CLIA [id number] [address] [place] [address] [place] Eosinophils (Bld) [#/Vol] 0.04 10*3/uL Normal <0.46 [facility] Comment on above: Order Comment: Speci men Type: BLOOD SPECIMEN Ordering Facility: [facility] Address: [address] [place], [place] [phone] Performed By: #### 1 9, , 1988-03, HSTNT, 2776-11 #### [facility] CLIA [id number] [address] [place] [address] [place] Eosinophils/100 WBC (Bld) 0.6 % Normal [facility] Comment on above: Order Comment: Speci men Type: BLOOD SPECIMEN Ordering Facility: [facility] Address: [address] [place], [place] [phone] Performed By: #### 1 9, , 1988-03, HSTNT, 2776-11 #### [facility] CLIA [id number] [address] [place] [address] [place] Erythrocyte distribution width (RBC) [Ratio] 12.3 % Normal 11.5-15.0 [facility] Comment on above: Order Comment: Speci men Type: BLOOD SPECIMEN Ordering Facility: [facility] Address: [address] [place] [address] Performed By: #### 1 9123-9, 35119-9, 1988-03, HSTNT, 2776-11 #### [facility] CLIA [id number] [address] [place] [address] [place] Hematocrit (Bld) [Volume fraction] 45.2 % Normal 39.0-51.0 [facility] Comment on above: Order Comment: Speci men Type: BLOOD SPECIMEN Ordering Facility: [facility] Address: [address] [place] [address] Performed By: #### 1 91239, 88099-9, 1988-03, HSTNT, 2776-11 #### [facility] CLIA [id number] [address] [place] [address] [place] Hemoglobin (Bld) [Mass/Vol] 15.0 g/dL Normal 13.0-17.0 [facility] Comment on above: Order Comment: Speci men Type: BLOOD SPECIMEN Ordering Facility: [facility] Address: [address] [place], [place] [phone] Performed By: #### 1 9123-9, , 1988-03, HSTNT, 2776-11 #### [facility] CLIA [id number] [address] [place] [address] [place] Immature granulocytes (Bld) [#/Vol] 10*3/uL Normal <0.10 [facility] Comment on above: Order Comment: Speci men Type: BLOOD SPECIMEN Ordering Facility: [facility] Address: [address] [place], [place] [phone] Performed By: #### 1 23-9, , 1988-03, HSTNT, 2776- #### [facility] CLIA [id number] [address] [place] [address] [place] Immature granulocytes/100 WBC (Bld) 0.2 % Normal [facility] Comment on above: Order Comment: Speci men Type: BLOOD SPECIMEN Ordering Facility: [facility] Address: [address] [place] [address] Performed By: #### 1 9, , 1988-03, HSTNT, 2776- #### [facility] CLIA [id number] [address] [place] [address] [place] Lymphocytes (Bld) [#/Vol] 1.75 10*3/uL Normal 1.00-4.00 [facility] Comment on above: Order Comment: Speci men Type: BLOOD SPECIMEN Ordering Facility: [facility] Address: [address] [place] [address] Performed By: #### 1 9, , 1988-03, HSTNT, 2776-11 #### [facility] CLIA [id number] [address] [place] [address] [place] Lymphocytes/100 WBC (Bld) 27.4 % Normal [facility] Comment on above: Order Comment: Speci men Type: BLOOD SPECIMEN Ordering Facility: [facility] Address: [address] [place] [address] Performed By: #### 1 239, , 1988-03, HSTNT, 2776-11 #### [facility] CLIA [id number] [address] [place] [address] [place] MCH (RBC) [Entitic mass] 30.9 pg Normal 26.0-34.0 [facility] Comment on above: Order Comment: Speci men Type: BLOOD SPECIMEN Ordering Facility: [facility] Address: [address] [place] [address] Performed By: #### 1 9122-9, , 1988-03, HSTNT, 2776-11 #### [facility] CLIA [id number] [address] [place] [address] [place] MCHC (RBC) [Mass/Vol] 33.2 g/dL Normal 30.5-36.0 [facility] Comment on above: Order Comment: Speci men Type: BLOOD SPECIMEN Ordering Facility: [facility] Address: [address] Performed By: #### 1 9, , 1988-03, HSTNT, 2776-11 #### [facility] CLIA [id number] [address] [place] [address] [place] MCV (RBC) [Entitic vol] 93.2 fL Normal 80.0-100.0 [facility] Comment on above: Order Comment: Speci men Type: BLOOD SPECIMEN Ordering Facility: [facility] Address: [address] Performed By: #### 1 9, , 1988-03, HSTNT, 2776-11 #### [facility] CLIA [id number] [address] [place] [address] [place] Monocytes (Bld) [#/Vol] 0.50 10*3/uL Normal <0.87 [facility] Comment on above: Order Comment: Speci men Type: BLOOD SPECIMEN Ordering Facility: [facility] Address: [address] Performed By: #### 1 9, , 1988-03, HSTNT, 2776-11 #### [facility] CLIA [id number] [address] [place] [address] [place] Monocytes/100 WBC (Bld) 7.8 % Normal [facility] Comment on above: Order Comment: Speci men Type: BLOOD SPECIMEN Ordering Facility: [facility] Address: [address] [place] [phone] Performed By: #### 1 9, , 1988-03, HSTNT, 2776-11 #### [facility] CLIA [id number] [address] [place] [address] [place] Neutrophils (Bld) [#/Vol] 4.02 10*3/uL Normal 1.45-7.50 [facility] Comment on above: Order Comment: Speci men Type: BLOOD SPECIMEN Ordering Facility: [facility] Address: [address] [place], [place] [phone] Performed By: #### 1 9, , 1988-03, HSTNT, 2776-11 #### [facility] CLIA [id number] [address] [place] [address] [place] Neutrophils/100 WBC (Bld) 62.9 % Normal [facility] Comment on above: Order Comment: Speci men Type: BLOOD SPECIMEN Ordering Facility: [facility] Address: [address] Performed By: #### 1 9, , 1988-03, HSTNT, 2776-11 #### [facility] CLIA [id number] [address] [place] [address] [place] Nucleated RBC (Bld) [#/Vol] 10*3/uL Normal <0.01 [facility] Comment on above: Order Comment: Speci men Type: BLOOD SPECIMEN Ordering Facility: [facility] Address: [address] [place], [place] [phone] Performed By: #### 1 9, , 1988-03, HSTNT, 2776-11 #### [facility] CLIA [id number] [address] [place] [address] [place] Nucleated RBC/100 WBC (Bld) [Ratio] 0.0 /100 WBC Normal [facility] Comment on above: Order Comment: Speci men Type: BLOOD SPECIMEN Ordering Facility: [facility] Address: [address] [place] [address] Performed By: #### 1 9, , 1988-03, HSTNT, 2776-11 #### [facility] CLIA [id number] [address] [place] [address] [place] Platelet mean volume (Bld) [Entitic vol] 10.1 fL Normal 9.0-12.7 [facility] Comment on above: Order Comment: Speci men Type: BLOOD SPECIMEN Ordering Facility: [facility] Address: [address] [place] [address] Performed By: #### 1 9, , 1988-03, HSTNT, 2776-11 #### [facility] CLIA [id number] [address] [place] [address] [place] Platelets (Bld) [#/Vol] 313 10*3/uL Normal 150-400 [facility] Comment on above: Order Comment: Speci men Type: BLOOD SPECIMEN Ordering Facility: [facility] Address: [address] [place] [address] Performed By: #### 1 9, , 1988-03, HSTNT, 2776-11 #### [facility] CLIA [id number] [address] [place] [address] [place] RBC (Bld) [#/Vol] 4.85 10*6/uL Normal 4.20-6.00 [facility] Comment on above: Order Comment: Speci men Type: BLOOD SPECIMEN Ordering Facility: [facility] Address: [address] [place] [address] Performed By: #### 1 9, , 1988-03, HSTNT, 2776-11 #### [facility] CLIA [id number] [address] [place] [address] [place] WBC (Bld) [#/Vol] 6.39 10*3/uL Normal 3.70-11.00 [facility] Comment on above: Order Comment: Speci men Type: BLOOD SPECIMEN Ordering Facility: [facility] Address: [address] [place] [address] Performed By: #### 1 9123-9, 80878-6, 1988-03, HSTNT, 2776-11 #### [facility] CLIA [id number] [address] [place] [address] [place] Comprehensive metabolic 2000 panelon 03-06-2023 Albumin [Mass/Vol] 4.6 g/dL Normal 3.9-4.9 [facility] Comment on above: Order Comment: Speci men Type: BLOOD SPECIMEN Ordering Facility: [facility] Address: [address] [place], [place] [phone] Performed By: #### 1 9123-9, 16215-8, 1988-03, HSTNT, 2776-11 #### [facility] CLIA [id number] [address] [place] [address] [place] ALP [Catalytic activity/Vol] 54 U/L Normal 38-113 [facility] Comment on above: Order Comment: Speci men Type: BLOOD SPECIMEN Ordering Facility: [facility] Address: [address] [place], [place] [phone] Performed By: #### 1 9123-9, 01608-3, 1988-03, HSTNT, 2776-11 #### [facility] CLIA [id number] [address] [place] [address] [place] ALT [Catalytic activity/Vol] 26 U/L Normal 10-54 [facility] Comment on above: Order Comment: Speci men Type: BLOOD SPECIMEN Ordering Facility: [facility] Address: [address] [place], [place] [phone] Performed By: #### 1 9123-9, , 1988-03, HSTNT, 277- #### [facility] CLIA [id number] [address] [place] [address] [place] Anion gap [Moles/Vol] 11 mmol/L Normal 9-18 [facility] Comment on above: Order Comment: Speci men Type: BLOOD SPECIMEN Ordering Facility: [facility] Address: [address] [place] [address] Performed By: #### 1 9123-9, , 1988-03, HSTNT, 277- #### [facility] CLIA [id number] [address] [place] [address] [place] AST [Catalytic activity/Vol] 21 U/L Normal 14-40 [facility] Comment on above: Order Comment: Speci men Type: BLOOD SPECIMEN Ordering Facility: [facility] Address: [address] [place] [address] Performed By: #### 1 91239, , 1988-03, HSTNT, 277- #### [facility] CLIA [id number] [address] [place] [address] [place] Bilirubin [Mass/Vol] 1.0 mg/dL Normal 0.2-1.3 [facility] Comment on above: Order Comment: Speci men Type: BLOOD SPECIMEN Ordering Facility: [facility] Address: [address] [place] [address] Performed By: #### 1 9123-9, , 1988-03, HSTNT, 2777- #### [facility] CLIA [id number] [address] [place] [address] [place] Calcium [Mass/Vol] 10.0 mg/dL Normal 8.5-10.2 [facility] Comment on above: Order Comment: Speci men Type: BLOOD SPECIMEN Ordering Facility: [facility] Address: [address] [place], [place] [phone] Performed By: #### 1 9123-9, , 1988-03, HSTNT, 2776-11 #### [facility] CLIA [id number] [address] [place] [address] [place] Chloride [Moles/Vol] 101 mmol/L Normal 97-105 [facility] Comment on above: Order Comment: Speci men Type: BLOOD SPECIMEN Ordering Facility: [facility] Address: [address] [place], [place] [phone] Performed By: #### 1 23-9, , 1988-03, HSTNT, 27705-25 #### [facility] CLIA [id number] [address] [place] [address] [place] CO2 [Moles/Vol] 27 mmol/L Normal 22-30 [facility] Comment on above: Order Comment: Speci men Type: BLOOD SPECIMEN Ordering Facility: [facility] Address: [address] [place] [address] Performed By: #### 1 9123-9, , 1988-03, HSTNT, 2776-11 #### [facility] CLIA [id number] [address] [place] [address] [place] Creatinine [Mass/Vol] 0.90 mg/dL Normal 0.73-1.22 [facility] Comment on above: Order Comment: Speci men Type: BLOOD SPECIMEN Ordering Facility: [facility] Address: [address] [place], [place] [phone] Performed By: #### 1 9123-9, , 1988-03, HSTNT, 2776- #### [facility] CLIA [id number] [address] [place] [address] [place] ESTIMATED GLOMERULAR FILTRATION RATE 91 mL/min/1.73m??? Normal >=60 [facility] Comment on above: Order Comment: Speci men Type: BLOOD SPECIMEN Ordering Facility: [facility] Address: [address] [place] [address] Result Comment: Constance mated Glomerular Filtration Rate [...] actual GFR. Performed By: #### 1 9123-9, 11347-5, 1988-03, HSTNT, 2776-11 #### [facility] CLIA [id number] [address] [place] [address] [place] Glucose [Mass/Vol] 91 mg/dL Normal 74-99 [facility] Comment on above: Order Comment: Latoya hartman Type: BLOOD SPECIMEN Ordering Facility: [facility] Address: [address] [place] [address] Result Comment: The [place] [employer] (ADA) provides guidance for cutoff [...] Standards of Medical Care in Diabetes 2016, [place] [employer]. Diabetes Care. 2016.39(Suppl 1). Performed By: #### 1 9123-9, 39251-4, 1988-03, HSTNT, 2776-11 #### [facility] CLIA [id number] [facility] [address] [address] [place] Potassium [Moles/Vol] 4.0 mmol/L Normal 3.7-5.1 [facility] Comment on above: Order Comment: Speci men Type: BLOOD SPECIMEN Ordering Facility: [facility] Address: [address] [place] [address] Performed By: #### 1 9122-9, , 1988-03, HSTNT, 2776- #### [facility] CLIA [id number] [address] [place] [address] [place] Protein [Mass/Vol] 6.9 g/dL Normal 6.3-8.0 [facility] Comment on above: Order Comment: Speci men Type: BLOOD SPECIMEN Ordering Facility: [facility] Address: [address] Performed By: #### 1 9, , 1988-03, HSTNT, 2776- #### [facility] CLIA [id number] [address] [place] [address] [place] Sodium [Moles/Vol] 139 mmol/L Normal 136-144 [facility] Comment on above: Order Comment: Speci men Type: BLOOD SPECIMEN Ordering Facility: [facility] Address: [address] Performed By: #### 1 239, , 1988-03, HSTNT, 2776- #### [facility] CLIA [id number] [address] [place] [address] [place] Urea nitrogen [Mass/Vol] 13 mg/dL Normal 9-24 [facility] Comment on above: Order Comment: Speci men Type: BLOOD SPECIMEN Ordering Facility: [facility] Address: [address] [place] [id number] Performed By: #### 1 239, , 1988-03, HSTNT, 2776- #### [facility] CLIA [id number] [address] [place] [address] [place] ECG COMPLETEon 03-06-2023 ECG COMPLETE Ventricular Rate : 7 1 BPM Atrial Rate : 71 BPM P-R Interval : 216 ms QRS Duration : 158 ms Q-T Interval : 448 ms QTC Calculation(Bazett) : 486 ms Calculated P [place] : 18 degrees Calculated R [place] : 151 degrees Calculated T [place] : -4 degrees SINUS RHYTHM WITH 1ST DEGREE AV BLOCK RIGHT AXIS DEVIATION NONSPECIFIC INTRAVENTRICULAR BLOCK ABNORMAL ECG Confirmed by ANGLE MATUTE MD ([id number]) on 03/11/2023 7:31:38 PM NAME : CHA ELENA PID : [id number] : 1950 Gender : Male Race : ORD : [id number] Procedure Date : Mar 06 2023 10:34:49 Edit Date : Mar 11 2023 19:31:39 Diagnosis: SINUS RHYTHM WITH 1ST DEGREE AV BLOCK RIGHT AXIS DEVIATION NONSPECIFIC INTRAVENTRICULAR BLOCK ABNORMAL ECG Confirmed by ANGLE MATUTE MD ([id number]) on 03/11/2023 7:31:38 PM Test Reason : Location : 119 : A17 Overread By : ANGLE MATUTE MD Edited By : ANGLE MATUTE MD Referred By : ANGLE MELCHOR Acquired by : KELSEY NGUYỄN [facility] HISTORY PHYSICALon HISTORY PHYSICAL HNO ID: [id number] Author: Adrianna Pollock APRN.CNP Service: ? Author Type: Nurse Practitioner Type: HANDP Filed: 03/06/2023 10:43 AM Note Text: HISTORY AND PHYSICAL EXAMINATION SERVICE DATE: 03/06/2023 SERVICE TIME: 10:00 AM PRIMARY CARE PHYSICIAN: Speedy Khanna II, MD REASON FOR VISIT: Cha Elena is a 72 year old male who is scheduled for COMPLEX REPAIR WOUND OF ABDOMEN 2.6 CM TO 7.5 CM on 03/07/2023 at [facility]. Patient is being seen at [...] as of Medication Sig Last Dose Taking Candesartan-Hydrochlorothi azid 32-25 mg tab Candesartan-Hydrochlorothi azid Active 1 TAB PO Daily December 12, [...] fevers. 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 No neurological symptoms or problems. Respiratory: No history of current cough or dyspnea, or pneumonia in the past 6 weeks. No history of respiratory/pulmonary symptoms or problems. Cardiovascular: h/o AAA, HTN, 'electrical block' Negative for Recent AR, Chest Pain GI: GERD No history of [...] range. K (more content not included)... Normal [facility] PT panel Coag (PPP)on 2022 INR Coag (PPP) [Relative time] 1.0 {INR} Normal 0.9-1.3 [facility] Comment on above: Order Comment: Speci men Type: BLOOD SPECIMEN Ordering Facility: [facility] Address: [address] [place] [id number] Result Comment: Katie min K Antagonist (VKA) Therapeutic Range: INR 2 to 3 (Target INR of 2.5) Note: For patients treated with VKA drugs, such as warfarin, the [employer] 2012 Guideline recommends [...] MELCHOR, et al. Chest 2012, 141:7S-47S Gifty SINGER, et al. [facility] 2017, 70: 252-289 Performed By: #### 1 9123-9, 22639-1, 1988-03, HSTNT, 2777- #### [facility] CLIA [id number] [address] [place] [address] [place] PT Coag (PPP) [Time] 10.0 s Normal 9.7-13.0 [facility] Comment on above: Order Comment: Speci men Type: BLOOD SPECIMEN Ordering Facility: [facility] Address: [address] [place] [address] Performed By: #### 1 9123-9, , 1988-03, HSTNT, 2776- #### [facility] CLIA [id number] [address] [place] [address] [place] TYPE AND SCREEN,30 DAYon ABO A Normal [facility] Comment on above: Order Comment: Speci devan Type: BLOOD SPECIMEN Ordering Facility: [facility] Address: [address] [address] Performed By: #### 1 9123-9, , 1988-03, HSTNT, 2776- #### [facility] CLIA [id number] [address] [place] [address] [place] HISTORICAL AB SCR STATUS Negative Normal [facility] Comment on above: Order Comment: Speci men Type: BLOOD SPECIMEN Ordering Facility: [facility] Address: [address] [address] Performed By: #### 1 9123-9, 55866-9, 1988-03, HSTNT, 2777- #### [facility] CLIA [id number] [address] [place] [address] [place] Rh Nom (Bld) Positive Normal [facility] Comment on above: Order Comment: Speci men Type: BLOOD SPECIMEN Ordering Facility: [facility] Address: [address] [place] [address] Performed By: #### 1 9123-9, , 1988-03, HSTNT, 2776- #### [facility] CLIA [id number] [address] [place] [address] [place] URINALYSIS, DIPSTICK ONLYon 03-06-2023 Bilirubin Ql (U) Negative Normal Negative [facility] Comment on above: Order Comment: Speci men Type: BLOOD SPECIMEN Ordering Facility: [facility] Address: [address] [place] [address] Performed By: #### 1 9, , 1988-03, HSTNT, 2776-11 #### [facility] CLIA [id number] [address] [place] [address] [place] Clarity (Unsp spec) Clear Normal Clear [facility] Comment on above: Order Comment: Speci men Type: BLOOD SPECIMEN Ordering Facility: [facility] Address: [address] [place], [place] [phone] Performed By: #### 1 9, , 1988-03, HSTNT, 2776-11 #### [facility] CLIA [id number] [facility] [place] [address] [place] Color (U) Light Yellow Normal Yellow [facility] Comment on above: Order Comment: Speci men Type: BLOOD SPECIMEN Ordering Facility: [facility] Address: [address] [place], [place] [phone] Performed By: #### 1 9123-9, , 1988-03, HSTNT, 2776- #### [facility] CLIA [id number] [address] [place] [address] [place] Glucose Test strip (U) [Mass/Vol] Negative Normal Trace, Negative [facility] Comment on above: Order Comment: Speci men Type: BLOOD SPECIMEN Ordering Facility: [facility] Address: [address] [place], [place] [phone] Performed By: #### 1 9122-9, , 1988-03, HSTNT, 2776- #### [facility] CLIA [id number] [address] [place] [address] [place] Hemoglobin Ql (U) Negative Normal Negative, Trace [facility] Comment on above: Order Comment: Speci men Type: BLOOD SPECIMEN Ordering Facility: [facility] Address: [address] [place] [address] Performed By: #### 1 9, , 1988-03, HSTNT, 2776- #### [facility] CLIA [id number] [address] [place] [address] [place] Ketones Ql (U) Negative Normal Trace, Negative [facility] Comment on above: Order Comment: Speci men Type: BLOOD SPECIMEN Ordering Facility: [facility] Address: [address] [place], [place] [phone] Performed By: #### 1 9, , 1988-03, HSTNT, 2776- #### [facility] CLIA [id number] [address] [place] [address] [place] Leukocyte esterase Test strip Ql (U) Negative Normal Negative, 25 Dillon/uL [facility] Comment on above: Order Comment: Speci men Type: BLOOD SPECIMEN Ordering Facility: [facility] Address: [address] [place], [place] [phone] Performed By: #### 1 23-9, , 1988-03, HSTNT, 2776- #### [facility] CLIA [id number] [address] [place] [address] [place] Nitrite Ql (U) Negative Normal Negative [facility] Comment on above: Order Comment: Speci men Type: BLOOD SPECIMEN Ordering Facility: [facility] Address: [address] [place] [address] Performed By: #### 1 9123-9, 88642-7, 1988-03, HSTNT, 2776-11 #### [facility] CLIA [id number] [address] [place] [address] [place] pH (U) 5.5 [pH] Normal 5.0-8.0 [facility] Comment on above: Order Comment: Speci men Type: BLOOD SPECIMEN Ordering Facility: [facility] Address: [address] [place] [address] Performed By: #### 1 91239, , 1988-03, HSTNT, 2776-11 #### [facility] CLIA [id number] [address] [place] [address] [place] Protein (U) [Mass/Vol] Negative Normal Trace , Negative [facility] Comment on above: Order Comment: Speci men Type: BLOOD SPECIMEN Ordering Facility: [facility] Address: [address] [place] [address] Performed By: #### 1 9123-9, , 1988-03, HSTNT, 2776-11 #### [facility] IA [id number] [address] [place] [address] [place] Specific gravity (U) [Rel density] 1.013 Normal 1.005-1.03 0 [facility] Comment on above: Order Comment: Speci men Type: BLOOD SPECIMEN Ordering Facility: [facility] Address: [address] [place] [address] Performed By: #### 1 9123-9, 22660-9, 1988-03, HSTNT, 2776-11 #### [facility] CLIA [id number] [facility] [place] [address] [place] Urobilinogen Ql (U) Negative Normal Negative [facility] Comment on above: Order Comment: Speci men Type: BLOOD SPECIMEN Ordering Facility: [facility] Address: [address] [place] [address] Performed By: #### 1 9123-9, 50375-8, 1988-03, HSTNT, 2777-1 #### [facility] CLIA [id number] [address] [place] [address] [place] aPTT PPPon 03-06-2023 aPTT Coag (PPP) [Time] 25.9 s Normal 23.0-32.4 [facility] Comment on above: Order Comment: Speci men Type: BLOOD SPECIMEN Ordering Facility: [facility] Address: [address] [place] [address] Performed By: #### 1 9123-9, 98185-2, 1988-03, HSTNT, 2777- #### [facility] CLIA [id number] [address] [place] [address] [place] COVID-19 SOFIAOrdered By: Alma Rosa Florez on 12-10-2022 SARS-CoV+SARS-CoV-2 (COVID-19) Ag IA.rapid Ql (Resp) Negative Negative [facility] Comment on above: This is a duplicate Randee SARS Antigen (NANCY) result to be used for statistical tracking purpose only. No Panel InformationOrdered By: Ernie Florez on 12-10-2022 SARS Antigen (LFIA) [facility] CNOVon 09-10-2022 CNOV Office Visit (GENSMN ) -- CHA ELENA ([id number]) 1950 M DEF Date Time Provider Department 09/10/22 10:00 AM [...] Tarik Person MD 09/12/2022 8:38 AM Signed [facility] - HISTORY AND [...] Double-Blind Randomized Controlled Trial IRB NO.: #[id number] FOLDER MACHINE OPERATOR: Chitra Yao MD COORDINATOR/Research Nurse/Budget Counselor: Bertha Andrew MD Phone/email: [phone], [email or web address] Consenting was performed by the attending surgeon, in a [id number] manner, during preoperative evaluation at the General Surgery clinic. The study protocol was discussed in detail with the patient. All study procedures were explained to the subject, including randomization, the two possible study interventions, and the postoperative pain management strategy for all primo (more content not included)... Normal [facility] CBC AUTO DIFFon 06-14-2022 BASO # 0.0 103/ul Normal 0.0-0.1 [facility] Comment on above: Performed By: #### C BC #### [facility] [address] [address] [address] Laurence Valero Basophils/100 WBC (Bld) 0.2 % Normal 0.2-2.0 [facility] Comment on above: Performed By: #### C BC #### [facility] [address] [address] [address] Laurence Valero EO # 0.0 103/ul Normal 0.0-0.7 [facility] Comment on above: Performed By: #### C BC #### [facility] [address] [address] [address] Laurence Valero Eosinophils/100 WBC (Bld) 0.0 % Critically low 0.9-7.0 [facility] Comment on above: Performed By: #### C BC #### [facility] [address] [address] [address] Laurence Valero Erythrocyte distribution width (RBC) [Ratio] 12.2 % Normal 11.0-15.0 [facility] Comment on above: Performed By: #### C BC #### [facility] [address] [address] [address] Laurence Valero Hematocrit (Bld) [Volume fraction] 40.6 % Critically low 42.0-54.0 [facility] Comment on above: Performed By: #### C BC #### [facility] [address] [address] [address] Laurence Valero Hemoglobin (Bld) [Mass/Vol] 14.2 g/dL Normal 14.0-18.0 [facility] Comment on above: Performed By: #### C BC #### [facility] [address] [address] [address] Laurence Valero IG # 0.03 10e3/ul Normal 0.00-0.03 [facility] Comment on above: Performed By: #### C BC #### [facility] [address] [address] [address] Laurence Valero IG % 0.5 % Normal 0.0-0.5 [facility] Comment on above: Performed By: #### C BC #### [facility] [address] [place] [address] Dr. Laurence Valero LYMPH # 0.7 103/ul Critically low 1.2-3.8 [facility] Comment on above: Performed By: #### C BC #### [facility] [address] [place] [address] Dr. Laurence Valero Lymphocytes/100 WBC (Bld) 11.0 % Critically low 20.5-60.0 [facility] Comment on above: Performed By: #### C BC #### [facility] [address] [place] [address] Dr. Laurence Valero MANUAL DIFF REQ NO Normal [facility] Comment on above: Performed By: #### C BC #### [facility] [address] [place] [address] Dr. Laruence Valero MCH (RBC) [Entitic mass] 31.4 pg Normal 25.9-34.0 [facility] Comment on above: Performed By: #### C BC #### [facility] [address] [place] [address] Dr. Laurence Valero MCHC (RBC) [Mass/Vol] 35.0 g/dL Normal 29.9-35.2 [facility] Comment on above: Performed By: #### C BC #### [facility] [address] [place] [address] Dr. Laurence Valero MCV (RBC) [Entitic vol] 89.8 fL Normal 80.0-94.0 [facility] Comment on above: Performed By: #### C BC #### [facility] [address] [place] [address] Dr. Laurence Valero MONO # 0.5 103/ul Normal 0.3-0.8 [facility] Comment on above: Performed By: #### C BC #### [facility] [address] [address] [address] Laurence Valero Monocytes/100 WBC (Bld) 7.7 % Normal 1.7-12.0 [facility] Comment on above: Performed By: #### C BC #### [facility] [address] [address] [address] Laurence Valero NEUT # 5.2 103/ul Normal 1.4-6.5 [facility] Comment on above: Performed By: #### C BC #### [facility] [address] [address] [address] Laurence Valero Neutrophils/100 WBC (Bld) 80.6 % Critically high 43.0-75.0 [facility] Comment on above: Performed By: #### C BC #### [facility] [address] [place] [address] Dr. Laurence Valero Platelet mean volume (Bld) [Entitic vol] 10.0 fL Normal 9.5-13.5 [facility] Comment on above: Performed By: #### C BC #### [facility] [address] [address] [address] Laurence Valero PLT 205 103/ul Normal 150-450 [facility] Comment on above: Performed By: #### C BC #### [facility] [address] [place] [address] Dr. Laurence Valero RBC 4.52 106/ul Critically low 4.70-6.10 [facility] Comment on above: Performed By: #### C BC #### [facility] [address] [place] [address] Dr. Laurence Valero WBC 6.5 103/ul Normal 4.0-11.0 [facility] Comment on above: Performed By: #### C BC #### [facility] [address] [place] [address] W [...] BRIDGER COSME Date: 2022-06-14 10:29 Normal [facility] PROF CHEM 8 (BAS METB)on Anion gap [Moles/Vol] 10.0 mmol/L Normal [facility] Comment on above: Performed By: #### B MP #### [facility] [address] [place] [address] Dr. Laurence Valero Calcium [Mass/Vol] 8.2 mg/dL Critically low 8.5-10.1 [facility] Comment on above: Performed By: #### B MP #### [facility] [address] [place] [address] Dr. Laurence Valero Chloride [Moles/Vol] 94 mmol/L Critically low 98-107 [facility] Comment on above: Performed By: #### B MP #### [facility] [address] [place] [address] Dr. Laurence Valero CO2 [Moles/Vol] 30.4 mmol/L Normal 21.0-32.0 [facility] Comment on above: Performed By: #### B MP #### [facility] [address] [place] [address] Dr. Laurence Valero Creatinine [Mass/Vol] 0.95 mg/dL Normal 0.70-1.30 [facility] Comment on above: Performed By: #### B MP #### [facility] [address] [address] [address] Laurence Valero EGFR-AF NAMIBIAN >60 Normal >=60 [facility] Comment on above: Performed By: #### B MP #### [facility] [address] [address] [address] Laurence Valero EGFR-NON AF NAMIBIAN >60 Normal >=60 [facility] Comment on above: Performed By: #### B MP #### [facility] [address] [address] [address] Laurence Valero Glucose [Mass/Vol] 111 mg/dL Critically high 74-106 T [facility] Comment on above: Performed By: #### B MP #### [facility] [address] [place] [address] Dr. Laurence Valero Potassium [Moles/Vol] 3.4 mmol/L Critically low 3.5-5.1 [facility] Comment on above: Performed By: #### B MP #### [facility] [address] [address] [address] Laurence Valero Sodium [Moles/Vol] 131 mmol/L Critically low 136-145 Th [facility] Comment on above: Performed By: #### B MP #### [facility] [address] [address] [address] Laurence Valero Urea nitrogen [Mass/Vol] 12.0 mg/dL Normal 7.0-18.0 [facility] Comment on above: Performed By: #### B MP #### [facility] [address] [address] [address] Laurence Valero Urea nitrogen/Creatinine [Mass ratio] 12.6 mg/mg Normal [facility] Comment on above: Performed By: #### B MP #### [facility] [address] [address] [address] Laurence Stearns 12-11-2021 Urea nitrogen [Mass/Vol] 17.0 mg/dL Normal 9.0-20.0 [facility] Comment on above: Performed By: #### C JJ, BUN #### [facility] [address] [address] [address] Laurence Valero CREATININEon 12-11-2021 Creatinine [Mass/Vol] 0.93 mg/dL Normal 0.66-1.25 [facility] Comment on above: Performed By: #### C JJ, BUN #### [facility] [address] [address] [address] Laurence Valero EGFR-AF NAMIBIAN >60 Normal >=60 [facility] Comment on above: Performed By: #### C JJ, BUN #### [facility] [address] [address] [address] Laurence Valero EGFR-NON AF NAMIBIAN >60 Normal >=60 [facility] Comment on above: Performed By: #### C JJ, BUN #### [facility] [address] [address] [address] Laurence Valero CTA ABD NAHUM WWO [...] by: BRIDGER COSME Date: 2021-12-11 09:45 Normal [facility] US ABD AORTA DIAGNOSTICon US ABD [...] by: BRIDGER COSME Date: 2021-10-31 09:24 Normal [facility] Vital Signs Date Time Vital Sign Value Performing Clinician Facility 04-12-2025 09:28-0400 Body height 180.3 cm Nuris ESPINAL Work Phone: [facility] 04-12-2025 09:28-0400 Body mass index (BMI) [Ratio] 31.58 kg/m2 Nuris Hemmer PA Work Phone: [facility] 04-12-2025 09:28-0400 Body temperature 97.81 [degF] Nuris Hemmer PA Work Phone: [facility] 04-12-2025 09:28-0400 Body weight 102.69 kg Nuris Hemmer PA Work Phone: [facility] 04-12-2025 09:28-0400 Diastolic blood pressure 82 mm[Hg] Nruis Hemmer PA Work Phone: [facility] 04-12-2025 09:28-0400 Heart rate 73 /min Nuris Hemmer PA Work Phone: [facility] 04-12-2025 09:28-0400 Respiratory rate 16 /min Nuris Hemmer PA Work Phone: [facility] 04-12-2025 09:28-0400 SaO2% (BldA) [Mass fraction] 96 % Nuris Hemmer PA Work Phone: [facility] 04-12-2025 09:28-0400 Systolic blood pressure 118 mm[Hg] Nuris Hemmer PA Work Phone: [facility] 02-22-2025 08:04-0400 Body height 180.3 cm Nuris Hemmer PA Work Phone: [facility] 02-22-2025 08:04-0400 Body mass index (BMI) [Ratio] 32.36 kg/m2 Nuris Hemmer PA Work Phone: [facility] 02-22-2025 08:04-0400 Body temperature 97.9 [degF] Nuris Hemmer PA Work Phone: [facility] 02-22-2025 08:04-0400 Body weight 105.23 kg Nuris Hemmer PA Work Phone: [facility] 02-22-2025 08:04-0400 Diastolic blood pressure 88 mm[Hg] Nuris Hemmer PA Work Phone: [facility] 02-22-2025 08:04-0400 Heart rate 64 /min Nuris Hemmer PA Work Phone: [facility] 02-22-2025 08:04-0400 Respiratory rate 16 /min Nuris Hemmer PA Work Phone: [facility] 02-22-2025 08:04-0400 SaO2% (BldA) [Mass fraction] 98 % Nuris Hemmer PA Work Phone: [facility] 02-22-2025 08:04-0400 Systolic blood pressure 138 mm[Hg] Nuris Hemmer PA Work Phone: [facility] 11-05-2024 08:24-0500 Body height 180.3 cm Speedy Khanna MD Work Phone: [facility] 11-05-2024 08:24-0500 Body mass index (BMI) [Ratio] 31.1 kg/m2 Speedy Khanna MD Work Phone: [facility] 11-05-2024 08:24-0500 Body temperature 97.7 [degF] Speedy Khanna MD Work Phone: [facility] 11-05-2024 08:24-0500 Body weight 101.15 kg Speedy Khanna MD Work Phone: [facility] 11-05-2024 08:24-0500 Diastolic blood pressure 76 mm[Hg] Speedy Khanna MD Work Phone: [facility] 11-05-2024 08:24-0500 Heart rate 87 /min Speedy Khanna MD Work Phone: [facility] 11-05-2024 08:24-0500 SaO2% (BldA) [Mass fraction] 98 % Speedy Khanna MD Work Phone: [facility] 11-05-2024 08:24-0500 Systolic blood pressure 128 mm[Hg] Speedy Khanna MD Work Phone: [facility] 09-25-2024 11:04-0400 Body height 180.3 cm Nuris Hemmer PA Work Phone: [facility] 09-25-2024 11:04-0400 Body mass index (BMI) [Ratio] 30.96 kg/m2 Nuris Hemmer PA Work Phone: [facility] 09-25-2024 11:04-0400 Body weight 100.7 kg Nuris Hemmer PA Work Phone: [facility] 09-25-2024 11:04-0400 Diastolic blood pressure 78 mm[Hg] Nuris Hemmer PA Work Phone: [facility] 09-25-2024 11:04-0400 Heart rate 84 /min Nuris Hemmer PA Work Phone: [facility] 09-25-2024 11:04-0400 Respiratory rate 16 /min Nuris Hemmer PA Work Phone: [facility] 09-25-2024 11:04-0400 SaO2% (BldA) [Mass fraction] 97 % Nuris Hemmer PA Work Phone: [facility] 09-25-2024 11:04-0400 Systolic blood pressure 122 mm[Hg] Nuris Hemmer PA Work Phone: [facility] 09-23-2024 11:05-0400 Body temperature 98.1 [degF] II Speedy Khanna Work Phone: [facility] 09-23-2024 11:05-0400 Heart rate 80 /min II Speedy Khanna Work Phone: [facility] 09-23-2024 11:05-0400 Respiratory rate 16 /min II Speedy Khanna Work Phone: [facility] 09-23-2024 11:05-0400 SaO2% (BldA) [Mass fraction] 95 % II Speedy Khanna Work Phone: [facility] 09-23-2024 08:00-0400 Diastolic blood pressure 74 mm[Hg] II Speedy Khanna Work Phone: [facility] 09-23-2024 08:00-0400 Systolic blood pressure 134 mm[Hg] II Speedy Khanna Work Phone: [facility] 09-23-2024 06:19-0400 Body weight 101.5 kg II Speedy Khanna Work Phone: [facility] 09-22-2024 16:12-0400 Body height 180.34 cm II Speedy Khanna Work Phone: [facility] 09-22-2024 04:54-0400 Diastolic blood pressure 75 mm[Hg] II Speedy Khanna Work Phone: [facility] 09-22-2024 04:54-0400 Heart rate 86 /min II Speedy Khanna Work Phone: [facility] 09-22-2024 04:54-0400 Respiratory rate 18 /min II Speedy Khanna Work Phone: [facility] 09-22-2024 04:54-0400 SaO2% (BldA) [Mass fraction] 95 % II Speedy Khanna Work Phone: [facility] 09-22-2024 04:54-0400 Systolic blood pressure 140 mm[Hg] II Speedy Khanna Work Phone: [facility] 09-22-2024 01:50-0400 Body temperature 97.8 [degF] II Speedy Khanna Work Phone: [facility] 09-21-2024 23:19-0400 Body height 180.34 cm II Speedy Khanna Work Phone: [facility] 09-21-2024 23:19-0400 Body weight 101.7 kg II Speedy Khanna Work Phone: [facility] 09-04-2024 16:00-0400 Diastolic blood pressure 76 mm[Hg] II Speedy Khanna Work Phone: [facility] 09-04-2024 16:00-0400 Heart rate 88 /min II Speedy Khanna Work Phone: [facility] 09-04-2024 16:00-0400 Systolic blood pressure 138 mm[Hg] II Speedy Khanna Work Phone: [facility] 09-04-2024 12:01-0400 Body height 177.8 cm II Speedy Khanna Work Phone: [facility] 09-04-2024 08:00-0400 Body temperature 98.1 [degF] II Speedy Khanna Work Phone: [facility] 09-04-2024 08:00-0400 Diastolic blood pressure 77 mm[Hg] II Speedy Khanna Work Phone: [facility] 09-04-2024 08:00-0400 Heart rate 89 /min II Speedy Khanna Work Phone: [facility] 09-04-2024 08:00-0400 Respiratory rate 16 /min II Speedy Khanna Work Phone: [facility] 09-04-2024 08:00-0400 SaO2% (BldA) [Mass fraction] 98 % II Speedy Khanna Work Phone: [facility] 09-04-2024 08:00-0400 Systolic blood pressure 136 mm[Hg] II Speedy Khanna Work Phone: [facility] 09-04-2024 05:50-0400 Body weight 106.1 kg II Speedy Khanna Work Phone: [facility] 09-03-2024 13:30-0400 Diastolic blood pressure 69 mm[Hg] II Speedy Khanna Work Phone: [facility] 09-03-2024 13:30-0400 Heart rate 77 /min II Speedy Khanna Work Phone: [facility] 09-03-2024 13:30-0400 Respiratory rate 16 /min II Speedy Khanna Work Phone: [facility] 09-03-2024 13:30-0400 SaO2% (BldA) [Mass fraction] 98 % II Speedy Khanna Work Phone: [facility] 09-03-2024 13:30-0400 Systolic blood pressure 116 mm[Hg] II Speedy Khanna Work Phone: [facility] 09-03-2024 10:47-0400 Body height 177.8 cm II Speedy Khanna Work Phone: [facility] 09-03-2024 10:47-0400 Body temperature 97.7 [degF] II Speedy Khanna Work Phone: [facility] 09-03-2024 10:47-0400 Body weight 106.25 kg II Speedy Khanna Work Phone: [facility] 09-01-2024 08:32-0400 Body height 180.3 cm Sarah Mendez INFORMATION CLERK Work Phone: [facility] 09-01-2024 08:32-0400 Body mass index (BMI) [Ratio] 32.3 kg/m2 Sarah Mendez INFORMATION CLERK Work Phone: [facility] 09-01-2024 08:32-0400 Body temperature 100.6 [degF] Sarah Mendez INFORMATION CLERK Work Phone: [facility] 09-01-2024 08:32-0400 Body weight 105.05 kg Sarah Mendez INFORMATION CLERK Work Phone: [facility] 09-01-2024 08:32-0400 Diastolic blood pressure 72 mm[Hg] Sarah Mendez INFORMATION CLERK Work Phone: [facility] 09-01-2024 08:32-0400 Heart rate 87 /min Sarah Mendez INFORMATION CLERK Work Phone: [facility] 09-01-2024 08:32-0400 Respiratory rate 16 /min Sarah Mendez INFORMATION CLERK Work Phone: [facility] 09-01-2024 08:32-0400 SaO2% (BldA) [Mass fraction] 95 % Sarah Mendez INFORMATION CLERK Work Phone: [facility] 09-01-2024 08:32-0400 Systolic blood pressure 100 mm[Hg] Sarah Mendez NP Work Phone: [facility] 06-24-2024 13:05-0400 Body temperature 98.6 [degF] Tray CASTILLO [facility] 06-24-2024 13:05-0400 Diastolic blood pressure 77 mm[Hg] Tray CASTILLO [facility] 06-24-2024 13:05-0400 Heart rate 89 /min Tray CASTILLO [facility] 06-24-2024 13:05-0400 Respiratory rate 16 /min Tray CASTILLO [facility] 06-24-2024 13:05-0400 Systolic blood pressure 117 mm[Hg] Tray CASTILLO [facility] 04-01-2023 11:32-0400 Body height 177.8 cm Angle Melchor MD Work Phone: [facility] 04-01-2023 11:32-0400 Body temperature 96.91 [degF] Angle Melchor MD Work Phone: [facility] 04-01-2023 11:32-0400 Body weight 107.96 kg Angle Melchor MD Work Phone: [facility] 04-01-2023 11:32-0400 Diastolic blood pressure 80 mm[Hg] Angle Melchor MD Work Phone: [facility] 04-01-2023 11:32-0400 Heart rate 91 /min Anlge Melchor MD Work Phone: [facility] 04-01-2023 11:32-0400 Respiratory rate 14 /min Angle Melchor MD Work Phone: [facility] 04-01-2023 11:32-0400 Systolic blood pressure 154 mm[Hg] Angle Melchor MD Work Phone: [facility] 03-06-2023 09:49-0400 Body height 179.1 cm Pac 9 Work Phone: [facility] 03-06-2023 09:49-0400 Body temperature 98.49 [degF] Pac 9 Work Phone: [facility] 03-06-2023 09:49-0400 Body weight 111.36 kg Pac 9 Work Phone: [facility] 03-06-2023 09:49-0400 Diastolic blood pressure 71 mm[Hg] Pac 9 Work Phone: [facility] 03-06-2023 09:49-0400 Heart rate 78 /min Pac 9 Work Phone: [facility] 03-06-2023 09:49-0400 SaO2% (BldA) [Mass fraction] 98 % Pac 9 Work Phone: [facility] 03-06-2023 09:49-0400 Systolic blood pressure 126 mm[Hg] Pac 9 Work Phone: [facility] 12-12-2022 10:40-0500 Diastolic blood pressure 73 mm[Hg] II Speedy Khanna Work Phone: [facility] 12-12-2022 10:40-0500 Heart rate 82 /min II Speedy Khanna Work Phone: [facility] 12-12-2022 10:40-0500 Respiratory rate 20 /min II Speedy Khanna Work Phone: [facility] 12-12-2022 10:40-0500 SaO2% (BldA) [Mass fraction] 99 % II Speedy Khanna Work Phone: [facility] 12-12-2022 10:40-0500 Systolic blood pressure 131 mm[Hg] II Speedy Khanna Work Phone: [facility] 12-12-2022 09:09-0500 Body height 179.07 cm II Speedy Khanna Work Phone: [facility] 12-12-2022 09:09-0500 Body temperature 98.5 [degF] II Speedy Khanna Work Phone: [facility] 12-12-2022 09:09-0500 Body weight 108.86 kg II Speedy Khanna Work Phone: [facility] 09-10-2022 09:12-0400 Body height 180.3 cm Angle Melchor MD Work Phone: [facility] 09-10-2022 09:12-0400 Body temperature 96.1 [degF] Angle Melchor MD Work Phone: [facility] 09-10-2022 09:12-0400 Body weight 106.59 kg Angle Melchor MD Work Phone: [facility] 09-10-2022 09:12-0400 Diastolic blood pressure 78 mm[Hg] Angle Melchor MD Work Phone: [facility] 09-10-2022 09:12-0400 Heart rate 77 /min Angle Melchor MD Work Phone: [facility] 09-10-2022 09:12-0400 Respiratory rate 12 /min Angle Melchor MD Work Phone: [facility] 09-10-2022 09:12-0400 Systolic blood pressure 154 mm[Hg] Angle Melchor MD Work Phone: [facility] Encounters Encounter Date Encounter Type Care Provider Facility Start: 06-21-2025 ambulatory Tray Montiel ty:[facility] Start: 04-12-2025 End: 04-12-2025 Bamboo flowsheet Nuris ESPINAL Work Phone: [facility] Start: 04-12-2025 End: 04-12-2025 Bamboo flowsheet Nuris ESPINAL Work Phone: [facility] Start: 04-12-2025 End: 04-12-2025 Office outpatient visit 15 minutes Nuris ESPINAL Work Phone: [facility] Comment on above: Acute dysfunction of left eustachian tube (Primary Dx) Start: 04-09-2025 End: 04-09-2025 Bamboo flowsheet Peggy Lowe CCC-A Work Phone: [facility] Start: 04-09-2025 End: 04-09-2025 Bamboo flowsheet Peggy Lowe CCC-A Work Phone: [facility] Start: 04-09-2025 End: 04-09-2025 Clinical Support Peggy Lowe [facility] Work Phone: [facility] Comment on above: Sensorineural hearin g loss, bilateral (Primary Dx) Start: 03-03-2025 End: 03-03-2025 Patient encounter procedure Speedy Khanna II Work Phone: [facility] [place] Work Phone: Start: 03-03-2025 End: 03-03-2025 ambulatory Speedy Khanna II Work Phone: [facility] Work Phone: Start: 02-22-2025 End: 02-22-2025 Bamboo flowsheet Nuris ESPINAL Work Phone: [facility] Start: 02-22-2025 End: 02-22-2025 Bamboo flowsheet Nuris ESPINAL Work Phone: [facility] Start: 02-22-2025 End: 02-22-2025 Patient encounter procedure Nuris ESPINAL Work Phone: [facility] Comment on above: Medicare [facility], subsequent (Primary Dx); ACP (advance care planning); Lung nodule; AV block, 1st degree; Primary hypertension (CMS/HCC); Left bundle branch block; Mediastinal lymphadenopathy; Popliteal artery aneurysm, bilateral (CMS/HCC); Gastroesophageal reflux disease without esophagitis; Mesenteric lymphadenopathy; Benign prostatic hyperplasia without lower urinary tract symptoms; History of colon polyps; Elevated PSA; Peyronie's disease; Polyarthralgia; Obesity, Class I, BMI 30-34.9; Bilateral tinnitus; CRP elevated; Elevated LDL cholesterol level (CMS/HCC); Family history of prostate cancer; History of resection of small bowel; Rosacea; S/P hernia repair; Sensorineural hearing loss, bilateral; Acute non-recurrent maxillary sinusitis Start: 02-22-2025 End: 02-22-2025 ambulatory NURIS DOCKERY Not Available Start: 11-05-2024 End: 11-05-2024 Bamboo flowsheet Speedy Khanna MD Work Phone: [facility] Start: 11-05-2024 End: 11-05-2024 Bamboo flowsheet Speedy Khanan MD Work Phone: [facility] Start: 11-05-2024 End: 11-05-2024 Office outpatient visit 15 minutes Speedy Khanna MD Work Phone: [facility] Comment on above: Acute non-recurrent sinusitis, unspecified location (Primary Dx) Start: 11-05-2024 End: 11-05-2024 ambulatory SPEEDY KHANNA Not Available Start: 09-25-2024 End: 09-25-2024 Bamboo flowsheet Nuris Dockery PA Work Phone: [facility] Start: 09-25-2024 End: 09-25-2024 Bamboo flowsheet Nuris Dockery PA Work Phone: [facility] Start: 09-25-2024 End: 09-25-2024 Office outpatient visit 25 minutes Nuris ESPINAL Work Phone: [facility] Comment on above: Partial small bowel obstruction (CMS/HCC) (Primary Dx); Nausea and vomiting, unspecified vomiting type; Obesity, Class I, BMI 30-34.9; Primary hypertension (CMS/HCC) Start: 09-25-2024 End: 09-25-2024 ambulatory NURIS DOCKERY Not Available Start: 09-22-2024 End: 09-23-2024 Evaluation and management of inpatient II Speedy Khanna Work Phone: [facility] [place] [facility] Work Phone: Start: 09-04-2024 Non-patient / Non-visit II Zack Khanna Work Phone: [facility] Physician [facility] Infectious Disease Work Phone: Start: 09-03-2024 Non-patient / Non-visit II Zack Khanna Work Phone: [facility] Pulmonary Disease Work Phone: Start: 09-03-2024 End: 09-04-2024 Evaluation and management of inpatient II Speedy Jey Work Phone: [facility] [place] [facility] Work Phone: Start: 09-03-2024 End: 09-04-2024 ambulatory Angle Blank Facility:[facility] Start: 09-02-2024 End: 09-02-2024 Telephone encounter Speedy Khanna MD Work Phone: [facility] Start: 09-01-2024 Non-patient / Non-visit II Zack Khanna Work Phone: [facility] Work Phone: Start: 09-01-2024 End: 09-01-2024 Clinisync Result Encounter Sarah Mendez NP Work Phone: [facility] Unsolicited Start: 09-01-2024 End: 09-01-2024 Clinisync Result Encounter Sarah Mendez INFORMATION CLERK Work Phone: [facility] Unsolicited Start: 09-01-2024 End: 09-01-2024 Telephone encounter Nuris Dockery PA Work Phone: [facility] Start: 09-01-2024 End: 09-01-2024 Office outpatient visit 25 minutes Sarah Mendez INFORMATION CLERK Work Phone: [facility] Comment on above: Fever, unspecified f ever cause (Primary Dx); Muscle cramps; 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); Abdominal aortic aneurysm, without rupture, unspecified (CMS/HCC); Elevated PSA; Pain in joints; Acute non-recurrent pansinusitis Start: 09-01-2024 End: 09-01-2024 ambulatory SARAH MENDEZ Not Available Start: 06-24-2024 End: 06-24-2024 ambulatory Tray R JONATHAN Facility:[facility] Start: 06-24-2024 End: 06-24-2024 Patient encounter procedure Tray Gilbert CASTILLO [facility] Janet Start: 06-19-2024 ambulatory Tray R JONATHAN Facili ty:[facility] Start: 06-14-2023 End: 12-26-2023 Patient encounter procedure Radha Hernandez [facility] - Ivone HERNANDEZ Comment on above: Bilateral hearing lo ss, unspecified hearing loss type (Primary Dx) Start: 04-01-2023 End: 04-02-2023 ambulatory ANGLE MELCHOR Facility:[facility] Start: 04-01-2023 End: 04-01-2023 Patient encounter procedure Angle Melchor MD Work Phone: General Surgery Comment on above: 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) Start: 03-15-2023 Telephone encounter Bhavya WADE Comment on above: Follow Up Phone Call (All clear) Start: 03-07-2023 End: 03-10-2023 Evaluation and management of inpatient ANGLE MELCHOR Facility:[facility] Start: 03-06-2023 Encounter for other preprocedural examination [facility] Start: 03-06-2023 Encounter for other preprocedural examination [facility] Start: 03-06-2023 End: 03-06-2023 Admission to establishment [facility] Main 9 Work Phone: [facility] Start: 03-06-2023 End: 03-07-2023 ambulatory Pacc Main 9 Work Phone: Pre Anesthesia Comment on above: Pre-op evaluation (P rimary Dx); Primary hypertension; Benign prostatic hyperplasia without lower urinary tract symptoms; Abdominal aortic aneurysm (AAA) without rupture, unspecified part (HCC); AV block, 1st degree Start: 03-06-2023 End: 03-06-2023 Preprocedural examination done Pac Main 9 Work Phone: Pre Anesthesia Start: 12-12-2022 End: 12-12-2022 Admission to same day surgery center II Speedy Khanna Work Phone: [facility] Work Phone: Start: 12-12-2022 End: 12-12-2022 ambulatory II Speedy Khanna Work Phone: [facility] Work Phone: Start: 12-10-2022 End: 12-10-2022 ambulatory II Speedy Khanna Work Phone: [facility] Work Phone: Start: 12-10-2022 End: 12-10-2022 Patient encounter procedure II Speedy Jey Work Phone: [facility]-Pre-Surgical Testing Work Phone: Start: 09-11-2022 ambulatory Angle kilpatrick MD Work Phone: [facility] Comment on above: 03.07.23 Cure (Open Complex AWR 5 hours los 5) Start: 09-11-2022 Preprocedural examin ation done Angle Melchor MD Work Phone: [facility] Start: 09-10-2022 End: 09-11-2022 ambulatory ANGLE MELCHOR Facility:[facility] Start: 09-10-2022 End: 09-10-2022 Patient encounter procedure Angle Melchor MD Work Phone: General Surgery Comment on above: 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) Start: 06-14-2022 End: 06-14-[address] SPEEDY KHANNA Facility:[facility] Start: 05-31-2022 End: 06-01-[address] TANVI MARIE Facility:[facility] Start: 12-13-2021 Encounter for other preprocedural examination ALISE PALOMINO [facility] Start: 01-19-2022 Encounter for preprocedural cardiovascular examination ALISE PALOMINO [facility] Start: 12-11-2021 End: 12-12-2021 [facility] Start: 12-11-2021 End: 12-12-2021 Encounter for preprocedural cardiovascular examination ALISE PALOMINO Facility:[facility] Start: 10-31-2021 End: 11-01-[address] NURIS DOCKERY Facility:[facility] Procedures Date Procedure Procedure Detail Performing Clinician Start: 03-03-2025 CT of thorax with contrast Speedy Khanna II Work Phone: Start: 09-22-2024 Plain X-ray abdomen II Speedy Khanna Work Phone: Start: 09-22-2024 Plain X-ray abdomen II Speedy Khanna Work Phone: Start: 09-21-2024 Computed tomography of abdomen and pelvis with contrast II Speedy Khanna Work Phone: Start: 09-03-2024 Duplex scan of lower limb veins II Speedy Khanna Work Phone: Start: 09-03-2024 Respiratory Panel (PCR) II Speedy Khanna Work Phone: Start: 09-03-2024 SARS-CoV-2, Influenz a & RSV (PCR) II Speedy Khanna Work Phone: Start: 09-03-2024 Computed tomography of abdomen and pelvis with contrast II Speedy Khanna Work Phone: Start: 09-03-2024 CT angiography of thorax II Speedy Khanna Work Phone: Start: 09-03-2024 CT of head without contrast II Speedy Khanna Work Phone: Start: 09-01-2024 ALL CBC WITH AUTO DIFF Sarah Mendez INFORMATION CLERK Work Phone: Start: 03-06-2023 Antibody screen SPEEDY KHANNA II Comment on above: Order Comment: Speci men Type: BLOOD SPECIMEN Ordering Facility: [facility] Address: [address] [place], [place] [id number] Performed By: #### 1 9123-9, 91284-3, 1988-5, TNT, 2777-1 #### [facility] CLIA [id number] [address] [place] [address] [place] Start: 12-12-2022 Screening colonoscopy I I Speedy Khanna Work Phone: Start: 12-12-2022 [facility] Start: 12-10-2022 SARS Antigen (LFIA) II Speedy Khanna Work Phone: Start: 05-31-[address] MARTA MARIE Comment on above: Performed By: #### P [facility] #### [facility] [address] [place] [address] Dr. Laurence Valero Start: 06-26-2010 Transrectal biopsy o f prostate using ultrasound guidance Tray CASTILLO Cholecystectomy Tray HORTON Herniated structure (morphologic abnormality) Tray CASTILLO Stomach structure (b rolando structure) Tray CASTILLO Plan of Treatment Date Care Activity Detail Author Start: 12-12-2032 Screening for malign ant neoplasm of colon [facility] Start: 03-10-2026 DIABETES SCREEN DIABETES SCREEN [facility] Start: 03-06-2026 DIABETES SCREEN DIABETES SCREEN [facility] Start: 02-22-2026 Medicare Annual Well ness (AWV) Medicare Annual Wellness (AWV) [facility] Start: 07-26-2025 Influenza vaccination Influenz a Vaccine (Season Ended) [facility] Start: 04-12-2025 End: 04-12-2025 Patient encounter procedure [facility] Comment on above: Arrived Start: 02-22-2025 End: 02-22-2025 Patient encounter procedure 02/22/2025 8:00 AM EDT Office Visit [facility] [address] [facility] [address] [place] [id number] Nuris Dockery PA [address] [place] [address] Arrived [facility] Comment on above: Arrived Start: 12-31-2024 End: 12-31-2024 Patient encounter procedure 12/31/2024 8:00 AM EST Office Visit [facility] [address] [place] [address] Nuris Dockery PA [address] [place] [address] [facility] Start: 11-05-2024 End: 11-05-2024 Patient encounter procedure 11/05/2024 8:30 AM EST Office Visit [facility] [address] [place] [address] Speedy Khanna MD [address] [place] [address] Arrived [facility] Comment on above: Arrived Start: 09-25-2024 End: 09-25-2024 Patient encounter procedure 09/25/2024 11:00 AM EDT Office Visit [facility] [address] [place] [address] Nuris Dockery PA [address] [place] [address] Arrived [facility] Comment on above: Arrived Start: 09-23-2024 End: 09-23-2024 [facility] Start: 09-22-2024 Supine abdominal X-ray XR KUB [facility] Start: 09-22-2024 End: 09-22-2024 [facility] Start: 09-22-2024 Consultation [facility] Start: 09-22-2024 Hospital admission [facility] Start: 09-22-2024 Plain X-ray abdomen XR abdomen 1V Fi [facility] Start: 09-22-2024 XR Abdomen Single view [facility] Start: 09-05-2024 End: 09-05-2024 [facility] Start: 09-05-2024 Hepatic function panel [facility] Start: 09-04-2024 [facility] Start: 09-04-2024 [facility] Start: 09-04-2024 [facility] Start: 09-04-2024 [facility] Start: 09-03-2024 Referral to infectio us diseases physician [facility] Start: 09-03-2024 Hepatic function panel [facility] Start: 09-03-2024 End: 09-03-2024 [facility] Start: 09-03-2024 Referral to Meeting Facilitator [facility] Start: 09-03-2024 Sleep disorder assessment [facility] Start: 09-03-2024 Consultation [facility] Start: 09-03-2024 Respiratory pathogen s DNA and RNA panel - Nasopharynx by SUMAN with non-probe detection [facility] Start: 09-03-2024 Hospital admission [facility] Start: 09-03-2024 End: 09-03-2024 [facility] Start: 09-02-2024 End: 09-02-2025 Comprehensive metabolic 2000 panel - Serum or Plasma Comprehensive metabolic panel Lab Routine Hypokalemia Muscle cramps Expected: 09/02/2024 (Approximate), Expires: 09/02/2025 [facility] Work Phone: Comment on above: Expected: 09/02/2024 (Approximate), Expires: 09/02/2025 Start: 09-01-2024 End: 09-01-2025 CBC panel - Blood by Automated count CBC Lab Routine Fever, unspecified fever cause Muscle cramps Expected: 09/01/2024 (Approximate), Expires: 09/01/2025 [facility] Comment on above: Expected: 09/01/2024 (Approximate), Expires: 09/01/2025 Start: 09-01-2024 End: 09-01-2025 Comprehensive metabolic 2000 panel - Serum or Plasma Comprehensive metabolic panel Lab Routine Fever, unspecified fever cause Muscle cramps Expected: 09/01/2024 (Approximate), Expires: 09/01/2025 [facility] Work Phone: Comment on above: Expected: 09/01/2024 (Approximate), Expires: 09/01/2025 Start: 09-01-2024 End: 09-01-2025 Magnesium [Mass/volume] in Serum or Plasma Magnesium Lab Routine Muscle cramps Expected: 09/01/2024 (Approximate), Expires: 09/01/2025 [facility] Comment on above: Expected: 09/01/2024 (Approximate), Expires: 09/01/2025 Start: 09-01-2024 End: 09-01-2025 Urate [Mass/volume] in Serum or Plasma Uric acid Lab Routine Pain in joints Expected: 09/01/2024 (Approximate), Expires: 09/01/2025 [facility] Comment on above: Expected: 09/01/2024 (Approximate), Expires: 09/01/2025 Start: 08-26-2024 Medicare Annual Well ness (AWV) Medicare Annual Wellness (AWV) [facility] Start: 07-26-2024 Influenza vaccination Influenza Vacc ine (#1) [facility] Start: 03-06-2024 BP CONTROLLED (<130/80) BP CONTROLLE D (<130/80) [facility] Start: 09-11-2023 End: 11-11-2023 aPTT in Platelet poor plasma by Coagulation assay ACTIVATED PTT Lab Routine Preoperative examination Recurrent ventral hernia Expected: 09/11/2023, Expires: 11/11/2023 [facility] Work Phone: Comment on above: Expected: 09/11/2023 , Expires: 11/11/2023 Start: 09-11-2023 End: 11-11-2023 CBC W Auto Differential panel - Blood CBC + DIFF Lab Routine Preoperative examination Recurrent ventral hernia Expected: 09/11/2023, Expires: 11/11/2023 [facility] Work Phone: Comment on above: Expected: 09/11/2023 , Expires: 11/11/2023 Start: 09-11-2023 End: 11-11-2023 Comprehensive metabolic 2000 panel - Serum or Plasma COMP METABOLIC PANEL Lab Routine Preoperative examination Recurrent ventral hernia Expected: 09/11/2023, Expires: 11/11/2023 [facility] Work Phone: Comment on above: Expected: 09/11/2023 , Expires: 11/11/2023 Start: 09-11-2023 End: 11-11-2023 PT panel - Platelet poor plasma by Coagulation assay PROTHROMBIN TIME/PT Lab Routine Preoperative examination Recurrent ventral hernia Expected: 09/11/2023, Expires: 11/11/2023 [facility] Work Phone: Comment on above: Expected: 09/11/2023 , Expires: 11/11/2023 Start: 09-11-2023 End: 11-11-2023 TYPE AND SCREEN,30 DAY TYPE AND SCREEN,30 DAY Blood Bank Routine Preoperative examination Recurrent ventral hernia Expected: 09/11/2023, Expires: 11/11/2023 [facility] Work Phone: Comment on above: Expected: 09/11/2023 , Expires: 11/11/2023 Start: 09-11-2023 End: 11-11-2023 URINALYSIS, DIPSTICK ONLY URINALYSIS, DIPSTICK ONLY Lab Routine Preoperative examination Recurrent ventral hernia Expected: 09/11/2023, Expires: 11/11/2023 [facility] Work Phone: Comment on above: Expected: 09/11/2023 , Expires: 11/11/2023 Start: 12-12-2022 [facility] Start: 11-25-2022 ADVANCE DIRECTIVE DISCUSSION ADVANCE DIRECTIVE DISCUSSION [facility] Start: 11-25-2022 DEPRESSION ASSESSMENT DEPRESSION ASS ESSMENT [facility] Start: 07-26-2022 Influenza vaccination INFLUENZA (#1) [facility] Start: 11-25-2021 ADVANCE DIRECTIVE DISCUSSION ADVANCE DIRECTIVE DISCUSSION [facility] Start: 11-25-2021 DEPRESSION ASSESSMENT DEPRESSION ASS ESSMENT [facility] Start: 2016 PNEUMOCOCCAL: 65+ (1 - PCV) PNEUMOCOCCAL: 65+ (1 - PCV) [facility] Start: 2001 SHINGRIX VACCINE (1 of 2) SHINGRIX VACCINE (1 of 2) [facility] Start: 1996 COLOGUARD (FIT-DNA) COLOGUARD (FIT-D NA) [facility] Start: 1996 Colonoscopy COLONOSCOPY [facility] Start: 1996 COLORECTAL CANCER SCREENING COLORECTAL CANCER SCREENING [facility] Start: [address] COLONOGRAPHY [facility] Start: 1996 DIABETES SCREEN DIABETES SCREEN [facility] Start: 1996 FECAL OCCULT BLOOD FECAL OCCULT BLOO D [facility] Start: 1996 SIGMOIDOSCOPY SIGMOIDOSCOPY [facility] Start: 1986 LIPID SCREEN LIPID SCREEN [facility] Start: 1970 Urine microalbumin profile DTAP,TDAP,TD (1 - Tdap) [facility] Start: 1969 ANNUAL PCP TEAM CONCRETE BUCKET HOOKER NGUYEN DISEASE VISIT ANNUAL PCP TEAM CHRONIC DISEASE VISIT [facility] Start: 1969 BP CONTROLLED (<130/80) BP CONTROLLE D (<130/80) [facility] Start: 1969 HEPATITIS C SCREENING HEPATITIS C SC RONNY [facility] Start: 04-09-1951 COVID-19 VACCINE (#1) COVID-19 VACCI NE (#1) [facility] Start: 1950 ABDOMINAL AORTIC ANEURYSM SCREENING ABDOMINAL AORTIC ANEURYSM SCREENING [facility] Start: 1950 Screening for malign ant neoplasm of colon [facility] Albumin/Globulin ratio [facility] Anion gap measurement [facility] Anion gap measurement [facility] Basophils [#/volume] in Blood by Automated count [facility] Basophils [#/volume] in Blood by Automated count [facility] Basophils/100 leukoc ytes in Blood by Automated count [facility] Basophils/100 leukoc ytes in Blood by Automated count [facility] Bilirubin.indirect [Mass/volume] in Serum or Plasma [facility] Borrelia burgdorferi Ab [Interpretation] in Serum [facility] Borrelia burgdorferi IgG Ab [Presence] in Serum or Plasma by Immunoassay [facility] Borrelia burgdorferi IgG+IgM Ab [Presence] in Serum by Immunoassay [facility] Borrelia burgdorferi IgM Ab [Presence] in Serum or Plasma by Immunoassay [facility] CBC W Auto Different ial panel - Blood CBC and differential Lab Routine Medicare annual wellness visit, subsequent Primary hypertension (CMS/HCC) Elevated LDL cholesterol level (CMS/HCC) Ordered: 02/22/2025 [facility] Work Phone: Comment on above: Ordered: 02/22/2025 Cefuroxime free [Mass/volume] in Serum or Plasma [facility] Comprehensive metabo lic 2000 panel - Serum or Plasma Comprehensive metabolic panel Lab Routine Medicare annual wellness visit, subsequent Primary hypertension (CMS/HCC) Elevated LDL cholesterol level (CMS/HCC) Ordered: 02/22/2025 [facility] Comment on above: Ordered: 02/22/2025 End: 09-11-2023 ECG COMPLETE ECG COMPLETE ECG Routine Preoperative examination Recurrent ventral hernia 1 Occurrences starting 09/11/2022 until 09/11/2023 [facility] Work Phone: Comment on above: 1 Occurrences starti ng 09/11/2022 until 09/11/2023 Eosinophils/100 leukocytes in Blood by Automated count [facility] Eosinophils/100 leukocytes in Blood by Automated count [facility] Erythrocyte distribu tion width [Ratio] by Automated count [facility] Erythrocyte distribu tion width [Ratio] by Automated count [facility] Erythrocytes [#/volu me] in Blood [facility] Erythrocytes [#/volu me] in Blood [facility] Globulin [Mass/volum e] in Serum [facility] Hematocrit [Volume Fraction] of Blood [facility] Hematocrit [Volume Fraction] of Blood [facility] Hemoglobin [Mass/vol ume] in Blood [facility] Hemoglobin [Mass/vol ume] in Blood [facility] Homogenous nuclear A b pattern [Titer] in Serum [facility] Legionella pneumophi la 1+2+3+4+5+6 Ab [Titer] in [facility] Legionella pneumophi la Ag [Presence] in Urine [facility] Leukocytes [#/volume ] corrected for nucleated erythrocytes in Blood by Automated [facility] Leukocytes [#/volume ] corrected for nucleated erythrocytes in Blood by Automated [facility] Leukocytes [#/volume ] in Blood [facility] Leukocytes [#/volume ] in Blood [facility] Lipid 1996 panel - S jen or Plasma Lipid panel Lab Routine Medicare annual wellness visit, subsequent Primary hypertension (CMS/HCC) Elevated LDL cholesterol level (CMS/HCC) Ordered: 02/22/2025 [facility] [employer] Comment on above: Ordered: 02/22/2025 Lymphocytes [#/volum e] in Blood by Automated count [facility] Lymphocytes [#/volum e] in Blood by Automated count [facility] Lymphocytes/100 leukocytes in Blood by Automated count [facility] Lymphocytes/100 leukocytes in Blood by Automated count [facility] MCH [Entitic mass] b y Automated count [facility] MCH [Entitic mass] b y Automated count [facility] MCHC [Mass/volume] b y Automated count [facility] MCHC [Mass/volume] b y Automated count [facility] MCV [Entitic volume] by Automated count [facility] MCV [Entitic volume] by Automated count [facility] Monocytes [#/volume] in Blood by Automated count [facility] Monocytes [#/volume] in Blood by Automated count [facility] Monocytes/100 leukoc ytes in Blood by Automated count [facility] Monocytes/100 leukoc ytes in Blood by Automated count [facility] Mycoplasma pneumonia e IgG Ab [Units/volume] in Serum by Immunoassay [facility] Mycoplasma pneumonia e IgM Ab [Units/volume] in Serum [facility] Neutrophils [#/volum e] in Blood by Automated count [facility] Neutrophils [#/volum e] in Blood by Automated count [facility] Neutrophils/100 leukocytes in Blood by Automated count [facility] Neutrophils/100 leukocytes in Blood by Automated count [facility] Nuclear Ab [Titer] i n Serum [facility] Nucleated erythrocyt es [Presence] in Blood by Automated count [facility] Nucleated erythrocyt es [Presence] in Blood by Automated count [facility] Patient Education [facility] Work Phone: Patient referral [facility] Work Phone: Platelet mean volume [Entitic volume] in Blood by Automated count [facility] Platelet mean volume [Entitic volume] in Blood by Automated count [facility] Platelets [#/volume] in Blood [facility] Platelets [#/volume] in Blood [facility] Prostate specific Ag [Mass/volume] in Serum or Plasma PSA Lab Routine Medicare annual wellness visit, subsequent Benign prostatic hyperplasia without lower urinary tract symptoms Elevated PSA Ordered: 02/22/2025 [facility] Comment on above: Ordered: 02/22/2025 REFER FOR ADMIT INTERVIEW REFER FOR ADMIT INTERVIEW Procedures Routine Preoperative examination Recurrent ventral hernia Ordered: 09/11/2022 [facility] Work Phone: Comment on above: Ordered: 09/11/2022 Rheumatoid factor [Units/volume] in Serum or Plasma [facility] Rickettsia rickettsi i IgG Ab [Presence] in Serum by Immunoassay [facility] Rickettsia rickettsi i IgM Ab [Units/volume] in Serum [facility] Specimen source [Identifier] of Unspecified specimen [facility] Streptococcus pneumo niae Ag [Presence] in Unspecified specimen [facility] Immunizations Immunization Date Immunization Notes Care Provider Fa ciliagueda 08-26-2023 influenza virus vacc ine, unspecified formulation Tray CASTILLO [facility] 08-26-2023 Influenza, High-dose Seasonal, Quadrivalent, Preservative Free Sarah Mendez NP Work Phone: [facility] 10-25-2022 influenza virus vacc ine, unspecified formulation Tray CASTILLO [facility] 10-25-2022 influenza, high dose seasonal, preservative-free [facility] 01-09-2022 zoster vaccine recombinant [facility] 10-24-2021 pneumococcal conjuga te vaccine, 13 valent [facility] 10-24-2021 zoster vaccine recombinant [facility] 05-23-2020 pneumococcal polysaccharide vaccine, 23 valent [facility] 10-30-2019 influenza virus vacc ine, unspecified formulation Tray CASTILLO [facility] 10-30-2019 influenza, high dose seasonal, preservative-free [facility] Healthcare Payers Date Payer Category Payer Medicare [id number] 2024 Self-pay 2021 Medicaid [employer] MEDICARE A DVANTAGE [id number] 2021 Medicare [id number] 1959 Medicare [id number] 1959 Medicare [id number] 1950 Unknown [id number] [id number]. 593 1951 Unknown [id number] 2.16.840.1.068978.3.579.2. 593 1951 Unknown [id number] 2.16.840.1.915413.3.579.2. 593 1951 Unknown [id number] 2.16.840.1.838172.3.579.2. 593 1951 Unknown [id number] 2.16.840.1.206808.3.579.2. 727 1950 Unknown [id number] 2.16.840.1.030046.3.579.2. 727 1951 Unknown [id number] 2.16.840.1.549118.3.579.2. 727 1951 Unknown [id number] 2.16.840.1.738959.3.579.2. 1259 1950 Unknown [id number] 2.16.840.1.309769.3.579.2. 1259 1951 Unknown [id number] 2.16.840.1.336779.3.579.2. 1259 1951 Unknown [id number] 2.16.840.1.691248.3.579.2. 1259 1950 Unknown [id number] 2.16.840.1.715452.3.579.2. 1259 Private Health Insurance [facility] [id number] Unknown [id number] 2.16.840.1.586270.3.579.2. 531 Unknown [id number] 2.16.840.1.267110.3.579.2. 531 Unknown [id number] 2.16.840.1.013506.3.579.2. 531 Social History Date Type Detail Facility Start: 09-10-2022 End: 02-22-2025 Tobacco smoking status GAIS Ex-smoker [facility] Start: 11-25-1978 End: 11-25-2016 History of tobacco use Current smoker [facility] Start: 11-25-1978 End: 11-25-2016 History of tobacco use Cigarette Smoker [facility] Start: 09-10-2022 End: 02-22-2025 Tobacco use and exposure Smokeless tobacco non-user [facility] Start: 09-10-2022 End: 04-12-2025 Alcohol intake Current drinker of alcohol (finding) [facility] Start: 1950 Sex Assigned At Not on file [facility] Start: 08-31-2022 End: 09-10-2022 Exposure to SARS-CoV-2 (event) Not sure [facility] Start: 1950 Sex Assigned At Male F [facility] Start: 03-06-2023 Tobacco use and exposure Former smokeless tobacco user [facility] End: 11-25-1989 History of tobacco use Snuff User [facility] consumption [facility] Start: 12-16-2023 End: 02-22-2025 History of Social function [facility] Start: 12-16-2023 End: 02-22-2025 Tobacco use panel [facility] Tobacco smoking status Never [facility] Start: 09-22-2024 End: 09-22-2024 Tobacco smoking status NHIS Never smoked tobacco (finding) [facility] How many standard drinks containing alcohol do you have on a typical day? 1 or 2 [facility] How often do you hav e 6 or more drinks on 1 occasion? Never [facility] Start: 03-04-2025 Sex Male (finding) [facility] Medical Equipment Procedure Code Equipment Code Equipment Origin al Text Equipment Identifier Dates Surgimesh Wn 30c m X 30cm [id number] Start: 03-07-2023 Goals Date Patient Goal Desired Activity /State Functional Status Date Assessment Result Facility 09-23-2024 Functional status Patient at Baseline [facility] Work Phone: 09-04-2024 Functional status Patient at Baseline [facility] Work Phone: 09-03-2024 Functional status Patient at Baseline [facility] Work Phone: 06-24-2024 Functional Status N/A [facility] Mental Status Date Assessment Result Facility 09-23-2024 Cognitive function Cognitive Sta tus Patient at Baseline [facility] Work Phone: 09-04-2024 Cognitive function Cognitive Sta tus Patient at Baseline [facility] Work Phone: 09-03-2024 Cognitive function Cognitive Sta tus Patient at Baseline [facility] Work Phone: Clinical Notes 09-10-2022 to 04-12-2025 TEDDY Mcnamara - 04/12/2025 9:30 AM Aquiles Lowe CCC-Jeremy - 04/09/2025 9:00 AM TEDDY Kilgore - 02/22/2025 8:00 AM Ashvin Khanna MD - 11/05/2024 8:30 AM EST Note Date & Type Note Facility 04-12-2025 History of Present illness Narrative Images from the original note were not included. Subjective Patient ID: Cha Elena is a 74 y.o. male who presents for URI. Cha is present today for evaluation of URI. Admits sinus pressure, headaches, a little runny nose, a little nasal congestion, post nasal drainage, bilateral ear discomfort feels like sand in my head, when he takes a deep inhale it makes him want to cough. He has had this off/on for 2 years. He was here on 02/22/25 rx'd Cefdinir for 7 days and it helped but then about a week ago symptoms returned. Tried Sudafed but that messed with his heart. Taking Mucinex with some improvement. Takes aspirin prn for headaches. Using saline nasal spray, using it twice a day. Current Outpatient Medications on File Prior to Visit Medication Sig Dispense Refill doxycycline (Vibra-Tabs) 100 MG tablet Take 100 mg by mouth Daily (Patient taking differently: Take 100 mg by mouth Daily as needed) diclofenac sodium 1 % gel Apply 2 g topically 3 (three) times a day as needed for pain [DISCONTINUED] doxycycline (Adoxa) 50 MG tablet Take 50 mg by mouth in the morning and 50 mg before bedtime. Take with a full glass of water and do not lie down for at least 30 minutes after. PRN for rosacea. No current facility-administered medications on file prior to visit. I have reviewed and reconciled the history and medication list with the patient today. Allergies Allergen Reactions Losartan Cough Atorvastatin Other Benzoin Unknown Social History Tobacco Use Smoking status: Former Current packs/day: 0.00 Average packs/day: 3.0 packs/day for 27.0 years (81.0 ttl pk-yrs) Types: Cigarettes Start date: 1978 Quit date: 2006 Years since quittin.3 Smokeless tobacco: Never Vaping Use Vaping status: Never Used Substance Use Topics Alcohol use: Yes Alcohol/week: 5.0 standard drinks of alcohol Types: 5 Cans of beer per week Drug use: Never Family History Problem Relation Name Age of Onset Diabetes Mother Cancer Father Cancer Sister Past Medical History: Diagnosis Date AAA (abdominal aortic aneurysm) (CMS/HCC) Elevated brain natriuretic peptide (BNP) level 09/25/2024 GERD (gastroesophageal reflux disease) History of being hospitalized 09/22/2024 Partial SBO History of colonic polyps Hyperlipemia (CMS/HCC) Hypertension (CMS/HCC) Incisional hernia, without obstruction or gangrene 08/22/2023 Internal hemorrhoids Sensorineural hearing loss (SNHL) 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 HENT: Positive for congestion (Mild), ear pain, postnasal drip, rhinorrhea and sinus pressure. Respiratory: Negative for cough, shortness of breath and wheezing. Cardiovascular: Negative for chest pain, palpitations and leg swelling. Gastrointestinal: Negative for abdominal pain, constipation, diarrhea, nausea and vomiting. Skin: Negative for rash. Neurological: Positive for headaches. Objective Physical Exam Constitutional: General: He is not in acute distress. Appearance: Normal appearance. HENT: Head: Normocephalic and atraumatic. Right Ear: Ear canal normal. Decreased hearing noted. Tympanic membrane is retracted. Left Ear: Ear canal normal. Decreased hearing noted. A middle ear effusion (Clear) is present. Tympanic membrane is retracted. Ears: Comments: Wearing hearing aids bilat Nose: No rhinorrhea. Right Turbinates: Swollen. Left Turbinates: Swollen. Right Sinus: No maxillary sinus tenderness or frontal sinus tenderness. Left Sinus: No maxillary sinus tenderness or frontal sinus tenderness. Comments: Turbinates non-erythematous. Mouth/Throat: Mouth: Mucous membranes are moist. Pharynx: Posterior oropharyngeal erythema (Mild) present. Eyes: General: No scleral icterus. Cardiovascular: Rate and Rhythm: Normal rate and regular rhythm. Heart sounds: No murmur heard. Pulmonary: Effort: Pulmonary effort is normal. No respiratory distress. Breath sounds: Normal breath sounds. No wheezing, rhonchi or rales. Musculoskeletal: General: No swelling. Lymphadenopathy: Cervical: No cervical adenopathy. Skin: General: Skin is warm and dry. Neurological: General: No focal deficit present. Mental Status: He is alert and oriented to person, place, and time. Psychiatric: Mood and Affect: Mood normal. Behavior: Behavior normal. Assessment/Plan Diagnoses and all orders for this visit: Acute dysfunction of left eustachian tube - Azelastine HCl 137 MCG/SPRAY solution; Administer 1 spray into affected nostril(s) in the morning and 1 spray before bedtime. Do all this for 14 days. - cetirizine (ZyrTEC) 10 MG tablet; Take 1 tablet (10 mg) by mouth Daily for 14 days Start Azelastine and Zyrtec as prescribed above. Refuses any steroids, injectable or oral. If no improvement in one week would try an antibiotic, if that was not helpful would plan on referral to ENT for further evaluation. Could also consider CT of the sinuses. Mucinex ok to continue as needed. Follow up in about 10 months (around 02/22/2026) for Medicare Wellness Visit. documented in this encounter [facility] 04-09-2025 History of Present illness Narrative Pt picked up repaired hearing aid documented in this encounter [facility] 03-03-2025 Radiology Diagnostic study note [facility] [place] [address] CT Scan Report Signed Patient: Cha Elena MR#: [id number] : 1950 Acct:[id number] Age/Sex: 74 / M ADM Date: 5 Loc: CT Room: Type: [facility] Attending Dr: Milton Lyon MD Copies to: Milton Lyon MD~ Ordering Provider: Milton Lyon MD Date of Service: 03/03/25 CT/CT chest w con: R59.1 - Generalized enlarged lymphnodes CT CHEST WITH INTRAVENOUS CONTRAST: CLINICAL HISTORY: Follow-up lymphadenopathy. COMPARISON: CT chest 09/03/2024 TECHNIQUE: Spiral images were obtained through the chest following intravenous administration of IV contrast. This CT exam was performed using one or more following dose reduction techniques: Automated exposure control, adjustment of the mA and/or kV according to patient size, or use of iterative reconstruction technique. FINDINGS: Mediastinum:Thoracic aorta appears normal in caliber. Pulmonary trunk appears nondilated. No pericardial effusion. Partially calcified mediastinal and righthilar lymph nodes. The previously identified lymphadenopathy has resolved. Theesophagus is grossly unremarkable. Lungs:Mild lung scarring. No consolidation pneumothorax or pleural effusion. Calcified granulomas. Abd:No acute findings. Soft tissues/Bones: Soft tissues surrounding the chest wall demonstrate no acutefindings. Osseous structures demonstrate degenerative change. CT/CT chest w con IMPRESSION: The previously identified mediastinal and hilar lymphadenopathy has resolved. No acute process is seen on today's study. Impression dictated by: Maikel Ames Jr., D.O.03/03/2025 9:46 AM Dictation Location: [place] [address] Transcribed By: [facility] 03/03/25945 Dictated By: Maikel Ames Jr, DO 03/03/2544 Signed By: 03/03/2546 [facility] 02-22-2025 History of Present illness Narrative Images from the original note were not included. Subjective Patient ID: Cha Elena is a 74 y.o. male who presents for Medicare Annual Wellness Visit Subsequent. Checks BP at home 121/70 at home recently. Does check it periodically with his wrist cuff. Will be having a follow up with Dr. Davila for lung nodules. Sinusitis This is a new problem. Episode onset: 2 weeks. The problem has been gradually improving since onset. Associated symptoms include ear pain (Ringing more than normal), headaches and sinus pressure. Pertinent negatives include no chills, congestion, coughing, shortness of breath, sneezing or sore throat. (PND, pain from sinuses radiated to right side of jaw recently.) Treatments tried: Antihistamine, ASA. The treatment provided mild relief. Medicare Wellness Over the past 2 weeks, how often have you been bothered by any of the following problems? Little interest or pleasure in doing things: Not at all Feeling down, depressed, or hopeless: Not at all Patient Health Questionnaire-2 Score: 0 Over the past 2 weeks, how often have you been bothered by any of the following problems? Trouble falling or staying asleep, or sleeping too much: Not at all Feeling tired or having little energy: Not at all Poor appetite or overeating: Not at all Feeling bad about yourself - or that you are a failure or have let yourself or your family down: Not at all Trouble concentrating on things, such as reading the newspaper or watching television: Not at all Moving or speaking so slowly that other people could have noticed? Or the opposite - being so fidgety or restless that you have been moving around a lot more than usual.: Not at all Thoughts that you would be better off or hurting yourself in some way: Not at all Patient Health Questionnaire-9 Score: 0 Gomez Fall Risk History of Falling, Immediate or Within 3 Months: No Health Risk Assessment Form Do you need help eating, bathing, using the toilet, dressing, or getting around your home?: No Can you prepare your own meals?: Yes Can you do your own housework without help?: Yes Can you shop for groceries or clothes without help?: Yes Do you exercise for about 20 minutes 3 or more days a week?: Yes How confident are you that you can control and manage most of your health problems?: Very confident Can you mange your money, credit cards and accounts, pay bills and taxes?: Yes Vision Screening: Yes, no gross abnormalities Hearing Screening: Yes, no gross abnormalities Cognitive Screening Self Assessment: No overt cognitive deficiency is apparent by direct observation Three Word Registration: Village, Kitchen, Baby Clock Drawing: Normal Clock - 2 Three Word Recall: All 3 words correct - 3 Total Score (0-5 Points): 5 Pain Assessment Pain Score: 2 Advance Care Planning Do you have a living will?: Yes Do you have a medical power of estate attorney?: Yes Current Outpatient Medications on File Prior to Visit Medication Sig Dispense Refill diclofenac sodium 1 % gel Apply 2 g topically 3 (three) times a day as needed for pain doxycycline (Adoxa) 50 MG tablet Take 50 mg by mouth in the morning and 50 mg before bedtime. Take with a full glass of water and do not lie down for at least 30 minutes after. PRN for rosacea. No current facility-administered medications on file prior to visit. I have reviewed and reconciled the history and medication list with the patient today. Allergies Allergen Reactions Losartan Cough Atorvastatin Other Benzoin Unknown Social History Tobacco Use Smoking status: Former Current packs/day: 0.00 Average packs/day: 3.0 packs/day for 27.0 years (81.0 ttl pk-yrs) Types: Cigarettes Start date: 1978 Quit date: 2005 Years since quittin.2 Smokeless tobacco: Never Vaping Use Vaping status: Never Used Substance Use Topics Alcohol use: Yes Alcohol/week: 5.0 standard drinks of alcohol Types: 5 Cans of beer per week Drug use: Never Family History Problem Relation Name Age of Onset Diabetes Mother Cancer Father Cancer Sister Past Medical History: Diagnosis Date AAA (abdominal aortic aneurysm) (CMS/HCC) Elevated brain natriuretic peptide (BNP) level 09/25/2024 GERD (gastroesophageal reflux disease) History of being hospitalized 09/22/2024 Partial SBO History of colonic polyps Hyperlipemia (CMS/HCC) Hypertension (CMS/HCC) Incisional hernia, without obstruction or gangrene 08/22/2023 Internal hemorrhoids Sensorineural hearing loss (SNHL) Tubulovillous adenoma of colon 05/29/2023 Past Surgical History: Procedure Laterality Date CHOLECYSTECTOMY COLONOSCOPY 2008 EGD 2008 HERNIA REPAIR 03/10/2023 Repair Recurrent Incarcerated Incisional Hernia, Implantation of 30 cm x 30 cm Mesh LIVER BIOPSY 2016 SMALL INTESTINE SURGERY Partial Small Bowel Resection Visit Vitals BP 138/88 Pulse 64 Temp 97.9 F Resp 16 Ht 5' 11 Wt 232 lb SpO2 98% BMI 32.36 kg/m Smoking Status Former BSA 2.29 m Review of Systems Constitutional: Negative for chills, fatigue and fever. HENT: Positive for ear pain (Ringing more than normal), sinus pressure and tinnitus. Negative for congestion, sneezing and sore throat. Eyes: Negative for pain. Respiratory: Negative for cough, shortness of breath and wheezing. Cardiovascular: Negative for chest pain, palpitations and leg swelling. Gastrointestinal: Negative for abdominal pain, constipation, diarrhea, nausea and vomiting. Genitourinary: Negative for dysuria, frequency and hematuria. Musculoskeletal: Positive for arthralgias. Skin: Negative for rash. Neurological: Positive for headaches. Psychiatric/Behavioral: Negative for dysphoric mood. The patient is not nervous/anxious. Objective Physical Exam Constitutional: General: He is not in acute distress. Appearance: Normal appearance. HENT: Head: Normocephalic and atraumatic. Right Ear: Tympanic membrane normal. Decreased hearing noted. Left Ear: Tympanic membrane and ear canal normal. Decreased hearing noted. Ears: Comments: Hearing aids bilat, mild cerumen on right Nose: Right Turbinates: Swollen. Left Turbinates: Swollen. Comments: Turbinates with erythema Mouth/Throat: Mouth: Mucous membranes are moist. Pharynx: Posterior oropharyngeal erythema and postnasal drip present. Eyes: General: No scleral icterus. Extraocular Movements: Extraocular movements intact. Conjunctiva/sclera: Conjunctivae normal. Pupils: Pupils are equal, round, and reactive to light. Neck: Vascular: No carotid bruit. Cardiovascular: Rate and Rhythm: Normal rate and regular rhythm. Pulses: Normal pulses. Pulmonary: Effort: Pulmonary effort is normal. Breath sounds: Normal breath sounds. No wheezing, rhonchi or rales. Abdominal: General: Bowel sounds are normal. There is no distension. Palpations: Abdomen is soft. Tenderness: There is no abdominal tenderness. There is no guarding. Musculoskeletal: General: No swelling, tenderness, deformity or signs of injury. Normal range of motion. Cervical back: Normal range of motion. No tenderness. Lymphadenopathy: Cervical: No cervical adenopathy. Skin: General: Skin is warm and dry. Findings: No erythema. Neurological: General: No focal deficit present. Mental Status: He is alert and oriented to person, place, and time. Cranial Nerves: No cranial nerve deficit. Sensory: No sensory deficit. Motor: No weakness. Coordination: Coordination normal. Gait: Gait normal. Psychiatric: Mood and Affect: Mood normal. Behavior: Behavior normal. Thought Content: Thought content normal. Judgment: Judgment normal. Assessment & Plan 1. Medicare annual wellness visit, subsequent (Primary) Reviewed all relevant preventative screenings with the patient in detail. Medicare Wellness form completed and will be scanned into patient's chart. All needed testing was ordered. Will continue with yearly Medicare Wellness exams. - CBC and differential - Comprehensive metabolic panel - Lipid panel - PSA 2. ACP (advance care planning) Patient willing to discuss ACP. Pt has Living Will and DPOA in place. 3. Lung nodule Two right middle lobe nodules seen previously on CT of chest. He will be scheduling a follow up with Dr. Davila to have them rechecked to assess stability. 4. AV block, 1st degree This is a chronic medical condition that is stable since last assessment. No changes in treatment are suggested at this time. 5. Primary hypertension (CMS/HCC) Patient's blood pressure is currently stable. Continue with current medications and I will continue to monitor. - CBC and differential - Comprehensive metabolic panel - Lipid panel 6. Left bundle branch block This is a chronic medical condition that is stable since last assessment. No changes in treatment are suggested at this time. 7. Mediastinal lymphadenopathy Seen previously on CT of chest. He will be scheduling a follow up with Dr. Davila to have them rechecked to assess stability. 8. Popliteal artery aneurysm, bilateral (CMS/HCC) Has seen vascular in the past. Will continue to monitor. 9. Gastroesophageal reflux disease without esophagitis This is a chronic medical condition that is stable since last assessment. No treatment needed at this time. 10. Mesenteric lymphadenopathy Seen on previous CT from 09/21/2024, likely reactive at the time. H/o SBO, h/o hernia repair with extensive mesh placement, h/o partial small bowel resection. 11. Benign prostatic hyperplasia without lower urinary tract symptoms This is a chronic medical condition that is stable since last assessment. Will recheck PSA with upcoming labs. - PSA 12. History of colon polyps Had Colonoscopy 12/12/2022 that was negative. Continue routine screenings. 13. Elevated PSA This is a chronic medical condition that is stable since last assessment. Will recheck PSA with upcoming labs. - PSA 14. Peyronie's disease This is a chronic medical condition that is stable since last assessment. No changes in treatment are suggested at this time. 15. Polyarthralgia This is a chronic medical condition that is stable since last assessment. No changes in treatment are suggested at this time. Continue Diclofenac Gel prn. 16. Obesity, Class I, BMI 30-34.9 Encouraged portion control, decrease simple sugars and carbohydrates, gradually increase activity level. Aim for gradual steady weight loss. 17. Bilateral tinnitus This is a chronic medical condition that is stable since last assessment. Uses hearing aids bilaterally. 18. CRP elevated This is a chronic medical condition that is stable since last assessment. Will continue to monitor. 19. Elevated LDL cholesterol level (CMS/HCC) This is a chronic medical condition that is stable since last assessment. Will recheck cholesterol with upcoming labs. - CBC and differential - Comprehensive metabolic panel - Lipid panel 20. Family history of prostate cancer Will continue to monitor PSA with yearly labs. 21. History of resection of small bowel This is a chronic medical condition that is stable since last assessment. Can follow up with specialist as needed. 22. Rosacea This is a chronic medical condition that is stable since last assessment. No changes in treatment are suggested at this time Continue Doxycycline prn as prescribed. 23. S/P hernia repair This is a chronic medical condition that is stable since last assessment. Can follow up with specialist as needed. 24. Sensorineural hearing loss, bilateral This is a chronic medical condition that is stable since last assessment. Uses hearing aids bilaterally. 25. Acute non-recurrent maxillary sinusitis Start antibiotic as prescribed. Reviewed potential s/e with patient. Encouraged probiotic while on antibiotic. Increase water intake, get plenty of rest. Can take Tylenol/Motrin prn. Follow up if no improvement in one week. - cefdinir (Omnicef) 300 MG capsule; Take 1 capsule (300 mg) by mouth in the morning and 1 capsule (300 mg) before bedtime. Do all this for 7 days. Dispense: 14 capsule; Refill: 0 Follow up in about 1 year (around 02/22/2026) for Medicare Wellness Visit. Nuris Dockery MSNAVID, PAFilibertoC documented in this encounter [facility] 11-05-2024 History of Present illness Narrative Images from the original note were not included. Subjective Patient ID: Cha Elena is a 74 y.o. male who presents for Sinusitis. Sinus Pain Patient complains of congestion, headaches, nasal congestion, post nasal drip, sinus pressure, and mild cough. Onset of symptoms was 5 days ago. Symptoms have been gradually worsening since that time. Sinusitis Current Outpatient Medications on File Prior to Visit Medication Sig Dispense Refill diclofenac sodium 1 % gel Apply 2 g topically in the morning and 2 g in the evening and 2 g before bedtime. doxycycline (Adoxa) 50 MG tablet Take 50 mg by mouth in the morning and 50 mg before bedtime. Take with a full glass of water and do not lie down for at least 30 minutes after. PRN for rosacea. No current facility-administered medications on file prior to visit. I have reviewed and reconciled the history and medication list with the patient today. Allergies Allergen Reactions Losartan Cough Atorvastatin Other Benzoin Unknown Social History Tobacco Use Smoking status: Former Current packs/day: 0.00 Average packs/day: 3.0 packs/day for 27.0 years (81.0 ttl pk-yrs) Types: Cigarettes Start date: 1978 Quit date: 2005 Years since quittin.9 Smokeless tobacco: Never Substance Use Topics Alcohol use: Yes Alcohol/week: 5.0 standard drinks of alcohol Types: 5 Cans of beer per week Family History Problem Relation Name Age of Onset Diabetes Mother Cancer Father Past Medical History: Diagnosis Date AAA (abdominal aortic aneurysm) (CMS/HCC) Elevated brain natriuretic peptide (BNP) level 09/25/2024 GERD (gastroesophageal reflux disease) History of being hospitalized 09/22/2024 Partial SBO History of colonic polyps Hyperlipemia (CMS/HCC) Hypertension (CMS/HCC) Internal hemorrhoids Sensorineural hearing loss (SNHL) Past Surgical History: Procedure Laterality Date CHOLECYSTECTOMY COLONOSCOPY 2008 EGD 2008 HERNIA REPAIR LIVER BIOPSY 2016 Visit Vitals BP 128/76 Pulse 87 Temp 97.7 F Ht 5' 11 Wt 223 lb SpO2 98% BMI 31.10 kg/m Smoking Status Former BSA 2.25 m Review of Systems Objective Physical Exam Constitutional: General: He is not in acute distress. Appearance: He is normal weight. He is not ill-appearing. HENT: Head: Normocephalic. Nose: Congestion present. Mouth/Throat: Pharynx: Oropharyngeal exudate and posterior oropharyngeal erythema present. Cardiovascular: Rate and Rhythm: Normal rate and regular rhythm. Heart sounds: Normal heart sounds. No murmur heard. Pulmonary: Effort: Pulmonary effort is normal. Breath sounds: Normal breath sounds. Musculoskeletal: General: No swelling. Right lower leg: No edema. Left lower leg: No edema. Neurological: Mental Status: He is alert. Psychiatric: Mood and Affect: Mood normal. Thought Content: Thought content normal. Judgment: Judgment normal. Assessment/Plan Diagnoses and all orders for this visit: Acute non-recurrent sinusitis, unspecified location - cefdinir (Omnicef) 300 MG capsule; Take 1 capsule (300 mg) by mouth in the morning and 1 capsule (300 mg) before bedtime. Do all this for 7 days. Follow up if symptoms worsen or fail to improve. documented in this encounter [facility] 09-25-2024 History of Present illness Narrative Images from the original note were not included. HPI Hypertension Additional comments: He has not been taking the Losartan the [facility] gave him d/t it makes him cough and he just doesn't feel good when he takes it. He checks his BP's at home and they are running really good. Last edited by Angelita Michaud LPN on 09/25/2024 11:02 AM. Subjective Patient ID: Cha Elena is a 73 y.o. male who presents for [facility] ER follow up. Flowsheet Row Documentation from 09/24/2024 in [facility] with Denita Westbrook MA Hospital Information ED, Hospital or Senior Living Facility Discharge? ED Patient has been contacted within 1 week of being seen in the ED Yes Diagnosis bowel obstruction Discharge Date 09/23/24 Discharged To: Admitted to another hospital [pt was waiting for bed at [facility] and was transferred there] Discharge Hospital [facility] Engagement Call Start Time 916 Admission Date 09/22/24 Medications Discharge medications reviewed and reconciled from hospital? Yes Appointments Does the patient have a primary care provider? Yes Self Management Patient Teaching Does the patient have access to their discharge instructions? Yes Wrap Up Call End Time 918 Dx. Partial small bowel obst. He is improving since he got home. He has had surgeries in the past for hernia's at [facility]. State he is feeling much better. Works out three days a week. Does check his BP routinely with a wrist cuff. States cut back on drinking beer. Here with his daughter, Teena. Here from [place]. Current Outpatient Medications on File Prior to Visit Medication Sig Dispense Refill diclofenac sodium 1 % gel Apply 2 g topically in the morning and 2 g in the evening and 2 g before bedtime. [DISCONTINUED] losartan (Cozaar) 50 MG tablet Take 50 mg by mouth Daily doxycycline (Adoxa) 50 MG tablet Take 50 mg by mouth in the morning and 50 mg before bedtime. Take with a full glass of water and do not lie down for at least 30 minutes after. PRN for rosacea. [DISCONTINUED] Candesartan Cilexetil-HCTZ 32-25 MG tablet TAKE 1 TABLET IN THE MORNING 100 tablet 3 No current facility-administered medications on file prior to visit. I have reviewed and reconciled the history and medication list with the patient today. Allergies Allergen Reactions Losartan Cough Atorvastatin Other Benzoin Unknown Social History Tobacco Use Smoking status: Former Current packs/day: 0.00 Average packs/day: 3.0 packs/day for 27.0 years (81.0 ttl pk-yrs) Types: Cigarettes Start date: 1978 Quit date: 2006 Years since quittin.8 Smokeless tobacco: Never Substance Use Topics Alcohol use: Yes Alcohol/week: 5.0 standard drinks of alcohol Types: 5 Cans of beer per week Family History Problem Relation Name Age of Onset Diabetes Mother Cancer Father Past Medical History: Diagnosis Date AAA (abdominal aortic aneurysm) (CMS/HCC) Elevated brain natriuretic peptide (BNP) level 09/25/2024 GERD (gastroesophageal reflux disease) History of being hospitalized 09/22/2024 Partial SBO History of colonic polyps Hyperlipemia (CMS/HCC) Hypertension (CMS/HCC) Internal hemorrhoids Sensorineural hearing loss (SNHL) Past Surgical History: Procedure Laterality Date CHOLECYSTECTOMY COLONOSCOPY 2008 EGD 2008 HERNIA REPAIR LIVER BIOPSY 2016 Visit Vitals BP 122/78 Pulse 84 Resp 16 Ht 5' 11 Wt 222 lb SpO2 97% BMI 30.96 kg/m Smoking Status Former BSA 2.25 m Review of Systems Constitutional: Negative for chills, fatigue and fever. Respiratory: Negative for cough, shortness of breath and wheezing. Cardiovascular: Negative for chest pain, palpitations and leg swelling. Gastrointestinal: Positive for abdominal pain (Intermittent, improving). Negative for constipation, diarrhea, nausea and vomiting. Skin: Negative for rash. Objective Physical Exam Constitutional: General: He is not in acute distress. Appearance: Normal appearance. HENT: Head: Normocephalic and atraumatic. Eyes: General: No scleral icterus. Cardiovascular: Rate and Rhythm: Normal rate and regular rhythm. Heart sounds: No murmur heard. Pulmonary: Effort: Pulmonary effort is normal. No respiratory distress. Breath sounds: Normal breath sounds. No wheezing, rhonchi or rales. Abdominal: General: Bowel sounds are normal. Palpations: Abdomen is soft. Musculoskeletal: General: No swelling. Skin: General: Skin is warm and dry. Neurological: General: No focal deficit present. Mental Status: He is alert and oriented to person, place, and time. Psychiatric: Mood and Affect: Mood normal. Behavior: Behavior normal. Assessment/Plan Diagnoses and all orders for this visit: Partial small bowel obstruction (CMS/HCC) The patient was seen today in follow up of recent hospital stay. All available hospital records were reviewed and discussed with the patient. Hospital discharge meds were reviewed. Nausea and vomiting, unspecified vomiting type Resolved per pt. Obesity, Class I, BMI 30-34.9 Encouraged portion control, decrease simple sugars and carbohydrates, gradually increase activity level. Aim for continued gradual steady weight loss. He has been doing very well. Primary hypertension BP is currently WNL without medication. Encouraged him to continue to check it periodically at home with his BP cuff. Lifestyle modification is likely helping with his BP control. Follow up in 3 months (on 12/26/2024) for Medicare Wellness Visit. documented in this encounter [facility] 09-23-2024 Progress note Note Date/Time September 23, 2024 10:04am [facility] [address] [place] [address] General Surgery Progress Note Signed Patient: Cha Elena MR#: [id number] : 1950 Acct:[id number] Age/Sex: 73 / M Adm Date: 4 Loc: Room: [address] [place] [address] Type: ADM IN Attending Dr: Nj Romero DO Copies to: ~ Date of Service: 09/23/2024 Subjective Subjective HPI: Cha's been doing well, the NG tube was pulled out last night. He tolerated hisfull liquid diet this morning and states that he had a bowel movement. He denies any significant abdominal pain and would like to go home today. Allergies & Medications Medications and Allergies Allergies No Known Allergies Allergy (Verified 09/21/24 23:16) Home Medications diclofenac sodium 1 % topical gel 2 g topical TID joint pain #100 grams 09/04/24[Rx Confirmed 09/21/24] losartan 50 mg tablet 50 mg PO DAILY #30 tabs 09/04/24 [Rx Confirmed 09/21/24] Active Medications Sodium Chloride (Sodium Chloride 0.9 % 10 Ml Syringe) 0 ml IV-PUSH PRN PRN PRN Reason: Flush Stop: 09/21/25 23:15 Last Admin: 09/22/24 05:56 Dose: 10 ml Exam Physical Exam Vital Signs: Temp Pulse Resp BP Pulse Ox O2 Del Method 98.8 F 78 14 134/74 98 Room Air 09/23/24 08:00 09/23/24 08:00 09/23/24 08:00 09/23/24 08:00 09/23/24 08:00 09/23/24 08:00 Const General: cooperative, comfortable and no acute distress Nutritional Appearance: average body habitus Orientation: alert, awake and oriented x3 Resp Effort & Inspection: normal respiratory effort and able to speak in complete sentences Auscultation: clear to auscultation bilaterally Cardio Rate: regular rate Rhythm: regular rhythm GI Inspection: non-distended Palpation: soft, not firm, no guarding and nontender Auscultation: normal bowel sounds, no high pitched sounds and no hyperactive bowel sounds Objective Intake & Output 24 hour I&O: Intake & Output 09/22/24 09/23/24 09/23/24 23:59 07:59 15:59 Intake Total 900 / 900 700 / 940 240 / 940 Output Total 150 / 350 Balance 750 / 550 700 / 940 240 / 940 Weight 101.5 kg Labs 09/21/24 23:35 09/21/24 23:35 Laboratory Results - Last 48 hrs. 09/22/24 09:55: Phosphorus 2.8 09/21/24 23:35: Corrected WBC 10.6 H, Uncorrected WBC Count 10.6 H, RBC 4.80, Hgb 14.9, Hct 43.9, MCV 91.4, MCH 31.1, MCHC 34.1, RDW 14.0, Plt Count 390, MPV 8.1, Neut % (Auto) 83.0, Lymph % (Auto) 11.4, [place] % (Auto) 3.3, Eos % (Auto) 0.7, Baso % (Auto) 1.6, Nucleat RBC Rel Count 0.0, Neut # (Auto) 8.8 H, Lymph # (Auto) 1.2, [place] # (Auto) 0.3, Eos # (Auto) 0.1, Baso # (Auto) 0.2, Monocyte Dist Width 14.85, PHA Creatinine Clear 96.54, Sodium 137, Potassium 3.6, Chloride 101, Carbon Dioxide 26.7, Anion Gap 12.9, BUN 18, Creatinine 0.84, Est GFR (CKD-EPI) > 60.0, Glucose 137 H, Calcium 10.2, Total Bilirubin 1.2 H, AST 14, ALT 15, Alkaline Phosphatase 51, Total Protein 7.5, Albumin 4.5, Globulin 3.0, Albumin/Globulin Ratio 1.5, Lipase 21.0 A&P - General Surgery Assessment/Plan (1) Partial obstruction of small intestine: Plan Cha is doing better today, he is tolerating a diet and passing flatus as well as having a bowel movement this morning. I will place him on a low residue diet, if he tolerates that he can go home this afternoon. Dr. Romero was present in the room during my examination and discussion with the patient. There is no need for surgical follow-up, if he continues to get bowel obstructions he will need to be evaluated at [facility] for potential surgical intervention. I will sign off the case at this time. Documented By: Tima Healy DO 09/23/2408 26 Signed By: <Electronically signed by Tima Healy DO> 09/23/24 [address] [facility] Work Phone: 1(152) 937-598910-29-2024 Progress note Author Nj Romero [facility] September 22, 2024 12:52pm Note Date/Time September 22, 2024 1 2:28pm [facility] [address] [place] [address] Hospitalist Progress Note Signed Patient: Cha Elena MR#: [id number] : 1950 Acct:[id number] Age/Sex: 73 / M Adm Date: 4 Loc: 3T Room: [address] [place] [address] Type: ADM IN Attending Dr: Nj Romero DO Copies to: ~ Date of Service: 09/22/2024 Subjective Subjective Narrative: Mr. Elena is a 73 year old male with a PMHx of HTN and h/o bowel obstructionwho presented to ED with nausea and abdominal pain. Patient describes pain as crampy and is located to the epigastric region. He had an episode of emesis while in the emergency department which she described as dark in color. Patient's last bowel movement was yesterday morning. Patient's history is significant of previous small bowel obstructions with multiple surgeries regarding hernia revisions, meshes, and acquired absence of the gallbladder. Patient denying fevers, chills, chest pain, shortness of breath, dysuria. Social history with occasional EtOH use, former smoker, no marijuana use. Past surgical history as described above with abdominal mesh repair in [facility] in 2021, cholecystectomy 2018. ED course: At presentation, patient hemodynamically stable, afebrile, not toxic appearing. Initial laboratory evaluation with CBC revealing elevated white count of 10.6, normal hemoglobin normal platelets. Chemistries with sodium 137,potassium 3.6, bicarb 26.7, BUN 18, creatinine 0.8, glucose 137, calcium 10.2. LFTs within normal limits, lipase 21. Patient was given 4 mg of Zofran IV. Primary imaging of the belly with CT with contrast abdomen pelvis showing transition point and small dilated bowel loops consistent with at least a partial small bowel obstruction. Patient treated symptomatically for pain with 4 mg morphine IV, NGT tube in place. Patient had previous abdominal repair in [facility], patient will be transferred to [facility] for further general surgery evaluation. Pending admission, patient will be admitted observation status for small bowel obstruction. +++ Saturday update: Patient was seen early this morning by the general surgeon. Patient told him that after the NG tube was placed he felt much better. The general surgeon recommended clamping the NG tube and starting the patient on a clear liquid dietand if the patient did well on that the diet could be advanced as tolerated. The patient indicates that he is feeling much better. He says he is not having any abdominal pain at all. He did do 1 lap of the hallways here. He has been eating clear liquids for breakfast and now for lunch. His daughter, and experienced nurse, is at the bedside. The patient points out that he has had small bowel obstruction 1 other time before he knows what it feels like. So the first thing that he felt was pain. The pain was really all over his abdomen. Then he felt sick all over. He really tried to consume a lot of oral liquids at home but finally when he was feeling is worse he vomited and then hada large amount of watery vomitus while driving in the car to come here to the emergency room. Right now he has absolutely no nausea. No vomiting. No abdominal pain whatsoever. He says that he has passed a great deal of flatus. He has not yet had a bowel movement. We also discussed his previous hospital stay. The only thing that came up from that was the nasal bio fire PCR finding of rhinovirus. I told the patient and his family members that the other laboratory testing that they did came back negative. 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 Butall the other fancy lab test that they did there are really quite normal. Exam Physical Exam Vital Signs: Temp Pulse Resp BP Pulse Ox O2 Del Method 98.1 F 75 16 136/79 96 Room Air 09/22/24 11:28 09/22/24 11:28 09/22/24 11:28 09/22/24 11:28 09/22/24 11:28 09/22/24 11:28 Narrative: General: Sitting up in bed. Eating a clear liquid lunch. Nasogastric tube is clamped. GI: Bowel sounds are almost normal in activity. Just a slight bit slow. No high-pitched or concerning sounds. No pain to palpation throughout. Cardiac: Regular rate and rhythm to auscultation. Extremities: Absolutely no edema in the ankles bilaterally. Objective Lab Results 09/21/24 23:35 09/21/24 23:35 Meds Allergies and Active Meds Allergies No Known Allergies Allergy (Verified 09/21/24 23:16) Active Meds: Active Medications Generic Name Dose Route Start Last Admin Trade Name Freq PRN Reason Stop Dose Admin Sodium Chloride 1,000 mls @ 60 mls/hr 09/22/24 05:30 09/22/24 05:54 0.9% Sodium Chloride 1,000 Ml IV 09/22/24 22:09 60 mls/hr .[id number] TATIANA Administration Sodium Chloride 0 ml 09/21/24 23:16 09/22/24 05:56 Sodium Chloride 0.9 % 10 Ml Syringe IV-PUSH 09/21/25 23:15 10 ml PRN PRN Administration Flush A&P - Hospitalist Assessment/Plan (1) Partial obstruction of small intestine: (2) Abdominal pain: (3) Nausea and vomiting: Plan 1. Partial obstruction of small intestine in setting of previous abdominal surgeries Patient with nausea and abdominal pain with significant history of previous abdominal surgeries, cholecystectomy, mesh and hernia repair CT abdomen pelvis w/ co revealing transition point and small dilated bowel loopsconsistent with at least a partial small bowel obstruction NG tube in place Clear liquid diet. General Surgery consulted for further management, we appreciate your input Patient accepted at [facility], pending bed availability. Chronic conditions requiring attention while inpatient: continue home meds unless otherwise listed below. Additional plans below. -HTN now improved on a healthy diet. DVT PPx: Early ambulation is the best. SCDs really only required if he was bedbound. Diet: clear liquid diet. CODE STATUS: Full Dispo: INPATIENT STATUS, this is appropriate and required for his presenting problem: intractable nausea and intractable vomiting due to bowel obstruction with nasogastric tube in place and IV fluids runing. Plan of care Discussed with:?The patient, his , and his daughter/RN at the bedside. Documented By: Nj Romero DO 1226 Signed By: <Electronically signed by Nj Romero DO> 09/22/24 6594 [facility] Work Phone: 1(471) 452-568710-29-2024 History and physical note Author Merlyn De La Torre [facility] September 22, 2024 11:15am Note Date/Time September 22, 2024 5 :03am [facility] [address] [place] [address] Hospitalist H&P Signed Patient: Cha Elena MR#: [id number] : 1950 Acct:[id number] Age/Sex: 73 / M Adm Date: 4 Loc: 3T Room: [address] [place] [address] Type: ADM IN Attending Dr: Nj Romero DO Copies to: MD Alexandria Maxwell II DO, RES DO Merlyn Zheng MD~ HPI DATE OF EXAMINATION: 09/22/24 CHIEF COMPLAINT: nausea/vomiting, abd pain HISTORY OF PRESENT ILLNESS: Mr. Elena is a 73 year old male with a PMHx of HTN and h/o bowel obstructionwho presented to ED with nausea and abdominal pain. Patient describes pain as crampy and is located to the epigastric region. He had an episode of emesis while in the emergency department which she described as dark in color. Patient's last bowel movement was yesterday morning. Patient's history is significant of previous small bowel obstructions with multiple surgeries regarding hernia revisions, meshes, and acquired absence of the gallbladder. Patient denying fevers, chills, chest pain, shortness of breath, dysuria. Social history with occasional EtOH use, former smoker, no marijuana use. Past surgical history as described above with abdominal mesh repair in [facility] in 2021, cholecystectomy 2017. ED course: At presentation, patient hemodynamically stable, afebrile, not toxic appearing. Initial laboratory evaluation with CBC revealing elevated white count of 10.6, normal hemoglobin normal platelets. Chemistries with sodium 137,potassium 3.6, bicarb 26.7, BUN 18, creatinine 0.8, glucose 137, calcium 10.2. LFTs within normal limits, lipase 21. Patient was given 4 mg of Zofran IV. Primary imaging of the belly with CT with contrast abdomen pelvis showing transition point and small dilated bowel loops consistent with at least a partial small bowel obstruction. Patient treated symptomatically for pain with 4 mg morphine IV, NGT tube in place. Patient had previous abdominal repair in [facility], patient will be transferred to [facility] for further general surgery evaluation. Pending admission, patient will be admitted observation status for small bowel obstruction. Review of Systems Review of Systems All other systems reviewed & are negative unless noted below or in HPI [facility] Medical History FH: cholecystectomy Bowel obstruction Elevated brain natriuretic peptide (BNP) level Mesenteric lymphadenopathy CRP elevated Rosacea Problem List clean-up per request of Phys. EHR Cmte Hypertension Problem List clean-up per request of Phys. EHR Cmte Cholecystectomy planned Problem List clean-up per request of Phys. EHR Cmte Surgical History (Updated 09/22/24 @ 08:08 by Tima Healy DO) History of cholecystectomy H/O hernia repair surg x2 Problem List clean[facility]up [facility] Family History Aunt/Uncle Family history of colon cancer Legacy FamHx Relation: Maternal uncle Father Mother Family history of colon cancer Social History Smoking Status: Never smoker Tobacco Type: cigarettes Substance Use Type: None Substance Abuse Comment: drinks 3-5 beers daily Meds Medications and Allergies Allergies No Known Allergies Allergy (Verified 09/21/24 23:16) Home Medications diclofenac sodium 1 % topical gel 2 g topical TID joint pain #100 grams 09/04/24[Rx Confirmed 09/21/24] losartan 50 mg tablet 50 mg PO DAILY #30 tabs 09/04/24 [Rx Confirmed 09/21/24] Exam Physical Exam Vital Signs: Temp Pulse Resp BP Pulse Ox O2 Del Method 97.8 F 90 18 138/74 97 Room Air 09/22/24 01:50 09/22/24 01:50 09/22/24 01:50 09/22/24 01:50 09/22/24 01:50 09/22/24 01:50 Narrative: GENERAL: No apparent distress, alert, oriented, appears stated age, comfortable HEENT: NC/AT, EOMI, PERRL, conjunctiva clear CARDIOVASCULAR: Regular rate and regular rhythm, no murmurs, symmetric palpable radial pulses RESPIRATORY: nonlabored work of breathing on room air, clear to auscultation bilaterally, symmetric chest rise ABDOMEN: Soft, non-tender, somewhat distended, high pitched bowel sounds BACK: No midline or paraspinal tenderness EXTREMITIES: moving all extremities well. Well-perfused. UE: Full ROM, pyrotechnician strength 5/5 and symmetric. LE: Full ROM, strength 5/5 with flexion, extension, and abduction. Sensation intact. No edema SKIN: Intact, no rash, no trauma NEURO: Cranial nerves grossly intact, no focal neurologic signs PSYCHIATRIC: Good eye contact, appropriate mood and affect, cooperative Results - Hospitalist H&P Lab Results Labs: Laboratory Last Values Corrected WBC 10.6 X10E3/uL (4.1-10.5) H 09/21/24 23:35 Uncorrected WBC Count 10.6 x10E3/uL (4.1-10.5) H 09/21/24 23:35 RBC 4.80 X10E6/uL (3.90-5.60) 09/21/24 23:35 Hgb 14.9 g/dL (13.0-17.0) 09/21/24 23:35 Hct 43.9 % (38.8-50.0) 09/21/24 23:35 MCV 91.4 fl (83.5-101) 09/21/24 23:35 MCH 31.1 pg (27.5-35.2) 09/21/24 23:35 MCHC 34.1 g/dL (32.5-35.6) 09/21/24 23:35 RDW 14.0 % (12.0-14.8) 09/21/24 23:35 Plt Count 390 x10E3/uL (150-450) 09/21/24 23:35 MPV 8.1 fl (6.6-10.1) 09/21/24 23:35 Neut % (Auto) 83.0 % (.) 09/21/24 23:35 Lymph % (Auto) 11.4 % (.) 09/21/24 23:35 Hocking % (Auto) 3.3 % (.) 09/21/24 23:35 Eos % (Auto) 0.7 % (.) 09/21/24 23:35 Baso % (Auto) 1.6 % (.) 09/21/24 23:35 Nucleat RBC Rel Count 0.0 /100 WBC (0-0.5) 09/21/24 23:35 Neut # (Auto) 8.8 x10E3/uL (1.8-7.7) H 09/21/24 23:35 Lymph # (Auto) 1.2 x10E3/uL (1.00-4.8) 09/21/24 23:35 [place]ocking # (Auto) 0.3 x10E3/uL (0.0-0.8) 09/21/24 23:35 Eos # (Auto) 0.1 x10E3/uL (0.0-0.45) 09/21/24 23:35 Baso # (Auto) 0.2 x10E3/uL (0.0-0.2) 09/21/24 23:35 Monocyte Dist Width 14.85 % (0.00-20.00) 09/21/24 23:35 PHA Creatinine Clear 96.54 09/21/24 23:35 Sodium 137 mmol/L (136-145) 09/21/24 23:35 Potassium 3.6 mmol/L (3.5-5.1) 09/21/24 23:35 Chloride 101 mmol/L (98-107) 09/21/24 23:35 Carbon Dioxide 26.7 mmol/L (21.0-31.0) 09/21/24 23:35 Anion Gap 12.9 mEq/L (6.0-15.0) 09/21/24 23:35 BUN 18 mg/dL (7-25) 09/21/24 23:35 Creatinine 0.84 mg/dL (0.70-1.30) 09/21/24 23:35 Est GFR (CKD-EPI) > 60.0 mL/Min 09/21/24 23:35 Glucose 137 mg/dL (70-100) H 09/21/24 23:35 Calcium 10.2 mg/dL (8.6-10.3) 09/21/24 23:35 Total Bilirubin 1.2 mg/dl (0.3-1.0) H 09/21/24 23:35 AST 14 U/L (13-39) 09/21/24 23:35 ALT 15 U/L (7-52) 09/21/24 23:35 Alkaline Phosphatase 51 U/L (34-104) 09/21/24 23:35 Total Protein 7.5 gm/dL (6.4-8.9) 09/21/24 23:35 Albumin 4.5 gm/dL (3.5-5.7) 09/21/24 23:35 Globulin 3.0 gm/dL 09/21/24 23:35 Albumin/Globulin Ratio 1.5 09/21/24 23:35 Lipase 21.0 U/L (11.0-82.0) 09/21/24 23:35 Assessment & Plan Assessment/Plan (1) Partial obstruction of small intestine: Plan 1. Partial obstruction of small intestine in setting of previous abdominal surgeries Patient with nausea and abdominal pain with significant history of previous abdominal surgeries, cholecystectomy, mesh and hernia repair CT abdomen pelvis w/ co revealing transition point and small dilated bowel loopsconsistent with at least a partial small bowel obstruction NG tube in place Patient n.p.o. Monitor electrolytes in am with NPO status, BMP, mag, phos Serial KUB q8hr General Surgery consulted for further management, we appreciate your input Patient accepted at [facility], pending bed availability. Chronic conditions requiring attention while inpatient: continue home meds unless otherwise listed below. Additional plans below. -HTN DVT PPx: SCDs Diet: N.p.o. CODE STATUS: Full Dispo: Observation, stable Plan of care Discussed with:?the medical team, the patient I participated in fontana parts of this pt's history taking, physical exam, and chart review. Agree with the residents in the above plan of management. I discussed the plan of management with the pt in details at bedside as well. IP vs OBS Justification Based on differential dx, clinical care plan, and risk of adverse events, if untreated, in my clinical judgement this patient requires an acute care setting as: INPATIENT because of an expectation of an over 2 midnight stay. Estimated length of stay (# of days): 2 Documented By: Merlyn De La Torre MD 09/22/24 0450 Signed By: <Electronically signed by Merlyn De La Torre MD> 09/22/24 1115 <Electronically signed by DO KEILA Doyle> 09/22/24 050 [facility] Work Phone: 1(420) 715-616810-29-2024 Consult note Author Tima Healy [facility] September 22, 2024 8:13am Note Date/Time September 22, 2024 8 :13am [facility] [address] [place] [address] General Surgery Consult Note Signed Patient: Cha Elena MR#: [id number] : 1950 Acct:[id number] Age/Sex: 73 / M Adm Date: 4 Loc: 3T Room: [address] [place] [address] Type: ADM IN Attending Dr: Nj Romero DO Copies to: MD Tima Maxwell II, DO Kristopher L Lindbloom, DO~ History of Present Illness Date of consult: 09/22/2024 Requesting/Attending Provider: Nj Romero DO History of present illness: Cha is a 73-year-old female who has a history of several abdominal ventral hernia repairs the last of which required a large mesh to be placed across his entire abdomen with reconstruction due to a loss of domain. This was done in [place] by Dr. Melchor several years ago. Patient states that last evening he started developing abdominal pain after he ate something around 3 PM. The pain initially came in waves but intensified throughout the afternoon until he came to emergency room for evaluation where he was diagnosed with a bowel obstruction. The patient states that since his admission the NG tube was placedhe feels much better. He denies any additional abdominal pain he states that has resolved and he is passing flatus without any vomiting or nausea. Patient would like to try diet this morning. Review of Systems Review of Systems All other systems reviewed & are negative unless noted below or in HPI Gastrointestinal Gastrointestinal: Reports abdominal pain and Reports nausea [facility] Medical History FH: cholecystectomy Bowel obstruction Elevated brain natriuretic peptide (BNP) level Mesenteric lymphadenopathy CRP elevated Rosacea Problem List clean-up per request of Phys. [facility] Hypertension Problem List clean-up per request of Phys. [facility] Cholecystectomy planned Problem List clean-up per request of Phys. [facility] Surgical History (Updated 09/22/24 @ 08:08 by Tima Healy DO) History of cholecystectomy H/O hernia repair surg x2 Problem List clean-up per request of Phys. [facility] Family History Aunt/Uncle Family history of colon cancer Legacy FamHx Relation: Maternal uncle Father Mother Family history of colon cancer Social History Marital Status: Household Members: none Housing: house Smoking Status: Never smoker Substance Use Type: Alcohol (Occasional beer) Current Occupational Status: retired Allergies & Medications Medications and Allergies Allergies No Known Allergies Allergy (Verified 09/21/24 23:16) Home Medications diclofenac sodium 1 % topical gel 2 g topical TID joint pain #100 grams 09/04/24[Rx Confirmed 09/21/24] losartan 50 mg tablet 50 mg PO DAILY #30 tabs 09/04/24 [Rx Confirmed 09/21/24] Active Medications Sodium Chloride (0.9% Sodium Chloride 1,000 Ml) 1,000 mls @ 60 mls/hr IV .[id number] TATIANA Stop: 09/22/24 22:09 Last Admin: 09/22/24 05:54 Dose: 60 mls/hr Sodium Chloride (Sodium Chloride 0.9 % 10 Ml Syringe) 0 ml IV-PUSH PRN PRN PRN Reason: Flush Stop: 09/21/25 23:15 Last Admin: 09/22/24 05:56 Dose: 10 ml Exam Physical Exam Vital Signs: Temp Pulse Resp BP Pulse Ox O2 Del Method 98.2 F 87 16 136/83 99 Room Air 09/22/24 07:57 09/22/24 07:57 09/22/24 07:57 09/22/24 07:57 09/22/24 07:57 09/22/24 07:57 Const General: healthy appearing and no acute distress Nutritional Appearance: average body habitus and overweight Orientation: alert, awake and oriented x3 HEENT Head: normal to inspection Mouth: oral mucosae normal Eyes Pupils: PERRL Neck Neck: normal visual inspection and full ROM Chest Chest palpation & inspection: normal inspection of the chest Resp Effort & Inspection: normal respiratory effort and able to speak in complete sentences Auscultation: clear to auscultation bilaterally Cardio Rate: regular rate Rhythm: regular rhythm GI Inspection: normal to inspection, non-distended and scar (Well-healed surgical scars) Palpation: soft, not firm, no guarding, no hernias and nontender Auscultation: hypoactive bowel sounds Skin General: no rashes or lesions noted Neuro General: patient alert, patient awake and patient oriented x3 Extrem General: normal to inspection and no clubbing, cyanosis or edema Psych Appearance: grossly normal Insight: insight good Judgment: judgment good Results - Gen. Surgery Intake and Output 24 hour I&O: Intake & Output 09/21/24 09/22/24 09/22/24 23:59 07:59 15:59 Intake Total 0 / 0 Output Total 200 / 200 Balance -200 / -200 Weight 101.7 kg 101.7 kg Labs 09/21/24 23:35 09/21/24 23:35 Laboratory Results - last 72 hr 09/21/24 23:35: Corrected WBC 10.6 H, Uncorrected WBC Count 10.6 H, RBC 4.80, Hgb 14.9, Hct 43.9, MCV 91.4, MCH 31.1, MCHC 34.1, RDW 14.0, Plt Count 390, MPV 8.1, Neut % (Auto) 83.0, Lymph % (Auto) 11.4, Hocking % (Auto) 3.3, Eos % (Auto) 0.7, Baso % (Auto) 1.6, Nucleat RBC Rel Count 0.0, Neut # (Auto) 8.8 H, Lymph # (Auto) 1.2, Hocking # (Auto) 0.3, Eos # (Auto) 0.1, Baso # (Auto) 0.2, Monocyte Dist Width 14.85, PHA Creatinine Clear 96.54, Sodium 137, Potassium 3.6, Chloride 101, Carbon Dioxide 26.7, Anion Gap 12.9, BUN 18, Creatinine 0.84, Est GFR (CKD-EPI) > 60.0, Glucose 137 H, Calcium 10.2, Total Bilirubin 1.2 H, AST 14, ALT 15, Alkaline Phosphatase 51, Total Protein 7.5, Albumin 4.5, Globulin 3.0, Albumin/Globulin Ratio 1.5, Lipase 21.0 Imaging/EKG CT scan - abdomen: report reviewed and image reviewed CT scan - pelvis: report reviewed and image reviewed A&P - General Surgery (1) Partial obstruction of small intestine: Plan Is a 73-year-old male who has had a history of small bowel obstructions following ventral hernia repairs. In addition he had several meshes placed to repair the hernias the last of which was a large mesh placed across the abdomen for reconstruction of the abdominal wall secondary to a possible loss of domain from a prior hernia. The patient now presents with short history of increasing abdominal pain beginning last evening but has since resolved with the NG tube placement in the hospital. He is currently resting comfortably he denies any nausea or vomiting and is currently passing flatus. The patient is on a waitinglist for a bed in [place] due to the abdominal reconstruction surgical intervention would be very difficult and if needed would have to be done at a tertiary care. Since she is however feeling better I recommend clamping the NG tube and starting him on clear liquid diet. If he tolerates a diet we can continue to follow him here at [facility] and advance the diet as tolerated, ifhe fails then we will continue with the transferred to [place]. I will watch the patient with you at this time. Documented By: Tima Healy DO 09/22/24 06 Signed By: <Electronically signed by Tima Healy DO> 09/22/24812 [facility] Work Phone: 1(553) 127-737810-11-2024 History and physical note Author Angle Logan [facility] September 04, 2024 12:36pm Note Date/Time September 03, 2024 3 :58pm [facility] [address] [place] [address] Hospitalist H&P Signed Patient: Cha Elena MR#: [id number] : 1950 Acct:[id number] Age/Sex: 73 / M Adm Date: 4 Loc: Room: [address] [place] [address] Type: ADM IN Attending Dr: Angle Logan DO Copies to: MD Angle Maxwell II, ~ HPI DATE OF EXAMINATION: 09/03/24 CHIEF COMPLAINT: Hypokalemia HISTORY OF PRESENT ILLNESS: Patient, male age 73, presented to the Emergency Department for general malaise.He went to [place] ED on Saturday where they found hypokalemia. Patient still did not feel well so came in. One week ago the patient returned from a hiking trip in [place] [facility], upon return he felt ill. Initially, the patient had complaints of sinus pressure and believed it to be sinus infection. Although he has bilateral hearing deficit and tinnitus, he had a change of sound in his ear.He said it sounded like sloshing and sand moving. He has had a nagging dry cough, SOB w/ exertion for a year. While taking his medications for his sinus issues he felt his heart skip a beat. He was diagnosed with some sort of heart block 4-5 years ago and his father also had a heart block that required a pacemaker. Recently, the patient had complaints of headaches. He is experiencingmuscle aches, joint pains,diarrhea and edema of his hands and Lower extremities.Theses symptoms all started upon returning from his hiking trip. Patient denies any previous heart or lung complications but takes HCZT and an ARB for HTN. He was a heavy smoker for at least 20 years but stopped smoking in 1985. Patient drinks 4-5 beers daily. Review of Systems Review of Systems All other systems reviewed & are negative unless noted below or in HPI Constitutional Constitutional: Reports body ache(s), Reports excessive sweating, Reports fatigue, Reports headache(s) and Reports malaise Eyes Eyes: Reports system reviewed and no additional complaints, except as documented ENT Ears, Nose, Mouth, and Throat: Reports system reviewed and no additional complaints, except as documented, Reports headache(s), Reports hearing loss, Reports nasal congestion, Reports sinus pressure and Reports tinnitus Cardiovascular Cardiovascular: Reports system reviewed and no additional complaints, except as documented and Reports dyspnea on exertion Respiratory Respiratory: Reports system reviewed and no additional complaints, except as documented, Reports cough, Reports dyspnea and Reports dyspnea on exertion Gastrointestinal Gastrointestinal: Reports system reviewed and no additional complaints, except as documented, Reports change in bowel habits and Reports loose stools Genitourinary Genitourinary: Reports system reviewed and no additional complaints, except as documented Musculoskeletal Musculoskeletal: Reports system reviewed and no additional complaints, except asdocumented, Reports arthralgias, Reports muscle cramps, Reports myalgias, Reports numbness and Reports tingling Integumentary/Breasts Skin/Breast: Reports system reviewed and no additional complaints, except as documented Comments: Redness of left knuckles with edema Neurologic Neurologic: Reports system reviewed and no additional complaints, except as documented, Reports abnormal hearing and Reports headache(s) Psychiatric Psychiatric: Reports system reviewed and no additional complaints, except as documented Endocrine Endocrine: Reports system reviewed and no additional complaints, except as documented Hematologic/Lymphatic Hematologic/Lymphatic: Reports system reviewed and no additional complaints, except as documented Allergic/Immunologic Allergic/Immunologic: Reports system reviewed and no additional complaints, except as documented [facility] Medical History Rosacea Problem List clean-up per request of Phys. EHR Cmte Hypertension Problem List clean-up per request of Phys. EHR Cmte Cholecystectomy planned Problem List clean-up per request of Phys. [facility] Surgical History H/O hernia repair surg x2 Problem List clean-up per request of PhysMalinda MCKINNEY Cmte Family History Aunt/Uncle Family history of colon cancer Legacy FamHx Relation: Maternal uncle Father Mother Family history of colon cancer Social History Smoking Status: Former smoker Tobacco Type: cigarettes Substance Use Type: Alcohol Substance Abuse Comment: drinks 3-5 beers daily Meds Medications and Allergies Allergies No Known Allergies Allergy (Verified 12/12/22 09:11) Home Medications candesartan 32 mg-hydrochlorothiazide 25 mg tablet 1 tab PO DAILY 12/12/22 [History Confirmed 09/03/24] doxycycline hyclate 50 mg tablet 50 mg PO DAILY 12/12/22 [History Confirmed 09/03/24] amoxicillin 875 mg-potassium clavulanate 125 mg tablet 1 tab PO BID 09/03/24 [History Confirmed 09/03/24] methylprednisolone 4 mg tablets in a dose pack 4 mg PO DAILY 09/03/24 [History Confirmed 09/03/24] potassium chloride 20 mEq tablet,extended release(part/cryst) 20 meq PO DAILY 09/03/24 [History Confirmed 09/03/24] Exam Physical Exam Vital Signs: Temp Pulse Resp BP Pulse Ox O2 Del Method 97.9 F 82 20 124/71 99 Room Air 09/03/24 15:10 09/03/24 15:10 09/03/24 15:10 09/03/24 15:10 09/03/24 15:10 09/03/24 15:10 Const General: cooperative, healthy appearing, comfortable and no acute distress Orientation: oriented x3 HEENT Head: normal to inspection Ears: hearing grossly normal bilaterally Nose: external nose normal Face and sinus: normal facial exam Eyes General: appearance normal, both eyes and all related structures Neck Neck: normal visual inspection Chest Chest palpation & inspection: normal inspection of the chest Resp Effort & Inspection: normal respiratory effort, able to speak in complete sentences and symmetric chest movement Auscultation: clear to auscultation bilaterally Cardio Palpation: normal PMI Rate: regular rate Rhythm: regular rhythm Heart Sounds: S1 normal and S2 normal GI Inspection: normal to inspection and scar Palpation: soft and no hepatosplenomegaly Other: Patient has a large mesh across his abdomen due to prior hernias. Skin Other: Patient was edematous. His hands and fingers were very swollen and tender to palpation on the left hand 2nd MCP. Neuro General: patient oriented x3 Extrem General: normal to inspection and calf tenderness Psych Appearance: grossly normal Mental Status: mental status grossly normal Mood: congruent mood Affect: normal affect Speech and Movement: speech and movement normal Attitude: cooperative Results - Hospitalist H&P Lab Results Labs: Laboratory Last Values Corrected WBC 7.9 X10E3/uL (4.1-10.5) 09/03/24 14:35 Uncorrected WBC Count 7.9 x10E3/uL (4.1-10.5) 09/03/24 14:35 RBC 4.23 X10E6/uL (3.90-5.60) 09/03/24 14:35 Hgb 13.2 g/dL (13.0-17.0) 09/03/24 14:35 Hct 37.6 % (38.8-50.0) L 09/03/24 14:35 MCV 89.0 fl (83.5-101) 09/03/24 14:35 MCH 31.1 pg (27.5-35.2) 09/03/24 14:35 MCHC 35.0 g/dL (32.5-35.6) 09/03/24 14:35 RDW 13.2 % (12.0-14.8) 09/03/24 14:35 Plt Count 278 x10E3/uL (150-450) 09/03/24 14:35 MPV 7.7 fl (6.6-10.1) 09/03/24 14:35 Neut % (Auto) 74.1 % (.) 09/03/24 14:35 Lymph % (Auto) 16.1 % (.) 09/03/24 14:35 [place] % (Auto) 7.1 % (.) 09/03/24 14:35 Eos % (Auto) 1.9 % (.) 09/03/24 14:35 Baso % (Auto) 0.8 % (.) 09/03/24 14:35 Nucleat RBC Rel Count 0.3 /100 WBC (0-0.5) 09/03/24 14:35 Neut # (Auto) 5.8 x10E3/uL (1.8-7.7) 09/03/24 14:35 Lymph # (Auto) 1.3 x10E3/uL (1.00-4.8) 09/03/24 14:35 [place] # (Auto) 0.6 x10E3/uL (0.0-0.8) 09/03/24 14:35 Eos # (Auto) 0.2 x10E3/uL (0.0-0.45) 09/03/24 14:35 Baso # (Auto) 0.1 x10E3/uL (0.0-0.2) 09/03/24 14:35 Monocyte Dist Width 29.92 % (0.00-20.00) H 09/03/24 14:35 ESR 57 mm/hr (0-19) H 09/03/24 11:19 D-Dimer Quant (PE/DVT) 326 ng/mL (0-243) H 09/03/24 11:19 PHA Creatinine Clear 101.88 09/03/24 14:35 Sodium 136 mmol/L (136-145) 09/03/24 14:35 Potassium 3.7 mmol/L (3.5-5.1) 09/03/24 14:35 Chloride 99 mmol/L (98-107) 09/03/24 14:35 Carbon Dioxide 28.4 mmol/L (21.0-31.0) 09/03/24 14:35 Anion Gap 12.3 mEq/L (6.0-15.0) 09/03/24 14:35 BUN 9 mg/dL (7-25) 09/03/24 14:35 Creatinine 0.65 mg/dL (0.70-1.30) L 09/03/24 14:35 Est GFR (CKD-EPI) > 60.0 mL/Min 09/03/24 14:35 Glucose 106 mg/dL (70-100) H 09/03/24 14:35 Calcium 8.6 mg/dL (8.6-10.3) 09/03/24 14:35 Magnesium 2.0 mg/dL (1.9-2.7) 09/03/24 14:35 Total Bilirubin 0.7 mg/dl (0.3-1.0) 09/03/24 14:35 Direct Bilirubin 0.20 mg/dL (0.03-0.18) H 09/03/24 14:35 Indirect Bilirubin 0.5 mg/dL 09/03/24 14:35 AST 42 U/L (13-39) H 09/03/24 14:35 ALT 64 U/L (7-52) H 09/03/24 14:35 Alkaline Phosphatase 121 U/L (34-104) H 09/03/24 14:35 Troponin I High Sens 16.0 pg/mL (0.0-20.0) 09/03/24 13:07 C-Reactive Prot, Quant 18.7 mg/dL (0.0-0.5) H 09/03/24 11:19 B-Natriuretic Peptide 500.0 pg/mL (5-100) H 09/03/24 11:19 Total Protein 6.7 gm/dL (6.4-8.9) 09/03/24 14:35 Albumin 3.6 gm/dL (3.5-5.7) 09/03/24 14:35 Globulin 3.1 gm/dL 09/03/24 14:35 Albumin/Globulin Ratio 1.2 09/03/24 14:35 Urine Color Colorless (Yellow) 09/03/24 11:10 Urine Appearance Clear (Clear) 09/03/24 11:10 Urine pH 6.0 (5.0-9.0) 09/03/24 11:10 Ur Specific Kimball 1.006 (1.001-1.030) 09/03/24 11:10 Urine Protein Negative mg/dL (Negative) 09/03/24 11:10 Urine Glucose (UA) Normal mg/dL (Normal) 09/03/24 11:10 Urine Ketones Negative (Negative) 09/03/24 11:10 Urine Occult Blood Negative (Negative) 09/03/24 11:10 Urine Nitrite Negative (Negative) 09/03/24 11:10 Urine Bilirubin Negative (Negative) 09/03/24 11:10 Urine Urobilinogen Normal mg/dL (Normal) 09/03/24 11:10 Ur Leukocyte Esterase Negative (Negative) 09/03/24 11:10 Ethyl Alcohol < 10 mg/dL 09/03/24 11:19 % Ethyl Alcohol TNP 09/03/24 11:19 SARS-CoV-2 Rap RNA(RT-PCR) Negative (Negative) 09/03/24 11:10 Microbiology Results Micro: Microbiology - Results from entire visit 09/03/24 11:10 Nasopharyngeal SARS-CoV-2, Influenza & RSV (PCR) - Final Assessment & Plan Assessment/Plan (1) Mesenteric lymphadenopathy: (2) Elevated liver enzymes: (3) Mediastinal lymphadenopathy: (4) Lung nodule: (5) Breathlessness on exertion: (6) CRP elevated: (7) Elevated brain natriuretic peptide (BNP) level: (8) D-dimer, elevated: Plan Patient is hemodynamically stable with a BP of 124/71. Patient has an elevated ESR(54) and CRP(18.7) which show an inflammatory reaction. Patients D-Dimer is elevated and with his recent calf cramping and tenderness a Venous Duplex Ultrasound was ordered to rule out DVT. Patient had an elevated BNP of 500, an echocardiogram was order to view cardiac function. Patients liver enzymes were elevated AST (42), ALT (64), and Alk Phos of 121. CT scan showed mild hepatic steatosis. CT scan also showed multiple lung nodules. Some of them were calcified lymph nodes and others were non specific nodules. Pulmonology has been consulted for the nodules and the lymphadenopathy and will follow their recommendations regarding the lungs. PCR panel, ASO ab, JESSICA w reflex, RF were ordered. We will follow BMP (and Mg) and CBC w/ auto diff. DVT prophylaxis was initiated. IP vs OBS Justification Based on differential dx, clinical care plan, and risk of adverse events, if untreated, in my clinical judgement this patient requires an acute care setting as: INPATIENT because of an expectation of an over 2 midnight stay. Estimated length of stay (# of days): 3 <Statement entered by Angle Logan DO - 09/04/24 12:36> I personally saw and examined the patient at the bedside this evening 09/03/2024. Case was discussed and coordinated in conjunction with student Dr. Landaverde and I agree with management as noted therein. Extensive workup for tickborne illnesses and atypical pneumonias as well as strep pneumo have been ordered. Discussed with pulmonology. Appreciate consultation. Follow-up CT in 6 to 12 months. Rhino/enterovirus positive whichcould explain symptoms of sinusitis including inner ear congestion as well as significant severe diarrheal illness earlier this week. After loperamide being provided this resolved. Previously reported electrolyte abnormalities are likely attributable to his candesartan HCTZ and will be monitored. Patient has been number of years including most recently outdoors and endorses a unknown spider bite or other bite that could have represented a tick bite. Transaminitis, peripheral edema but more so edema and swelling of his MCP jointsand hands certainly raise suspicion for Lyme disease or other tickborne illness. Endorses upwards of 4-5 beers daily but never having had withdrawal symptoms and he does not have classic disproportional AST elevation to suggest alcoholic hepatitis. I have placed a consult to infectious disease for any further recommendations. Beta galactomannan, histoplasma testing also sent. His chest CT does not report any surrounding infiltrates of the heart, pathology however on plain film view of the chest this does almost have an almost boot-shaped appearance. His EKG shows a likely chronic left bundle branch block with significant BNP elevation, normal troponins. Will obtain echocardiogram Documented By: Angle Logan DO 09/03/24 Signed By: <Electronically signed by Angle Logan DO> 09/04/24 [facility] Work Phone: 1(521) 504-457910-10-2024 Consult note Author Milton Lyon [facility] September 03, 2024 8:36pm Note Date/Time September 03, 2024 8 :37pm [facility] [address] [place] [address] Pulmonology Consult Note Signed Patient: Cha Elena MR#: [id number] : 1950 Acct:[id number] Age/Sex: 73 / M Adm Date: 4 Loc: Room: [address] [place] [address] Type: ADM IN Attending Dr: Angle Logan DO Copies to: MD Speedy Myers II, MD Michael R. Frings, ~ HPI Date/Time of Consultation: Date of Service: 09/03/2024 Time of Service: 20:25 Consulting Provider: Milton Lyon Requesting Provider: Angle Logan History of Present Illness History of present illness: Mr. Elena is a 73 year old male seen at the request of the hospitalist service for nodules and lymphadenopathy. Patient is otherwise healthy and very active with no prior history of lung disease though intermittent smoking historywho apparently went on a hike at the [facility] approximately 9 days ago. Subsequent to this, the patient has developed symptoms including significant arthritis of the fingers with edema in addition to some lethargy. He did have episode of fever though low- grade to perhaps 100.6 ?F with chills and sweats. He has had cough though nonproductive but denies any pulmonary limitations to activity. He denies chest pain pleuritic or otherwise. Patient did have some reported nausea and diarrhea and was evaluated by primary care practitioner and was started on antibiotic. Patient was subsequently evaluated at the [place] emergency department where is noted to be hyponatremic and hypokalemic. His electrolytes were replaced and patient was placed on Augmentinfor concern for sinus infection. Patient does drink 4-5 beers per day as well as drinking water. He had also been on hydrochlorothiazide the been held by hisdaughter who is a nurse. Patient continued with hyponatremia presented to [facility] emergency department where CT arteriogram was performed with no evidence of a pulmonary vascular filling defect with nonspecific lymphadenopathyappreciated with calcified granuloma in the right lower lobe with 4 mm nodule ofthe right middle lobe. He is noted to be a partially calcified subcarinal lymphnode with equivocal mediastinal lymphadenopathy and possibly minimally enlarged right hilar lymphadenopathy. Review of Systems Review of Systems All other systems reviewed & are negative unless noted below or in HPI [facility] Medical History Rosacea Problem List clean-up per request of Phys. EHR [facility] Hypertension Problem List clean-up per request of Phys. EHR [facility] Cholecystectomy planned Problem List clean-up per request of Phys. EHR [facility] Surgical History H/O hernia repair surg x2 Problem List clean-up [facility]. [facility] Aunt/Uncle Family history of colon cancer Legacy FamHx Relation: Maternal uncle Father Mother Family history of colon cancer Social History Smoking Status: Former smoker Tobacco Type: cigarettes Substance Use Type: Alcohol Substance Abuse Comment: drinks 3-5 beers daily Meds Medications and Allergies Allergies No Known Allergies Allergy (Verified 12/12/22 09:11) Home Medications candesartan 32 mg-hydrochlorothiazide 25 mg tablet 1 tab PO DAILY 12/12/22 [History Confirmed 09/03/24] doxycycline hyclate 50 mg tablet 50 mg PO DAILY 12/12/22 [History Confirmed 09/03/24] amoxicillin 875 mg-potassium clavulanate 125 mg tablet 1 tab PO BID 09/03/24 [History Confirmed 09/03/24] methylprednisolone 4 mg tablets in a dose pack 4 mg PO DAILY 09/03/24 [History Confirmed 09/03/24] potassium chloride 20 mEq tablet,extended release(part/cryst) 20 meq PO DAILY 09/03/24 [History Confirmed 09/03/24] Exam Physical Exam Vital Signs: Temp Pulse Resp BP Pulse Ox O2 Del Method 97.9 F 82 20 124/71 99 Room Air 09/03/24 15:10 09/03/24 15:10 09/03/24 15:10 09/03/24 15:10 09/03/24 15:10 09/03/24 15:21 Const General: cooperative Nutritional Appearance: average body habitus Orientation: alert and awake HEENT Head: normal to inspection Ears: hearing grossly normal bilaterally and external ears normal Nose: external nose normal Face and sinus: normal facial exam Eyes Eyelids: eyelids normal Neck Neck: normal visual inspection and no lymphadenopathy Chest Chest palpation & inspection: normal inspection of the chest and other (No axillary lymphadenopathy) Resp Effort & Inspection: normal respiratory effort Auscultation: clear to auscultation bilaterally, diminished lung sounds, no rales, no rhonchi and no wheezes Cardio Rate: regular rate Rhythm: regular rhythm Heart Sounds: S1 normal, S2 normal and no murmurs GI Inspection: normal to inspection Palpation: soft and nontender General: deferred Skin General: no rashes or lesions noted (Warm and dry) Extrem General: no pedal edema Results - Pulmonology Intake and Output I&O - Last 24 Hours: Intake & Output 09/03/24 09/03/24 09/03/24 07:59 15:59 23:59 Intake Total 1000 / 1650 650 / 1650 Output Total 900 / 900 Balance 100 / 750 650 / 750 Weight 233 lb 11.04 oz Labs 09/03/24 14:35 09/03/24 14:35 Microbiology Micro: 09/03/24 16:10 Respiratory Panel (PCR) - Final Nasopharyngeal 09/03/24 11:10 SARS-CoV-2, Influenza & RSV (PCR) - Final Nasopharyngeal Imaging and Cardiology CT scan - chest: Status: image reviewed by me Additional comments: Date of Service: 09/03/24 CT/CT angio chest PE protocol: elev dimer weakness ([id number]) CT/CT abdomen pelvis w con: low sodium low K weakness CTA Chest with PE protocol TECHNIQUE: Axial imaging with 2-D and 3-D reconstruction. 90cc of Isovue-[address] exam was performed using one or more the following dose reduction techniques: Automated exposure control, adjustment of the MA and/or Kv according to patient size, or use of theiterative reconstruction technique. History: Elevated d-dimer. Low sodium and potassium. Leg cramps. Nausea COMPARISON: None THYROID: Unremarkable TRACHEA AND BRONCHI: Patent ESOPHAGUS: Unremarkable. HEART: Within normal limits PERICARDIAL EFFUSION: None CORONARY ARTERY CALCIFICATION: None MEDIASTINUM: Multiple small mediastinal lymph nodes. PULMONARY TARA: Mildly prominent bilateral hilar lymph nodes. THORACIC AORTA Unremarkable PULMONARY EMBOLUS: None LUNG NODULE noncalcified 4 mm solid nodule of the right middle lobe. 2 mm nodular density of the right middle lobe. LUNGS: Lungs are clear 5 mm lateral right basilar calcified granuloma. PLEURAL EFFUSION: None PNEUMOTHORAX: No pneumothorax seen. CHEST WALL: No abnormality AXILLA: Unremarkable BONY STRUCTURES Intact UPPER ABDOMEN: Images of the upper abdomen are noncontributory. CT/CT angio chest PE protocol IMPRESSION: No acute pulmonary embolus. Small right middle lobe lung nodules. Consider elective short-term follow-up assessment. Remote granulomatous changes. Small mediastinaland mildly prominent hilar lymph nodes. CT Abdomen and Pelvis withcontrast TECHNIQUE: Axial imaging with 2-D reconstruction. . The CT exam was performed using one or more the following dose reduction techniques: Automated exposure control, adjustment of the MA and/or Kv according to patient size, or use of the iterative reconstruction technique. COMPARISON: None LIMITATIONS: None LOWER THORAX coronary artery calcification. Calcified right hilar lymph nodes. Calcified mediastinal lymph nodes. LIVER: Mild hepatic steatosis. GALLBLADDER: Cholecystectomy clips identified. BILE DUCTS: No dilatation SPLEEN: Unremarkable PANCREAS: Unremarkable ADRENAL GLANDS: Unremarkable KIDNEYS:Unremarkable AORTA: No abdominal aortic aneurysm identified. RETROPERITONEUM: No significant retroperitoneal abnormalities identified. MESENTERY:Reticular densities of the central portion of mesenteric small lymph nodes. SMALL BOWEL: The small bowel loops are nondistended. Bowel resection changes. APPENDIX: The appendix is normal. COLON: Unremarkable URINARY BLADDER: Urinary bladder is unremarkable. REPRODUCTIVE SYSTEM: Reproductive structures are unremarkable. PNEUMOPERITONEUM: None PERITONEAL FLUID:None BONY STRUCTURES: Degenerative change ABDOMINAL WALL: Unremarkable anterior midline incision. IMPRESSION: No bowel obstruction. Central mesenteric stranding and adenopathy. May represent panniculitis. Otherwise, no acute abdominal or pelvic findings. Assessment/Plan (1) Lung nodule: (2) Mediastinal lymphadenopathy: Plan Hospital day #1 for patient with constitutional symptoms and incidental findingsof mild hilar adenopathy and tiny pulmonary nodules which are more likely to be related to granulomatous disease. I suspect the lymphadenopathy is more likely to be reactive possibly related to this under lying inflammatory/infectious process. Recommendation would be for repeat CT scan with contrast in 6 to 12 months to document stability or improvement in the adenopathy. This was discussed at length with patient and family as well as referring physician. We can follow-up in our office as an outpatient after the follow-up CT scan in 6 months with contrast. Documented By: Milton Lyon MD 2024 Signed By: <Electronically signed by MD Milton Lyon> 09/03/242035 [facility] Work Phone: 1(465) 402-552510-09-2024 Telephone encounter Note* Telephone Encounter - Karyn Dunbar - 09/02/2024 10:27 AM EDT Pt got the blood work like Sarah wanted him to. He then received an infusion. He's got a few questions: 1) The PA where he received the infusion told him to hold off on the steroids Sarah prescribed him yesterday. He did get them from the pharmacy. He wants to know how to precede. 2) When should he get his blood work done again to see if he needs another transfusion. [id number] Miscellaneous Notes* Telephone Encounter - Karyn Dunbar - 09/02/2024 10:27 AM EDT Pt got the blood work like Sarah wanted him to. He then received an infusion. He's got a few questions: 1) The PA where he received the infusion told him to hold off on the steroids Sarah prescribed him yesterday. He did get them from the pharmacy. He wants to know how to precede. 2) When should he get his blood work done again to see if he needs another transfusion. documented in this [facility]10-08-2024 Telephone encounter Note* Telephone Encounter - TEDDY Mcnamara - 09/01/2024 10:39 AM EDT Katie from [facility] lab called with critical lab result. Pt's Potassium was 2.9 today. [facility] [id number] Miscellaneous Notes* Telephone Encounter - TEDDY Mcnamara - 09/01/2024 10:39 AM EDT Katie from [facility] lab called with critical lab result. Pt's Potassium was 2.9 today. documented in this [facility]10-08-2024 History of Present illness Narrative* Sarah Mendez NP - 09/01/2024 8:30 AM EDT Subjective Patient ID: Cha Elena is a 73 y.o. male who presents for URI. Cha is present today for evaluation of cold symptoms. Admits head feels full, cough (dry), dizziness (BP has been running on the lower side), body aches, Joints are achy/cramping, fatigue, fever, chills, diarrhea, drinking a lot of fluids but not getting rid of the fluids like he should be. This all started on . On Saturday took a 5 1/2 mile hike so not sure if that had anything to do with it. COVID, Flu A and B were negative, daughter tested him. Current Outpatient Medications on File Prior to Visit Medication Sig Dispense Refill Candesartan Cilexetil-HCTZ 32-25 MG tablet TAKE 1 TABLET IN THE MORNING 100 tablet 3 sildenafil (Viagra) 100 MG tablet Take 1 tablet (100 mg) by mouth Daily as needed for erectile dysfunction 10 tablet 11 No current facility-administered medications on file prior to visit. I have reviewed and reconciled the history and medication list with the patient today. Allergies Allergen Reactions Atorvastatin Other Benzoin Unknown Social History Tobacco Use Smoking status: Former Current packs/day: 0.00 Average packs/day: 3.0 packs/day for 27.0 years (81.0 ttl pk-yrs) Types: Cigarettes Start date: 1978 Quit date: 2005 Years since quittin.7 Smokeless tobacco: Never Substance Use Topics Alcohol use: Yes Alcohol/week: 5.0 standard drinks of alcohol Types: 5 Cans of beer per week Family History Problem Relation Name Age of Onset Diabetes Mother Cancer Father Past Medical History: Diagnosis Date AAA (abdominal aortic aneurysm) (CMS/HCC) GERD (gastroesophageal reflux disease) History of colonic polyps Hyperlipemia (CMS/HCC) Hypertension (CMS/HCC) Internal hemorrhoids Sensorineural hearing loss (SNHL) Past Surgical History: Procedure Laterality Date CHOLECYSTECTOMY COLONOSCOPY 2008 EGD 2008 HERNIA REPAIR LIVER BIOPSY 2016 Visit Vitals Smoking Status Former Review of Systems Constitutional: Positive for activity change, appetite change, chills, diaphoresis, fatigue and fever. Respiratory: Positive for cough. Cardiovascular: Negative. Gastrointestinal: Positive for diarrhea. Genitourinary: Positive for decreased urine volume. Musculoskeletal: Off and on all joints hurt. Skin: Negative. Neurological: Positive for dizziness. Psychiatric/Behavioral: Positive for sleep disturbance. Objective Physical Exam Vitals reviewed. Constitutional: Appearance: Normal appearance. HENT: Head: Normocephalic. Right Ear: A middle ear effusion is present. Left Ear: A middle ear effusion is present. Nose: Right Turbinates: Enlarged and pale. Left Turbinates: Enlarged and pale. Mouth/Throat: Mouth: Mucous membranes are moist. Pharynx: Oropharynx is clear. Posterior oropharyngeal erythema present. Eyes: Conjunctiva/sclera: Conjunctivae normal. Cardiovascular: Rate and Rhythm: Normal rate and regular rhythm. Pulmonary: Effort: Pulmonary effort is normal. Breath sounds: Normal breath sounds. Abdominal: Palpations: Abdomen is soft. Hernia: A hernia is present. Musculoskeletal: General: Normal range of motion. Skin: General: Skin is warm and dry. Neurological: General: No focal deficit present. Mental Status: He is alert and oriented to person, place, and time. Psychiatric: Mood and Affect: Mood normal. Behavior: Behavior normal. Assessment/Plan Diagnoses and all orders for this visit: Fever, unspecified fever cause - Comprehensive metabolic panel; Future - CBC; Future Take medications as ordered. 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 No changes in treatment are suggested at this time. Abdominal aortic aneurysm, without rupture, unspecified (CMS/HCC) This is a chronic medical condition that is stable since last assessment. No changes in treatment are suggested at this time. Elevated PSA Most recent PSA 2.6. Followed by Dr. Castillo Pain in joints - Uric acid; Future Await lab. Pt was negative for influenza A and B and COVID Acute non-recurrent pansinusitis - amoxicillin-clavulanate (Augmentin) 875-125 MG tablet; Take 1 tablet (875 mg) by mouth in the morning and 1 tablet (875 mg) before bedtime. Do all this for 10 days. - methylPREDNISolone (Medrol Dospak) 4 MG tablets; Follow schedule on package instructions Start the above as directed. Reviewed potential s/e with patient. Encouraged probiotic while on antibiotic. Increase water intake, get plenty of rest. Can take OTC allergy medication for symptomatic relief. Tylenol/Motrin prn. Follow up if no improvement in one week. Do not take steroid with ibuprofen, aleve. You can take the steroids with APAP. Monitor stools for any blood or black in color. If present, stop steroid and call office for further direction. No follow-ups on file. documented in this encounterHarry S. Truman Memorial [facility]' [id number] Hospital Discharge instructions Patient Education 06/24/2024 13:28:48 Prostate Cancer Screening Prostate Cancer Screening Prostate cancer screening is testing that is done to check for the presence of prostate cancer in men. The prostate gland is a walnut-sized gland that is located below the bladder and in front of therectum in males. The function of the prostate is to add fluid to semen during ejaculation. Prostatecancer is one of the most common types of cancer in men. Who should have prostate cancer screening? Screening recommendations vary based on age and other risk factors, as well as between the professional organizations who make the recommendations. In general, screening is recommended if: You are age 50 to 70 and have an average risk for prostate cancer. You should talk with your healthcare provider about your need for screening and [...] diagnosed with prostate cancer. The risk is higherif your family member's cancer occurred at an early age or if you have multiple family members withprostate cancer at an early age. ?Being a [...] is a blood test called the prostate-specific antigen(PSA) test. PSA is a protein that is [...] treatment? Where to find more information The [place] [employer]: www.cancer.org [place] [employer]: www.auanet.org Contact a health care [...] the recommended screening test for prostate cancer, butit has associated risks. Discuss the risks and [...] provider. Document Revised: 05/07/2022 Document Reviewed: 05/07/2022 [employer] Patient Education 2022 [employer]. Follow Up Care 06/03/2024 14:48:00 With:JONATHAN WATSON, Tray Gilbert, URL Address: [facility] [address] , [place] [address]- When: Unknown [facility] Janet 07-31-2024 NotePatient Education Oncology Prostate Cancer Screening Prostate cancer screening is testing that is done to check for the presence of prostate cancer in men. The prostate gland is a walnut-sized gland that is located below the bladder and in front of therectum in males. The function of the prostate is to add fluid to semen during ejaculation. Prostatecancer is one of the most common types [...] , screening in this age group is generallyreserved for men who have a 10- to [...] is a blood test called the prostate-specific antigen(PSA) test. PSA is a protein that is [...] cancer, and most men with prostate cancer diefrom a different cause. What are the risks [...] Where to find more information ? The [place] [employer]: www.cancer.org ? [place] [employer] Association: www.auanet.org Contact a health care [...] front of the rectum. (more content not included)...[facility]07-21-2023 History of Present illness Narrative* Ivone Patricio MA - 06/14/2023 1:00 PM EDT Patient purchased 6 dry bricks at $3 each. documented in this encounterHarry S. Truman Memorial Veterans' [id number] NoteHNO ID: [id number] Author: Angle Melchor MD Service: ? Author Type: Physician Type: Progress Notes Filed: 04/01/2023 1:32 PM Note Text: 30-DAY FOLLOW UP NOTE FROM [facility] Cha Elena is a 72 year-old [...] there are any unanticipated events. Dr. [facility]chor[facility] NoteHNO ID: [id number] Author: Tarik Person MD Service: ? Author Type: Resident Type: Progress Notes Filed: 04/01/2023 1:32 PM Note Text: [facility] - HISTORY AND PHYSICAL [...] Follow up in a year with [facility] History of Present illness Narrative* Angle Melchor MD - 04/01/2023 11:56 AM EDT 30-DAY FOLLOW UP NOTE FROM [facility] Cha Elena is a 72 year-old [...] are any unanticipated events. Dr. Angle Melchor * Tarik Person MD - 04/01/2023 11:44 AM EDT [facility] - HISTORY AND PHYSICAL Chief Complaint: post-surgical follow-up HPI: hCa Elena is a 72-year-old male who underwent TAR on 03.07.23. since surgery, he has beenfeeling good, has no pain, and has returned [...] 14 Ht 177.8 cm (5' 10 ) Wt108 kg (238 lb) BMI 34.15 kg/m Physical [...] year with CT scan documented [facility] Nurse Note* Miguel Boothe - 04/01/2023 11:32 AM EDT What is the reason for your visit today? Post op Who is your referring physician? Dr. Melchor Are you having poor oral intake? NO Have you had unintentional weight loss of 15 lbs/7 Kg in the last 3-6 months? NO Bowels: regular Wound: clean & dry Temperature: No Drains: No documented in this encounterPeoples Hospital04-21-2023 Miscellaneous Notes* Telephone Encounter - Bhavya Colunga RN - 03/15/2023 2:27 PM EDT PATIENT INFORMATION Record ID: [id number] [facility] [place]: [facility] [place] Attending: Angle Melchor Center: General Surgery INSTRUCTIONS SN to remind patient of appointment date, time, location All Clear All Clear SURVEY INFORMATION Medical/Nurse Poker Manager: Bhavya Colunga 1. Your discharge instructions are important in [...] symptoms? (Standard Question) No documented in this encounterPeoples Hospital04-15-2023 NoteHNO ID: [id number] Author: Rao Valadez MD Service: General Surgery [...] dilation. Zofran PRN Renal: Strict I/Os. No Christianson Heme: No indication for transfusion ID: No indication for abx Endo: SSI Prophylaxis: IPCs, Lovenox Dispo: RNF, pending ROBF Plan discussed with Surgery Staff Dr. Natalie Valadez MD General Surgery PGY-4 Date: 03/09/2023 Time: 8:23 AM Pager: [phone] Subjective: Interval Events: no acute events, still [...] INR 1.0 Intake and Output: Date 03/08/23 07 - 03/09/23 0659 03/09/23 07 - 03/10/23 0659 Shift 0892-5011 7601-2245 1870-0553 24 Hour Total 4453-7053 2515-4352 3112-2921 24 Hour Total INTAKE PO 915 182 9969 PO 232 294 1094 IV 6207 453 0568 Volume (mL) (NaCl 0.9% iv flush bag) 0 0 Volume (mL) (potassium chloride iv piggyback 20 mEq/100 mL) 0 0 Volume (mL) (magnesium sulfate iv piggyback in sterile water 2 g 50 mL) 0 0 Volume (mL) (lactated ringers iv infusion) 1440 933 9176 Shift Total 740 1362 1230 3332 OUTPUT Urine 483 609 1873 1875 Void (ml) 700 1075 1775 Output ([REMOVED] Indwelling Urinary Catheter 03/07/23 1130 Coude 16 Fr 03/08/23 1100) 100 100 Tubes 30 70 105 205 Drain/Tube Output (Drain/Tube 03/07/23 1257 Tl Vazquez Left Upper Quadrant Abdomen Drain #1) 30 60 80 170 Drain/Tube Output (Drain/Tube 03/07/23 1258 Tl Vazquez Right Upper Quadrant Abdomen Drain #2) 0 10 25 35 Shift Total 845 729 9306 2080 Weight (kg) 112 112 112 112 [...] agrees to proceed with today?s plan of care.[facility]2023 NoteHNO ID: [id number] Author: Ashleigh Santos RN Service: Care Management Author Type: Registered Nurse Type: Care Mgt Initial Assessment Filed: 03/08/2023 12:06 PM Note Text: CARE MANAGEMENT: ASSESSMENT AND DISCHARGE PLAN SERVICE DATE: March 08, 2023 SERVICE TIME: 12:05 PM PCP: Speedy Khanna II, MD Primary Contact: Extended Emergency Contact Information Primary Emergency Contact: HOMAR JOHNSON Mobile Relation: Daughter Admission Status: Inpatient Insurance [facility] Discharge Planning requested by: Attending Provider Potential Transition Plans No Services Indicated Advance Directives Current Advance Directive: None Powder Coat Painter Attempted to Assist with AD Completion: Yes Action: Education Provided Current Living Arrangements and Support Lives with: Alone Type of Residence: Private Residence (House) Does the patient have to climb stairs at home?: Yes Support: Family members How do you manage to accomplish the following: Independent: Ambulation;Bathe/Shower;Dress;Meals/Meal Prep;Going to the bathroom;Medication Management;Transportation to appointments/community Current Services/Equipment Current Post-Acute Service(s): None Discharge Planning Patient Goal(s): Be able to go home Orange of Choice Explained: Orange of Choice Given: No Reason Not Given: [...] 08, 2023 TIME: 12:05 PM CONTACT #: [phone] Medical Specialty Hospital [facility]04-14-2023 Note HNO ID: [id number] Author: Maria M Vaz APRN.REAL ESTATE PROFESSOR Service: General Surgery Author Type: Nurse Practitioner [...] not tried solid food due to nausea. Christianson removed this AM, has yet to void. Out of bed x1. On room air. Objective BP 127/69 Pulse 69 Temp (Src) 98.4 (Oral) Resp 18 SpO2 94% O2 Therapy: Room Air Date 03/07/23699 - 03/08/23 0659 03/08/23 07 - 03/09/23 0659 Shift 8438-8694 0799-8165 9631-2841 24 Hour Total 8876-3772 0045-9205 9867-7821 24 Hour Total INTAKE PO 100 250 350 240 240 PO 100 250 350 240 240 IV 8001 500 7650 Volume (mL) (ceFAZolin iv piggyback 2 g in D5W (iso-osmotic) 100 mL (ANCEF)) 100 50 150 Volume (mL) (rocuronium injection) 11 11 Volume (mL) (ePHEDrine injection) 1 1 Volume (mL) (lactated ringers iv infusion) 310 310 Volume (mL) (lactated ringers iv infusion) 1800 1800 Shift Total 1912 880 439 0402 240 240 OUTPUT Urine 140 340 425 [...] Blood loss 50 50 Shift Total 190 903 472 9509 130 130 Weight (kg) Lines, Drains, and [...] on home alpha blockers PLAN: - D/C christianson today - Added 3 days Flomax PO [...] Assessment AND Plan Assessment: Minimal use of WALL TAPER HELPER due to nausea. Pain well managed with current regimen PLAN: - D/C WALL TAPER HELPER - Scheduled Tylenol, gabapentin - PRN oxycodone 5 mg q4h PO S/P hernia repair 03/08/2023 - Present No Current Assessment AND Plan Assessment: POD 1 from repair. No bowel function yet. Some nausea, no emesis. Pain well managed. PLAN: - Downgrade to CLD for now. Consider advancement with resolution of nausea. - Bowel regimen scheduled - Maintenance IVF at 75cc/h - D/C WALL TAPER HELPER - D/C christianson for TOV. - Encourage OOB, ambulation, sitting [...] 214603/07/231928 -- 03/07/231929 activity - mobilize patient (az,pr) VTE Prophylaxis: VTE prophylaxis appropriate Plan of care discussed with: Provider, RN, Patient and Care Management SIGNATURE: Maria M Vaz APRN.REAL ESTATE PROFESSOR PATIENT NAME: Cha Elena DATE: March 08, 2023 TIME: 10:25 [facility]04-13-2023 History of Past illness Narrative* Problem Noted Date Resolved Date Incisional hernia, without obstruction or gangre ne 03/07/2023 03/08/2023 documented as of this encounter (statuses as of 03/15/2023) [facility] History of Past illness Narrative* Problem Noted Date Resolved Date Incisional hernia, without obstruction or gangre ne 03/07/2023 03/08/2023 documented as of this encounter (statuses as of 04/01/2023) [facility]23 NoteHNO ID: [id number] Author: Logan George APRN.NAOMY Service: ? Author Type: Nurse Director Speech Language Type: Anesthesia Procedure Notes Filed: 03/07/2023 11:40 AM Note Text: ANESTHESIOLOGY PROCEDURE NOTE Airway General Information Procedure Start Time/Medication Administration: 03/07/2023 11:18 AM Patient location during procedure: OR Timeout Performed Pre-procedure: timeout performed Consent Obtained: Yes Patient identity confirmed: arm band, care steam plant operator and patient Staffing FUEL EFFICIENT AIRCRAFT DESIGNER: Mago Haji APRN.FUEL EFFICIENT AIRCRAFT DESIGNER Performed by: NAOMY Indications and Patient Condition Indications for airway management: anesthesia Preoxygenated: yes anesthesia circuit Method: asleep Difficult Mask: No Final Airway Details Final airway type: endotracheal airway Final Endotracheal Airway: ETT Cuffed: yes Successful intubation technique: video laryngoscopy Devices used: Wyatt Endotracheal tube insertion site: oral Blade size: #4 ETT size (mm): 7.5 Measured from: lips Measurement (cm): 23 Placement verified by: capnometry Cormack-Lehane Classification: grade I - full view of glottis Number of attempts at approach: 1 Airway not difficult SIGNATURE: Logan George APRN.FUEL EFFICIENT AIRCRAFT DESIGNER PATIENT NAME: Cha Elena DATE: March 07, 2023 TIME: 11:39 AM CSN: [id number] Medical Specialty Hospital [facility]04-12-2023 History and physical note* Adrianna Pollock APRN.REAL ESTATE PROFESSOR - 03/06/2023 10:00 AM EDT HISTORY AND PHYSICAL EXAMINATION SERVICE DATE: 03/06/2023 SERVICE TIME: 10:00 AM PRIMARY CARE PHYSICIAN: Speedy Khanna II, MD REASON FOR VISIT: Cha Elena is a 72 year old male who is scheduled for COMPLEX REPAIR WOUND OF ABDOMEN 2.6 CM TO7.5 CM on 03/07/2023 at [facility]. Patient is being seen at [...] fevers. 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 No neurological symptoms or problems. Respiratory: No history of current cough or dyspnea, or pneumonia in the past 6 weeks. No history of respiratory/pulmonary symptoms or problems. Cardiovascular: h/o AAA, HTN, 'electrical block' Negative for Recent AR, Chest Pain GI: GERD No history of [...] 2023 TIME: 10:39 AM documented in this encounterPeoples Hospital04-12-2023 Instructions* Patient Instructions* Adrianna Pollock APRN.CNP - 03/06/2023 9:30 AM EDT PATIENT PREOPERATIVE INSTRUCTIONS Angle Melchor MD has scheduled you for your procedure at this surgery center: [facility] Scheduling Office: [phone] --[address] [place] [address]. Please read below carefully for your personalized [...] Procedures: - YOU MUST HAVE A RESPONSIBLE TEST INSPECTION ENGINEER TAKE YOU HOME. A ORTHOTICS PROSTHETICS TECHNICIAN OR TERRITORY BUSINESS MANAGER CANNOT BE MADE A RESPONSIBLE TEST INSPECTION ENGINEER. - We recommend that a responsible person [...] call the Saturday before. Your surgeon s preschool associate teacher will tell you what time to call the office. - If you have not reached the departmental preschool associate teacher by 5 P.M., call [phone] after 5 P.M. the day before your surgery. Please be aware that emergency situations arise, which may delay or change your surgical time. If this happens, we will notify you as soon as possible and regret any inconvenience. If you already have an Advance Directive, please fax a copy to [phone] or email to for it to be [...] day. Adrianna Pollock APRN.CNP documented in this encounterPeoples Hospital01-18-2023 Procedure [facility] History and physical note Author Ernie Florez [facility] December 12, 2022 9:55am Note Date/Time December 12, 2022 9 :53am [facility] [address] [place] [address] Gastroenterology H&P Signed with Addenda Patient: Cha Elena MR#: [id number] : 1950 Acct:[id number] Age/Sex: 72 / M Adm Date: 3 Loc: Room: Type: [facility] Attending Dr: Ernie Florez MD Copies to: MD Speedy Perez II, MD~ ADDENDUM1 Addendum family history of GI malignancy should read: Mother and maternal uncle diagnosed with colorectal cancer in their 80s Addendum Documented By: Ernie Florez MD 12/12/22 0955 Addendum Signed By: <Electronically signed by Ernie Florez MD> 12/12/22 0955 Date of Service: 12/12/2022 HISTORY & PHYSICAL: [...] 12/12/22 0952 Signed By: <Electronically signed by rEnie Florez MD> 12/12/22 0954 [facility] Work Phone: [phone] NoteHNO ID: [id number] Author: Angle Melchor MD Service: ? Author [...] Double-Blind Randomized Controlled Trial IRB NO.: #[id number] FOLDER MACHINE OPERATOR: Chitra Yao MD COORDINATOR/Research Nurse/Budget Counselor: Bertha Andrew MD Phone/email: [phone], [email or web address] Consenting was performed by the attending surgeon, in a [id number] manner, during preoperative evaluation at the General [...] CRITERIA Yes No 1. The patient lacks Jordanian language fluency or cannot understand the consent form/study procedures [] [x] 2. The patient has any hearing impairment with or without the use of hearing aids [] [x] 3. The patient has a neurologic condition which prevents assessment of pain and/or anxiety [] [x] 4. The patient is to remain intubated after surgery [] [x][facility] History of Present illness Narrative* Angle Melchor [...] Double-Blind Randomized Controlled Trial IRB NO.: #[id number] FOLDER MACHINE OPERATOR: Chitra Yao MD COORDINATOR/Research Nurse/Budget Counselor: Bertha Andrew MD Phone/email: [phone], [email or web address] Consenting was performed by the attending surgeon, in a [id number]-[id number] manner, during preoperative evaluation at the General [...] CRITERIA Yes No 1. The patient lacks Jordanian language fluency or cannot understand the consent [...] Double-Blind Randomized Controlled Trial IRB NO.: #[id number] FOLDER MACHINE OPERATOR: Chitra Yao MD COORDINATOR/Research Nurse/Budget Counselor: Bertha Andrew MD Phone/email: [phone], [email or web address] Consenting was performed by the attending surgeon, in a cytk-[id number] manner, during preoperative evaluation at the General [...] CRITERIA Yes No 1. The patient lacks Jordanian language fluency or cannot understand the consent [...] Person MD - 09/10/2022 9:41 AM EDT [facility] - HISTORY AND PHYSICAL Chief Complaint: [...] repair with a TAR documented in this encounterPeoples Hospital10-17-2022 NoteHNO ID: [id number] Author: Angle Melchor MD Service: ? Author [...] Double-Blind Randomized Controlled Trial IRB NO.: #[id number] FOLDER MACHINE OPERATOR: Chitra Yao MD COORDINATOR/Research Nurse/Budget Counselor: Bertha Andrew MD Phone/email: [phone], [email or web address] Consenting was performed by the attending surgeon, in a fzuf-kg-qsow manner, during preoperative evaluation at the General [...] CRITERIA Yes No 1. The patient lacks Jordanian language fluency or cannot understand the consent form/study procedures [] [x] 2. The patient has any hearing impairment with or without the use of hearing aids [] [x] 3. The patient has a neurologic condition which prevents assessment of pain and/or anxiety [] [x] 4. The patient is to remain intubated after surgery [] [x][facility]2022 NoteHNO ID: [id number] Author: Tarik Person MD Service: ? Author Type: Resident Type: Progress Notes Filed: 09/12/2022 8:38 AM Note Text: [facility] - HISTORY AND PHYSICAL Chief Complaint: [...] Plan: Open retrovascular hernia repair with a [facility]10-17-2022 Nurse Note* Miguel Boothe - 09/10/2022 9:13 AM EDT What is the reason for your visit today? Consult Who is your referring physician? self Are you having poor oral intake? NO Have you had unintentional weight loss of 15 lbs/7 Kg in the last 3-6 months? NO Bowels: regular Wound: clean & dry Temperature: No Drains: No [facility] Future Appointments Appointment Date:06/21/2025 08:45:00 AM Scheduled Provider:Tray CASTILLO MD Location:[facility] Appointment Type:URO Office Visit Diagnostic Tests Pending * PSA Total 06/24/24 [facility] Evaluation note* Diagnosis Preoperative examination- Primary Preoperative examination, unspecified Recurrent ventral hernia Incisional hernia without mention of obstruction or gangrene documented in this encounter [facility] note* Diagnosis Recurrent ventral hernia- Primary Incisional hernia without mention of obstruction or gangrene Preoperative examination Preoperative examination, unspecified Recurrent ventral hernia Incisional hernia without mention of obstruction or gangrene documented in this encounter [facility] noteNo assessment information availableMer[facility] Work Phone: Evaluation note* Diagnosis Pre-op [...] BP today 126/71 documented [facility]* Diagnosis Recurrent ventral hernia- Primary Incisional hernia without mention of obstruction or gangrene documented [facility] this [facility]* Diagnosis Bilateral hearing loss, unspecified hearing loss type- Primary documented in this encounter [facility]* Diagnosis Fever, unspecified fever cause- Primary Muscle cramps 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 Abdominal aortic aneurysm, without rupture, unspecified (CMS/HCC) Elevated PSA Elevated prostate specific antigen (PSA) Pain in joints Pain in joint, multiple sites Acute non-recurrent pansinusitis documented in this encounter [facility]* Diagnosis Hypokalemia- Primary Hypopotassemia Muscle cramps documented in this encounter [facility]* Diagnosis Onset Date Resolution Status Breathlessness on exertion a cute CRP elevated acute Elevated liver enzymes acute Lung nodule acute Mediastinal lymphadenopathy acute Mesenteric lymphadenopathy a [facility] Work Phone: Evaluation note* Diagnosis Onset Date Resolution Status Breathlessness on exertion a cute CRP elevated acute D-dimer, elevated acute Elevated brain natriuretic peptide (BNP) level acute Elevated liver enzymes acute Lung nodule acute Mediastinal lymphadenopathy acute Mesenteric lymphadenopathy a [facility] Work Phone: Evaluation note* Diagnosis Onset Date Resolution Status Arthralgia acute Elevated liver enzymes acute Hand edema acute Lung nodule acute Mediastinal lymphadenopathy acute Rhinovirus infection acute Abdominal pain acute Nausea and vomiting acute Partial obstruction of small intestine acute [facility] Work Phone: Evaluation note* Diagnosis Partial small bowel obstruction (CMS/HCC)- Primary Unspecified intestinal obstruction Nausea and vomiting, unspecified vomiting type Obesity, Class I, BMI 30-34.9 Primary hypertension (CMS/HCC) Unspecified essential hypertension documented in this encounter [facility]* Diagnosis Acute non-recurrent sinusitis, unspecified location- Primary documented in this encounter [facility] Healthcare[facility] note* Diagnosis Medicare annual wellness visit, subsequent- Primary ACP (advance care planning) Other specified counseling Lung nodule Other diseases of lung, not elsewhere classified AV block, 1st degree First degree atrioventricular block Primary hypertension (CMS/HCC) Unspecified essential hypertension Left bundle branch block Other left bundle branch block Mediastinal lymphadenopathy Enlargement of lymph nodes Popliteal artery aneurysm, bilateral (CMS/HCC) Aneurysm of artery of lower extremity Gastroesophageal reflux disease without esophagitis Esophageal reflux Mesenteric lymphadenopathy Benign prostatic hyperplasia without lower urinary tract symptoms History of colon polyps Elevated PSA Elevated prostate specific antigen (PSA) Peyronie's disease Polyarthralgia Pain in joint, multiple sites Obesity, Class I, BMI 30-34.9 Bilateral tinnitus CRP elevated Elevated C-reactive protein (CRP) Elevated LDL cholesterol level (CMS/HCC) Family history of prostate cancer Family history of malignant neoplasm of prostate History of resection of small bowel Rosacea S/P hernia repair Other postprocedural status Sensorineural hearing loss, bilateral Acute non-recurrent maxillary sinusitis documented in this encounter [facility] HealthcareEvaluation note* Diagnosis Sensorineural hearing loss, bilateral- Primary documented in this encounter [facility] HealthcareEvaluation note* Diagnosis Acute dysfunction of left eustachian tube- Primary documented in this encounter [facility] HealthcareHospital course Narrative No data available for this section [facility] Discharge instructions Additional Instructions [...] years. -Follow up with PCP. -Office number [phone].[facility] Work Phone: Progress note No data available for this section [facility] Progress note Author Milton Lyon [facility] September 04, 2024 5:27pm Note Date/Time September 04, 2024 5 :28pm [facility] [address] [place] [address] Progress Note Signed Patient: Cha Elena MR#: [id number] : 1950 Acct:[id number] Age/Sex: 73 / M Adm Date: 4 Loc: Room: [address] [place] [address] Type: ADM IN Attending Dr: Angle Logan DO Copies to: ~ Date of Service: 09/04/2024 Progress Narrative Note PROGRESS NOTE Progress Note: This had previously been discussed with the hospitalist. Please arrange for follow-up CT scan of the thorax with contrast in 6 months to follow-up on their equivocally enlarged lymphadenopathy which may be reactive with tiny pulmonary nodules which are only 3 to 4 mm in size. Patient can then follow-up in our office as an outpatient. Pulmonary will sign off. Please call if we can be of further assistance. Documented By: Milton Lyon MD [id number] Signed By: <Electronically signed by MD Milton Lyon> 09/04/24 1727 [facility] Work Phone: Reason for referral (narrative)* Outpatient Procedure (Routine) - Pending Review Specialty Diagnoses / Procedures Referred By Naila bai Referred To Contact [facility] Diagnoses Preoperative examination Recurrent ventral hernia Procedures ECG COMPLETE ECG ROUTINE ECG W/LEAST 12 LDS W/I&R Angle Melchor MD [address] [place] [address] [facility] [address] [place] [id number] Referral ID Status Reason Start Date Expiration Date Visits Requested Visits Authorized [id number] Pending Review Auto-Generat ed Referral 2 09/11/2023 1 1 * Consult, Test, Treat (Routine) - Pending Review Specialty Diagnoses / Procedures Referred By Naila bai Referred To Contact Diagnoses Preoperative examination Recurrent ventral hernia Procedures CONSULT TO [facility] BE[facility]ICINE OFFICE/OUTPATIENT [facility] 60-74 MINUTES Angle Melchor MD [address] [facility] [place] [address] Referral ID Status Reason Start Date Expiration Date Visits Requested Visits Authorized [id number] Pending Review PCP Requested Referral 2 09/11/2023 1 1 [facility] Summary Purpose Family History No Family History Records Found Relationship Condition Age at Onset Recorded Date/T vikki aunt Family history of colon cancer Unknown father Unknown mother Family history of colon cancer Unknown Advance Directives No Advanced Directives Records Found Advance Directive Response Recorded Date/ Time Advance Directives No December 05, 2022 9:02am Advance Directive Response Recorded Date/ Time Advance Directives No December 05, 2022 10:02am Advance Directive Response Recorded Date/ Time Advance Directives No September 17, 2024 10:08am Chief Complaint and Reason for Visit Chief Complaint Screening Chief Complaint Screening Screening Chief Complaint abnormal labs Reason for Visit Breathlessness on ex ertion CRP elevated Elevated liver enzymes Lung nodule Mediastinal lymphadenopathy Mesenteric lymphadenopathy Chief Complaint abnormal labs abnormal labs Reason for Visit Breathlessness on ex ertion CRP elevated D-dimer, elevated Elevated brain natriuretic peptide (BNP) level Elevated liver enzymes Lung nodule Mediastinal lymphadenopathy Mesenteric lymphadenopathy Chief Complaint abnormal labs abnormal labs abnormal labs vomiting Reason for Visit Arthralgia Elevated liver enzymes Hand edema Lung nodule Mediastinal lymphadenopathy Rhinovirus infection Abdominal pain Nausea and vomiting Partial obstruction of small intestine Chief Complaint Admit Date r59.1 March 03, 2025 8:24 am Additional Source Comments (unrecognized sect ion and content) No Status Records FoundNo Status Records FoundNo Status Records FoundNo Status Records FoundNo Status Records FoundNo Status Records Found INFORMATION SOURCE (unrecogn ized section and content) DATE CREATED AUTHOR 06/18/2022 [facility] DATE CREATED AUTHOR AUTHOR'S ORGANIZ ATION 04/07/2023 [facility] DATE CREATED AUTHOR AUTHOR'S ORGANIZ ATION 06/26/2024 [facility] DATE CREATED AUTHOR AUTHOR'S ORGANIZ ATION 02/28/2025 [facility] DATE CREATED AUTHOR AUTHOR'S ORGANIZ ATION 04/10/2025 [facility] DATE CREATED AUTHOR AUTHOR'S ORGANIZ ATION 05/13/2025 [facility] Source Comments (unrecognize d section and content) In the event this informatio n is protected by the Federal Confidentiality of Alcohol and Drug Abuse Patient Records regulations: The Federal rules restrict any use of the information to criminally investigate or prosecute any alcohol or drug abuse patient.[facility] the event this information is protected by the Federal Confidentiality of Alcohol and Drug Abuse Patient Records regulations: The Federal rules restrict any use of the information to criminally investigate or prosecute any alcohol or drug abuse patient.[facility] the event this information is protected by the Federal Confidentiality of Alcohol and Drug Abuse Patient Records regulations: The Federal rules restrict any use of the information to criminally investigate or prosecute any alcohol or drug abuse patient.[facility] the event this information is protected by the Federal Confidentiality of Alcohol and Drug Abuse Patient Records regulations: The Federal rules restrict any use of the information to criminally investigate or prosecute any alcohol or drug abuse patient.[facility] the event this information is protected by the Federal Confidentiality of Alcohol and Drug Abuse Patient Records regulations: The Federal rules restrict any use of the information to criminally investigate or prosecute any alcohol or drug abuse patient.[facility] Reason for Visit (unrecogniz ed section and content) Reason Comments 03.07.23 Cure Open Complex AWR 5 h ours los 5 Reason Comments Consult Reason Comments Anesthesia Consult Specialty Diagnoses / Procedures Referred By Contact Referred To Contact Anesthesiology / ANESTHESIOLOGY Diagnoses preop Procedures COMPLETE PACC Angle Melchor MD [address] [place] [address] 9, [address] [place] [address] Referral ID Status Reason Start Date Expiration Date V isits Requested Visits Authorized [id number] Pending Review 03/06/2023 06/04/2023 1 1 Reason Comments Follow Up Phone Call All clear Reason Comments Post Op Reason Comments URI Reason Comments Allergic Rhinitis Hypertension He has not been taki ng the Losartan the [facility] gave him d/t it makes him cough and he just doesn't feel good when he takes it. He checks his BP's at home and they are running really good. Reason Comments Sinusitis Reason Comments Medicare Annual Wellness Visit Subsequen t Care Teams (unrecognized sec tion and content) Team Status: Active Member Role Status Dates Speedy Khanna II MD Primary Care Provider Active Team Status: Inactive Member Role Status Dates Speedy Khanna II MD Primary Care Provider Active Start: March 03, 2025 End: March 03, 2025 Milton Lyon MD Attending Provider Active Start: March 03, 2025 End: March 03, 2025 Team Status: Active Member Role Status Dates Speedy Khanna II MD Primary Care Provider Active Start: September 01, 2024 Sincere Guillen DO Attending Provider Active Sta rt: September 01, 2024 Team Status: Inactive Member Role Status Dates Speedy Khanna II MD Primary Care Provider Active Start: September 03, 2024 End: September 04, 2024 Aga Nguyễn [facility]- Emergency Provider Active Start: September 03, 2024 End: September 04, 2024 Angle Frings , DO Admit Provider, Atte nding Provider Active Start: September 03, 2024 End: September 04, 2024 Angle Castorena MD Other Provider Active Start: September 03, 2024 End: September 04, 2024 Team Status: Active Member Role Status Dates Speedy Khanna II MD Primary Care Provider Active Start: September 03, 2024 Aga Nguyễn , [facility]- Emergency Provider Active Start: September 03, 2024 Angle Logan DO Admit Provider, Othe r Provider Active Start: September 03, 2024 Milton Lyon MD Attending Pr ovider, Other Provider Active Start: September 03, 2024 Team Status: Active Member Role Status Dates Speedy Khanna II MD Primary Care Provider Active Start: September 04, 2024 Aga Nguyễn , [facility]- Emergency Provider Active Start: September 04, 2024 Angle Logan DO Admit Provider, Othe r Provider Active Start: September 04, 2024 Angle Castorena MD Attending Provider, Other Provider Active Start: September 04, 2024 Team Status: Active Member Role Status Dates Speedy Khanna II MD Primary Care Provider Active Start: September 22, 2024 Tray Sanon DO Emergency Provider Active St art: September 22, 2024 Merlyn De La Torre MD Admit Provider, Atte nding Provider Active Start: September 22, 2024 Team Status: Active Member Role Status Dates Speedy Khanna II MD Primary Care Provider Active Start: September 03, 2024 Aga Nguyễn , [facility] Emergency Provider Active Start: September 03, 2024 Angle Logan DO Admit Provider, Atte nding Provider Active Start: September 03, 2024 Team Status: Inactive Member Role Status Dates Ernie Florez MD Attending Provider Active Speedy Khanna II MD Primary Care Provider Active Tank Builder Relationship Specialty Start Date End Date Speedy Khanna II [address] [facility] [address] [place] [address] PCP - General Internal Medicine 02/12/23 Tank Builder Relationship Specialty Start Date End Date Speedy Khanna II [address] [place] [address] PCP - General Internal Medicine 02/12/23 Tank Builder Relationship Specialty Start Date End Date Speedy Khanna II [address] [place] [address] PCP - General Internal Medicine 02/12/23 Tank Builder Relationship Specialty Start Date End Date Speedy Khanna MD [address] [place] [address] PCP - [employer] 11/25/20 Speedy Khanna MD [address] [place] [address] PCP - General Internal Medicine 04/02/23 Tank Builder Relationship Specialty Start Date End Date Speedy Khanna MD [address] [place] [address] PCP - [employer] 11/25/20 Speedy Khanna MD [address] [place] [address] PCP - General Internal Medicine 04/02/23 Tank Builder Relationship Specialty Start Date End Date Speedy Khanna MD [address] [place] [address] PCP - [employer] 11/25/20 Speedy Khanna MD [address] [place] [address] PCP - General Internal Medicine 04/02/23 Tank Builder Relationship Specialty Start Date End Date Speedy Khanna MD [address] [place] [address] PCP - [employer] 11/25/20 Speedy Khanna MD [address] [place] [address] PCP - General Internal Medicine 04/02/23 Tank Builder Relationship Specialty Start Date End Date Speeyd Khanna MD [address] [place] [address] PCP - [employer] 11/25/20 Speedy Khanna MD [address] [facility] [address] [place] [address] PCP - General Internal Medicine 04/02/23 Team Status: Inactive Member Role Status Dates Speedy Khanna II MD Primary Care Provider Active Start: September 22, 2024 End: September 23, 2024 Tray Sanon DO Emergency Provider Active St art: September 22, 2024 End: September 23, 2024 Merlyn De La Torre MD Admit Provider Active Start: O ctober 2023 End: September 23, 2024 Nj Romero DO Attending Provider Active Start: September 22, 2024 End: September 23, 2024 Tima Healy DO Other Provider Active Sta rt: September 22, 2024 End: September 23, 2024 Tank Builder Relationship Specialty Start Date End Date Speedy Khanna MD [address] [facility] [address] [place] [address] PCP - [employer] 11/25/20 Speedy Khanna MD [address] [facility] [address] [place] [address] PCP - General Internal Medicine 04/02/23 Tank Builder Relationship Specialty Start Date End Date Speedy Khanna MD [address] [facility] [address] [place] [address] PCP - [employer] 11/25/20 Speedy Khanna MD [address] [place] [address] PCP - General Internal Medicine 04/02/23 Tank Builder Relationship Specialty Start Date End Date Speedy Khanna MD [address] [place] [address] PCP - [employer] 11/25/20 Speedy Khanna MD [address] [place] [address] PCP - General Internal Medicine 04/02/23 Tank Builder Relationship Specialty Start Date End Date Speedy Khanna MD [address] [place] [address] PCP - [employer] 11/25/20 Speedy Khanna MD [address] [place] [address] PCP - General Internal Medicine 04/02/23 Tank Builder Relationship Specialty Start Date End Date Speedy Khanna MD [address] [place] [address] PCP - [employer] 11/25/20 Speedy Khanna MD [address] [place] [address] PCP - General Internal Medicine 04/02/23 Tank Builder Relationship Specialty Start Date End Date Speedy Khanna MD [address] [place] [address] PCP - [employer] 11/25/20 Speedy Khanna MD [address] [place] [address] PCP - General Internal Medicine 04/02/23 Goals (unrecognized section and content) Goals may be documented in a n alternate section No data available for this sectionGoals may be documented in an alternate section FOR RECORDS PERTAINING TO PATIENTS WHO [...] BE BASED ON THE PRIMARY CLINICAL RECORDS. [email or web address] provides no warranty or guarantee of the accuracy or completeness of information in this document.
[2025-06-07 10:39] LABS: Prostate Specific Antigen Dx 2.25 ng/mL (<=4.00)
== END 2025-06-07 06:22 | disposition home or self-care (01) ==
LOC: LAB 06:24
PROVIDERS: PCP Internal Medicine; Visit Provider Urology
DX: N40.1 Benign prostatic hyperplasia with lower urinary tract symptoms (principal); R97.20 Elevated prostate specific antigen [PSA]
CPT/HCPCS: 36415; 84153